=== PATIENT | female | born 1955 | race African-American/Black ===

== ENCOUNTER 2017-08-15 16:09 | Emergency (ER) | payer MEDICAID ==
[~2017-08-15] VITALS: Ht 175.3 cm; Wt 149.7 kg
[2017-08-15 18:39] LABS: INR 0.92 (0.9-1.15); Partial Thromboplastin Time 29.3 sec (22.64-33.71)
[2017-08-15 18:43] LABS: Albumin 3.6 g/dL (3.4-5.0); Alkaline Phosphatase 102 U/L (45-117); Anion Gap 8 (5-15); Aspartate Aminotransferase 25 U/L (15-37); BUN/Creatinine Ratio 16.5; Bilirubin, Total 0.5 mg/dL (0.2-1.0); Blood Urea Nitrogen 17 mg/dL (7-18); Calcium 9.4 mg/dL (8.5-10.1); Carbon Dioxide 27 mmol/L (21-32); Chloride 106 mmol/L (98-107); GFR African American 70 mL/min; GFR Non-African American 58 mL/min; Glucose 81 mg/dL (74-106); Magnesium 2.6 mg/dL (1.6-2.6); Potassium 3.8 mmol/L (3.5-5.1); Sodium 141 mmol/L (136-145); Total Protein 8.2 g/dL (6.4-8.2)
[2017-08-15 18:50] LABS: Basophils # (auto) 0.1 uL; Basophils % (auto) 1.2 % (0.0-2.0); Eosinophils # (auto) 0.2 uL; Eosinophils % (auto) 2.7 % (0.0-7.0); Hematocrit 39.1 % (36.0-46.0); Hemoglobin 12.9 g/dL (12.2-16.2); Lymphocytes # (auto) 2.2 uL; Lymphocytes % (auto) 38.3 % (10.0-50.0); Mean Corpuscular Hemoglobin 28.4 pg (28.0-32.0); Mean Corpuscular Volume 86.1 fL (80.0-100.0); Mean Platelet Volume 9.8 fL (6.9-10.8); Monocytes # (auto) 0.5 uL; Monocytes % (auto) 8.2 % (0.0-12.0); Neutrophils # (auto) 2.9 uL; Neutrophils % (auto) 49.6 % (37.0-80.0); Nucleated Red Blood Cells % 0.2 %; Platelet Count (auto) 232 10^3/uL (140-450); Red Cell Distribution Width 14.5 % (11.8-14.3); White Blood Cell 5.8 10^3/uL (4.4-10.8)
[2017-08-15 19:34] LABS: B-Type Natriuretic Peptide 177.33 pg/mL (0-100)
[2017-08-15 19:49] LABS: Temperature: 22.7 C (20.0-25.0)
[2017-08-15 20:14] VITALS: BP 190/76
[2017-08-15] MEDS ORDERED: IPRATROPIUM BROM 0.5 MG/2.5ML INH SOL HHN ONE (20:30)
[2017-08-15] MEDS ORDERED: methylPREDNISolone SOD SUCC 125 MG/2 ML VL IV ONE (20:30)
[2017-08-15] MEDS ORDERED: ALBUTEROL SULF 2.5 MG/0.5ML(0.5%) NEB SOLN HHN ONE (20:30)
[2017-08-15] MEDS ORDERED: ATEN-60 PO (20:32)
[2017-08-15] MEDS ORDERED: cloNIDine HCL 0.1 MG TAB PO ONE (20:45)
[2017-08-19] MEDS ORDERED: ALBU1AER4 (19:03)
== END 2017-08-15 22:15 | disposition home or self-care (01) ==
LOC: ER 16:14
DX: J40 Bronchitis, not specified as acute or chronic (principal); I10 Essential (primary) hypertension; J45.909 Unspecified asthma, uncomplicated
CPT/HCPCS: 36415; 71020; 80053; 83735; 83880; 84484; 85025; 85610; 85730; 93005; 94640; 94761; 96374; 99285; J2930

== ENCOUNTER 2024-01-24 14:34 | Emergency (ER) | payer MEDICAID, MEDICARE ==
[~2024-01-24] VITALS: Ht 175.3 cm; Wt 132.0 kg
[~2024-01-24 14:34] MED LIST: ALBU1AER4
[2024-01-24 15:56] VITALS: BP 134/69; PULSE 83; RESP 18; TEMP 97; O2SAT 97
[2024-01-24] MEDS ORDERED: BACDST PO (16:16)
== END 2024-01-24 16:22 | disposition home or self-care (01) ==
LOC: ER 14:34
DX: L91.8 Other hypertrophic disorders of the skin (principal); L98.9 Disorder of the skin and subcutaneous tissue, unspecified; I10 Essential (primary) hypertension; J45.909 Unspecified asthma, uncomplicated; Z88.8 Allergy status to other drugs, medicaments and biological substances; Z79.899 Other long term (current) drug therapy

== ENCOUNTER 2024-10-07 18:56 | Inpatient (IN) | payer MEDICARE ==
[~2024-10-07] VITALS: Ht 175.3 cm; Wt 130.1 kg
[~2024-10-07 18:56] MED LIST changes: +BACDST PO
[2024-10-07 19:25] LABS: Basophils # (auto) 0 10 ^3/uL (0-0.2); Basophils % (auto) 0.8 % (0.0-2.0); Eosinophils # (auto) 0.1 10 ^3/uL (0-0.8); Hemoglobin 13.3 g/dL (12.2-16.2); Monocytes # (auto) 0.5 10 ^3/uL (0-1.3); Nucleated Red Blood Cells % 0.3 %; White Blood Cell 5.6 10^3/uL (4.4-10.8)
[2024-10-07 19:26] LABS: Eosinophils % (auto) 1.7 % (0.0-7.0); Hematocrit 41.9 % (36.0-46.0); Lymphocytes # (auto) 0.9 10 ^3/uL (0.4-5.4); Lymphocytes % (auto) 16.3 % (10.0-50.0); Mean Corpuscular Hemoglobin 26.7 pg (28.0-32.0); Mean Corpuscular Hgb Conc. 31.7 g/dL (32.0-36.0); Mean Corpuscular Volume 84.2 fL (80.0-100.0); Monocytes % (auto) 9.1 % (0.0-12.0); Neutrophils % (auto) 72.1 % (37.0-80.0); Platelet Count (auto) 242 10^3/uL (140-450); Red Blood Cells 4.98 10^6/uL (4.0-5.20); Red Cell Distribution Width 16.6 % (11.8-14.3)
--- NOTE | 2024-10-07 19:45 | ED.PDOC ---
History of Present Illness HPI Comments 68 y/o F, with a Hx of asthma, bronchitis, CHF, COPD, DM, HTN, morbid obesity, PNA, and UTI's, presents with c/o shortness of breath and nonproductive cough for 2 weeks. Patient reports unprovoked onset of persisting mild difficulty breathing and cough 2 weeks ago that progressively worsened within the past few days. Patient comments on no recent stress, injuries, sick contact, travel, or substance use/exposure along with no additional relevant or pertinent Hx. Patient denies having any chest pain, dyspnea, hemoptysis, fever, chills, or other associated symptoms or modifiers at this time. Chief Complaint: Shortness of Breath Time Seen by MD: 19:30 Primary Care Provider: PREET Reviewed Notes: Nurses Notes, Medications, Allergies Allergies: Coded Allergies: Benazepril (Verified Allergy, Unknown, 08/15/17) ALL "PRILS" Lisinopril (Verified Allergy, Unknown, 08/15/17) Home Meds Active Scripts Sulfamethoxazole W/Trimethopri (Bactrim Ds Tablet) 1 Tab Tb, 1 TAB PO BID for 7 Days, #14 TAB 0 Refills Prov:YULI DASILVA FISHER GILL NET 01/24/24 Reported Medications Albuterol Sulfate (Proair Respiclick) 108 Mcg/Act Aer 08/19/17 Information Source: Patient Mode of Arrival: Ambulatory Severity: Moderate Timing: Weeks Duration: Since onset Prehospital treatment: None Past Medical History PAST MEDICAL HISTORY: Asthma, CHF, COPD (w/home O2 use), DM, HTN, UTI'S Past Medical History (Other): morbid obesity, bronchitis, PNA Surgical History: Denies all surgeries [employer]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 Family History Family History: Unknown Social History Smoker: Non-Smoker Alcohol: Denies ETOH Use Drugs: Denies Drug Use Lives In: Home Constitutional: denies: chills, diaphoresis, fatigue, fever, malaise, sweats, weakness, others EENTM: denies: blurred vision, double vision, ear bleeding, ear discharge, ear drainage, ear pain, ear ringing, eye pain, eye redness, hearing loss, mouth pain, mouth swelling, nasal discharge, nose bleeding, nose congestion, nose pain, photophobia, tearing, throat pain, throat swelling, voice changes, others Respiratory: reports: cough, shortness of breath; denies: hemoptysis, orthopnea, SOB at rest, SOB with excertion, stridor, wheezing, others Cardiovascular: denies: chest pain, dizzy spells, diaphoresis, Dyspnea on exertion, edema, irregular heart beat, left arm pain, lightheadedness, palpitations, PND, syncope, others Gastrointestinal: denies: abdomen distended, abdominal pain, blood streaked bowels, constipated, diarrhea, dysphagia, difficulty swallowing, hematemesis, melena, nausea, poor appetite, poor fluid intake, rectal bleeding, rectal pain, vomiting, others Genitourinary: denies: abnormal vagina bleeding, burning, dyspareunia, dysuria, flank pain, frequency, hematuria, incontinence, pain, , vagina discharge, urgency, others Neurological: denies: dizziness, fainting, headache, left sided numbness, left sided weakness, numbness, paresthesia, pre-existing deficit, right sided numbness, right sided weakness, seizure, speech problems, tingling, tremors, weakness, others Musculoskeletal: denies: back pain, gout, joint pain, joint swelling, muscle pain, muscle stiffness, neck pain, others Integumetry: denies: bruises, change in color, change in hair/nails, dryness, laceration, lesions, lumps, rash, wounds, others Allergic/Immunocompromised: denies: Difficulty Healing, Frequent Infections, Hives, Itching, others Hematologic/Lymphatic: denies: anemia, blood clots, easy bleeding, easy bruising, swollen glands, others Endocrine: denies: excessive hunger, excessive sweating, excessive thirst, excessive urination, flushing, intolerance to cold, intolerance to heat, unexplained weight gain, unexplained weight loss, others Psychiatric: denies: anxiety, bipolar disorder, depression, hopeless, panic disorder, schizophrenia, sleepless, suicidal, others All Other Systems: Reviewed and Negative Physical Exam General Appearance: No Apparent Distress, Obese HEENT: Normal ENT Inspection, Pharynx Normal, TMs Normal Neck: Full Range of Motion, Non-Tender, Normal, Normal Inspection Respiratory: Chest Non-Tender, No Accessory Muscle Use, Respiratory Distress (mild respiratory distress), Wheezing (scattered wheezing), Other (shallow breathe sounds, tachpneic) Cardiovascular: No Edema, No JVD, No Murmur, No Gallop, Normal Peripheral Pulses, Regular Rate/Rhythm Breast Exam: Deferred Gastrointestinal: No Organomegaly, Non Tender, No Pulsatile Mass, Normal Bowel Sounds, Soft Genitalia: Deferred Pelvic: Deferred Rectal: Deferred Extremities: No calf tenderness, Normal capillary refill, Normal inspection, Normal range of motion, Swelling (3+ pitting edema to bilateral lower extremities ) Musculoskeletal : Apperance: Normal Neurologic: Alert, clinical nurse occupational medicine II-XII nml as Tested, No Motor Deficits, Normal Affect, Normal Mood, No Sensory Deficits Cerebellar Function: Normal Reflexes: Normal Skin: Dry, Normal Color, Warm Peripheral Pulses: 2+ carotid (R), 2+ carotid (L) Lymphatic: No Adenopathy Was a procedure done? Was a procedure done?: No EKG EKG : Pulse Rate (adult): 86 [place]: RAD Cardiac Rhythm: NSR Block: None Hypertrophy: None ST: Normal Differential Dx Considerations may include: bronchitis, PNA, Covid19, URI, viral syndrome, PE CHF exacerbation, ND, ACS X-Ray, Labs, Meds, VS Vital Signs Date Time Temp Pulse Resp B/P (MAP) Pulse Ox O2 Delivery O2 Flow Rate FiO2 10/07/24 20:50 212/105 10/07/24 20:06 99.3 81 22 198/103 (134) 98 99.3 10/07/24 20:02 86 10/07/24 19:13 19 95 Nasal Cannula* 3 32 10/07/24 19:07 86 10/07/24 19:07 98.6 85 19 221/107 (145) 95 Lab Test 10/07/24 19:53 10/07/24 19:07 Range/Units Troponin I High Sensitivity 46 *H 45 *H </=34 ng/L White Blood Count 5.6 4.4-10.8 10^3/uL Red Blood Count 4.98 4.0-5.20 10^6/uL Hemoglobin 13.3 12.2-16.2 g/dL Hematocrit 41.9 36.0-46.0 % Mean Corpuscular Volume 84.2 80.0-100.0 fL Mean Corpuscular Hemoglobin 26.7 L 28.0-32.0 pg Mean Corpuscular Hemoglobin Concent 31.7 L 32.0-36.0 g/dL Red Cell Distribution Width 16.6 H 11.8-14.3 % Platelet Count 242 140-450 10^3/uL Mean Platelet Volume 10.2 6.9-10.8 fL Neutrophils (%) (Auto) 72.1 37.0-80.0 % Lymphocytes (%) (Auto) 16.3 10.0-50.0 % Monocytes (%) (Auto) 9.1 0.0-12.0 % Eosinophils (%) (Auto) 1.7 0.0-7.0 % Basophils (%) (Auto) 0.8 0.0-2.0 % Neutrophils # (Auto) 4.0 1.6-8.6 10 ^3/uL Lymphocytes # (Auto) 0.9 0.4-5.4 10 ^3/uL Monocytes # (Auto) 0.5 0-1.3 10 ^3/uL Eosinophils # (Auto) 0.1 0-0.8 10 ^3/uL Basophils # (Auto) 0 0-0.2 10 ^3/uL Nucleated Red Blood Cells 0.3 % Sodium Level 143 136-145 mmol/L Potassium Level 4.0 3.5-5.1 mmol/L Chloride Level 109 H 98-107 mmol/L Carbon Dioxide Level 23 20-31 mmol/L Anion Gap 11 5-15 Blood Urea Nitrogen 14 9-23 mg/dL Creatinine 1.31 H 0.550-1.02 mg/dL Glomerular Filtration Rate Calc 44 >90 mL/min BUN/Creatinine Ratio 10.7 10.0-20.0 Serum Glucose 104 74-106 mg/dL Calcium Level 10.8 H 8.7-10.4 mg/dL Total Bilirubin 2.4 H 0.2-1.0 mg/dL Aspartate Amino Transferase (AST) 19 13-40 U/L Alanine Aminotransferase (ALT) 18 7-40 U/L Alkaline Phosphatase 119 H 46-116 U/L B-Type Natriuretic Peptide 1095.27 0-100 pg/mL Total Protein 7.6 5.7-8.2 g/dL Albumin 4.8 3.2-4.8 g/dL Current Medications Medications (Trade) Dose Ordered Sig/Sohail Route Start Time Stop Time Status Last Admin Hydralazine HCl (Apresoline Injection) 10 mg ONCE ONCE IV 10/07/24 20:30 10/07/24 20:31 DC 10/07/24 20:50 X-Ray, Labs, Meds, VS Comment Imaging: X-rays and CT scans were reviewed and interpreted by this provider, x- ray shows mild pulmonary congestion Patient will be admitted for CHF exacerbation, hypoxia, requiring 3 L nasal cannula to maintain 94% oxygenation Patient will be started on 60 mg Lasix Patient has prior medical visits reviewed. Med reconciliation performed Vital signs reviewed Time of 1ST Reevaluation: 20:00 Reevaluation 1ST: Improved Patient Education/Counseling: Diagnosis, Treatment Family Education/Counseling: No Family Present Departure 1 Departure Time of Disposition: 20:57 Impression: Primary Impression: Obesity Qualified Codes: E66.9 - Obesity, unspecified Additional Impressions: CHF exacerbation Qualified Codes: I50.23 - Acute on chronic systolic (congestive) heart failure Pulmonary congestion Hypoxia Disposition: ADMITTED INPATIENT Condition: Fair Discharged With: Self Critical Care Note Critical Care Time?: No Stability Stability form required: No Heart Score Heart Score: Heart Score Response (Comments) Value History Moderate Suspicious 1 EKG Normal 0 Age >65 2 Risk Factors >3 or Hx ASHD 2 Troponin 1-2 x's Normal limit 1 Total 6 I personally scribed for WESLEY LEO ([email or web address]) on 10/07/24 at 19:45. Electronically submitted by Lyndon Hanna ([email or web address]). I personally scribed for WESLEY LEO ([email or web address]) on 10/07/24 at 20:02. Electronically submitted by Lyndon Hanna ([email or web address]). WESLEY LEO Oct 07, 2024 19:45
--- NOTE | 2024-10-07 19:47 | DVH ---
CHEST RADIOGRAPH Indication:sob Technique: Single frontal view of the chest was obtained Comparison: None FINDINGS: Lines and Tubes: None Lungs: No focal consolidation. Mild interstitial prominence. Elevated right hemidiaphragm. Indistinct ness of the left hemidiaphragm which may be from overlying cardiac silhouette. No pneumothorax. Cardiomediastinal contours: Moderate cardiomegaly Bones: No acute osseous abnormality. IMPRESSION: Moderate cardiomegaly with mild pulmonary vascular congestion.
[2024-10-07 19:50] LABS: Alanine Aminotransferase 18 U/L (7-40); Alkaline Phosphatase 119 U/L (46-116); Calcium 10.8 mg/dL (8.7-10.4); Chloride 109 mmol/L (98-107)
[2024-10-07 19:51] LABS: Albumin 4.8 g/dL (3.2-4.8); Anion Gap 11 (5-15); Aspartate Aminotransferase 19 U/L (13-40); BUN/Creatinine Ratio 10.7 (10.0-20.0); Bilirubin, Total 2.4 mg/dL (0.2-1.0); Blood Urea Nitrogen 14 mg/dL (9-23); Carbon Dioxide 23 mmol/L (20-31); Glucose 104 mg/dL (74-106); Sodium 143 mmol/L (136-145); Total Protein 7.6 g/dL (5.7-8.2)
[2024-10-07] MEDS: hydrALAZINE HCL 20 MG/ML VL IV ONE (20:50)
[2024-10-07] MEDS: FUROSEMIDE 100 MG/10ML VIAL IV ONE (21:11)
[2024-10-07] MEDS ORDERED: NITROGLYCERIN 0.4 MG SL TAB SL PRN (21:45)
[2024-10-07] MEDS ORDERED: ONDANSETRON HCL 4 MG/2 ML VIAL IV PRN (21:45)
[2024-10-07] MEDS ORDERED: MORPHINE SULFATE INJ 2 MG/ml SYRG IV PRN ×2 (21:45)
[2024-10-07 21:50] VITALS: O2SAT 100
[2024-10-07] MEDS: SODIUM CHLOR 0.9% PF (SALINE LOCK) 10ML VIAL/SYR IV SCH (22:10)
[2024-10-07] MEDS: ENOXAPARIN SOD 40 MG/0.4 ML SYRINGE SC SCH (22:10)
--- NOTE | 2024-10-07 22:23 | DVHHPRES ---
History of Present Illness Resident Creating Document: BART ALCALA RESIDENT History of Present Illness EVE STEWART is a 68 years old female with a PMH of asthma, bronchitis, CHF, COPD, dm, HTN, morbid obesity presented to the ED with the chief complaints of worsening of shortness of breath for past 1 and half week. Patient reported she usually have shortness of breath but for past 1 and half week it is worsening with cough. Patient also reported orthopnea and PND. On my assessment patient denies recent stressors, chest pain, palpitations, fever, chills, sick contacts, any recent injury, substance abuse and other associated symptoms. Past Medical History Asthma, CHF, COPD, DM, HTN, UTI'S, morbid obesity Past Surgical History: None Family History Reviewed, noncontributory Past Social History Lives at home. Denies smoking, alcohol and other drug abuse Review of Systems Constitutional: No: Fever, Chills, Sweats, Weakness, Malaise, Other Eyes: No: Pain, Vision change, Conjunctivae inflammation, Eyelid inflammation, Other, Redness ENT: No: Ear pain, Ear discharge, Nose pain, Nose discharge, Nose congestion, Mouth pain, Mouth swelling, Throat pain, Throat swelling, Other Respiratory: Cough, Shortness of breath, SOB with excertion, Wheezing Cardiovascular: Orthopnea, Paroxysmal Noc. Dyspnea, Edema Gastrointestinal: No: Nausea, Vomiting, Abdominal Pain, Diarrhea, Constipation, Melena, Hematochezia, Other Genitourinary: No Dysuria, No Frequency, No Incontinence, No Hematuria, No Retention, No Other Musculoskeletal: No: other, neck pain, shoulder pain, arm pain, back pain, hand pain, leg pain, foot pain Skin: No: Rash, Lesions, Jaundice, Bruising, Other Neurological: No: Weakness, Numbness, Incoordination, Change in speech, Confusion, Seizures, Other Allergies: Coded Allergies: Benazepril (Verified Allergy, Unknown, 08/15/17) ALL "PRILS" Lisinopril (Verified Allergy, Unknown, 08/15/17) Medications Current Medications Medications Dose Ordered Sig/Sohail Route Start Time Stop Time Status Last Admin Dose Admin Sodium Chloride 10 ml Q8HR IV 10/07/24 22:00 10/07/24 22:10 10 ML Ondansetron HCl 4 mg Q4HP PRN IV 10/07/24 21:45 Acetaminophen 650 mg Q6HP PRN PO 10/07/24 21:45 Morphine Sulfate 2 mg Q4HPRN PRN IV 10/07/24 21:45 Enoxaparin Sodium 40 mg DAILY SC 10/07/24 21:45 10/07/24 22:10 40 MG Nitroglycerin 0.4 mg Q5MINP PRN SL 10/07/24 21:45 Morphine Sulfate 2 mg Q30M PRN IV 10/07/24 21:45 Furosemide 40 mg BIDD IV 10/08/24 06:00 Hydralazine HCl 10 mg Q6HPRN PRN IV 10/07/24 22:00 Albuterol 2.5 mg Q4HPRN PRN NEB 10/07/24 22:15 Exam Vital Signs Vital Signs Date Time Temp Pulse Resp B/P (MAP) Pulse Ox O2 Delivery O2 Flow Rate FiO2 10/07/24 21:11 199/98 10/07/24 20:17 98.1 85 22 96 98.1 10/07/24 19:13 Nasal Cannula* 3 32 Exam Pt is lying on bed General Appearance: Alert, Oriented X3, Cooperative, Not in acute distress HEENT: Atraumatic, Mucous membranes moist/pink Respiratory: Decreased breath sounds, wheezing, use of accessory muscles Cardiovascular: Regular rate, Normal S1, Normal S2, No murmurs Abdominal: Active bowel sounds, Soft, no distention, no tenderness Extremities: 3+ BLE edema, Normal pulses, No tenderness/swelling Skin: No Significant rash, except past surgical scars Neuro: Normal speech, sensorimotor deficits none Psych/Mental Status: Mental status NL, Mood NL Nurse was there as susanne during examination Labs/Xrays Labs Test 10/07/24 19:53 10/07/24 19:07 Range/Units Troponin I High Sensitivity 46 *H </=34 ng/L White Blood Count 5.6 4.4-10.8 10^3/uL Red Blood Count 4.98 4.0-5.20 10^6/uL Hemoglobin 13.3 12.2-16.2 g/dL Hematocrit 41.9 36.0-46.0 % Mean Corpuscular Volume 84.2 80.0-100.0 fL Mean Corpuscular Hemoglobin 26.7 L 28.0-32.0 pg Mean Corpuscular Hemoglobin Concent 31.7 L 32.0-36.0 g/dL Red Cell Distribution Width 16.6 H 11.8-14.3 % Platelet Count 242 140-450 10^3/uL Mean Platelet Volume 10.2 6.9-10.8 fL Neutrophils (%) (Auto) 72.1 37.0-80.0 % Lymphocytes (%) (Auto) 16.3 10.0-50.0 % Monocytes (%) (Auto) 9.1 0.0-12.0 % Eosinophils (%) (Auto) 1.7 0.0-7.0 % Basophils (%) (Auto) 0.8 0.0-2.0 % Neutrophils # (Auto) 4.0 1.6-8.6 10 ^3/uL Lymphocytes # (Auto) 0.9 0.4-5.4 10 ^3/uL Monocytes # (Auto) 0.5 0-1.3 10 ^3/uL Eosinophils # (Auto) 0.1 0-0.8 10 ^3/uL Basophils # (Auto) 0 0-0.2 10 ^3/uL Nucleated Red Blood Cells 0.3 % Sodium Level 143 136-145 mmol/L Potassium Level 4.0 3.5-5.1 mmol/L Chloride Level 109 H 98-107 mmol/L Carbon Dioxide Level 23 20-31 mmol/L Anion Gap 11 5-15 Blood Urea Nitrogen 14 9-23 mg/dL Creatinine 1.31 H 0.550-1.02 mg/dL Glomerular Filtration Rate Calc 44 >90 mL/min BUN/Creatinine Ratio 10.7 10.0-20.0 Serum Glucose 104 74-106 mg/dL Calcium Level 10.8 H 8.7-10.4 mg/dL Total Bilirubin 2.4 H 0.2-1.0 mg/dL Aspartate Amino Transferase (AST) 19 13-40 U/L Alanine Aminotransferase (ALT) 18 7-40 U/L Alkaline Phosphatase 119 H 46-116 U/L B-Type Natriuretic Peptide 1095.27 0-100 pg/mL Total Protein 7.6 5.7-8.2 g/dL Albumin 4.8 3.2-4.8 g/dL Assessment/Plan Assessment/Plan # acute on chronic systolic vs diastolic CHF # acute on chronic hypoxic respiratory failure due to likely above # NSTEMI type 2 likely due to above # ? Asthma exacerbation -elevated BNP, troponins -ordered echocardiogram -CXR showing cardiomegaly with vascular congestion -admitted under telemetry unit, monitor continuous -given 1 dose of Lasix 60 mg, continue Lasix 40 mg from tomorrow -cardiology consultation -initially on 3 L NC O2 but ordered BiPAP for tonight -ordered albuterol med neb as required -strict I&Os and fluid restriction # hypertensive urgency vs emergency -continuously monitored -currently on hydralazine 10 mg p.r.n. # HAYDE likely VMN -monitor lab -strict I&O -fluid restriction # morbid obesity with a BMI 46.6 -counseled regarding lifestyle modifications Lovenox for now No GI be PPX Cardiac diet Goals of care discussed with the patient for more than 27 minutes: Full code status Case management discussed with Dr. Apariico, patient and nurse Plan discussed with: Patient My Orders Orders - BART ALCALA RESIDENT Procedure Category Date Status Time Admit ADMIT 10/07/24 Transmitted 21:40 Allergies ROSSY 10/07/24 In Process 21:40 Code Status CODE 10/07/24 Transmitted 21:40 Sodium Chloride Lock PHA 10/07/24 In Process (Saline Lock Ns) 22:00 Ondansetron Hcl PHA 10/07/24 In Process (Zofran) 21:45 Complete Blood Count LAB 10/08/24 Verified 04:00 Comprehensive LAB 10/08/24 Verified Metabolic Panel 04:00 Cardiac DIET 10/08/24 Transmitted Diet-2gna,Lofat,Lochol Breakfast Echo 2d Mode Cardiac US 10/07/24 Logged DOP 21:40 Acetaminophen Tablet PHA 10/07/24 In Process (Tylenol Tablet) 21:45 Morphine Sulfate PHA 10/07/24 In Process Injection 21:45 Enoxaparin Sodium PHA 10/07/24 In Process (Lovenox) 21:45 Nitroglycerin PHA 10/07/24 In Process Sublingual (Ntrostat 21:45 Morphine Sulfate PHA 10/07/24 In Process Injection 21:45 Oxygen By Nasal RT 10/07/24 Transmitted Cannula 21:40 Stat Ekg For Chest ROSSY 10/07/24 In Process Pain 21:40 Notify Of Changes ROSSY 10/07/24 In Process From Base 21:40 Office Nurse Practitioner For ROSSY 10/07/24 In Process 24 Hours 21:40 Emergency Dysrhythmia ROSSY 10/07/24 In Process Protocol 21:40 Rhythm Strips Once [facility] 10/07/24 In Process Every Shift 21:40 BIPAP RT 10/07/24 Logged 21:40 Abg W/ Co-Ox RT 10/07/24 Logged 23:00 Furosemide Injection PHA 10/08/24 In Process (Lasix Injection) 06:00 Hydralazine Injection PHA 10/07/24 In Process (Apresoline Inject 22:00 Albuterol Medneb PHA 10/07/24 In Process (Ventolin Medneb) 22:15 Strict I & O [facility] 10/07/24 Transmitted 22:09 Maintain Fluid [facility] 10/07/24 Transmitted Restrictions 22:09 Date of Service: Oct 07, 2024 Billing Provider: HARRY APARICIO MD Common Visit Codes: 04541-[id number] INP/OBS CARE (HIGH) Secondary Visit Codes: 69520-[id number] CARE PLAN 30 MINUTES BART ALCALA RESIDENT Oct 07, 2024 22:23 HARRY APARICIO MD Oct 08, 2024 18:17
[2024-10-07 22:30] VITALS: BP 193/90; PULSE 76; RESP 22; TEMP 98.1; O2SAT 95
[2024-10-07] MEDS: hydrALAZINE HCL 20 MG/ML VL IV PRN (22:33)
[2024-10-07 22:53] VITALS: O2SAT 96
[2024-10-07] MEDS: ALBUTEROL SULF 2.5 MG/0.5ML(0.5%) NEB SOLN NEB PRN (22:53)
[2024-10-07] MEDS: IPRATROPIUM BROM 0.5 MG/2.5ML INH SOL NEB ONE (22:53)
[2024-10-07 23:03] VITALS: PULSE 85; RESP 28; O2SAT 94
[2024-10-07 23:10] VITALS: O2SAT 96
[2024-10-07 23:31] LABS: Base Excess -2.8 mmol/L (-2.0-3.0)
[2024-10-08] VITALS (29 sets, daily range): BP systolic 128–202; BP diastolic 55–118; PULSE 55–127; RESP 18–40; TEMP 98.8; O2SAT 89–100
[2024-10-08] MEDS: cloNIDine 0.2 mg/24hr 7DAY PATCH TD ONE (00:04)
[2024-10-08] MEDS: cloNIDine HCL 0.1 MG TAB PO ONE (01:02)
[2024-10-08] MEDS: LORazepam 2MG/ML-1ML VIAL IV ONE (03:03)
[2024-10-08] MEDS: MAGNESIUM SULFATE 1GM/100ML 100 ML IV ONE (03:45)
[2024-10-08 04:43] LABS: Basophils # (auto) 0 10 ^3/uL (0-0.2); Basophils % (auto) 0.6 % (0.0-2.0); Eosinophils # (auto) 0 10 ^3/uL (0-0.8); Eosinophils % (auto) 0.4 % (0.0-7.0); Hematocrit 37.4 % (36.0-46.0); Hemoglobin 12.1 g/dL (12.2-16.2); Lymphocytes # (auto) 0.9 10 ^3/uL (0.4-5.4); Lymphocytes % (auto) 12.2 % (10.0-50.0); Mean Corpuscular Hemoglobin 27.3 pg (28.0-32.0); Mean Corpuscular Hgb Conc. 32.3 g/dL (32.0-36.0); Mean Corpuscular Volume 84.5 fL (80.0-100.0); Monocytes # (auto) 0.7 10 ^3/uL (0-1.3); Monocytes % (auto) 9.3 % (0.0-12.0); Neutrophils # (auto) 5.6 10 ^3/uL (1.6-8.6); Neutrophils % (auto) 77.5 % (37.0-80.0); Nucleated Red Blood Cells % 0.1 %; Platelet Count (auto) 201 10^3/uL (140-450); Red Blood Cells 4.42 10^6/uL (4.0-5.20); Red Cell Distribution Width 16.4 % (11.8-14.3); White Blood Cell 7.3 10^3/uL (4.4-10.8)
[2024-10-08 05:01] LABS: INR 1.12 (0.9-1.15); Partial Thromboplastin Time 24.8 SEC (24.5-34.5); Prothrombin Time 11.8 sec (9.3-11.8)
[2024-10-08 05:05] LABS: Alanine Aminotransferase 16 U/L (7-40); Albumin 4.2 g/dL (3.2-4.8); Alkaline Phosphatase 101 U/L (46-116); Anion Gap 7 (5-15); Aspartate Aminotransferase 20 U/L (13-40); BUN/Creatinine Ratio 11.2 (10.0-20.0); Bilirubin, Total 1.9 mg/dL (0.2-1.0); Blood Urea Nitrogen 14 mg/dL (9-23); Calcium 10.2 mg/dL (8.7-10.4); Carbon Dioxide 26 mmol/L (20-31); Chloride 110 mmol/L (98-107); Glucose 121 mg/dL (74-106); Potassium 4.2 mmol/L (3.5-5.1); Sodium 143 mmol/L (136-145); Total Protein 6.7 g/dL (5.7-8.2)
[2024-10-08] MEDS ORDERED: NITROGLYCERIN 50MG/250ML 250 ML IV SCH (05:45)
[2024-10-08] MEDS ORDERED: FUROSEMIDE 40 MG/4 ML VIAL IV SCH (06:00)
[2024-10-08 06:05] LABS: Base Excess -0.6 mmol/L (-2.0-3.0)
[2024-10-08] MEDS: ETOMIDATE (2MG/ML) 20ML VIAL IV ONE (07:47)
[2024-10-08] MEDS: ROCURONIUM 10MG/ML 10ML VIAL IV ONE (07:48)
[2024-10-08] MEDS: MIDAZOLAM DRIP 50 mg/50mL 50 ML IV SCH (07:49)
[2024-10-08] MEDS: LABETALOL HCL 20 MG/4 ML VL IV ONE ×2 (08:36→08:47)
[2024-10-08] MEDS: FUROSEMIDE INJECTION 10 ML ONE (08:36)
[2024-10-08] MEDS: FUROSEMIDE INJECTION 100 MG in SODIUM CHL 0.9% 100 ML IV SCH (08:48)
[2024-10-08] MEDS: DOPamine 1600MCG/ML D5W 250 ML IV SCH (09:10)
[2024-10-08] MEDS ORDERED: DOPamine 1600MCG/ML D5W 250 ML IV SCH (09:15)
--- NOTE | 2024-10-08 09:37 | DVH ---
CHEST RADIOGRAPH Indication:post intubation, central line Technique: Single frontal view of the chest was obtained COMPARISON: XY CHEST PORTABLE on DOS: 10/07/24 FINDINGS: Lines and Tubes: Endotracheal tube, enteric catheter and right central venous catheter in satisfactor y position. Lungs: Multifocal airspace disease. Pleura: No effusion. No pneumothorax. Cardiomediastinal contours: Unremarkable Bones: Unremarkable IMPRESSION: Lines and tubes in satisfactory position.
[2024-10-08] MEDS: DOPamine 1600MCG/ML D5W 250 ML IV ONE (09:56)
[2024-10-08] MEDS: metOLazone 5 MG TAB PO SCH (10:00)
[2024-10-08] MEDS: NITROGLYCERIN 50MG/250ML 250 ML IV SCH (10:00)
[2024-10-08] MEDS: fentaNYL Drip 2500mCg/250mlNS 250 ML IV SCH (10:14)
[2024-10-08 10:27] LABS: Base Excess -2.5 mmol/L (-2.0-3.0)
--- NOTE | 2024-10-08 11:18 | DVH ---
BILATERAL LOWER EXTREMITY VENOUS DOPPLER CLINICAL HISTORY: rule out dvt Technique: Duplex Doppler evaluation of the deep venous systems of both lower extremities from the co mmon femoral veins to the popliteal veins including color Doppler and spectral/pulsed waveform analys is was performed. COMPARISON: None FINDINGS: The right and left common femoral, superficial femoral, popliteal, posterior tibial and peroneal vein s appear patent with normal augmentation, phasicity, compressibility and color-flow. IMPRESSION: 1. There is no sonographic evidence for DVT in the lower extremities. HS:Y
[2024-10-08 11:22] LABS: Urine Bacteria None Seen /hpf (None Seen)
--- NOTE | 2024-10-08 11:40 | DVHPNRES ---
Progress Note Date Seen: Oct 08, 2024 Resident Creating Document: ANTONIETTA MORRIS RESIDENT Medical Necessity Reason Pt with a Central, PICC or Fol: Yes The following are medically ne: PICC Line, Nova Catheter Subjective Review of Systems A 68y old with PMHx asthma, CHF, DM, HTN and obesity who came to ED due to SOB at rest, orthopena and PND for 2 weeks associated with cough according to the sister. No chest pain No other symptoms. According to the sister, patient was uncompliant with medical visits At admission: elevated BP, respiratory distress At assessment 10/08/24 at 7 am: tachypneic on O2 high flow, case discussed with ED, patient was intubated and due to high blood pressure: 270/ 130: labetalol was given and furosemide drip was started Also patient presented with elevated troponins Objective vital signs Vital Sign Date Time Temp Pulse Resp B/P (MAP) Pulse Ox O2 Delivery O2 Flow Rate FiO2 10/08/24 11:00 156/72 10/08/24 10:38 75 20 97 60 10/08/24 07:20 Hi-Flow Heated NC+ 50 10/08/24 07:20 98.7 98.7 Total Intake and Output 10/07/24 10/07/24 10/08/24 14:59 22:59 06:59 Intake Total 100 ml Output Total 3000 ml Balance -2900 ml medications Current Medications Medications Dose Ordered Sig/Sohail Route Start Time Stop Time Status Last Admin Dose Admin Sodium Chloride 10 ml Q8HR IV 10/07/24 22:00 10/08/24 06:00 10 ML Ondansetron HCl 4 mg Q4HP PRN IV 10/07/24 21:45 Acetaminophen 650 mg Q6HP PRN PO 10/07/24 21:45 Morphine Sulfate 2 mg Q4HPRN PRN IV 10/07/24 21:45 Enoxaparin Sodium 40 mg DAILY SC 10/07/24 21:45 10/08/24 11:16 40 MG Nitroglycerin 0.4 mg Q5MINP PRN SL 10/07/24 21:45 Morphine Sulfate 2 mg Q30M PRN IV 10/07/24 21:45 Hydralazine HCl 10 mg Q6HPRN PRN IV 10/07/24 22:00 10/07/24 22:33 10 MG Albuterol 2.5 mg Q4HPRN PRN NEB 10/07/24 22:15 10/08/24 06:39 2.5 MG Furosemide 100 mg/ Sodium Chloride 110 ml @ 4.4 mls/hr Q24H IV 10/08/24 07:15 10/08/24 08:48 4.4 MLS/HR Metolazone 5 mg DAILY PO 10/08/24 10:00 Midazolam HCl 50 ml @ 1 mls/hr Q24H IV 10/08/24 07:30 10/08/24 07:49 1 MLS/HR Nitroglycerin 250 ml @ 1.5 mls/hr Q24H IV 10/08/24 09:00 Dopamine HCl/ Dextrose 250 ml @ 26.831 mls/ hr Q9H20M IV 10/08/24 09:15 UNV 10/08/24 09:10 26.831 MLS/HR Fentanyl Citrate 250 ml @ 2.5 mls/hr Q24H IV 10/08/24 10:00 10/08/24 10:14 2.5 MLS/HR Ceftriaxone Sodium 50 ml @ 100 mls/hr DAILY@09 IV 10/09/24 09:00 Azithromycin 250 ml @ 125 mls/hr DAILY IV 10/09/24 10:00 Future Hold Examination Pt in acute respiratory distress HEENT: Atraumatic, Mucous membranes moist/pink Respiratory: Decreased breath sounds, crackles bi basal use of accessory muscles Cardiovascular: Regular rate, Normal S1, Normal S2, No murmurs Abdominal: , Soft, no distention, no tenderness Extremities: 3+ BLE edema, Normal pulses, Skin: No Significant rash, except past surgical scars Neuro: Normal speech, sensorimotor deficits none Psych/Mental Status: Mental status NL, Mood NL laboratory and microbiology Laboratory Tests 10/08/24 04:29 Test 10/08/24 04:29 Range/Units Serum Glucose 121 H 74-106 mg/dL Problem List/Assessment/Plan Problem List/Assessment/Plan NEUROLOGY Hypertensive emergency resolved Head CT scan: 1. No acute intracranial process. 2. Bilateral orbital globe proptosis. Pt is on sedation RASS -3 CARDIOLOGY Acute respiratory failure due to acute systolic heart failure, ARDS and possible pneumonia Pt was in mayor respiratory distress: intubated New ECHO: Severely dilated left ventricle. Severely reduced left ventricular systolic function estimated ejection fraction 20%. There is global wall akinesia Mildly dilated right ventricle. Mildly reduced right ventricular systolic function. Moderately dilated right and left atria. Normal aortic valve structure and function. Normal mitral valve structure and function. The the tricuspid valve appears normal structure and function. The pulmonary valve is grossly normal. No pericardial effusion. Furosemide drip Metolazone Per cardiology: metoprolol 25 mg Hypertensive urgency resolved Hydralazine PRN NSTEMI? Elevated troponins Trending high: 45 - 46 - 49 - 125 Cardiology on board PULMONARY Acute respiratory failure due to acute systolic heart failure, ARDS and possible pneumonia sepsis due to pneumonia gram + /gram neg vent settings: Fio2 60 TV 500 PEEP 5 RR 20 pH 7.38 PO2 85.6 co2 43 PE was ruled out CT scan: 1. No pulmonary embolism. 2. Bibasilar atelectasis and consolidation. Superimposed pneumonia is not excluded. Moderate right pleural effusion. Mediastinal lymphadenopathy could be reactive. Ceftriaxone Azithromycin Hydrocortisone 100 mg q 12h GI Hold on feedings at the moment Transaminitis Billirubin are trending high, normal rest of liver panel f/u RENAL/ HAYDE hemodinamically mediated continue furosemide drip Creatinine is slighlty trending high: 1.42 hold on fluids ENDOCRINOLOGY Proptosis H/o of thyroid tumors?? In patient TSH 1.2 - 2.31 Free t4 and t3 ordered hba1c normal DVT prophylaxis: enoxaparin PUD prophylaxis: protonix Case discussed with Dr Suárez Time spent on critical care excluding procedures 82 min Plan discussed with: Patient, Other (rn) My Orders My Orders Orders - ANTONIETTA MORRIS Procedure Category Date Status Time Chest Xray 1 View XY 10/08/24 Resulted 09:[address] 10/08/24 Logged 09:[address] 10/08/24 Logged Contrast 10:26 Bilat Lower Dvt US 10/08/24 Resulted 10:26 Covid19 Antigen [facility] 10/08/24 In Process Rapid Influenza A&B LAB 10/08/24 In Process 10:27 Ceftriaxone 1gm/50ml PHA 10/09/24 In Process D5w (Rocephin) 09:00 Azithromycin 500mg/ PHA 10/09/24 In Process 250ml (Zithromax 50 10:00 * Cardiology Consult CONS 10/08/24 Transmitted 10:46 Ventilator Orders RT 10/08/24 Transmitted 11:33 Communication Order ORDERS 10/08/24 Transmitted 11:34 Abg W/ Co-Ox RT 10/08/24 Logged 13:00 Date of Service: Oct 08, 2024 Billing Provider: JOSUE SUÁREZ MD Common Visit Codes: 20088-[id number] CARE 30-74 MIN ANTONIETTA MORRIS RESIDENT Oct 08, 2024 11:40 JOSUE SUÁREZ MD Oct 09, 2024 13:22
--- NOTE | 2024-10-08 11:40 | DVHNC2 ---
Procedure - A time out was performed. My hands were washed immediately prior to the procedure. I wore a surgical cap, mask with protective eyewear, full gown and sterile gloves throughout the procedure. The patient was placed in Trendelenburg position. The Right neck was prepped using chlorhexidine scrub and draped in sterile fashion using a three quarter sheet drape and sterile towels. Skin preparation was allowed to dry prior to skin puncture. Anatomic landmarks were identified. . Using real-time ultrasound, with sterile probe cover and sterile gel, the introducer needle was inserted into the vein under direct ultrasound visualization. Venous blood was withdrawn. The syringe was removed and a guidewire was advanced into the introducer needle. The guidewire was visualized in the appropriate vein by ultrasound. A small incision was made at the skin surface with a scalpel and the introducer needle was exchanged for a dilator over the guidewire. After appropriate dilation was obtained, the dilator was exchanged over the wire for an central venous catheter. The wire was removed and the catheter was sutured in place at 17 cm. A biopatch was placed at the insertion site. A sterile op-site was placed over the catheter and biopatch. The patient tolerated the procedure without any hemodynamic compromise. At time of procedure completion, all ports aspirated and flushed properly. x ray tip on position no pneumothorax [employer] Farmer: ANTONIETTA Mcnulty RESIDENT Oct 08, 2024 11:40
--- NOTE | 2024-10-08 11:41 | DVHNC2 ---
Procedure - A time out was performed. My hands were washed immediately prior to the procedure. I. The patient was placed on a telemetry monitor including continuous pulse oximetry. Rapid Sequence Intubation was conducted. The patient received 20 mg of etomidate for induction and 100 mg of rocuronium for adequate paralysis. induction agent was given to time of cuff balloon inflation. Using a glidescope and a size 8 endotracheal tube with stylet, the patient was intubated on the 1 attempt. The stylet was removed and cuff balloon was inflated. Appropriate endotracheal tube position was confirmed by direct visualization of vocal cord passage, fogging of the tube, CO2 colormetric indicator and symmetric breath sounds. The tube was secured at the lips. Post intubation chest x-ray done with tube in adequate position Telegraph Lineman: ANTONIETTA Mcnulty RESIDENT Oct 08, 2024 11:41
[2024-10-08 11:43] LABS: Urine Blood 2+ /uL (Negative); Urine Clarity Clear (Clear); Urine Color Light-Yellow (Yellow); Urine Mucus FEW (None Seen); Urine Protein, UAD 1+ (Negative); Urine Specific Gravity 1.009 (1.001-1.035); Urine Urobilinogen Normal (Negative); Urine WBC 3 /hpf (0 - 5)
[2024-10-08 11:52] LABS: Amphetamine Screen, Urine Neg (NEGATIVE); Barbiturate Scree,Urine Neg (NEGATIVE); Benzodiazephine Screen, Urine Pos (NEGATIVE); Cannabinoid Screen, Urine Neg (NEGATIVE); Cocaine Screen, Urine Neg (NEGATIVE); Opiate Scree,Urine Neg (NEGATIVE); Phencyclidine Screen, Urine Neg (NEGATIVE)
[2024-10-08 12:21] LABS: Base Excess 0.2 mmol/L (-2.0-3.0)
[2024-10-08 12:36] LABS: Rapid Influenza A Negative (Negative); Rapid Influenza B Negative (Negative)
[2024-10-08 12:37] LABS: COVID19 ANTIGEN SOFIA FIA NEGATIVE (NEGATIVE)
[2024-10-08] MEDS: IOHEXOL 350 MG/ML 100ML IJ ONE (12:44)
--- NOTE | 2024-10-08 12:52 | ECG ---
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
--- NOTE | 2024-10-08 13:02 | DVH ---
EXAM: CT HEAD WITHOUT CONTRAST HISTORY: hypertensive emergency COMPARISON: None TECHNIQUE: [Technique] Axial images of the head were obtained and reformatted in coronal and sagittal planes. All CT scans at this medical facility are performed using dose modulation techniques as appropriate t o a performed exam including the following: Automated exposure control was utilized; adjustment of th e MA and/or KV according to patient size; and use of iterative reconstruction technique. CT Dose: CTDI volume is 27 mGy. Dose-length product is 1987 mGy*cm FINDINGS: [Findings] There is no evidence of acute intracranial hemorrhage, mass, mass effect midline shift. There is no h ydrocephalus or extra-axial fluid collection. There are chronic microvascular ischemic changes in the supratentorial white matter. Garcia-white matter differentiation appears maintained.. There is bilateral orbital globe proptosis. There is hypertrophy of the retrobulbar fat. The visualized paranasal sinuses and mastoid air cells are clear. The calvarium is intact. IMPRESSION: 1. No acute intracranial process. 2. Bilateral orbital globe proptosis. Findings May relate to thyroid orbitopathy. Clinical and labora tory correlation is recommended. HS:Y
--- NOTE | 2024-10-08 13:07 | DVH ---
CTA Chest with intravenous contrast INDICATION: rule out pe COMPARISON: None TECHNIQUE: Multidetector spiral CTA of the chest was performed of the chest with intravenous contrast . PULMONARY ANGIOGRAPHY PROTOCOL was utilized using a bolus-tracking technique centered on the main p ulmonary artery. Axial, coronal and sagittal multiplanar and MIP reformats were performed. CONTRAST: Type of contrast: Omni 350 Contrast injected: 100 ml Radiation dose : Chest: CTDI volume is 100 mGy. Dose-length product is 1987 mGy*cm The dose indicators for CT are the volume computed Tomography (CT) dose Index (CTDIvol) and the dose Length product (DLP), and are measured in units of mGy and mGy-cm, respectively. These indicators are not patient dose, but values generated from the CT scanner acquisition factors. The report includes radiation exposure data for exposures received during this examination. Findings: Pulmonary artery: No pulmonary embolism Lower neck: Endotracheal tube in place. Nasogastric tube in place. Lungs: Moderate right pleural effusion. Bibasilar atelectasis and consolidation. Heart/Vascular Structures: Normal heart size. No pericardial effusion. Lymph Nodes: Precarinal lymph node measuring up to 12 mm in short axis. Pleura: Right pleural effusion as above Musculoskeletal: No acute osseous abnormality. Soft tissues: Normal. Upper abdomen: Limited portions of the upper abdomen are unremarkable. IMPRESSION: 1. No pulmonary embolism. 2. Bibasilar atelectasis and consolidation. Superimposed pneumonia is not excluded. Moderate right pleural effusion. Mediastinal lymphadenopathy could be reactive. HS:Y
--- NOTE | 2024-10-08 13:29 | DVHSR ---
APPROVED REPORT EXAM: Two-dimensional and M-mode echocardiogram with Doppler and color Doppler. Blood Pressure: 164/76 mmHg INDICATION CHF exacerbation RISK FACTORS Height: 69, Weight: 315 DIMENSIONS LVDd5.7 (3.8-5.7cm)LA (2D)5.0 (1.9-4.0cm)Aortic Root3.2 (2.0-3.7cm) LVDs4.9 (2.5-4.0cm)LA (MM) (1.9-4.0cm)Aortic Cusp Exc1.4 (1.5-2.0cm) EF (%) 30.0 (55-70%)Rt. Atrium5.7 (1.9-4.0cm)Asc. Aorta cm IVSd1.2 (0.7-1.1cm)RV (D) (1.8-2.4cm) PWd1.3 (0.7-1.1cm) Mitral Valve MitralMitral Stenosis E wave0.87m/sMV Mean GR.mmHg A wave0.72m/sMV Peak GR.85mmHg E/A ratio1.22D MVAcm2 DECEL [id number] 1/2 [id number] IVRTmsDop MVA2.99cm2 Aortic Valve Aortic ValveAortic Stenosis V11.12m/Johnna Mean GR.6mmHg V21.67m/Johnna Peak GR.11mmHg LVOT Diameter2.1 (1.8-2.4cm)Doppler AVA2.32cm2 Pulmonic Valve V21.00m/s Tricuspid Valve TR Velocity2.87m/s [id number] Other Information Technically limited study due to body habitus, patient position and patient on a vent. Conclusion Severely dilated left ventricle. Severely reduced left ventricular systolic function estimated eject ion fraction 20%. There is global wall akinesia Mildly dilated right ventricle. Mildly reduced right ventricular systolic function. Moderately dilated right and left atria. Normal aortic valve structure and function. Normal mitral valve structure and function. The the tricuspid valve appears normal structure and function. The pulmonary valve is grossly normal. No pericardial effusion.
--- NOTE | 2024-10-08 15:09 | DVHINCON2 ---
Date Seen: Oct 08, [address] Mueller Reason for Consultation CHF exacerbation History of Present Illness 68-year-old female patient with past medical history of asthma, chronic bronchitis, congestive heart failure, chronic obstructive pulmonary disease, type 2 diabetes, hypertension, morbid obesity. She presents to the hospital with progressively worsening shortness of breath over the past 10 days accom panied by a productive cough, orthopnea and paroxysmal nocturnal dyspnea. Upon initial assessment her blood pressure was critically elevated on 257/150 mmHg and by 12:00 a.m. her blood pressure was decreased until 150/60 following medical intervention. Laboratory workup revealed elevated troponin on 46 and 49 respectively, suggestive of myocardial strain. Toxicology screening was positive for fentanyl and benzodiazepines likely administered during intubation. Due to acute hypoxemic respiratory failure the patient was intubated. Cardiology team was consulted because of the increase in the troponin levels likely due to demand ischemia due to hypertensive crisis. Recent echocardiogram showed severely dilated left ventricle. Severely reduced left ventricular systolic function estimated ejection fraction 20%. There is global wall akinesia Past Medical History asthma chronic bronchitis congestive heart failure chronic obstructive pulmonary disease type 2 diabetes hypertension morbid obesity. 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 ROD TAPE OPERATOR 01/24/24 Reported Medications Albuterol Sulfate (Proair Respiclick) 108 Mcg/Act Aer 08/19/17 Current Medications Current Medications Medications (Trade) Dose Ordered Sig/Sohail Route PRN Reason Start Time Stop Time Status Last Admin Sodium Chloride (Saline Lock Ns) 10 ml Q8HR IV 10/07/24 22:00 10/08/24 14:03 Ondansetron HCl (Zofran) 4 mg Q4HP PRN IV NAUSEA / VOMITING 10/07/24 21:45 Acetaminophen (Tylenol Tablet) 650 mg Q6HP PRN PO PAIN SCALE 1-3 OR TEMP>100.4 10/07/24 21:45 Morphine Sulfate 2 mg Q4HPRN PRN IV SEVERE PAIN (7-10 PAIN SCALE) 10/07/24 21:45 Enoxaparin Sodium (Lovenox) 40 mg DAILY SC 10/07/24 21:45 10/08/24 11:16 Nitroglycerin (Ntrostat Sublingual) 0.4 mg Q5MINP PRN SL FOR CHEST PAIN 10/07/24 21:45 Morphine Sulfate 2 mg Q30M PRN IV FOR CHEST PAIN 10/07/24 21:45 Furosemide (Lasix Injection) 40 mg BIDD IV 10/08/24 06:00 10/08/24 07:21 DC Hydralazine HCl (Apresoline Injection) 10 mg Q6HPRN PRN IV SBP>150 10/07/24 22:00 10/07/24 22:33 Albuterol (Ventolin Medneb) 2.5 mg Q4HPRN PRN NEB SHORTNESS OF BREATH 10/07/24 22:15 10/08/24 06:39 Nitroglycerin 250 ml @ 1.5 mls/hr Q24H IV 10/08/24 05:45 10/08/24 07:27 DC Furosemide 100 mg/ Sodium Chloride 110 ml @ 4.4 mls/hr Q24H IV 10/08/24 07:15 10/08/24 08:48 Metolazone (Zaroxolyn) 5 mg DAILY PO 10/08/24 10:00 Midazolam HCl 50 ml @ 1 mls/hr Q24H IV 10/08/24 07:30 10/08/24 13:38 Nitroglycerin 250 ml @ 1.5 mls/hr Q24H IV 10/08/24 09:00 Dopamine HCl/ Dextrose 250 ml @ 26.831 mls/ hr Q9H20M IV 10/08/24 09:15 10/08/24 09:38 DC Dopamine HCl/ Dextrose 250 ml @ 26.831 mls/ hr Q9H20M IV 10/08/24 09:15 UNV 10/08/24 09:10 Fentanyl Citrate 250 ml @ 2.5 mls/hr Q24H IV 10/08/24 10:00 10/08/24 10:14 Ceftriaxone Sodium 50 ml @ 100 mls/hr DAILY@09 IV 10/09/24 09:00 Azithromycin 250 ml @ 125 mls/hr DAILY IV 10/09/24 10:00 Future Hold Hydrocortisone Sodium Succinate (Solu-CORTEF INJECTION) 100 mg Q12HR IV 10/08/24 22:00 Review of Systems Patient is intubated Vital Signs Vital Signs Date Time Temp Pulse Resp B/P (MAP) Pulse Ox O2 Delivery O2 Flow Rate FiO2 10/08/24 14:18 67 20 138/56 (83) 98 55 10/08/24 07:20 Hi-Flow Heated NC+ 50 10/08/24 07:20 98.7 98.7 Physical Exam Examination General Appearance: Patient is intubated Respiratory: Decreased breath sounds, wheezing, crackles bilaterally Cardiovascular: Regular rate, Normal S1, Normal S2 Abdominal: Normal bowel sounds Extremities: No cyanosis,Normal pulses, No tenderness/swelling Skin: No rashes, No breakdown Labs/Diagnostic Data Labs Test 10/08/24 12:16 10/08/24 11:14 10/08/24 11:13 10/08/24 10:20 Range/Units Blood Gas Specimen Type Arterial Blood Gas Sample Site Right radial Blood Gas Patient Temperature 37.0 Arterial Blood Date Drawn Arterial Blood pH 7.385 7.350-7.450 Arterial Blood Partial Pressure CO2 43.4 32.0-45.0 mmHg Arterial Blood Partial Pressure O2 85.6 83.0-108.0 mmHg Arterial Blood HCO3 25.4 21.0-28.0 mmol/L Arterial Blood Oxygen Saturation 96.3 94.0-98.0 % Arterial Blood Base Excess 0.2 -2.0-3.0 mmol/L Arterial Blood Oxyhemoglobin 94.8 94.0-98.0 % Arterial Blood Carboxyhemoglobin 1.0 0.5-1.5 % Arterial Blood Methemoglobin 0.6 0.0-1.5 % Ankit Test Modified Blood Gas Total Hemoglobin 12.30 12.0-16.0 g/dL Blood Gas Set Respiration Rate 20.0 Blood Gas Modality Vent - ac FiO2 % 60.0 Blood Gas Tidal Volume 500.0 Blood Gas PEEP or CPAP 5.0 Influenza Type A Antigen Negative Negative Influenza Type B Antigen Negative Negative SARS-CoV-2 Antigen (Rapid) Negative NEGATIVE Urine Color Light-yellow Yellow Urine Clarity Clear Clear Urine pH 5.0 5.0-9.0 Urine Specific Kirby 1.009 1.001-1.035 Urine Protein 1+ H Negative Urine Ketones Negative Negative Urine Blood 2+ H Negative /uL Urine Nitrite Negative Negative Urine Bilirubin Negative Negative Urine Urobilinogen Normal Negative mg/dL Urine Leukocyte Esterase Negative Negative /uL Urine RBC 55 0 - 4 /hpf Urine WBC 3 0 - 5 /hpf Urine Squamous Epithelial Cells Few <5 /hpf Urine Bacteria None seen None Seen /hpf Urine Mucus Few None Seen Urine Glucose Normal Normal mg/dL Urine Opiates Screen Neg NEGATIVE Urine Fentanyl Screen Pos NEGATIVE Urine Barbiturates Screen Neg NEGATIVE Urine Phencyclidine Screen Neg NEGATIVE Urine Amphetamines Screen Neg NEGATIVE Urine Benzodiazepines Screen Pos NEGATIVE Urine Cocaine Screen Neg NEGATIVE Urine Cannabinoids Screen Neg NEGATIVE Blood Gas Critical Value Read Back Yes Blood Gas Notified Whom Blood Gas Notified Time [id number] Blood Gas Notified By Arcade Technician meredith Ribera 10/08/24 05:57 10/08/24 04:29 10/07/24 22:56 10/07/24 22:27 Range/Units Blood Gas Liter Flow 50.00 White Blood Count 7.3 # 4.4-10.8 10^3/uL Red Blood Count 4.42 4.0-5.20 10^6/uL Hemoglobin 12.1 L 12.2-16.2 g/dL Hematocrit 37.4 # 36.0-46.0 % Mean Corpuscular Volume 84.5 80.0-100.0 fL Mean Corpuscular Hemoglobin 27.3 L 28.0-32.0 pg Mean Corpuscular Hemoglobin Concent 32.3 32.0-36.0 g/dL Red Cell Distribution Width 16.4 H 11.8-14.3 % Platelet Count 201 140-450 10^3/uL Mean Platelet Volume 10.1 6.9-10.8 fL Neutrophils (%) (Auto) 77.5 37.0-80.0 % Lymphocytes (%) (Auto) 12.2 10.0-50.0 % Monocytes (%) (Auto) 9.3 0.0-12.0 % Eosinophils (%) (Auto) 0.4 0.0-7.0 % Basophils (%) (Auto) 0.6 0.0-2.0 % Neutrophils # (Auto) 5.6 1.6-8.6 10 ^3/uL Lymphocytes # (Auto) 0.9 0.4-5.4 10 ^3/uL Monocytes # (Auto) 0.7 0-1.3 10 ^3/uL Eosinophils # (Auto) 0 0-0.8 10 ^3/uL Basophils # (Auto) 0 0-0.2 10 ^3/uL Nucleated Red Blood Cells 0.1 % Prothrombin Time 11.8 9.3-11.8 sec Prothrombin Time INR 1.12 0.9-1.15 Activated Partial Thromboplast Time 24.8 24.5-34.5 SEC Sodium Level 143 136-145 mmol/L Potassium Level 4.2 3.5-5.1 mmol/L Chloride Level 110 H 98-107 mmol/L Carbon Dioxide Level 26 20-31 mmol/L Anion Gap 7 5-15 Blood Urea Nitrogen 14 9-23 mg/dL Creatinine 1.25 H 0.550-1.02 mg/dL Glomerular Filtration Rate Calc 47 >90 mL/min BUN/Creatinine Ratio 11.2 10.0-20.0 Serum Glucose 121 H 74-106 mg/dL Calcium Level 10.2 8.7-10.4 mg/dL Total Bilirubin 1.9 H 0.2-1.0 mg/dL Aspartate Amino Transferase (AST) 20 13-40 U/L Alanine Aminotransferase (ALT) 16 7-40 U/L Alkaline Phosphatase 101 46-116 U/L Total Protein 6.7 5.7-8.2 g/dL Albumin 4.2 3.2-4.8 g/dL Thyroid Stimulating Hormone (TSH) 1.20 0.55-4.78 uIU/mL Blood Gas EPAP 5 Blood Gas IPAP 16 Troponin I High Sensitivity 49 *H </=34 ng/L Plasma/Serum Blood Alcohol < 3.0 <10 mg/dL Test 10/07/24 19:07 Range/Units Hemoglobin A1c 6.1 H <5.7 % A1C B-Type Natriuretic Peptide 1095.27 0-100 pg/mL Vitamin B12 Level 787 211-911 pg/mL Vitamin D 25-Hydroxy 45.7 30.0-100 ng/mL Assessment Acute hypoxemic respiratory failure due to acute heart failure reduced ejection fraction 20% exacerbation status post mechanical ventilation , rule out pneumonia NYHA III NSTEMI type 2 likely due to above Acute kidney injury Hypertensive emergency Morbid obesity Plan/Recommendation Recent echocardiogram showed ejection fraction on 20% Treat underlying condition Conservative management Resume GDMT management Continue furosemide DVT prophylaxis Continue antibiotics per hospitalist Thank you for allowing us participate in this case Case discussed with Dr. Lemon Critical care, time spent: 49 minutes. Plan discussed with: Other (sister) Date of Service: Oct 08, 2024 Billing Provider: JEET LEMON MD Cardiology Common Codes: 42498-[id number] INP/OBS CARE (High) BOBY NAVARRO RESIDENT Oct 08, 2024 15:09
[2024-10-08] MEDS ORDERED: SACUBITRIL-VALSARTAN 24mg/26mg TAB PO ONE (15:15)
[2024-10-08] MEDS: SPIRONOLACTONE 25 MG TAB PO ONE (16:07)
[2024-10-08] MEDS: EMPAGLIFLOZIN 10 MG TAB PO ONE (16:24)
[2024-10-08] MEDS: METOPROLOL TARTRATE 25 MG TAB PO ONE (16:25)
[2024-10-08] MEDS: PANTOPRAZOLE 40 MG/10 ML VIAL INJ IV ONE (18:00)
[2024-10-08] MEDS ORDERED: ENOXAPARIN SOD 40 MG/0.4 ML SYRINGE SC ONE (18:00)
[2024-10-08 19:11] LABS: Chloride 110 mmol/L (98-107); Potassium 4.1 mmol/L (3.5-5.1); Sodium 145 mmol/L (136-145)
[2024-10-08 19:12] LABS: Anion Gap 11 (5-15); Carbon Dioxide 24 mmol/L (20-31)
[2024-10-08 19:13] LABS: Calcium 9.6 mg/dL (8.7-10.4)
[2024-10-08 19:17] LABS: BUN/Creatinine Ratio 12.9 (10.0-20.0); Blood Urea Nitrogen 18 mg/dL (9-23); Glucose 83 mg/dL (74-106)
[2024-10-08 21:19] LABS: Basophils # (auto) 0 10 ^3/uL (0-0.2); Basophils % (auto) 0.5 % (0.0-2.0); Eosinophils # (auto) 0 10 ^3/uL (0-0.8); Eosinophils % (auto) 0.6 % (0.0-7.0); Hematocrit 36.8 % (36.0-46.0); Hemoglobin 11.8 g/dL (12.2-16.2); Lymphocytes # (auto) 0.6 10 ^3/uL (0.4-5.4); Lymphocytes % (auto) 8.3 % (10.0-50.0); Mean Corpuscular Hemoglobin 26.6 pg (28.0-32.0); Mean Corpuscular Hgb Conc. 31.9 g/dL (32.0-36.0); Mean Corpuscular Volume 83.4 fL (80.0-100.0); Monocytes # (auto) 0.6 10 ^3/uL (0-1.3); Monocytes % (auto) 8.4 % (0.0-12.0); Neutrophils # (auto) 5.6 10 ^3/uL (1.6-8.6); Neutrophils % (auto) 82.2 % (37.0-80.0); Platelet Count (auto) 178 10^3/uL (140-450); Red Blood Cells 4.41 10^6/uL (4.0-5.20); Red Cell Distribution Width 16.2 % (11.8-14.3); White Blood Cell 6.8 10^3/uL (4.4-10.8)
[2024-10-08 21:38] LABS: Alanine Aminotransferase 13 U/L (7-40); Albumin 3.5 g/dL (3.2-4.8); Alkaline Phosphatase 88 U/L (46-116); Anion Gap 9 (5-15); Aspartate Aminotransferase 17 U/L (13-40); BUN/Creatinine Ratio 10.6 (10.0-20.0); Blood Urea Nitrogen 15 mg/dL (9-23); Calcium 9.7 mg/dL (8.7-10.4); Carbon Dioxide 27 mmol/L (20-31); Chloride 110 mmol/L (98-107); Glucose 84 mg/dL (74-106); Magnesium 2.1 mg/dL (1.6-2.6); Phosphorus 4.2 mg/dL (2.4-5.1); Potassium 3.7 mmol/L (3.5-5.1); Sodium 146 mmol/L (136-145)
[2024-10-08 21:39] LABS: Bilirubin, Total 2.4 mg/dL (0.2-1.0); Total Protein 6.1 g/dL (5.7-8.2)
[2024-10-08] MEDS: METOPROLOL TARTRATE 25 MG TAB PO SCH (22:00)
[2024-10-08] MEDS ORDERED: SACUBITRIL-VALSARTAN 24mg/26mg TAB PO SCH (22:00)
--- NOTE | 2024-10-08 22:02 | DVH ---
CHEST RADIOGRAPH Indication:intubated Technique: Single frontal view of the chest was obtained Comparison: XY CHEST XRAY 1 VIEW on DOS: 10/08/24, XY CHEST PORTABLE on DOS: 10/07/24 FINDINGS: Lines and Tubes: Endotracheal tube 3.3 cm above the ila. No focal consolidation. Catheter tract tr aversing the supraclavicular soft tissues on the right. Enteric tube in the stomach below the left di aphragm. Lungs: Bibasilar infiltrates. Left worse than right Pleura: No effusion. No pneumothorax. Cardiomediastinal contours: Unremarkable Bones: No acute osseous abnormality. IMPRESSION: 1. Endotracheal tube 3.3 cm above the ila. 2. Right central line in place 3. Enteric tube below the left diaphragm in the stomach. 4. Bibasilar infiltrates.
--- NOTE | 2024-10-08 22:08 | ECG ---
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
[2024-10-08] MEDS: HYDROCORTISONE SOD SUCC 100 MG/2ML INJ VIAL IV SCH (22:39)
[2024-10-09] VITALS (101 sets, daily range): BP systolic 92–184; BP diastolic 40–81; PULSE 34–85; RESP 15–24; TEMP 97.5–99; O2SAT 89–99
[2024-10-09 05:46] LABS: Base Excess 2.7 mmol/L (-2.0-3.0)
[2024-10-09 05:47] LABS: Basophils # (auto) 0 10 ^3/uL (0-0.2); Basophils % (auto) 0.4 % (0.0-2.0); Eosinophils # (auto) 0 10 ^3/uL (0-0.8); Eosinophils % (auto) 0.1 % (0.0-7.0); Hematocrit 40.2 % (36.0-46.0); Lymphocytes # (auto) 0.5 10 ^3/uL (0.4-5.4); Lymphocytes % (auto) 5.4 % (10.0-50.0); Mean Corpuscular Hemoglobin 27.1 pg (28.0-32.0); Mean Corpuscular Hgb Conc. 32.3 g/dL (32.0-36.0); Mean Corpuscular Volume 83.8 fL (80.0-100.0); Monocytes # (auto) 0.6 10 ^3/uL (0-1.3); Monocytes % (auto) 6.4 % (0.0-12.0); Neutrophils # (auto) 7.7 10 ^3/uL (1.6-8.6); Neutrophils % (auto) 87.7 % (37.0-80.0); Nucleated Red Blood Cells % 0.1 %; Platelet Count (auto) 208 10^3/uL (140-450); Red Blood Cells 4.79 10^6/uL (4.0-5.20); Red Cell Distribution Width 16.3 % (11.8-14.3); White Blood Cell 8.8 10^3/uL (4.4-10.8)
[2024-10-09 05:57] LABS: Alanine Aminotransferase 15 U/L (7-40); Alkaline Phosphatase 97 U/L (46-116); Anion Gap 10 (5-15); Aspartate Aminotransferase 15 U/L (13-40); BUN/Creatinine Ratio 11.9 (10.0-20.0); Blood Urea Nitrogen 17 mg/dL (9-23); Carbon Dioxide 27 mmol/L (20-31); Chloride 110 mmol/L (98-107); Glucose 91 mg/dL (74-106); Potassium 3.6 mmol/L (3.5-5.1); Sodium 147 mmol/L (136-145)
[2024-10-09 05:58] LABS: Albumin 3.9 g/dL (3.2-4.8); Bilirubin, Total 2.9 mg/dL (0.2-1.0); Total Protein 6.8 g/dL (5.7-8.2)
--- NOTE | 2024-10-09 07:02 | DVH ---
CHEST RADIOGRAPH Indication:dyspnea Technique: Single frontal view of the chest was obtained Comparison: XY CHEST PORTABLE on DOS: 10/08/24, XY CHEST XRAY 1 VIEW on DOS: 10/08/24, XY CHEST EVON BLE on DOS: 10/07/24, XY CHEST PORTABLE on DOS: 10/08/24 FINDINGS: Lines and Tubes: Endotracheal tube 3.3 cm above the ila. No focal consolidation. Catheter tract tr aversing the supraclavicular soft tissues on the right. Enteric tube in the stomach below the left di aphragm. Lungs: Bibasilar infiltrates. Left worse than right Pleura: No effusion. No pneumothorax. Cardiomediastinal contours: Unremarkable Bones: No acute osseous abnormality. IMPRESSION: 1. Endotracheal tube 3.3 cm above the ila. 2. Right central line in place 3. Enteric tube below the left diaphragm in the stomach. 4. Bibasilar infiltrates.
[2024-10-09] MEDS ORDERED: EPINEPHrine HCL 1 MG/1 ML AMP ONE (08:41)
[2024-10-09] MEDS ORDERED: LIDOCAINE 2% JELLY 11ml (GLYDO) ONE (08:41)
[2024-10-09] MEDS ORDERED: LIDOCAINE 2%HCL (LOCAL ANESTH.) INJ 20ML MDV ONE (08:41)
[2024-10-09] MEDS ORDERED: SODIUM CHLORIDE LOCK 10 ML ONE (08:42)
[2024-10-09] MEDS ORDERED: fentaNYL CITRATE 100 MCG/2 ML VL ONE (08:42)
[2024-10-09] MEDS: ENOXAPARIN SOD 40 MG/0.4 ML SYRINGE SC SCH (09:02)
[2024-10-09] MEDS: cefTRIAXone 1GM/50ML D5W 50 ML IV SCH (09:02)
[2024-10-09] MEDS: PANTOPRAZOLE 40 MG/10 ML VIAL INJ IV SCH (09:02)
[2024-10-09] MEDS ORDERED: EMPAGLIFLOZIN 10 MG TAB PO SCH (10:00)
[2024-10-09] MEDS ORDERED: AZITHROMYCIN 500MG/ 250ML 250 ML IV SCH (10:00)
[2024-10-09] MEDS: MIDAZOLAM HCL 5 MG/ML-1ML VIAL ONE (10:12)
--- NOTE | 2024-10-09 13:17 | DVHPNRES ---
Progress Note Date Seen: Oct 09, 2024 Resident Creating Document: ANTONIETTA MORRIS RESIDENT Medical Necessity Reason Pt with a Central, PICC or Fol: Yes The following are medically ne: PICC Line, Nova Catheter Subjective Review of Systems A 68y old with PMHx asthma, CHF, DM, HTN and obesity who came to ED due to SOB at rest, orthopena and PND for 2 weeks associated with cough according to the sister. No chest pain No other symptoms. According to the sister, patient was uncompliant with medical visits At admission: elevated BP, respiratory distress At assessment 10/08/24 at 7 am: tachypneic on O2 high flow, case discussed with ED, patient was intubated and due to high blood pressure: 270/ 130: labetalol was given and furosemide drip was started Also patient presented with elevated troponins Objective vital signs Vital Sign Date Time Temp Pulse Resp B/P (MAP) Pulse Ox O2 Delivery O2 Flow Rate FiO2 10/09/24 12:22 61 20 124/48 (73) 98 40 10/09/24 12:00 Mechanical Ventilator+ 10/09/24 08:00 40 10/09/24 04:00 99.0 99.0 Total Intake and Output 10/08/24 10/08/24 10/09/24 15:00 23:00 07:00 Intake Total 83.4 ml 169.2 ml 55.8 ml Output Total 1350 ml Balance 83.4 ml 169.2 ml -1294.2 ml medications Current Medications Medications Dose Ordered Sig/Sohail Route Start Time Stop Time Status Last Admin Dose Admin Sodium Chloride 10 ml Q8HR IV 10/07/24 22:00 10/09/24 06:01 10 ML Acetaminophen 650 mg Q6HP PRN PO 10/07/24 21:45 Hydralazine HCl 10 mg Q6HPRN PRN IV 10/07/24 22:00 10/09/24 02:38 10 MG Furosemide 100 mg/ Sodium Chloride 110 ml @ 4.4 mls/hr Q24H IV 10/08/24 07:15 10/09/24 04:25 4.4 MLS/HR Metolazone 5 mg DAILY PO 10/08/24 10:00 Midazolam HCl 50 ml @ 1 mls/hr Q24H IV 10/08/24 07:30 10/08/24 19:21 9 MLS/HR Dopamine HCl/ Dextrose 250 ml @ 26.831 mls/ hr Q9H20M IV 10/08/24 09:15 UNV 10/08/24 09:10 26.831 MLS/HR Fentanyl Citrate 250 ml @ 2.5 mls/hr Q24H IV 10/08/24 10:00 10/09/24 11:00 17.5 MLS/HR Ceftriaxone Sodium 50 ml @ 100 mls/hr DAILY@09 IV 10/09/24 09:00 10/09/24 09:02 100 MLS/HR Azithromycin 250 ml @ 125 mls/hr DAILY IV 10/09/24 10:00 Hold Hydrocortisone Sodium Succinate 100 mg Q12HR IV 10/08/24 22:00 10/09/24 09:22 100 MG Sacubitril/ Valsartan 1 tab BID PO 10/08/24 22:00 Hold Pantoprazole Sodium 40 mg DAILY IV 10/09/24 10:00 10/09/24 09:02 40 MG Enoxaparin Sodium 40 mg DAILY SC 10/09/24 10:00 10/09/24 09:02 40 MG Enteral Nutritional Formula 1,000 ml 40ML/HR GT 10/09/24 10:15 Empaglifozin 10 mg DAILY PO 10/10/24 10:00 Spironolactone 25 mg DAILY PO 10/10/24 10:00 Examination Pt is intubated RASS -2 HEENT: Atraumatic, Mucous membranes moist/pink ETT in adequate position Respiratory: Decreased breath sounds, mild wheezing Cardiovascular: Regular rate, Normal S1, Normal S2, No murmurs Abdominal: , Soft, no distention, no tenderness Extremities: 3+ BLE edema, Normal pulses, Skin: No Significant rash, except past surgical scars laboratory and microbiology Laboratory Tests 10/09/24 05:18 Test 10/09/24 05:18 Range/Units Serum Glucose 91 74-106 mg/dL Microbiology Date/Time Source Procedure Growth Status 10/08/24 08:03 Sputum Gram Stain Pending Resulted 10/08/24 08:03 Sputum Respiratory Culture - Preliminary Resulted Problem List/Assessment/Plan Problem List/Assessment/Plan NEUROLOGY Hypertensive emergency resolved Head CT scan: 1. No acute intracranial process. 2. Bilateral orbital globe proptosis. Pt is on sedation RASS -3 CARDIOLOGY Acute respiratory failure due to acute systolic heart failure, ARDS and pneumonia AV block 2 degree Mobitz 1 Bradycardia s/p left cath, no significant CAD Pt was in [facility] respiratory distress: intubated New ECHO: Severely dilated left ventricle. Severely reduced left ventricular systolic function estimated ejection fraction 20%. There is global wall akinesia Mildly dilated right ventricle. Mildly reduced right ventricular systolic function. Moderately dilated right and left atria. Left cath 1. No significant coronary artery disease was noted but mild to the right coronary artery as well as left circumflex system. 2. Elevated left ventricular end-diastolic pressure in addition systolic heart failure indicating underlying diastolic heart failure. 3. Patient would need to be started on goal-directed therapy in addition to follow-up on regular basis to assess the need of ICD Cardiology interventions appreciated Furosemide drip Spironolactone and jardiance Stop bblockers Hypertensive urgency resolved Hydralazine PRN NSTEMI type 2 due to acute systolic heart failure, ARDS and pneumonia Elevated troponins Trending high: 45 - 46 - 49 - 125 Cardiology on board PULMONARY Acute respiratory failure due to acute systolic heart failure, ARDS and pneumonia sepsis due to pneumonia gram + /gram neg s/p bronchoscopy 10/09/2024 vent settings were changed due to hypoxemia and bronchoscopy was done No significant endobronchial lesions or abnormalities were seen PE was ruled out CT scan: 1. No pulmonary embolism. 2. Bibasilar atelectasis and consolidation. Superimposed pneumonia is not excluded. Moderate right pleural effusion. Mediastinal lymphadenopathy could be reactive. Ceftriaxone Azithromycin hold due to QTc prolongation Hydrocortisone 100 mg q 12h GI restart feeding after cath Transaminitis Billirubin are trending high, normal rest of liver panel f/u RENAL/ HAYDE hemodinamically mediated continue furosemide drip Creatinine stable hold on fluids ENDOCRINOLOGY Proptosis H/o of thyroid tumors?? In patient TSH 1.2 - 2.31 free t3 normal Free t4 pending hba1c normal DVT prophylaxis: enoxaparin PUD prophylaxis: protonix Case discussed with Dr Suárez Time spent on critical care excluding procedures 82 min Plan discussed with: Other (rn) My Orders My Orders Orders - ANTONIETTA MORRIS RESIDENT Procedure Category Date Status Time Hydrocortisone PHA 10/08/24 In Process Succinate Inj 22:00 Chest Xray 1 View XY 10/09/24 Resulted 04:00 Abg W/ Co-Ox RT 10/09/24 Logged 04:00 Thyroxine (T4) LAB 10/09/24 In Process 04:39 Communication Order ORDERS 10/09/24 Transmitted 07:43 Ventilator Orders RT 10/09/24 Transmitted 07:43 Respiratory Culture RILEY 10/09/24 Uncollected W/ Gs 10:01 Cytology RILEY 10/09/24 Uncollected 10:01 Gram Stain RILEY 10/09/24 Uncollected 10:01 Empagliflozin PHA 10/10/24 In Process (Jardiance) 10:00 Spironolactone PHA 10/10/24 In Process (Aldactone) 10:00 Mrsa Screen RILEY 10/09/24 Uncollected 11:03 Date of Service: Oct 09, 2024 Billing Provider: JOSUE SUÁREZ MD Common Visit Codes: 84278-[id number] CARE 30-74 MIN ANTONIETTA MORRIS RESIDENT Oct 09, 2024 13:17 JOSUE SUÁREZ MD Oct 10, 2024 15:30
--- NOTE | 2024-10-09 13:43 | DVHNC2 ---
Other Procedure Procedure Bronchoscopy Operative Note Procedure Performed: 1. Flexible Bronchoscopy 2. Right lower lobe bronchial washing 3. Left lower love bronchial washings Anesthesia/Medication: Patient intubated and sedated Preoperative Diagnosis: Pneumonia Postoperative Diagnosis: Same Estimated Blood Loss: Less than 10 ml Consent: The risk, benefits, and alternatives of bronchoscopy were discussed with the patients sister who expressed understanding and agreed to proceed. Indications: Findings: No significant endobronchial lesions or abnormalities were seen. Description of the Procedure: Bronchoscope was introduced through the ET tube the bronchoscope was then inserted into the subglottic area, followed by the trachea, bilateral mainstem bronchi, and to the level of the subsegmental bronchi. There was no evidence of intrinsic or extrinsic compression. I could see a lot of mucus on the right side of the lung and especially in the right lower lobe. I suctioned out all the mucus and d right lower lobe bronchial washings. There was also mucus in the left lower lobe which I suctioned out. At this point, there was no evidence of any ongoing bleeding. The bronchoscope was then withdrawn and the patient was allowed to recover. Date of Service: Oct 09, 2024 Billing Provider: JOSUE SUÁREZ MD Common Visit Codes: PROCEDURE ONLY Procedure Codes: [id number] JOSUE SUÁREZ MD Oct 09, 2024 13:43
[2024-10-09] MEDS: IODIXANOL 320MG/ML 100ML BTL IV ONE (15:30)
[2024-10-09] MEDS: HEPARIN SODIUM (PORCINE) 5000 UNITS/ML 1ML VIAL ONE (16:18)
[2024-10-09] MEDS: SODIUM CHL 0.9% 0 ML ONE (16:18)
[2024-10-09] MEDS: VERAPAMIL 2.5MG/ML INJ 2ML VIAL IV ONE (16:18)
[2024-10-09] MEDS: LIDOCAINE 2%HCL (LOCAL ANESTH.) INJ 20ML MDV ONE (16:18)
[2024-10-09] MEDS: ANGIOMAX 250 MG VIAL IV ONE (16:18)
[2024-10-09] MEDS: ATROPINE SULF 1 MG/10ml SYR ONE (16:24)
--- NOTE | 2024-10-09 16:52 | DVHOP2 ---
Operative Report -Cardiology Report Details Date: 10/09/24 Preop Diagnosis: Severely reduced left ventricular systolic function, cardiac catheterization was ordered to rule out ischemic heart disease. Postop Diagnosis: Coronary angiography did not show significant coronary artery disease but mild coronary artery disease involving the mid left circumflex system. Patient has high left ventricular end-diastolic pressure 20 mm of mercury indicating underlying diastolic heart failure in addition to systolic heart failure Surgeon: Sarbjit Greenwood MD Anesthesiologist: Conscious sedation using25 mcg of fentanyl as well as a mg of midazolam. It was given in the direct supervision of myself in the presence of the attending nurses. Patient was monitored for total of35 minutes without obvious complication. Anesthesia: Local Consent: The patient was informed of the risks and benefits of the procedure. These include but are not limited to complications of anesthesia, postoperative infection, incomplete relief of symptoms, recurrence of symptoms, damage to blood vessels, nerves and tendons, deep venous thrombosis, pulmonary embolism and possible need for repeat surgery in the future. Indications for Surgery: 68-year-old female patient with past medical history of asthma, chronic bronchitis, congestive heart failure, chronic obstructive pulmonary disease, type 2 diabetes, hypertension, morbid obesity. She presents to the hospital with progressively worsening shortness of breath over the past 10 days accompanied by a productive cough, orthopnea and paroxysmal nocturnal dyspnea. Upon initial assessment her blood pressure was critically elevated on 257/150 mmHg and by 12:00 a.m. her blood pressure was decreased until 150/60 following medical intervention. Laboratory workup revealed elevated troponin on 46 and 49 respectively, suggestive of myocardial strain. Toxicology screening was positive for fentanyl and benzodiazepines likely administered during intubation. Due to acute hypoxemic respiratory failure the patient was intubated. Cardiology team was consulted because of the increase in the troponin levels likely due to demand ischemia due to hypertensive crisis. Recent echocardiogram showed severely dilated left ventricle. Severely reduced left ventricular systolic function estimated ejection fraction 20%. There is gl obal wall akinesia Name of Procedure Performed 1. Left heart catheterization with left ventricular end-diastolic pressure measurement. 2. Selective right and left coronary angiography utilizing right transradial approach. 3. Local anesthesia to the right wrist area using 1% xylocaine. Procedure Details Procedure Details: Procedure note and vascular access: After informed consent was obtained risks benefits complications alternatives were discussed with the patient's family who agrees to have the procedure done. At the beginning of the procedure the right wrist and right groin area were prepped and draped in the regular sterile fashion. Patient was brought into the carpenter/labor connected with the mechanical ventilator. On deep sedation. Local anesthesia was applied to the right wrist area before a six [place] sheath was placed using modified Seldinger technique without difficulty. A cocktail of 2.5 mg of verapamil as well as 100 mcg of nitroglycerin were given intra-arterial to prevent vasospasm. [place]ale five [place] catheter as well as a [employer] J-tip wire were used to engage the right and left coronary system respectively findings were as follows: 1. Left heart catheterization with left ventricular end-diastolic pressure measurement: With the help of a tiger five [place] catheter as well as a J-tip wire we were able to cross the aortic valve and measured left ventricular end-diastolic pressure which was elevated at 20 mm of mercury. There was no gradient across the aortic valve on the pullback. 2. Selective right and left coronary angiography utilizing right transradial approach: 1. The right coronary artery comes off the right coronary cusp it is a large do minant system it bifurcates distally into large posterior descending artery as well as large posterolateral branch. There is mild irregularity at 40% of the proximal RCA as well as the midportion without significant stenosis. 2. The left main has a long course it bifurcates into a large left anterior descending artery and medium to large size left circumflex system. Left main is free of any significant atherosclerotic plaquing. 3. The left anterior descending artery is large vessels with transapical course it gives rise to two large diagonal branches, it has mild irregularity with no significant discrete stenosis was noted. 4. The left circumflex vessel is medium to large caliber it bifurcates into two obtuse marginal branches before the bifurcation of the 2nd obtuse marginal. There is a tubular 40-50% stenosis. No other significant atherosclerotic plaquing or stenosis was noted. Impression and plan: 1. No significant coronary artery disease was noted but mild to the right co ronary artery as well as left circumflex system. 2. Elevated left ventricular end-diastolic pressure in addition systolic heart failure indicating underlying diastolic heart failure. 3. Patient would need to be started on goal-directed therapy in addition to follow-up on regular basis to assess the need of ICD. Condition Critical [facility] Clinical Frailty Scale [facility] Clinical Frailty Scale: Mildly Frail Stress Test Stress Test Performed: No Dominance Dominance: Right Disposition SARBJIT GREENWOOD MD Oct 09, 2024 16:51
--- NOTE | 2024-10-09 16:57 | DVHPN2 ---
Consult Progress Note Date Seen: Oct 09, 2024 Subjective Other Systems: Patient is intubated Objective vital signs Vital Sign Date Time Temp Pulse Resp B/P (MAP) Pulse Ox O2 Delivery O2 Flow Rate FiO2 10/09/24 16:24 61 20 97 40 10/09/24 14:00 Mechanical Ventilator+ 10/09/24 08:00 40 10/09/24 04:00 99.0 99.0 Total Intake and Output 10/08/24 10/08/24 10/09/24 15:00 23:00 07:00 Intake Total 83.4 ml 169.2 ml 55.8 ml Output Total 1350 ml Balance 83.4 ml 169.2 ml -1294.2 ml medications Current Medications Medications Dose Ordered Sig/Sohail Route Start Time Stop Time Status Last Admin Dose Admin Sodium Chloride 10 ml Q8HR IV 10/07/24 22:00 10/09/24 13:21 10 ML Acetaminophen 650 mg Q6HP PRN PO 10/07/24 21:45 Hydralazine HCl 10 mg Q6HPRN PRN IV 10/07/24 22:00 10/09/24 02:38 10 MG Furosemide 100 mg/ Sodium Chloride 110 ml @ 4.4 mls/hr Q24H IV 10/08/24 07:15 10/09/24 04:25 4.4 MLS/HR Metolazone 5 mg DAILY PO 10/08/24 10:00 Midazolam HCl 50 ml @ 1 mls/hr Q24H IV 10/08/24 07:30 10/08/24 19:21 9 MLS/HR Dopamine HCl/ Dextrose 250 ml @ 26.831 mls/ hr Q9H20M IV 10/08/24 09:15 UNV 10/08/24 09:10 26.831 MLS/HR Fentanyl Citrate 250 ml @ 2.5 mls/hr Q24H IV 10/08/24 10:00 10/09/24 11:00 17.5 MLS/HR Ceftriaxone Sodium 50 ml @ 100 mls/hr DAILY@09 IV 10/09/24 09:00 10/09/24 09:02 100 MLS/HR Azithromycin 250 ml @ 125 mls/hr DAILY IV 10/09/24 10:00 Hold Hydrocortisone Sodium Succinate 100 mg Q12HR IV 10/08/24 22:00 10/09/24 09:22 100 MG Sacubitril/ Valsartan 1 tab BID PO 10/08/24 22:00 Hold Pantoprazole Sodium 40 mg DAILY IV 10/09/24 10:00 10/09/24 09:02 40 MG Enoxaparin Sodium 40 mg DAILY SC 10/09/24 10:00 10/09/24 09:02 40 MG Enteral Nutritional Formula 1,000 ml 40ML/HR GT 10/09/24 10:15 Empaglifozin 10 mg DAILY PO 10/10/24 10:00 Spironolactone 25 mg DAILY PO 10/10/24 10:00 laboratory and microbiology Laboratory Tests 10/09/24 05:18 Test 10/09/24 05:18 Range/Units Serum Glucose 91 74-106 mg/dL Problem List/Assessment/Plan Problem List/Assessment/Plan Acute hypoxemic respiratory failure due to acute heart failure reduced ejection fraction 20% exacerbation NYHA III status post mechanical ventilation NSTEMI type 2 likely due to above Non ischemic cardiomyopathy based on recent [facility] Acute kidney injury Hypertensive emergency Morbid obesity Plan/Recommendation Recent echocardiogram showed ejection fraction on 20% Treat underlying condition Conservative management Resume GDMT management, avoid beta-blockers because of recent episode of second degree AV block Mobitz 1 Continue furosemide DVT prophylaxis Thank you for allowing us participate in this case, there is no further workup indicated at this time, we are signing off. Case discussed with Dr. Greenwood Critical care, time spent: 54 minutes. Plan discussed with: Patient Date of Service: Oct 09, 2024 Billing Provider: JEET GREENWOOD MD Cardiology Common Codes: [id number] HOSP CARE([facility] BOBY NAVARRO RESIDENT Oct 09, 2024 16:57
[2024-10-09 18:20] LABS: INR 1.24 (0.9-1.15); Prothrombin Time 12.9 sec (9.3-11.8)
[2024-10-10] VITALS (112 sets, daily range): BP systolic 111–246; BP diastolic 38–149; PULSE 32–118; RESP 15–99; TEMP 97.9–99.7; O2SAT 91–100
[2024-10-10] MEDS: FUROSEMIDE INJECTION 10 ML ONE (04:06)
[2024-10-10 04:59] LABS: Basophils # (auto) 0 10 ^3/uL (0-0.2); Eosinophils # (auto) 0 10 ^3/uL (0-0.8); Hemoglobin 10.8 g/dL (12.2-16.2); Lymphocytes # (auto) 0.5 10 ^3/uL (0.4-5.4); Red Blood Cells 4.01 10^6/uL (4.0-5.20)
[2024-10-10 05:01] LABS: Basophils % (auto) 0.6 % (0.0-2.0); Hematocrit 33.8 % (36.0-46.0); Lymphocytes % (auto) 7.7 % (10.0-50.0); Mean Corpuscular Hemoglobin 26.9 pg (28.0-32.0); Mean Corpuscular Volume 84.2 fL (80.0-100.0); Monocytes # (auto) 0.6 10 ^3/uL (0-1.3); Monocytes % (auto) 8.6 % (0.0-12.0); Neutrophils # (auto) 5.4 10 ^3/uL (1.6-8.6); Neutrophils % (auto) 83.1 % (37.0-80.0); Platelet Count (auto) 178 10^3/uL (140-450); Red Cell Distribution Width 16.4 % (11.8-14.3); White Blood Cell 6.5 10^3/uL (4.4-10.8)
[2024-10-10 05:14] LABS: Alanine Aminotransferase 10 U/L (7-40); Albumin 3.3 g/dL (3.2-4.8); Alkaline Phosphatase 74 U/L (46-116); Anion Gap 12 (5-15); Aspartate Aminotransferase 13 U/L (13-40); BUN/Creatinine Ratio 14.4 (10.0-20.0); Bilirubin, Total 2.2 mg/dL (0.2-1.0); Blood Urea Nitrogen 25 mg/dL (9-23); Calcium 9.4 mg/dL (8.7-10.4); Carbon Dioxide 25 mmol/L (20-31); Chloride 111 mmol/L (98-107); Glucose 90 mg/dL (74-106); Potassium 3.8 mmol/L (3.5-5.1); Sodium 148 mmol/L (136-145); Total Protein 5.7 g/dL (5.7-8.2)
--- NOTE | 2024-10-10 05:49 | DVH ---
CHEST RADIOGRAPH Indication:INTUBATED Technique: Single frontal view of the chest was obtained COMPARISON: XY CHEST XRAY 1 VIEW on DOS: 10/09/24, XY CHEST PORTABLE on DOS: 10/08/24, XY CHEST XRAY 1 VIEW on DOS: 10/08/24 FINDINGS: Lines and Tubes: Endotracheal tube, enteric catheter and right central venous catheter in satisfactor y position. Lungs: Multifocal airspace disease, [id number]. Pleura: No effusion. No pneumothorax. Cardiomediastinal contours: Cardiomegaly. Bones: Unremarkable IMPRESSION: Lines and tubes in satisfactory position. No significant interval change.
[2024-10-10] MEDS: ROCURONIUM 10MG/ML 10ML VIAL IV ONE ×2 (07:32→07:45)
[2024-10-10] MEDS: MAGNESIUM SULFATE 1GM/100ML 100 ML IV ONE (07:36)
[2024-10-10] MEDS: NALOXONE HCL 0.4 MG/ML VIAL ONE (07:37)
[2024-10-10] MEDS: ETOMIDATE (2MG/ML) 20ML VIAL IV ONE ×2 (07:47→08:30)
--- NOTE | 2024-10-10 08:19 | DVH ---
Procedure: XY CHEST PORTABLE 10/10/2024 07:56 AM Indication: s/p intubation. Comparison: XY CHEST PORTABLE on DOS: 10/10/24, XY CHEST XRAY 1 VIEW on DOS: 10/09/24, XY CHEST EVON BLE on DOS: 10/08/24 TECHNIQUE: XY CHEST PORTABLE FINDINGS: Medical devices: The ETT ends 4.5 cm above the level of ila. Right IJ line ends at the cavoatrial junction. The previously seen enteric tube is not well seen in this study. Cardiomediastinal: The heart is moderately enlarged. Pulmonary vasculature is prominent. Lungs: Hazy opacities are noted in the right lung which have significantly improved. The costophrenic angles are clear. No pneumothorax. Bones/soft tissues: No acute abnormality is noted. IMPRESSION: 1. Improving congestive pattern and right lung pulmonary opacities. 2. The ETT and right IJ line are satisfactory and stable in position. No enteric tube is identified i n the current exam.
--- NOTE | 2024-10-10 08:23 | DVHNC2 ---
Intubation Indication: Respiratory Insufficiency, Airway Protection Prep: Preoxygenation Pretreated with: Other Medicated with: Other (etomidate and rocuronium ) Intubation size: cm (8) Notes Rounding in the patient, patient got agitated and extubated herself, code assist was activated, Dr Arias ED was called Under his supervision, preoxygenation was done and with sat of 100%, glidoscope were used and inflammated airway was found, 1 attempt of intubation was done with boogie but due to edema was unsuccessful, Dr Arias did direct laryngoscopy and succesful intubated a size 8 endotracheal tube with stylet, the patient was intubated on the 2 attempt. The stylet was removed and cuff balloon was inflated. Appropriate endotracheal tube position was confirmed by direct visualization of vocal cord passage, fogging of the tube, CO2 colormetric indicator and symmetric breath sounds. The tube was secured at 17 cm at the lips. Post intubation chest x-ray showed tube in the correct position Date of Service: Oct 10, 2024 Billing Provider: DIVINE ARIAS MD Common Visit Codes: PROCEDURE ONLY Procedure Codes: [id number] ANTONIETTA MORRIS RESIDENT Oct 10, 2024 08:23
[2024-10-10] MEDS: EMPAGLIFLOZIN 10 MG TAB PO SCH (10:00)
[2024-10-10] MEDS: SPIRONOLACTONE 25 MG TAB PO SCH (10:00)
[2024-10-10 11:38] LABS: Base Excess 3.2 mmol/L (-2.0-3.0)
[2024-10-10] MEDS: HYDROCORTISONE SOD SUCC 100 MG/2ML INJ VIAL IV SCH (12:15)
--- NOTE | 2024-10-10 17:30 | DVHPNRES ---
Progress Note Date Seen: Oct 10, 2024 Resident Creating Document: ANTONIETTA MORRIS RESIDENT Medical Necessity Reason Pt with a Central, PICC or Fol: Yes The following are medically ne: PICC Line, Nova Catheter Subjective Review of Systems A 68y old with PMHx asthma, CHF, DM, HTN and obesity who came to ED due to SOB at rest, orthopena and PND for 2 weeks associated with cough according to the sister. No chest pain No other symptoms. According to the sister, patient was uncompliant with medical visits At admission: elevated BP, respiratory distress At assessment 10/08/24 at 7 am: tachypneic on O2 high flow, case discussed with ED, patient was intubated and due to high blood pressure: 270/ 130: labetalol was given and furosemide drip was started Also patient presented with elevated troponins Objective vital signs Vital Sign Date Time Temp Pulse Resp B/P (MAP) Pulse Ox O2 Delivery O2 Flow Rate FiO2 10/10/24 16:00 66 10/10/24 16:00 20 100 Mechanical Ventilator+ 60 60 10/10/24 16:00 138/52 10/10/24 15:30 99.3 210.7 10/09/24 08:00 40 Total Intake and Output 10/09/24 10/09/24 10/10/24 15:00 23:00 07:00 Intake Total 207.7 ml 203.2 ml 195.2 ml Output Total 800 ml 140 ml 250 ml Balance -592.3 ml 63.2 ml -54.8 ml medications Current Medications Medications Dose Ordered Sig/Sohail Route Start Time Stop Time Status Last Admin Dose Admin Sodium Chloride 10 ml Q8HR IV 10/07/24 22:00 10/10/24 14:00 10 ML Acetaminophen 650 mg Q6HP PRN PO 10/07/24 21:45 Hydralazine HCl 10 mg Q6HPRN PRN IV 10/07/24 22:00 10/10/24 09:07 10 MG Metolazone 5 mg DAILY PO 10/08/24 10:00 Midazolam HCl 50 ml @ 1 mls/hr Q24H IV 10/08/24 07:30 10/10/24 07:50 1 MLS/HR Dopamine HCl/ Dextrose 250 ml @ 26.831 mls/ hr Q9H20M IV 11/12/24 09:15 UNV 10/08/24 09:10 26.831 MLS/HR Fentanyl Citrate 250 ml @ 2.5 mls/hr Q24H IV 10/08/24 10:00 10/10/24 10:20 5 MLS/HR Ceftriaxone Sodium 50 ml @ 100 mls/hr DAILY@09 IV 10/09/24 09:00 10/10/24 11:39 100 MLS/HR Pantoprazole Sodium 40 mg DAILY IV 10/09/24 10:00 10/10/24 11:38 40 MG Enoxaparin Sodium 40 mg DAILY SC 10/09/24 10:00 10/10/24 11:39 40 MG Enteral Nutritional Formula 1,000 ml 40ML/HR GT 10/09/24 10:15 Empaglifozin 10 mg DAILY PO 10/10/24 10:00 Spironolactone 25 mg DAILY PO 10/10/24 10:00 Hydrocortisone Sodium Succinate 100 mg DAILY IV 10/10/24 12:15 Examination Pt is intubated RASS -2 HEENT: Atraumatic, Mucous membranes moist/pink ETT in adequate position Respiratory: Decreased breath sounds, mild wheezing Cardiovascular: Regular rate, Normal S1, Normal S2, No murmurs Abdominal: , Soft, no distention, no tenderness Extremities: 3+ BLE edema, Normal pulses, Skin: No Significant rash, except past surgical scars laboratory and microbiology Laboratory Tests 10/10/24 04:46 Test 10/10/24 04:46 Range/Units Serum Glucose 90 74-106 mg/dL Microbiology Date/Time Source Procedure Growth Status 10/09/24 10:58 Bronchial Washings Gram Stain - Final Resulted 10/09/24 10:58 Bronchial Washings Respiratory Culture - Preliminary Resulted 10/09/24 06:40 Nose MRSA Screen - Final Complete 10/09/24 03:06 Voided Urine Urine Culture - Preliminary Resulted 10/08/24 18:32 Blood Blood Culture - Preliminary NO GROWTH AFTER 24 HOURS OF INCUBATION. Resulted Problem List/Assessment/Plan Problem List/Assessment/Plan NEUROLOGY Hypertensive emergency resolved Head CT scan: 1. No acute intracranial process. 2. Bilateral orbital globe proptosis. Pt is on sedation RASS -3 CARDIOLOGY Acute respiratory failure due to acute systolic heart failure, ARDS and pneumonia AV block 2 degree Mobitz 1 Bradycardia - severe autonomic dysfunction s/p left cath, no significant CAD pulmonary hypertension RVSP 72 Pt was in [facility] respiratory distress: intubated, patent extubated herself at 7+00, need of reintubation New ECHO: Severely dilated left ventricle. Severely reduced left ventricular systolic function estimated ejection fraction 20%. There is global wall akinesia Mildly dilated right ventricle. Mildly reduced right ventricular systolic function. Moderately dilated right and left atria. Left cath 1. No significant coronary artery disease was noted but mild to the right coronary artery as well as left circumflex system. 2. Elevated left ventricular end-diastolic pressure in addition systolic heart failure indicating underlying diastolic heart failure. 3. Patient would need to be started on goal-directed therapy in addition to follow-up on regular basis to assess the need of ICD Cardiology interventions appreciated Furosemide 40 mg BID Spironolactone and jardiance Hypertensive urgency resolved Hydralazine PRN NSTEMI type 2 due to acute systolic heart failure, ARDS and pneumonia Elevated troponins Trending high: 45 - 46 - 49 - 125 Cardiology on board PULMONARY Acute respiratory failure due to acute systolic heart failure, ARDS and pneumonia sepsis due to pneumonia gram + /gram neg s/p bronchoscopy 10/09/2024 Pt was in [facility] respiratory distress: intubated, patent extubated herself at 7+00, need of reintubation No significant endobronchial lesions or abnormalities were seen PE was ruled out CT scan: 1. No pulmonary embolism. 2. Bibasilar atelectasis and consolidation. Superimposed pneumonia is not excluded. Moderate right pleural effusion. Mediastinal lymphadenopathy could be reactive. Ceftriaxone Azithromycin hold due to QTc prolongation Hydrocortisone 100 mg q 12h GI NG tube feeding Transaminitis Billirubins stable , normal rest of liver panel f/u RENAL/ HAYDE hemodinamically mediated creat 2 Creatinine stable hold on fluids ENDOCRINOLOGY Proptosis H/o of thyroid tumors?? In patient TSH 1.2 - 2.31 free t3 normal Free t4 pending hba1c normal DVT prophylaxis: enoxaparin PUD prophylaxis: protonix Case discussed with Dr Suárez Time spent on critical care excluding procedures 82 min Plan discussed with: Other (rn and sister ) My Orders My Orders Orders - ANTONIETTA MORRIS Procedure Category Date Status Time Abg W/ Co-Ox RT 10/10/24 Logged 11:00 Hydrocortisone PHA 10/10/24 In Process Succinate Inj 12:15 Communication Order ORDERS 10/10/24 Transmitted 12:08 Communication Order ORDERS 10/10/24 Transmitted 12:44 Valerie; Direct LAB 10/10/24 In Process 17:15 Date of Service: Oct 10, 2024 Billing Provider: JOSUE SUÁREZ MD Common Visit Codes: [id number] CARE 30-74 MIN ANTONIETTA MORRIS RESIDENT Oct 10, 2024 17:30 JOSUE SUÁREZ MD Oct 11, 2024 13:01
[2024-10-11] VITALS (103 sets, daily range): BP systolic 108–223; BP diastolic 40–113; PULSE 32–112; RESP 5–25; TEMP 98.1–99.3; O2SAT 82–100
[2024-10-11] MEDS: ATROPINE SULFATE 1 MG/1 ML VIAL ONE (00:07)
[2024-10-11 01:15] LABS: Basophils # (auto) 0 10 ^3/uL (0-0.2); Eosinophils # (auto) 0 10 ^3/uL (0-0.8); Mean Corpuscular Volume 83.4 fL (80.0-100.0); Monocytes # (auto) 0.9 10 ^3/uL (0-1.3)
[2024-10-11 01:18] LABS: Basophils % (auto) 0.5 % (0.0-2.0); Hematocrit 33.8 % (36.0-46.0); Lymphocytes % (auto) 11.7 % (10.0-50.0); Mean Corpuscular Hemoglobin 27.1 pg (28.0-32.0); Mean Corpuscular Hgb Conc. 32.5 g/dL (32.0-36.0); Monocytes % (auto) 10.9 % (0.0-12.0); Neutrophils # (auto) 6.6 10 ^3/uL (1.6-8.6); Neutrophils % (auto) 76.9 % (37.0-80.0); Nucleated Red Blood Cells % 0.1 %; Platelet Count (auto) 208 10^3/uL (140-450); Red Blood Cells 4.05 10^6/uL (4.0-5.20); Red Cell Distribution Width 16.6 % (11.8-14.3); White Blood Cell 8.5 10^3/uL (4.4-10.8)
[2024-10-11 01:33] LABS: Albumin 3.4 g/dL (3.2-4.8); Alkaline Phosphatase 73 U/L (46-116); Anion Gap 9 (5-15); Aspartate Aminotransferase 12 U/L (13-40); BUN/Creatinine Ratio 15.9 (10.0-20.0); Blood Urea Nitrogen 32 mg/dL (9-23); Calcium 9.5 mg/dL (8.7-10.4); Carbon Dioxide 28 mmol/L (20-31); Chloride 111 mmol/L (98-107); Glucose 90 mg/dL (74-106); Magnesium 2.5 mg/dL (1.6-2.6); Potassium 3.8 mmol/L (3.5-5.1); Sodium 148 mmol/L (136-145); Total Protein 5.9 g/dL (5.7-8.2)
[2024-10-11 01:39] LABS: Alanine Aminotransferase 9 U/L (7-40)
--- NOTE | 2024-10-11 05:46 | DVH ---
EXAM: XY CHEST PORTABLE Indication:ACUTE RESP FAILURE Technique: XY CHEST PORTABLE Comparison: XY CHEST PORTABLE on DOS: 10/10/24, XY CHEST PORTABLE on DOS: 10/10/24, XY CHEST XRAY 1 V IEW on DOS: 10/09/24, XY CHEST PORTABLE on DOS: 10/08/24, XY CHEST XRAY 1 VIEW on DOS: 10/08/24, XY C HEST PORTABLE on DOS: 10/10/24 FINDINGS: Medical devices: The ETT ends 3.5 cm above the level of ila. Right IJ line ends at the cavoatrial junction. Cardiomediastinal: The heart is moderately enlarged. Pulmonary vasculature is prominent. Lungs: Hazy opacities are noted in the right lung which have worsened compared to prior exam. Small r ight pleural effusion. No pneumothorax. Bones/soft tissues: No acute abnormality is noted. IMPRESSION: Worsening right lung opacities compared to prior exam. Small right pleural effusion.
[2024-10-11 06:06] LABS: Base Excess 2.1 mmol/L (-2.0-3.0)
--- NOTE | 2024-10-11 11:55 | MEDREC ---
[facility] ASP Intervention Section I [facility] ASP Intervention: Review courses of therapy (PATIENT HAS PNEUMONIA WITH CHEST X-RAY ON 10/11 SHOWED WORSENING RIGHT LUNG OPACITITES. WVD=853 (10/08) WHICH IS NOT PROLONGED. PLEASE CONSIDER ADDING AZITHROMYCIN IN THE COMBINATION WITH CEFTRIAXONE. OR LEVOFLOXACIN CAN BE GIVEN ALONE TO EMPIRICALLY TREAT PN EUMONIA WHILE WAITING FOR CULTURE RESULTS) SHANNAN PERALES [facility] Oct 11, 2024 11:55
--- NOTE | 2024-10-11 12:48 | DVHPNRES ---
Progress Note Date Seen: Oct 11, 2024 Resident Creating Document: ANTONIETTA MORRIS RESIDENT Medical Necessity Reason Pt with a Central, PICC or Fol: Yes The following are medically ne: PICC Line, Nova Catheter Subjective Review of Systems A 68y old with PMHx asthma, CHF, DM, HTN and obesity who came to ED due to SOB at rest, orthopena and PND for 2 weeks associated with cough according to the sister. No chest pain No other symptoms. According to the sister, patient was uncompliant with medical visits At admission: elevated BP, respiratory distress At assessment 10/08/24 at 7 am: tachypneic on O2 high flow, case discussed with ED, patient was intubated and due to high blood pressure: 270/ 130: labetalol was given and furosemide drip was started Also patient presented with elevated troponins Objective vital signs Vital Sign Date Time Temp Pulse Resp B/P (MAP) Pulse Ox O2 Delivery O2 Flow Rate FiO2 10/11/24 11:35 55 20 178/76 (110) 97 35 10/11/24 09:30 98.8 209.8 10/11/24 08:00 Mechanical Ventilator+ 10/10/24 21:16 60.0 Total Intake and Output 10/10/24 10/10/24 10/11/24 15:00 23:00 07:00 Intake Total 153.75 ml 140.0 ml 99.5 ml Output Total 225 ml 300 ml Balance 153.75 ml -85.0 ml -200.5 ml medications Current Medications Medications Dose Ordered Sig/Sohail Route Start Time Stop Time Status Last Admin Dose Admin Sodium Chloride 10 ml Q8HR IV 10/07/24 22:00 10/11/24 06:25 10 ML Acetaminophen 650 mg Q6HP PRN PO 10/07/24 21:45 Hydralazine HCl 10 mg Q6HPRN PRN IV 10/07/24 22:00 10/10/24 09:07 10 MG Metolazone 5 mg DAILY PO 10/08/24 10:00 Midazolam HCl 50 ml @ 1 mls/hr Q24H IV 10/08/24 07:30 10/10/24 07:50 1 MLS/HR Dopamine HCl/ Dextrose 250 ml @ 26.831 mls/ hr Q9H20M IV 10/08/24 09:15 UNV 10/08/24 09:10 26.831 MLS/HR Fentanyl Citrate 250 ml @ 2.5 mls/hr Q24H IV 10/08/24 10:00 10/11/24 04:51 15 MLS/HR Ceftriaxone Sodium 50 ml @ 100 mls/hr DAILY@09 IV 10/09/24 09:00 10/11/24 09:48 100 MLS/HR Pantoprazole Sodium 40 mg DAILY IV 10/09/24 10:00 10/11/24 09:48 40 MG Enoxaparin Sodium 40 mg DAILY SC 10/09/24 10:00 10/11/24 09:49 40 MG Enteral Nutritional Formula 1,000 ml 40ML/HR GT 10/09/24 10:15 Empaglifozin 10 mg DAILY PO 10/10/24 10:00 Spironolactone 25 mg DAILY PO 10/10/24 10:00 Hydrocortisone Sodium Succinate 100 mg DAILY IV 10/10/24 12:15 10/11/24 09:48 100 MG Furosemide 100 mg/ Sodium Chloride 110 ml @ 11 mls/hr Q10H IV 10/11/24 11:45 UNV Purified Water 150 ml Q4HR GT 10/11/24 14:00 UNV Examination Pt is intubated RASS -2 HEENT: Atraumatic, Mucous membranes moist/pink ETT in adequate position Respiratory: Decreased breath sounds, crackles Cardiovascular: Regular rate, Normal S1, Normal S2, No murmurs Abdominal: , Soft, no distention, no tenderness Extremities: 3+ BLE edema, Normal pulses, Skin: No Significant rash, except past surgical scars laboratory and microbiology Laboratory Tests 10/11/24 01:10 Test 10/11/24 01:10 Range/Units Serum Glucose 90 74-106 mg/dL Microbiology Date/Time Source Procedure Growth Status 10/09/24 10:58 Bronchial Washings Gram Stain - Final Resulted 10/09/24 10:58 Bronchial Washings Respiratory Culture - Preliminary Resulted 10/09/24 06:40 Nose MRSA Screen - Final Complete 10/09/24 03:06 Voided Urine Urine Culture - Final Complete 10/08/24 18:32 Blood Blood Culture - Preliminary NO GROWTH AFTER 48 HOURS OF INCUBATION. Resulted Problem List/Assessment/Plan Problem List/Assessment/Plan NEUROLOGY Hypertensive emergency resolved Head CT scan: 1. No acute intracranial process. 2. Bilateral orbital globe proptosis. Pt is on sedation RASS -3 CARDIOLOGY Acute respiratory failure due to acute systolic heart failure, ARDS and pneumonia AV block 2 degree Mobitz 1 Bradycardia - severe autonomic dysfunction s/p left cath, no significant CAD pulmonary hypertension RVSP 72 Pt was in [facility] respiratory distress: intubated, patent extubated herself yesterday at 7+00, need of reintubation Pt was seeing a secondary art teacher Dr. Florian, last visit 1 y ago: EF 45% AV block grade 2 mobitz 1, patient according to the records of Dr Florian was on losartan, furosemide and spironolactone New ECHO: Severely dilated left ventricle. Severely reduced left ventricular systolic function estimated ejection fraction 20%. There is global wall akinesia Mildly dilated right ventricle. Mildly reduced right ventricular systolic function. Moderately dilated right and left atria. Left cath 1. No significant coronary artery disease was noted but mild to the right coronary artery as well as left circumflex system. 2. Elevated left ventricular end-diastolic pressure in addition systolic heart failure indicating underlying diastolic heart failure. 3. Patient would need to be started on goal-directed therapy in addition to follow-up on regular basis to assess the need of ICD Cardiology interventions appreciated Furosemide drip Spironolactone and jardiance Hypertensive urgency resolved Hydralazine PRN NSTEMI type 2 due to acute systolic heart failure, ARDS and pneumonia Elevated troponins Trending high: 45 - 46 - 49 - 125 Cardiology on board PULMONARY Acute respiratory failure due to acute systolic heart failure, ARDS and pneumonia sepsis due to pneumonia gram + /gram neg s/p bronchoscopy 10/09/2024 Pt was in [facility] respiratory distress: intubated, patent extubated herself yesterday at 7+00, need of reintubation No significant endobronchial lesions or abnormalities were seen in bronchoscopy PE was ruled out CT scan: 1. No pulmonary embolism. 2. Bibasilar atelectasis and consolidation. Superimposed pneumonia is not excluded. Moderate right pleural effusion. Mediastinal lymphadenopathy could be reactive. Ceftriaxone Doxycycline Hydrocortisone 100 mg q 12h GI NG tube feeding Transaminitis Billirubins stable , normal rest of liver panel f/u RENAL/ HAYDE hemodinamically mediated creat 2 Creatinine trending high nephrology hold on fluids ENDOCRINOLOGY Proptosis H/o of thyroid tumors?? In patient TSH 1.2 - 2.31 free t3 normal Free t4 pending hba1c normal DVT prophylaxis: enoxaparin PUD prophylaxis: protonix Case discussed with Dr Ward Time spent on critical care excluding procedures 82 min Plan discussed with: Other (rn and sister ) My Orders My Orders Orders - ANTONIETTA MORRIS RESIDENT Procedure Category Date Status Time Chest Portable XY 10/11/24 Resulted 04:00 Abg W/ Co-Ox RT 10/11/24 Logged 04:00 Ventilator Orders RT 10/11/24 Transmitted 09:07 Sodium Chl 0.9% PHA 10/11/24 Logged (So... W/Furosemide 11:45 Free Water PHA 10/11/24 Logged 14:00 *Dr. [facility] CONS 10/11/24 Transmitted -[place] 11:38 Date of Service: Oct 11, 2024 Billing Provider: JOSUE WARD MD Common Visit Codes: [id number] CARE 30-74 MIN ANTONIETTA MORRIS RESIDENT Oct 11, 2024 12:48 JOSUE WARD MD Oct 11, 2024 13:44
[2024-10-11] MEDS: FREE WATER GT SCH (14:00)
[2024-10-11] MEDS: DOXYCYCLINE 100MG/250ML 250 ML IV SCH (14:00)
--- NOTE | 2024-10-11 14:13 | DVHTSRES ---
Transfer Summary Transfer Summary Resident Creating Document: ANTONIETTA MORRIS RESIDENT Date of Admission Oct 07, 2024 at 21:40 Date of Transfer: Oct 11, 2024 Transfer Diagnosis acute heart failure acute respiratory failure sepsis due to pneumonia severe autonomic dysfunction AV block type 2 mobitz 1 Brief Hx & Hospital Course: Pmhx HF last EF 1 y ago 45% now 20% came with acute respiratory failure and acute exacerbation of HF, now intubated, during her course it was found severe autonomic dysfunction, patient does bradycardia and hypertensive crisis, right now on furosemide drip, pneumonia posssible aspirative on ceftriaxone and doxycicline, intubated, patient extubated herself 1 day ago with the need of reintubation Transfer Status unstable ANTONIETTA MORRIS RESIDENT Oct 11, 2024 14:13
[2024-10-11] MEDS: FUROSEMIDE INJECTION 100 MG in SODIUM CHL 0.9% 100 ML IV SCH ×2 (14:35→23:01)
--- NOTE | 2024-10-11 16:06 | DVHINCON2 ---
Date of service: Oct 11, 2024 Reason for Consultation HAYDE History of Present Illness 68-year-old morbidly obese female presents to the hospital complaining of shortness of breath. Her hospital course is notable for acute diagnosis of congestive heart failure and acute respiratory failure. Patient is status post CTA to rule out PE which was negative, she received a heart catheterization to evaluate he is on slow ejection fraction which did not show any stentable lesions. Her course progressed with worsening pulmonary status developed acute ARDS. Patient initial attempt to diurese patient was unsuccessful. Nephrology consulted due to worsening renal function Past Medical History ckd 3 morbid obese Allergies: Coded Allergies: Benazepril (Verified Allergy, Unknown, 08/15/17) ALL "PRILS" Lisinopril (Verified Allergy, Unknown, 08/15/17) Home Meds Active Scripts Sulfamethoxazole W/Trimethopri (Bactrim Ds Tablet) 1 Tab Tb, 1 TAB PO BID for 7 Days, #14 TAB 0 Refills Prov:YULI DASILVA [employer] 01/24/24 Reported Medications Albuterol Sulfate (Proair Respiclick) 108 Mcg/Act Aer 08/19/17 Current Medications Current Medications Medications (Trade) Dose Ordered Sig/Sohail Route PRN Reason Start Time Stop Time Status Last Admin Furosemide (Lasix Injection) 40 mg BIDD IV 10/11/24 18:00 10/11/24 11:41 DC Furosemide 100 mg/ Sodium Chloride 110 ml @ 11 mls/hr Q10H IV 10/11/24 11:45 10/11/24 14:35 Purified Water 150 ml Q4HR GT 10/11/24 14:00 Doxycycline Hyclate 250 ml @ 125 mls/hr Q12H IV 10/11/24 13:15 10/11/24 14:00 Family History: Family history: Cardiovascular disease G8 MOTHER Family history: Hypertension G8 MOTHER Ischemic heart disease G8 FATHER Review of Systems cannot obtain due to critical illness H&P Exam Vital Signs/I&O Vital Sign Date Time Temp Pulse Resp B/P (MAP) Pulse Ox O2 Delivery O2 Flow Rate FiO2 10/11/24 16:09 45 20 170/63 (98) 98 35 10/11/24 09:30 98.8 209.8 10/11/24 08:00 Mechanical Ventilator+ 10/10/24 21:16 60.0 Intake and Output 10/10/24 10/11/24 19:00 07:00 Intake Total 231.25 ml 162.0 ml Output Total 225 ml 300 ml Balance 6.25 ml -138.0 ml Intake IV Total 231.25 ml 162.0 ml Output Urine Total 225 ml 300 ml Physical Exam Morbidly obese female Intubated Moving spontaneously but not alert and oriented Stable blood pressure No pitting edema Crackles Large abdomen nondistended nontender Nova catheter has dark colored urine Labs/Diagnostic Data Labs/Diagnostic Data Laboratory Tests Test 10/11/24 06:00 10/11/24 01:10 10/10/24 11:28 10/10/24 04:46 Range/Units Blood Gas Specimen Type Arterial Arterial Blood Gas Sample Site Left radial Left radial Blood Gas Patient Temperature 37.0 37.0 Arterial Blood Date Drawn [id number] Arterial Blood pH 7.454 H 7.438 7.350-7.450 Arterial Blood Partial Pressure CO2 37.9 41.9 32.0-45.0 mmHg Arterial Blood Partial Pressure O2 128.1 H 302.5 *H 83.0-108.0 mmHg Arterial Blood HCO3 26.0 27.7 21.0-28.0 mmol/L Arterial Blood Oxygen Saturation 98.3 H 99.6 H 94.0-98.0 % Arterial Blood Base Excess 2.1 3.2 H -2.0-3.0 mmol/L Arterial Blood Oxyhemoglobin 96.8 98.3 H 94.0-98.0 % Arterial Blood Carboxyhemoglobin 1.0 0.7 0.5-1.5 % Arterial Blood Methemoglobin 0.5 0.6 0.0-1.5 % Ankit Test Modified Modified Blood Gas Total Hemoglobin 12.40 12.10 12.0-16.0 g/dL Blood Gas Set Respiration Rate 20.0 20.0 Blood Gas Modality Vent - ac Vent - ac FiO2 % 50.0 100.0 Blood Gas Tidal Volume 500.0 500.0 Blood Gas PEEP or CPAP 5.0 5.0 White Blood Count 8.5 # 6.5 # 4.4-10.8 10^3/uL Red Blood Count 4.05 4.01 4.0-5.20 10^6/uL Hemoglobin 11.0 L 10.8 #L 12.2-16.2 g/dL Hematocrit 33.8 L 33.8 #L 36.0-46.0 % Mean Corpuscular Volume 83.4 84.2 80.0-100.0 fL Mean Corpuscular Hemoglobin 27.1 L 26.9 L 28.0-32.0 pg Mean Corpuscular Hemoglobin Concent 32.5 32.0 32.0-36.0 g/dL Red Cell Distribution Width 16.6 H 16.4 H 11.8-14.3 % Platelet Count 208 178 140-450 10^3/uL Mean Platelet Volume 10.0 10.0 6.9-10.8 fL Neutrophils (%) (Auto) 76.9 83.1 H 37.0-80.0 % Lymphocytes (%) (Auto) 11.7 7.7 L 10.0-50.0 % Monocytes (%) (Auto) 10.9 8.6 0.0-12.0 % Eosinophils (%) (Auto) 0.0 0.0 0.0-7.0 % Basophils (%) (Auto) 0.5 0.6 0.0-2.0 % Neutrophils # (Auto) 6.6 5.4 1.6-8.6 10 ^3/uL Lymphocytes # (Auto) 1.0 0.5 0.4-5.4 10 ^3/uL Monocytes # (Auto) 0.9 0.6 0-1.3 10 ^3/uL Eosinophils # (Auto) 0 0 0-0.8 10 ^3/uL Basophils # (Auto) 0 0 0-0.2 10 ^3/uL Nucleated Red Blood Cells 0.1 0.0 % Sodium Level 148 H 148 H 136-145 mmol/L Potassium Level 3.8 3.8 3.5-5.1 mmol/L Chloride Level 111 H 111 H 98-107 mmol/L Carbon Dioxide Level 28 25 20-31 mmol/L Anion Gap 9 12 5-15 Blood Urea Nitrogen 32 H 25 H 9-23 mg/dL Creatinine 2.01 H 1.74 H 0.550-1.02 mg/dL Glomerular Filtration Rate Calc 26 31 >90 mL/min BUN/Creatinine Ratio 15.9 14.4 10.0-20.0 Serum Glucose 90 90 74-106 mg/dL Calcium Level 9.5 9.4 8.7-10.4 mg/dL Magnesium Level 2.5 1.6-2.6 mg/dL Total Bilirubin 2.0 H 2.2 H 0.2-1.0 mg/dL Aspartate Amino Transferase (AST) 12 L 13 13-40 U/L Alanine Aminotransferase (ALT) 9 10 7-40 U/L Alkaline Phosphatase 73 74 46-116 U/L Total Protein 5.9 5.7 5.7-8.2 g/dL Albumin 3.4 3.3 3.2-4.8 g/dL Blood Gas Critical Value Read Back Yes Blood Gas Notified Whom Dr. brenda parada Blood Gas Notified Time [id number] Blood Gas Notified By [employer] Field Service Technician yaz millan Anti-Nuclear Antibody Screen Negative Negative Test 10/09/24 23:34 10/09/24 17:40 10/09/24 17:21 10/09/24 15:54 Range/Units POC Glucose 74 86 88 70-106 mg/dl Prothrombin Time 12.9 H 9.3-11.8 sec Prothrombin Time INR 1.24 H 0.9-1.15 Test 10/09/24 13:56 10/09/24 08:54 10/09/24 06:06 10/09/24 05:41 Range/Units Blood Gas Specimen Type Venous Arterial Blood Gas Sample Site Other Right radial Blood Gas Patient Temperature 37.0 37.0 Arterial Blood Date Drawn [id number] Ankit Test N/a Modified Venous Blood pH 7.437 H 7.320-7.430 Venous Blood pCO2 at Patient Temp 43.1 38.0-54.0 mmHg Venous Blood pO2 at Patient Temp 44.8 23.0-48.0 mmHg Venous Blood HCO3 28.4 22.0-29.0 mmol/L Venous Blood Base Excess 3.7 H -2.0-3.0 mmol/L Blood Gas Set Respiration Rate 20.0 20.0 Blood Gas Modality Vent - ac Vent - ac FiO2 % 40.0 30.0 Blood Gas Tidal Volume 500.0 500.0 Blood Gas PEEP or CPAP 5.0 5.0 Specimen Drawn By Raffy del cid rn POC Glucose 75 70-106 mg/dl Lactic Acid Level 1.1 0.4-2.0 mmol/L Arterial Blood pH 7.437 7.350-7.450 Arterial Blood Partial Pressure CO2 41.2 32.0-45.0 mmHg Arterial Blood Partial Pressure O2 54.9 *L 83.0-108.0 mmHg Arterial Blood HCO3 27.2 21.0-28.0 mmol/L Arterial Blood Oxygen Saturation 87.8 L 94.0-98.0 % Arterial Blood Base Excess 2.7 -2.0-3.0 mmol/L Arterial Blood Oxyhemoglobin 86.0 L 94.0-98.0 % Arterial Blood Carboxyhemoglobin 1.4 0.5-1.5 % Arterial Blood Methemoglobin 0.6 0.0-1.5 % Blood Gas Total Hemoglobin 13.40 12.0-16.0 g/dL Blood Gas Critical Value Read Back Yes Blood Gas Notified Whom Raffy parada md Blood Gas Notified Time [id number] Blood Gas Notified By [employer] Field Service Technician t alan Test 10/09/24 05:18 10/08/24 20:57 10/08/24 18:32 10/08/24 12:16 Range/Units White Blood Count 8.8 # 6.8 4.4-10.8 10^3/uL Red Blood Count 4.79 4.41 4.0-5.20 10^6/uL Hemoglobin 13.0 11.8 L 12.2-16.2 g/dL Hematocrit 40.2 36.8 36.0-46.0 % Mean Corpuscular Volume 83.8 83.4 80.0-100.0 fL Mean Corpuscular Hemoglobin 27.1 L 26.6 L 28.0-32.0 pg Mean Corpuscular Hemoglobin Concent 32.3 31.9 L 32.0-36.0 g/dL Red Cell Distribution Width 16.3 H 16.2 H 11.8-14.3 % Platelet Count 208 178 140-450 10^3/uL Mean Platelet Volume 10.2 9.9 6.9-10.8 fL Neutrophils (%) (Auto) 87.7 H 82.2 H 37.0-80.0 % Lymphocytes (%) (Auto) 5.4 L 8.3 L 10.0-50.0 % Monocytes (%) (Auto) 6.4 8.4 0.0-12.0 % Eosinophils (%) (Auto) 0.1 0.6 0.0-7.0 % Basophils (%) (Auto) 0.4 0.5 0.0-2.0 % Neutrophils # (Auto) 7.7 5.6 1.6-8.6 10 ^3/uL Lymphocytes # (Auto) 0.5 0.6 0.4-5.4 10 ^3/uL Monocytes # (Auto) 0.6 0.6 0-1.3 10 ^3/uL Eosinophils # (Auto) 0 0 0-0.8 10 ^3/uL Basophils # (Auto) 0 0 0-0.2 10 ^3/uL Nucleated Red Blood Cells 0.1 0.0 % Sodium Level 147 H 146 H 145 136-145 mmol/L Potassium Level 3.6 3.7 4.1 3.5-5.1 mmol/L Chloride Level 110 H 110 H 110 H 98-107 mmol/L Carbon Dioxide Level 27 27 24 20-31 mmol/L Anion Gap 10 9 11 5-15 Blood Urea Nitrogen 17 15 18 9-23 mg/dL Creatinine 1.43 H 1.42 H 1.40 H 0.550-1.02 mg/dL Glomerular Filtration Rate Calc 40 40 41 >90 mL/min BUN/Creatinine Ratio 11.9 10.6 12.9 10.0-20.0 Serum Glucose 91 84 83 74-106 mg/dL Calcium Level 10.0 9.7 9.6 8.7-10.4 mg/dL Total Bilirubin 2.9 H 2.4 H 0.2-1.0 mg/dL Aspartate Amino Transferase (AST) 15 17 13-40 U/L Alanine Aminotransferase (ALT) 15 13 7-40 U/L Alkaline Phosphatase 97 88 46-116 U/L Total Protein 6.8 6.1 5.7-8.2 g/dL Albumin 3.9 3.5 3.2-4.8 g/dL Thyroxine (T4) 6.3 4.5-12.0 ug/dL Free Triiodothyronine (T3) pg/mL 1.76 L 2.3-4.2 pg/mL Phosphorus Level 4.2 2.4-5.1 mg/dL Magnesium Level 2.1 1.6-2.6 mg/dL Troponin I High Sensitivity 125 *H </=34 ng/L Blood Gas Specimen Type Arterial Blood Gas Sample Site Right radial Blood Gas Patient Temperature 37.0 Arterial Blood Date Drawn Arterial Blood pH 7.385 7.350-7.450 Arterial Blood Partial Pressure CO2 43.4 32.0-45.0 mmHg Arterial Blood Partial Pressure O2 85.6 83.0-108.0 mmHg Arterial Blood HCO3 25.4 21.0-28.0 mmol/L Arterial Blood Oxygen Saturation 96.3 94.0-98.0 % Arterial Blood Base Excess 0.2 -2.0-3.0 mmol/L Arterial Blood Oxyhemoglobin 94.8 94.0-98.0 % Arterial Blood Carboxyhemoglobin 1.0 0.5-1.5 % Arterial Blood Methemoglobin 0.6 0.0-1.5 % Ankit Test Modified Blood Gas Total Hemoglobin 12.30 12.0-16.0 g/dL Blood Gas Set Respiration Rate 20.0 Blood Gas Modality Vent - ac FiO2 % 60.0 Blood Gas Tidal Volume 500.0 Blood Gas PEEP or CPAP 5.0 Test 10/08/24 11:14 10/08/24 11:13 10/08/24 10:20 10/08/24 05:57 Range/Units Influenza Type A Antigen Negative Negative Influenza Type B Antigen Negative Negative SARS-CoV-2 Antigen (Rapid) Negative NEGATIVE Urine Color Light-yellow Yellow Urine Clarity Clear Clear Urine pH 5.0 5.0-9.0 Urine Specific [place] 1.009 1.001-1.035 Urine Protein 1+ H Negative Urine Ketones Negative Negative Urine Blood 2+ H Negative /uL Urine Nitrite Negative Negative Urine Bilirubin Negative Negative Urine Urobilinogen Normal Negative mg/dL Urine Leukocyte Esterase Negative Negative /uL Urine RBC 55 0 - 4 /hpf Urine WBC 3 0 - 5 /hpf Urine Squamous Epithelial Cells Few <5 /hpf Urine Bacteria None seen None Seen /hpf Urine Mucus Few None Seen Urine Glucose Normal Normal mg/dL Urine Opiates Screen Neg NEGATIVE Urine Fentanyl Screen Pos NEGATIVE Urine Barbiturates Screen Neg NEGATIVE Urine Phencyclidine Screen Neg NEGATIVE Urine Amphetamines Screen Neg NEGATIVE Urine Benzodiazepines Screen Pos NEGATIVE Urine Cocaine Screen Neg NEGATIVE Urine Cannabinoids Screen Neg NEGATIVE Blood Gas Specimen Type Arterial Arterial Blood Gas Sample Site Right radial Right radial Blood Gas Patient Temperature 37.0 37.0 Arterial Blood Date Drawn [id number] Arterial Blood pH 7.235 *L 7.367 7.350-7.450 Arterial Blood Partial Pressure CO2 63.3 *H 44.4 32.0-45.0 mmHg Arterial Blood Partial Pressure O2 114.2 H 67.9 L 83.0-108.0 mmHg Arterial Blood HCO3 26.2 24.9 21.0-28.0 mmol/L Arterial Blood Oxygen Saturation 97.7 91.6 L 94.0-98.0 % Arterial Blood Base Excess -2.5 L -0.6 -2.0-3.0 mmol/L Arterial Blood Oxyhemoglobin 96.0 90.1 L 94.0-98.0 % Arterial Blood Carboxyhemoglobin 1.0 0.9 0.5-1.5 % Arterial Blood Methemoglobin 0.7 0.7 0.0-1.5 % Ankit Test Modified Yes Blood Gas Total Hemoglobin 13.60 12.90 12.0-16.0 g/dL Blood Gas Set Respiration Rate 16.0 Blood Gas Modality Vent - ac High flow FiO2 % 100.0 35.0 Blood Gas Tidal Volume 420.0 Blood Gas PEEP or CPAP 5.0 Blood Gas Critical Value Read Back Yes Blood Gas Notified Whom Blood Gas Notified Time [id number] Blood Gas Notified By Cj harper Blood Gas Liter Flow 50.00 Test 10/08/24 04:29 10/07/24 22:56 10/07/24 22:27 10/07/24 19:53 Range/Units White Blood Count 7.3 # 4.4-10.8 10^3/uL Red Blood Count 4.42 4.0-5.20 10^6/uL Hemoglobin 12.1 L 12.2-16.2 g/dL Hematocrit 37.4 # 36.0-46.0 % Mean Corpuscular Volume 84.5 80.0-100.0 fL Mean Corpuscular Hemoglobin 27.3 L 28.0-32.0 pg Mean Corpuscular Hemoglobin Concent 32.3 32.0-36.0 g/dL Red Cell Distribution Width 16.4 H 11.8-14.3 % Platelet Count 201 140-450 10^3/uL Mean Platelet Volume 10.1 6.9-10.8 fL Neutrophils (%) (Auto) 77.5 37.0-80.0 % Lymphocytes (%) (Auto) 12.2 10.0-50.0 % Monocytes (%) (Auto) 9.3 0.0-12.0 % Eosinophils (%) (Auto) 0.4 0.0-7.0 % Basophils (%) (Auto) 0.6 0.0-2.0 % Neutrophils # (Auto) 5.6 1.6-8.6 10 ^3/uL Lymphocytes # (Auto) 0.9 0.4-5.4 10 ^3/uL Monocytes # (Auto) 0.7 0-1.3 10 ^3/uL Eosinophils # (Auto) 0 0-0.8 10 ^3/uL Basophils # (Auto) 0 0-0.2 10 ^3/uL Nucleated Red Blood Cells 0.1 % Prothrombin Time 11.8 9.3-11.8 sec Prothrombin Time INR 1.12 0.9-1.15 Activated Partial Thromboplast Time 24.8 24.5-34.5 SEC Sodium Level 143 136-145 mmol/L Potassium Level 4.2 3.5-5.1 mmol/L Chloride Level 110 H 98-107 mmol/L Carbon Dioxide Level 26 20-31 mmol/L Anion Gap 7 5-15 Blood Urea Nitrogen 14 9-23 mg/dL Creatinine 1.25 H 0.550-1.02 mg/dL Glomerular Filtration Rate Calc 47 >90 mL/min BUN/Creatinine Ratio 11.2 10.0-20.0 Serum Glucose 121 H 74-106 mg/dL Calcium Level 10.2 8.7-10.4 mg/dL Total Bilirubin 1.9 H 0.2-1.0 mg/dL Aspartate Amino Transferase (AST) 20 13-40 U/L Alanine Aminotransferase (ALT) 16 7-40 U/L Alkaline Phosphatase 101 46-116 U/L Total Protein 6.7 5.7-8.2 g/dL Albumin 4.2 3.2-4.8 g/dL Thyroid Stimulating Hormone (TSH) 1.20 2.31 0.55-4.78 uIU/mL Blood Gas Specimen Type Arterial Blood Gas Sample Site Left radial Blood Gas Patient Temperature 37.0 Arterial Blood Date Drawn Arterial Blood pH 7.396 7.350-7.450 Arterial Blood Partial Pressure CO2 35.6 32.0-45.0 mmHg Arterial Blood Partial Pressure O2 122.5 H 83.0-108.0 mmHg Arterial Blood HCO3 21.4 21.0-28.0 mmol/L Arterial Blood Oxygen Saturation 98.5 H 94.0-98.0 % Arterial Blood Base Excess -2.8 L -2.0-3.0 mmol/L Arterial Blood Oxyhemoglobin 96.5 94.0-98.0 % Arterial Blood Carboxyhemoglobin 1.3 0.5-1.5 % Arterial Blood Methemoglobin 0.7 0.0-1.5 % Ankit Test N/a Blood Gas Total Hemoglobin 14.40 12.0-16.0 g/dL Blood Gas Set Respiration Rate 16.0 Blood Gas Modality Mask - bipap FiO2 % 35.0 Blood Gas EPAP 5 Blood Gas IPAP 16 Troponin I High Sensitivity 49 *H 46 *H </=34 ng/L Plasma/Serum Blood Alcohol < 3.0 <10 mg/dL Test 10/07/24 19:07 Range/Units White Blood Count 5.6 4.4-10.8 10^3/uL Red Blood Count 4.98 4.0-5.20 10^6/uL Hemoglobin 13.3 12.2-16.2 g/dL Hematocrit 41.9 36.0-46.0 % Mean Corpuscular Volume 84.2 80.0-100.0 fL Mean Corpuscular Hemoglobin 26.7 L 28.0-32.0 pg Mean Corpuscular Hemoglobin Concent 31.7 L 32.0-36.0 g/dL Red Cell Distribution Width 16.6 H 11.8-14.3 % Platelet Count 242 140-450 10^3/uL Mean Platelet Volume 10.2 6.9-10.8 fL Neutrophils (%) (Auto) 72.1 37.0-80.0 % Lymphocytes (%) (Auto) 16.3 10.0-50.0 % Monocytes (%) (Auto) 9.1 0.0-12.0 % Eosinophils (%) (Auto) 1.7 0.0-7.0 % Basophils (%) (Auto) 0.8 0.0-2.0 % Neutrophils # (Auto) 4.0 1.6-8.6 10 ^3/uL Lymphocytes # (Auto) 0.9 0.4-5.4 10 ^3/uL Monocytes # (Auto) 0.5 0-1.3 10 ^3/uL Eosinophils # (Auto) 0.1 0-0.8 10 ^3/uL Basophils # (Auto) 0 0-0.2 10 ^3/uL Nucleated Red Blood Cells 0.3 % Sodium Level 143 136-145 mmol/L Potassium Level 4.0 3.5-5.1 mmol/L Chloride Level 109 H 98-107 mmol/L Carbon Dioxide Level 23 20-31 mmol/L Anion Gap 11 5-15 Blood Urea Nitrogen 14 9-23 mg/dL Creatinine 1.31 H 0.550-1.02 mg/dL Glomerular Filtration Rate Calc 44 >90 mL/min BUN/Creatinine Ratio 10.7 10.0-20.0 Serum Glucose 104 74-106 mg/dL Hemoglobin A1c 6.1 H <5.7 % A1C Calcium Level 10.8 H 8.7-10.4 mg/dL Total Bilirubin 2.4 H 0.2-1.0 mg/dL Aspartate Amino Transferase (AST) 19 13-40 U/L Alanine Aminotransferase (ALT) 18 7-40 U/L Alkaline Phosphatase 119 H 46-116 U/L Troponin I High Sensitivity 45 *H </=34 ng/L B-Type Natriuretic Peptide 1095.27 0-100 pg/mL Total Protein 7.6 5.7-8.2 g/dL Albumin 4.8 3.2-4.8 g/dL Vitamin B12 Level 787 211-911 pg/mL Vitamin D 25-Hydroxy 45.7 30.0-100 ng/mL Microbiology Date/Time Source Procedure Growth Status 10/10/24 13:50 Nose MRSA Screen - Final Complete 10/09/24 03:06 Voided Urine Urine Culture - Final Complete Assessment Acute kidney injury hemodynamic + consecutive contrast exposures +/- cardiorenal syndrome ckd 3a ( in 2017 acute respiratory failure; ARDS decompensated HF EF 20% s/p Cath Morbid obesity Diuretic IV drip resumed today to increase ultrafiltration Strict Is&Os Avoid hypotension Guarded prognosis vent management as per critical care team Explained to patient's sister at bedside the possibility of needing renal replacement therapy this admission. We discussed risks and benefits. At this time we will continue with medical management. Critical care time spent 35 minutes Plan discussed with: Other (Sister) RITCHIE POLANCO MD Oct 11, 2024 16:06
[2024-10-11] MEDS ORDERED: FUROSEMIDE 40 MG/4 ML VIAL IV SCH (18:00)
[2024-10-12] VITALS (111 sets, daily range): BP systolic 107–227; BP diastolic 6–101; PULSE 26–116; RESP 9–23; TEMP 98.1–99.7; O2SAT 86–100
[2024-10-12 01:44] LABS: Basophils # (auto) 0 10 ^3/uL (0-0.2); Basophils % (auto) 0.3 % (0.0-2.0); Eosinophils # (auto) 0 10 ^3/uL (0-0.8); Eosinophils % (auto) 0.1 % (0.0-7.0); Hematocrit 33.6 % (36.0-46.0); Hemoglobin 10.9 g/dL (12.2-16.2); Lymphocytes # (auto) 0.9 10 ^3/uL (0.4-5.4); Lymphocytes % (auto) 12.2 % (10.0-50.0); Mean Corpuscular Hemoglobin 27.4 pg (28.0-32.0); Mean Corpuscular Hgb Conc. 32.6 g/dL (32.0-36.0); Monocytes # (auto) 0.7 10 ^3/uL (0-1.3); Monocytes % (auto) 10.3 % (0.0-12.0); Neutrophils # (auto) 5.5 10 ^3/uL (1.6-8.6); Neutrophils % (auto) 77.1 % (37.0-80.0); Platelet Count (auto) 201 10^3/uL (140-450); Red Cell Distribution Width 16.7 % (11.8-14.3); White Blood Cell 7.1 10^3/uL (4.4-10.8)
[2024-10-12 02:00] LABS: Alanine Aminotransferase 11 U/L (7-40); Albumin 3.6 g/dL (3.2-4.8); Alkaline Phosphatase 73 U/L (46-116); Anion Gap 8 (5-15); Aspartate Aminotransferase 14 U/L (13-40); Bilirubin, Total 1.6 mg/dL (0.2-1.0); Blood Urea Nitrogen 35 mg/dL (9-23); Calcium 9.3 mg/dL (8.7-10.4); Carbon Dioxide 30 mmol/L (20-31); Chloride 111 mmol/L (98-107); Glucose 93 mg/dL (74-106); Potassium 3.6 mmol/L (3.5-5.1); Sodium 149 mmol/L (136-145); Total Protein 6.1 g/dL (5.7-8.2)
[2024-10-12 06:17] LABS: Base Excess -2.1 mmol/L (-2.0-3.0)
--- NOTE | 2024-10-12 06:31 | DVH ---
CHEST RADIOGRAPH Indication:dyspnea Technique: Single frontal view of the chest was obtained COMPARISON: XY CHEST PORTABLE on DOS: 10/11/24, XY CHEST PORTABLE on DOS: 10/10/24, XY CHEST PORTABLE on DOS: 10/10/24 FINDINGS: Lines and Tubes: Endotracheal tube and right central venous catheter in satisfactory position. Lungs: Patchy bilateral airspace disease. Pleura: No effusion. No pneumothorax. Cardiomediastinal contours: Cardiomegaly. Bones: Unremarkable IMPRESSION: Lines and tubes in satisfactory position. No significant interval change.
[2024-10-12] MEDS: DOPamine 1600MCG/ML D5W 250 ML IV SCH ×2 (10:00→15:25)
--- NOTE | 2024-10-12 10:48 | DVHPN2 ---
Progress Note - Dictate Date Seen: Oct 12, 2024 Medical Necessity Reason Pt with a Central, PICC or Fol: Yes The following are medically ne: PICC Line, Nova Catheter Subjective UOP improved with lasix drip BP very high today vital signs Vital Sign Date Time Temp Pulse Resp B/P (MAP) Pulse Ox O2 Delivery O2 Flow Rate FiO2 10/12/24 10:19 206/99 10/12/24 09:24 68 21 100 35 10/12/24 08:00 Mechanical Ventilator+ 10/12/24 07:30 98.6 209.5 10/10/24 21:16 60.0 Total Intake and Output 10/11/24 10/11/24 10/12/24 15:00 23:00 07:00 Intake Total 248.0 ml 259.0 ml 450.5 ml Output Total 400 ml 1400 ml Balance 248.0 ml -141.0 ml -949.5 ml medications Current Medications Medications Dose Ordered Sig/Sohail Route Start Time Stop Time Status Last Admin Dose Admin Sodium Chloride 10 ml Q8HR IV 10/07/24 22:00 10/12/24 04:57 10 ML Acetaminophen 650 mg Q6HP PRN PO 10/07/24 21:45 Hydralazine HCl 10 mg Q6HPRN PRN IV 10/07/24 22:00 10/12/24 10:19 10 MG Metolazone 5 mg DAILY PO 10/08/24 10:00 Midazolam HCl 50 ml @ 1 mls/hr Q24H IV 10/08/24 07:30 10/10/24 07:50 1 MLS/HR Dopamine HCl/ Dextrose 250 ml @ 26.831 mls/ hr Q9H20M IV 10/08/24 09:15 UNV 10/08/24 09:10 26.831 MLS/HR Fentanyl Citrate 250 ml @ 2.5 mls/hr Q24H IV 10/08/24 10:00 10/11/24 04:51 15 MLS/HR Ceftriaxone Sodium 50 ml @ 100 mls/hr DAILY@09 IV 10/09/24 09:00 10/12/24 08:45 100 MLS/HR Pantoprazole Sodium 40 mg DAILY IV 10/09/24 10:00 10/11/24 09:48 40 MG Enoxaparin Sodium 40 mg DAILY SC 10/09/24 10:00 10/11/24 09:49 40 MG Enteral Nutritional Formula 1,000 ml 40ML/HR GT 10/09/24 10:15 Empaglifozin 10 mg DAILY PO 10/10/24 10:00 Spironolactone 25 mg DAILY PO 10/10/24 10:00 Hydrocortisone Sodium Succinate 100 mg DAILY IV 10/10/24 12:15 10/11/24 09:48 100 MG Purified Water 150 ml Q4HR GT 10/11/24 14:00 Doxycycline Hyclate 250 ml @ 125 mls/hr Q12H IV 10/11/24 13:15 10/12/24 01:14 125 MLS/HR Furosemide 100 mg/ Sodium Chloride 110 ml @ 16.5 mls/hr Q6H40M IV 10/11/24 21:45 10/12/24 08:38 16.5 MLS/HR Dopamine HCl/ Dextrose 250 ml @ 26.438 mls/ hr Q9H28M IV 10/12/24 09:00 10/12/24 10:00 26.438 MLS/HR objective Morbidly obese female Intubated Moving spontaneously but not alert and oriented Stable blood pressure No pitting edema Crackles Large abdomen nondistended nontender Nova catheter has dark colored urine laboratory and microbiology Laboratory Tests 10/12/24 01:32 Test 10/12/24 01:32 Range/Units Serum Glucose 93 74-106 mg/dL Assessment/Plan Acute kidney injury hemodynamic + consecutive contrast exposures +/- cardiorenal syndrome ckd 3a ( in 2017 acute respiratory failure; ARDS decompensated HF EF 20% s/p Cath Morbid obesity continue lasix drip may use dual or triple diuretic regimes to achieve negative balance BP control Strict Is&Os sedation Guarded prognosis vent management as per critical care team Explained to patient's sister at bedside the possibility of needing renal replacement therapy this admission. We discussed risks and benefits. At this time we will continue with medical management. Critical care time spent 35 minutes Plan discussed with: Other RITCHIE POLANCO MD Oct 12, 2024 10:48
--- NOTE | 2024-10-12 12:16 | DVHPN2 ---
Consult Progress Note Subjective Patient reports: Other (Patient intubated) Other Systems: Elevated BP, Diuresing well on lasix drip. Objective vital signs Vital Sign Date Time Temp Pulse Resp B/P (MAP) Pulse Ox O2 Delivery O2 Flow Rate FiO2 10/12/24 11:15 96 20 203/76 (118) 100 40 10/12/24 10:00 Mechanical Ventilator+ 10/12/24 07:30 98.6 209.5 10/10/24 21:16 60.0 Total Intake and Output 10/11/24 10/11/24 10/12/24 15:00 23:00 07:00 Intake Total 248.0 ml 259.0 ml 450.5 ml Output Total 400 ml 1400 ml Balance 248.0 ml -141.0 ml -949.5 ml medications Current Medications Medications Dose Ordered Sig/Sohail Route Start Time Stop Time Status Last Admin Dose Admin Sodium Chloride 10 ml Q8HR IV 10/07/24 22:00 10/12/24 04:57 10 ML Acetaminophen 650 mg Q6HP PRN PO 10/07/24 21:45 Hydralazine HCl 10 mg Q6HPRN PRN IV 10/07/24 22:00 10/12/24 10:19 10 MG Metolazone 5 mg DAILY PO 10/08/24 10:00 Midazolam HCl 50 ml @ 1 mls/hr Q24H IV 10/08/24 07:30 10/10/24 07:50 1 MLS/HR Dopamine HCl/ Dextrose 250 ml @ 26.831 mls/ hr Q9H20M IV 10/08/24 09:15 UNV 10/08/24 09:10 26.831 MLS/HR Fentanyl Citrate 250 ml @ 2.5 mls/hr Q24H IV 10/08/24 10:00 10/11/24 04:51 15 MLS/HR Ceftriaxone Sodium 50 ml @ 100 mls/hr DAILY@09 IV 10/09/24 09:00 10/12/24 08:45 100 MLS/HR Pantoprazole Sodium 40 mg DAILY IV 10/09/24 10:00 10/11/24 09:48 40 MG Enoxaparin Sodium 40 mg DAILY SC 10/09/24 10:00 10/11/24 09:49 40 MG Enteral Nutritional Formula 1,000 ml 40ML/HR GT 10/09/24 10:15 Empaglifozin 10 mg DAILY PO 10/10/24 10:00 Spironolactone 25 mg DAILY PO 10/10/24 10:00 Hydrocortisone Sodium Succinate 100 mg DAILY IV 10/10/24 12:15 10/11/24 09:48 100 MG Purified Water 150 ml Q4HR GT 10/11/24 14:00 Doxycycline Hyclate 250 ml @ 125 mls/hr Q12H IV 10/11/24 13:15 10/12/24 01:14 125 MLS/HR Furosemide 100 mg/ Sodium Chloride 110 ml @ 16.5 mls/hr Q6H40M IV 10/11/24 21:45 10/12/24 08:38 16.5 MLS/HR Dopamine HCl/ Dextrose 250 ml @ 26.438 mls/ hr Q9H28M IV 10/12/24 09:00 10/12/24 10:00 26.438 MLS/HR Examination: LUNGS:Abnormal (rhonchi, crackels. BLE edema resolved.), CVS:Abnormal laboratory and microbiology Laboratory Tests 10/12/24 01:32 Test 10/12/24 01:32 Range/Units Serum Glucose 93 74-106 mg/dL Problem List/Assessment/Plan Problem List/Assessment/Plan Problem List/Assessment/Plan Acute hypoxemic respiratory failure due to acute heart failure reduced ejection fraction 20% exacerbation NYHA III status post mechanical ventilation NSTEMI type 2 likely due to above Non ischemic cardiomyopathy based on recent [facility] Acute kidney injury Hypertensive emergency Morbid obesity Plan/Recommendation Recent echocardiogram showed ejection fraction on 20% Treat underlying condition Conservative management Resume GDMT management, avoid beta-blockers because of recent episode of second degree AV block Mobitz 1 Continue furosemide DVT prophylaxis Thank you for allowing us participate in this case, continue diuresing per Nephrology. Vent management per primary team. Dopamine for heart rate, decreased to 3 micrograms/kilos per minute to significantly elevated BP. Clonidine patch and p.r.n. as needed. Unable to start on p.o. meds at this time due to pull the OG tube. Allergies to , calcium channel blockers. Beta- blockers held due to AV block. Case discussed with Dr. Greenwood Critical care, time spent: 35 minutes. Plan discussed with: Patient, Other (Sister) Date of Service: Oct 12, 2024 Billing Provider: JEET GREENWOOD MD Common Visit Codes: [id number] INP/OBS CARE(HIGH), [id number] CARE 30-74 MIN TASHA VENCES [facility] Oct 12, 2024 12:15
--- NOTE | 2024-10-12 15:32 | DVH ---
CHEST RADIOGRAPH Indication:VERIFY OG PLACEMENT Technique: Single frontal view of the chest was obtained COMPARISON: XY CHEST XRAY 1 VIEW on DOS: 10/12/24, XY CHEST PORTABLE on DOS: 10/11/24, XY CHEST EVON BLE on DOS: 10/10/24 FINDINGS: Lines and Tubes: Right central venous catheter in satisfactory position. Endotracheal tube and enter ic catheter in satisfactory position. Lungs: Multifocal airspace disease. Pleura: No effusion. No pneumothorax. Cardiomediastinal contours: Cardiomegaly. Bones: Unremarkable IMPRESSION: Lines and tubes in satisfactory position. No significant interval change.
--- NOTE | 2024-10-12 16:17 | DVHPN2 ---
Progress Note Date Seen: Oct 12, 2024 Medical Necessity Reason Pt with a Central, PICC or Fol: Yes The following are medically ne: PICC Line, Nova Catheter Subjective Other Systems: HR low Objective vital signs Vital Sign Date Time Temp Pulse Resp B/P (MAP) Pulse Ox O2 Delivery O2 Flow Rate FiO2 10/12/24 15:36 123/56 10/12/24 15:12 42 20 96 35 10/12/24 12:00 Mechanical Ventilator+ 10/12/24 07:30 98.6 209.5 10/10/24 21:16 60.0 Total Intake and Output 10/11/24 10/11/24 10/12/24 15:00 23:00 07:00 Intake Total 248.0 ml 259.0 ml 450.5 ml Output Total 400 ml 1400 ml Balance 248.0 ml -141.0 ml -949.5 ml medications Current Medications Medications Dose Ordered Sig/Sohail Route Start Time Stop Time Status Last Admin Dose Admin Sodium Chloride 10 ml Q8HR IV 10/07/24 22:00 10/12/24 15:23 10 ML Acetaminophen 650 mg Q6HP PRN PO 10/07/24 21:45 Hydralazine HCl 10 mg Q6HPRN PRN IV 10/07/24 22:00 10/12/24 10:19 10 MG Metolazone 5 mg DAILY PO 10/08/24 10:00 10/12/24 15:36 5 MG Midazolam HCl 50 ml @ 1 mls/hr Q24H IV 10/08/24 07:30 10/10/24 07:50 1 MLS/HR Dopamine HCl/ Dextrose 250 ml @ 26.831 mls/ hr Q9H20M IV 10/08/24 09:15 UNV 10/08/24 09:10 26.831 MLS/HR Fentanyl Citrate 250 ml @ 2.5 mls/hr Q24H IV 10/08/24 10:00 10/12/24 11:54 15 MLS/HR Ceftriaxone Sodium 50 ml @ 100 mls/hr DAILY@09 IV 10/09/24 09:00 10/12/24 08:45 100 MLS/HR Pantoprazole Sodium 40 mg DAILY IV 10/09/24 10:00 10/12/24 15:36 40 MG Enoxaparin Sodium 40 mg DAILY SC 10/09/24 10:00 10/12/24 15:23 40 MG Enteral Nutritional Formula 1,000 ml 40ML/HR GT 10/09/24 10:15 Empaglifozin 10 mg DAILY PO 10/10/24 10:00 10/12/24 15:24 10 MG Spironolactone 25 mg DAILY PO 10/10/24 10:00 Hydrocortisone Sodium Succinate 100 mg DAILY IV 10/10/24 12:15 10/12/24 15:23 100 MG Purified Water 150 ml Q4HR GT 10/11/24 14:00 10/12/24 15:00 150 ML Doxycycline Hyclate 250 ml @ 125 mls/hr Q12H IV 10/11/24 13:15 10/12/24 15:24 125 MLS/HR Furosemide 100 mg/ Sodium Chloride 110 ml @ 16.5 mls/hr Q6H40M IV 10/11/24 21:45 10/12/24 08:38 16.5 MLS/HR Dopamine HCl/ Dextrose 250 ml @ 15.863 mls/ hr [id number] IV 10/12/24 12:15 10/12/24 15:25 15.863 MLS/HR Clonidine HCl 0.1 mg Q7D TD 10/12/24 12:15 Examination: GENERAL:Abnormal, LUNGS:Abnormal, CVS:Abnormal, ABDOMEN:Abnormal laboratory and microbiology Laboratory Tests 10/12/24 01:32 Test 10/12/24 01:32 Range/Units Serum Glucose 93 74-106 mg/dL Microbiology Date/Time Source Procedure Growth Status 10/10/24 13:50 Nose MRSA Screen - Final Complete 10/09/24 10:58 Bronchial Washings Gram Stain - Final Complete 10/09/24 10:58 Bronchial Washings Respiratory Culture - Final Complete 10/09/24 03:06 Voided Urine Urine Culture - Final Complete 10/08/24 18:32 Blood Blood Culture - Preliminary NO GROWTH AFTER 72 HOURS OF INCUBATION. Resulted Problem List/Assessment/Plan Problem List/Assessment/Plan severe CHF, NICM severe 2nd degree type 1 wenchback obesity resp failure hypotension tried dopamine 5, tele reviewed BP elevated will try dopamine 2.5 now pt has had low HR for 2-3 days defer to primary team on sunday 10/14, if pt is candidate for ICD in future given NICM Plan discussed with: Patient Date of Service: Oct 12, 2024 Billing Provider: GISELLA HINDS MD Common Visit Codes: NOT BILLABLE GISELLA HINDS MD Oct 12, 2024 16:17
[2024-10-12] MEDS ORDERED: DOBUTamine 1000MCG/ML 250 ML IV SCH (17:00)
[2024-10-12] MEDS ORDERED: DOPamine 1600MCG/ML D5W 250 ML IV SCH (20:00)
--- NOTE | 2024-10-12 20:34 | DVHPN2 ---
Subjective chart reviwed family at bedside hr 30-60/mt Changes from previous H/P or p: No Changes Eyes: No Pain, No Vision change, No Conjunctivae inflammation, No Eyelid inflammation, No Other, No Redness ENT: No Ear pain, No Ear discharge, No Nose pain, No Nose discharge, No Nose congestion, No Mouth pain, No Mouth swelling, No Throat pain, No Throat swelling, No Other Cardiovascular: Orthopnea, Paroxysmal Noc. Dyspnea, Edema Respiratory: Cough, Shortness of breath, SOB with excertion, Wheezing Gastrointestinal: No Nausea, No Vomiting, No Abdominal Pain, No Diarrhea, No Constipation, No Melena, No Hematochezia, No Other Genitourinary: No Dysuria, No Frequency, No Incontinence, No Hematuria, No Retention, No Other Musculoskeletal: No other, No neck pain, No shoulder pain, No arm pain, No back pain, No hand pain, No leg pain, No foot pain Skin: No Rash, No Lesions, No Jaundice, No Bruising, No Other Objective Vitals Vital Signs Date Time Temp Pulse Resp B/P (MAP) Pulse Ox O2 Delivery O2 Flow Rate FiO2 10/12/24 20:04 54 20 197/62 (107) 96 45 10/12/24 19:45 99.5 211.1 10/12/24 18:00 Mechanical Ventilator+ 10/10/24 21:16 60.0 Intake/Output Intake and Output 10/12/24 07:00 Intake Total 984.0 ml Output Total 1800 ml Balance -816.0 ml IV Total 984.0 ml Output Urine Total 1800 ml General Appearance: Other (sedated and intubated) Lungs: Clear to auscultation Cardiovascular: Regular rate, Normal S1, Normal S2 Abdomen: Normal bowel sounds, Soft, No tenderness Extremities: No edema Neuro: Other (intubated and sedated) Medications Current Medications Medications Dose Ordered Sig/Sohail Route Start Time Stop Time Status Last Admin Dose Admin Sodium Chloride 10 ml Q8HR IV 10/07/24 22:00 10/12/24 15:23 10 ML Acetaminophen 650 mg Q6HP PRN PO 10/07/24 21:45 Hydralazine HCl 10 mg Q6HPRN PRN IV 10/07/24 22:00 10/12/24 10:19 10 MG Metolazone 5 mg DAILY PO 10/08/24 10:00 10/12/24 15:36 5 MG Midazolam HCl 50 ml @ 1 mls/hr Q24H IV 10/08/24 07:30 10/10/24 07:50 1 MLS/HR Dopamine HCl/ Dextrose 250 ml @ 26.831 mls/ hr Q9H20M IV 10/08/24 09:15 UNV 10/08/24 09:10 26.831 MLS/HR Fentanyl Citrate 250 ml @ 2.5 mls/hr Q24H IV 10/08/24 10:00 10/12/24 11:54 15 MLS/HR Ceftriaxone Sodium 50 ml @ 100 mls/hr DAILY@09 IV 10/09/24 09:00 10/12/24 08:45 100 MLS/HR Pantoprazole Sodium 40 mg DAILY IV 10/09/24 10:00 10/12/24 15:36 40 MG Enoxaparin Sodium 40 mg DAILY SC 10/09/24 10:00 10/12/24 15:23 40 MG Enteral Nutritional Formula 1,000 ml 40ML/HR GT 10/09/24 10:15 Empaglifozin 10 mg DAILY PO 10/10/24 10:00 10/12/24 15:24 10 MG Spironolactone 25 mg DAILY PO 10/10/24 10:00 Hydrocortisone Sodium Succinate 100 mg DAILY IV 10/10/24 12:15 10/12/24 15:23 100 MG Purified Water 150 ml Q4HR GT 10/11/24 14:00 10/12/24 18:00 150 ML Doxycycline Hyclate 250 ml @ 125 mls/hr Q12H IV 10/11/24 13:15 10/12/24 15:24 125 MLS/HR Furosemide 100 mg/ Sodium Chloride 110 ml @ 16.5 mls/hr Q6H40M IV 10/11/24 21:45 10/12/24 08:38 16.5 MLS/HR Clonidine HCl 0.1 mg Q7D TD 10/12/24 12:15 Dopamine HCl/ Dextrose 250 ml @ 13.219 mls/ hr [id number] IV 10/12/24 20:00 Laboratory Results Laboratory Tests 10/12/24 01:32 Chemistry Test 10/12/24 01:32 Albumin 3.6 g/dL (3.2-4.8) Calcium Level 9.3 mg/dL (8.7-10.4) Magnesium Level 2.5 mg/dL (1.6-2.6) Total Protein 6.1 g/dL (5.7-8.2) LFT Test 10/12/24 01:32 Alanine Aminotransferase (ALT) 11 U/L (7-40) Alkaline Phosphatase 73 U/L (46-116) Aspartate Amino Transferase (AST) 14 U/L (13-40) Total Bilirubin 1.6 mg/dL (0.2-1.0) H Urinalysis Test 10/08/24 11:13 Urine Color Light-yellow (Yellow) Urine Clarity Clear (Clear) Urine pH 5.0 (5.0-9.0) Urine Specific [place] 1.009 (1.001-1.035) Urine Protein 1+ (Negative) H Urine Ketones Negative (Negative) Urine Blood 2+ /uL (Negative) H Urine Nitrite Negative (Negative) Urine Bilirubin Negative (Negative) Urine Urobilinogen Normal mg/dL (Negative) Urine Leukocyte Esterase Negative /uL (Negative) Urine RBC 55 /hpf (0 - 4) Urine WBC 3 /hpf (0 - 5) Urine Squamous Epithelial Cells Few /hpf (<5) Urine Bacteria None seen /hpf (None Seen) Urine Mucus Few (None Seen) Urine Glucose Normal mg/dL (Normal) Blood Gas Results Test 10/12/24 06:12 Arterial Blood pH 7.344 (7.350-7.450) FiO2 % 35.0 Microbiology Microbiology Date/Time Source Procedure Growth Status 10/10/24 13:50 Nose MRSA Screen - Final Complete 10/09/24 10:58 Bronchial Washings Gram Stain - Final Complete 10/09/24 10:58 Bronchial Washings Respiratory Culture - Final Complete 10/09/24 03:06 Voided Urine Urine Culture - Final Complete 10/08/24 18:32 Blood Blood Culture - Preliminary NO GROWTH AFTER 72 HOURS OF INCUBATION. Resulted Labs and/or images reviewed: Labs reviewed by me, Image(s) reviewed by me Assessment/Plan Assessment/Plan chf- normal coronaries acute respiratory failure due to above intermittent heart block- d/w cardiology- switch to dobutamine/if not better arrange for transvenous pacer-untill cardiology decideson defibrillator/pacer cardiomyopathy- non ischemic Plan discussed with: Other Date of Service: Oct 12, 2024 Billing Provider: SHERIF LUNA MD Common Visit Codes: [id number] INP/OBS CARE(HIGH) SHERIF LUNA MD Oct 12, 2024 20:34
[2024-10-12] MEDS: DOBUTamine 1000MCG/ML 250 ML IV SCH (21:23)
--- NOTE | 2024-10-12 22:02 | DVHINCON2 ---
Date of service: Oct 12, 2024 Referring Physician Marquise Conley MD Reason for Consultation Acute hypoxic respiratory failure requiring mechanical ventilator History of Present Illness A 68-year-old woman with PMHx of asthma, bronchitis, CHF, COPD, diabetes mellitus, hypertension and morbid obesity who presented to the ED on 10/07/24 with c/o worsening shortness of breath for 1.5 weeks. Patient reported she usually has shortness of breath but for the past 1.5 weeks, it is worsening with associated cough. She also reported orthopnea and PND. Denied chest pain or other associated symptoms. Patient was admitted for further care and pulmonary consultation is requested for evaluation and management due to the above findings Review of Systems: 14-point review of systems negative unless otherwise noted above. Past Medical History: Asthma, CHF, COPD, diabetes mellitus, hypertension, UTIs, morbid obesity. Past Surgical History: None Medications: Reviewed. Allergies: Benazepril Lisinopril. Family History: Mother with heart disease and hypertension Father with ischemic heart disease Social History: Nonsmoker. No alcohol or illicit drug use. 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 [employer]STRUCTION TE[employer]Y [employer]STRU[employer] 01/24/24 Reported Medications Albuterol Sulfate (Proair Respiclick) 108 Mcg/Act Aer 08/19/17 Current Medications Current Medications Medications (Trade) Dose Ordered Sig/Sohail Route PRN Reason Start Time Stop Time Status Last Admin Dopamine HCl/ Dextrose 250 ml @ 26.438 mls/ hr Q9H28M IV 10/12/24 09:00 10/12/24 12:12 DC 10/12/24 10:00 Dopamine HCl/ Dextrose 250 ml @ 15.863 mls/ hr [id number] IV 10/12/24 12:15 10/12/24 16:50 DC 10/12/24 15:25 Clonidine HCl ([id number] 7DAY Patch) 0.1 mg Q7D TD 10/12/24 12:15 Dobutamine HCl/ Dextrose 250 ml @ 21.15 mls/ hr [id number] IV 10/12/24 17:00 10/12/24 19:56 DC Dopamine HCl/ Dextrose 250 ml @ 13.219 mls/ hr [id number] IV 10/12/24 20:00 10/12/24 20:36 DC Dobutamine HCl/ Dextrose 250 ml @ 42.3 mls/hr Q5H55M IV 10/12/24 21:00 10/12/24 21:23 Vital Signs Vital Signs Date Time Temp Pulse Resp B/P (MAP) Pulse Ox O2 Delivery O2 Flow Rate FiO2 10/12/24 21:23 183/62 10/12/24 20:04 54 20 96 45 10/12/24 19:45 99.5 211.1 10/12/24 18:00 Mechanical Ventilator+ 10/10/24 21:16 60.0 Physical Exam Gen.: Patient lying in bed in medical ICU. Sedated, intubated on mechanical ventilator. Head: Normocephalic, atraumatic. Eyes: PERRLA. Ears: Normal external anatomy. Throat: Endotracheal tube and orogastric tube in place. Neck: Supple, trachea midline. Chest: Transmitted breath sounds bilaterally. Decreased air entry bilaterally. No wheezing. Bibasilar crackles. Cardiovascular: Positive S1, positive S2. Regular rate and rhythm. Abdomen: Positive bowel sounds in all 4 quadrants. Soft, nontender, nondistended. : Nova in place. Normal external genitalia. Rectal: Deferred. Skin: Warm, dry. Intact. Extremities: 2+ radial pulses bilaterally. No lower extremity edema. Neuro: Sedated. Labs/Diagnostic Data Labs Test 10/12/24 06:12 10/12/24 01:32 10/10/24 11:28 10/10/24 04:46 Range/Units Blood Gas Specimen Type Arterial Blood Gas Sample Site Left radial Blood Gas Patient Temperature 37.0 Arterial Blood Date Drawn [id number] Arterial Blood pH 7.344 L 7.350-7.450 Arterial Blood Partial Pressure CO2 44.5 32.0-45.0 mmHg Arterial Blood Partial Pressure O2 76.1 L 83.0-108.0 mmHg Arterial Blood HCO3 23.7 21.0-28.0 mmol/L Arterial Blood Oxygen Saturation 92.8 L 94.0-98.0 % Arterial Blood Base Excess -2.1 L -2.0-3.0 mmol/L Arterial Blood Oxyhemoglobin 91.6 L 94.0-98.0 % Arterial Blood Carboxyhemoglobin 0.7 0.5-1.5 % Arterial Blood Methemoglobin 0.6 0.0-1.5 % Ankit Test Modified Blood Gas Total Hemoglobin 12.50 12.0-16.0 g/dL Blood Gas Set Respiration Rate 20.0 Blood Gas Modality Vent - ac FiO2 % 35.0 Blood Gas Tidal Volume 450.0 Blood Gas PEEP or CPAP 5.0 White Blood Count 7.1 4.4-10.8 10^3/uL Red Blood Count 4.00 4.0-5.20 10^6/uL Hemoglobin 10.9 L 12.2-16.2 g/dL Hematocrit 33.6 L 36.0-46.0 % Mean Corpuscular Volume 84.0 80.0-100.0 fL Mean Corpuscular Hemoglobin 27.4 L 28.0-32.0 pg Mean Corpuscular Hemoglobin Concent 32.6 32.0-36.0 g/dL Red Cell Distribution Width 16.7 H 11.8-14.3 % Platelet Count 201 140-450 10^3/uL Mean Platelet Volume 10.2 6.9-10.8 fL Neutrophils (%) (Auto) 77.1 37.0-80.0 % Lymphocytes (%) (Auto) 12.2 10.0-50.0 % Monocytes (%) (Auto) 10.3 0.0-12.0 % Eosinophils (%) (Auto) 0.1 0.0-7.0 % Basophils (%) (Auto) 0.3 0.0-2.0 % Neutrophils # (Auto) 5.5 1.6-8.6 10 ^3/uL Lymphocytes # (Auto) 0.9 0.4-5.4 10 ^3/uL Monocytes # (Auto) 0.7 0-1.3 10 ^3/uL Eosinophils # (Auto) 0 0-0.8 10 ^3/uL Basophils # (Auto) 0 0-0.2 10 ^3/uL Nucleated Red Blood Cells 0.0 % Sodium Level 149 H 136-145 mmol/L Potassium Level 3.6 3.5-5.1 mmol/L Chloride Level 111 H 98-107 mmol/L Carbon Dioxide Level 30 20-31 mmol/L Anion Gap 8 5-15 Blood Urea Nitrogen 35 H 9-23 mg/dL Creatinine 1.84 H 0.550-1.02 mg/dL Glomerular Filtration Rate Calc 29 >90 mL/min BUN/Creatinine Ratio 19.0 10.0-20.0 Serum Glucose 93 74-106 mg/dL Calcium Level 9.3 8.7-10.4 mg/dL Magnesium Level 2.5 1.6-2.6 mg/dL Total Bilirubin 1.6 H 0.2-1.0 mg/dL Aspartate Amino Transferase (AST) 14 13-40 U/L Alanine Aminotransferase (ALT) 11 7-40 U/L Alkaline Phosphatase 73 46-116 U/L Total Protein 6.1 5.7-8.2 g/dL Albumin 3.6 3.2-4.8 g/dL Blood Gas Critical Value Read Back Yes Blood Gas Notified Whom Dr. brenda parada Blood Gas Notified Time [id number] Blood Gas Notified By Wedding Coordinator yaz millan Anti-Nuclear Antibody Screen Negative Negative Test 10/09/24 23:34 10/09/24 17:40 10/09/24 13:56 10/09/24 06:06 Range/Units POC Glucose 74 70-106 mg/dl Prothrombin Time 12.9 H 9.3-11.8 sec Prothrombin Time INR 1.24 H 0.9-1.15 Venous Blood pH 7.437 H 7.320-7.430 Venous Blood pCO2 at Patient Temp 43.1 38.0-54.0 mmHg Venous Blood pO2 at Patient Temp 44.8 23.0-48.0 mmHg Venous Blood HCO3 28.4 22.0-29.0 mmol/L Venous Blood Base Excess 3.7 H -2.0-3.0 mmol/L Specimen Drawn By Raffy del cid rn Lactic Acid Level 1.1 0.4-2.0 mmol/L Test 10/09/24 05:18 10/08/24 20:57 10/08/24 11:14 10/08/24 11:13 Range/Units Thyroxine (T4) 6.3 4.5-12.0 ug/dL Free Triiodothyronine (T3) pg/mL 1.76 L 2.3-4.2 pg/mL Phosphorus Level 4.2 2.4-5.1 mg/dL Troponin I High Sensitivity 125 *H </=34 ng/L Influenza Type A Antigen Negative Negative Influenza Type B Antigen Negative Negative SARS-CoV-2 Antigen (Rapid) Negative NEGATIVE Urine Color Light-yellow Yellow Urine Clarity Clear Clear Urine pH 5.0 5.0-9.0 Urine Specific [place] 1.009 1.001-1.035 Urine Protein 1+ H Negative Urine Ketones Negative Negative Urine Blood 2+ H Negative /uL Urine Nitrite Negative Negative Urine Bilirubin Negative Negative Urine Urobilinogen Normal Negative mg/dL Urine Leukocyte Esterase Negative Negative /uL Urine RBC 55 0 - 4 /hpf Urine WBC 3 0 - 5 /hpf Urine Squamous Epithelial Cells Few <5 /hpf Urine Bacteria None seen None Seen /hpf Urine Mucus Few None Seen Urine Glucose Normal Normal mg/dL Urine Opiates Screen Neg NEGATIVE Urine Fentanyl Screen Pos NEGATIVE Urine Barbiturates Screen Neg NEGATIVE Urine Phencyclidine Screen Neg NEGATIVE Urine Amphetamines Screen Neg NEGATIVE Urine Benzodiazepines Screen Pos NEGATIVE Urine Cocaine Screen Neg NEGATIVE Urine Cannabinoids Screen Neg NEGATIVE Test 10/08/24 05:57 10/08/24 04:29 10/07/24 22:56 10/07/24 22:27 Range/Units Blood Gas Liter Flow 50.00 Activated Partial Thromboplast Time 24.8 24.5-34.5 SEC Thyroid Stimulating Hormone (TSH) 1.20 0.55-4.78 uIU/mL Blood Gas EPAP 5 Blood Gas IPAP 16 Plasma/Serum Blood Alcohol < 3.0 <10 mg/dL Test 10/07/24 19:07 Range/Units Hemoglobin A1c 6.1 H <5.7 % A1C B-Type Natriuretic Peptide 1095.27 0-100 pg/mL Vitamin B12 Level 787 211-911 pg/mL Vitamin D 25-Hydroxy 45.7 30.0-100 ng/mL Microbiology Date/Time Source Procedure Growth Status 10/10/24 13:50 Nose MRSA Screen - Final Complete 10/09/24 10:58 Bronchial Washings Gram Stain - Final Complete 10/09/24 10:58 Bronchial Washings Respiratory Culture - Final Complete 10/09/24 03:06 Voided Urine Urine Culture - Final Complete 10/08/24 18:32 Blood Blood Culture - Preliminary NO GROWTH AFTER 72 HOURS OF INCUBATION. Resulted Assessment Impression: Acute hypoxic respiratory failure On mechanical ventilator Congestive heart failure, reduced ejection fraction 20% Nonischemic cardiomyopathy based on recent [facility] NSTEMI type 2 Acute kidney injury Hypertensive emergency Morbid obesity Plan: s/p intubation on mechanical ventilator. On AC mode; RR 20, VT 450, PEEP 5, FiO2 45% ABG reviewed, compensated CXR demonstrates multifocal opacities, no pneumothorax; devices in place. Titrate FIO2 to keep O2 saturation above 90%. VAP bundle. Daily ABG and CXR while intubated Sedated for ventilator synchrony - Fentanyl drip Continue antibiotics. F/u cultures. Stop dobutamine drip. F/u cardiology recommendations Plan for transcutaneous pacemaker. Pressors as necessary for hemodynamic support Titrate to keep mean arterial pressure greater than 65 mmHg. Monitor renal function Monitor electrolytes. Supplement as necessary. Monitor ins and outs. Maintain euvolemia. GI prophylaxis. DVT prophylaxis. Prognosis: Poor given patient's multiple co-morbidities. Condition: Critical Rest of plan per hospitalist and other consultants. A total of 35 minutes of critical care time was spent reviewing the patient record, examining the patient, making a diagnostic and therapeutic plan, discussing this plan with the medical personnel, following up on diagnostic studies and following the patient for clinical stability excluding any and all procedures. At least 50% of this time was spent in direct, [id number] contact. Thank you Dr. Marquise Conley MD, for allowing me to participate in this patient's care. Further recommendations will depend on the patient's clinical course. Please do not hesitate to contact me if you have any questions or concerns. This medical document was created using an electronic medical record system with [employer] dictation system. Although these documentations are being carefully reviewed, there may still be some phonetic and typographical changes. The errors are purely typographical, due to imperfection on the software program, and do not reflect any compromise in the patient's medical care. Plan discussed with: Other (MD Jarvis Carrasco) HO MELENDEZ MD Oct 12, 2024 22:02
[2024-10-13] VITALS (130 sets, daily range): BP systolic 130–178; BP diastolic 33–97; PULSE 30–103; RESP 10–21; TEMP 97.9–99.1; O2SAT 93–100
[2024-10-13 05:13] LABS: Basophils # (auto) 0.1 10 ^3/uL (0-0.2); Basophils % (auto) 0.7 % (0.0-2.0); Eosinophils # (auto) 0 10 ^3/uL (0-0.8); Hematocrit 35.7 % (36.0-46.0); Hemoglobin 11.7 g/dL (12.2-16.2); Lymphocytes # (auto) 0.9 10 ^3/uL (0.4-5.4); Lymphocytes % (auto) 11.8 % (10.0-50.0); Mean Corpuscular Hemoglobin 27.2 pg (28.0-32.0); Mean Corpuscular Hgb Conc. 32.8 g/dL (32.0-36.0); Monocytes # (auto) 0.6 10 ^3/uL (0-1.3); Neutrophils # (auto) 6.2 10 ^3/uL (1.6-8.6); Neutrophils % (auto) 79.5 % (37.0-80.0); Platelet Count (auto) 217 10^3/uL (140-450); Red Cell Distribution Width 16.3 % (11.8-14.3); White Blood Cell 7.7 10^3/uL (4.4-10.8)
--- NOTE | 2024-10-13 05:22 | DVH ---
CHEST RADIOGRAPH Indication:INTUBATED Technique: Single frontal view of the chest was obtained Comparison: XY CHEST XRAY 1 VIEW on DOS: 10/12/24, XY CHEST XRAY 1 VIEW on DOS: 10/12/24, XY CHEST PO RTABLE on DOS: 10/11/24, XY CHEST PORTABLE on DOS: 10/10/24, XY CHEST PORTABLE on DOS: 10/10/24, XY C HEST XRAY 1 VIEW on DOS: 10/12/24 FINDINGS: Lines and Tubes: Right central venous catheter in satisfactory position. Endotracheal tube and enter ic catheter in satisfactory position. Lungs: Multifocal airspace disease. Pleura: No effusion. No pneumothorax. Cardiomediastinal contours: Cardiomegaly. Bones: Unremarkable IMPRESSION: 1. Lines and tubes in satisfactory position. No significant interval change.
[2024-10-13 05:31] LABS: Chloride 107 mmol/L (98-107); Potassium 2.8 mmol/L (3.5-5.1); Sodium 150 mmol/L (136-145)
[2024-10-13 05:32] LABS: Anion Gap 10 (5-15); Carbon Dioxide 33 mmol/L (20-31)
[2024-10-13 05:33] LABS: Calcium 9.6 mg/dL (8.7-10.4)
[2024-10-13 05:37] LABS: Glucose 91 mg/dL (74-106)
[2024-10-13 05:38] LABS: BUN/Creatinine Ratio 18.7 (10.0-20.0); Blood Urea Nitrogen 32 mg/dL (9-23); Magnesium 2.3 mg/dL (1.6-2.6)
[2024-10-13] MEDS: POTASSIUM CHL 20MEQ/100ML 100 ML IV SCH ×2 (07:52→15:26)
[2024-10-13 08:22] LABS: Base Excess 9.5 mmol/L (-2.0-3.0)
--- NOTE | 2024-10-13 11:48 | DVHPN2 ---
Subjective chart reviwed TEMPORARY PACER PAD ON/on dobutamine drip hr 30-60/mt Changes from previous H/P or p: No Changes Eyes: No Pain, No Vision change, No Conjunctivae inflammation, No Eyelid inflammation, No Other, No Redness ENT: No Ear pain, No Ear discharge, No Nose pain, No Nose discharge, No Nose congestion, No Mouth pain, No Mouth swelling, No Throat pain, No Throat swelling, No Other Cardiovascular: Orthopnea, Paroxysmal Noc. Dyspnea, Edema Respiratory: Cough, Shortness of breath, SOB with excertion, Wheezing Gastrointestinal: No Nausea, No Vomiting, No Abdominal Pain, No Diarrhea, No Constipation, No Melena, No Hematochezia, No Other Genitourinary: No Dysuria, No Frequency, No Incontinence, No Hematuria, No Retention, No Other Musculoskeletal: No other, No neck pain, No shoulder pain, No arm pain, No back pain, No hand pain, No leg pain, No foot pain Skin: No Rash, No Lesions, No Jaundice, No Bruising, No Other Objective Vitals Vital Signs Date Time Temp Pulse Resp B/P (MAP) Pulse Ox O2 Delivery O2 Flow Rate FiO2 10/13/24 11:30 42 20 142/58 (86) 100 50 10/13/24 08:00 Mechanical Ventilator+ 10/13/24 08:00 97.9 208.2 Intake/Output Intake and Output 10/13/24 07:00 Intake Total 2265.138 ml Output Total 6850 ml Balance -4584.862 ml Intake Oral 750 ml IV Total 1515.138 ml Output Urine Total 6850 ml General Appearance: Other (sedated and intubated) Lungs: Clear to auscultation Cardiovascular: Regular rate, Normal S1, Normal S2 Abdomen: Normal bowel sounds, Soft, No tenderness Extremities: No edema Neuro: Other (intubated and sedated) Medications Current Medications Medications Dose Ordered Sig/Sohail Route Start Time Stop Time Status Last Admin Dose Admin Sodium Chloride 10 ml Q8HR IV 10/07/24 22:00 10/13/24 06:00 10 ML Acetaminophen 650 mg Q6HP PRN PO 10/07/24 21:45 Hydralazine HCl 10 mg Q6HPRN PRN IV 10/07/24 22:00 10/12/24 10:19 10 MG Midazolam HCl 50 ml @ 1 mls/hr Q24H IV 10/08/24 07:30 10/13/24 06:56 2 MLS/HR Dopamine HCl/ Dextrose 250 ml @ 26.831 mls/ hr Q9H20M IV 10/08/24 09:15 UNV 10/08/24 09:10 26.831 MLS/HR Fentanyl Citrate 250 ml @ 2.5 mls/hr Q24H IV 10/08/24 10:00 10/13/24 05:40 12.5 MLS/HR Ceftriaxone Sodium 50 ml @ 100 mls/hr DAILY@09 IV 10/09/24 09:00 10/13/24 09:10 100 MLS/HR Pantoprazole Sodium 40 mg DAILY IV 10/09/24 10:00 10/13/24 11:16 40 MG Enoxaparin Sodium 40 mg DAILY SC 10/09/24 10:00 10/13/24 11:16 40 MG Enteral Nutritional Formula 1,000 ml 40ML/HR GT 10/09/24 10:15 Empaglifozin 10 mg DAILY PO 10/10/24 10:00 10/13/24 11:15 10 MG Spironolactone 25 mg DAILY PO 10/10/24 10:00 Hydrocortisone Sodium Succinate 100 mg DAILY IV 10/10/24 12:15 10/13/24 11:16 100 MG Purified Water 150 ml Q4HR GT 10/11/24 14:00 10/13/24 11:21 150 ML Doxycycline Hyclate 250 ml @ 125 mls/hr Q12H IV 10/11/24 13:15 10/13/24 01:30 125 MLS/HR Furosemide 100 mg/ Sodium Chloride 110 ml @ 16.5 mls/hr Q6H40M IV 10/11/24 21:45 10/13/24 04:30 16.5 MLS/HR Clonidine HCl 0.1 mg Q7D TD 10/12/24 12:15 Dobutamine HCl/ Dextrose 250 ml @ 42.3 mls/hr Q5H55M IV 10/12/24 21:00 10/13/24 09:07 42.3 MLS/HR Laboratory Results Laboratory Tests 10/13/24 04:46 Chemistry Test 10/13/24 04:46 Calcium Level 9.6 mg/dL (8.7-10.4) Magnesium Level 2.3 mg/dL (1.6-2.6) Cardiac Markers Test 10/13/24 04:46 B-Type Natriuretic Peptide 1147.19 pg/mL (0-100) Urinalysis Test 10/08/24 11:13 Urine Color Light-yellow (Yellow) Urine Clarity Clear (Clear) Urine pH 5.0 (5.0-9.0) Urine Specific [place] 1.009 (1.001-1.035) Urine Protein 1+ (Negative) H Urine Ketones Negative (Negative) Urine Blood 2+ /uL (Negative) H Urine Nitrite Negative (Negative) Urine Bilirubin Negative (Negative) Urine Urobilinogen Normal mg/dL (Negative) Urine Leukocyte Esterase Negative /uL (Negative) Urine RBC 55 /hpf (0 - 4) Urine WBC 3 /hpf (0 - 5) Urine Squamous Epithelial Cells Few /hpf (<5) Urine Bacteria None seen /hpf (None Seen) Urine Mucus Few (None Seen) Urine Glucose Normal mg/dL (Normal) Blood Gas Results Test 10/13/24 08:15 Arterial Blood pH 7.444 (7.350-7.450) FiO2 % 35.0 Microbiology Microbiology Date/Time Source Procedure Growth Status 10/10/24 13:50 Nose MRSA Screen - Final Complete 10/09/24 10:58 Bronchial Washings Gram Stain - Final Complete 10/09/24 10:58 Bronchial Washings Respiratory Culture - Final Complete 10/09/24 03:06 Voided Urine Urine Culture - Final Complete 10/08/24 18:32 Blood Blood Culture - Preliminary NO GROWTH AFTER 72 HOURS OF INCUBATION. Resulted Labs and/or images reviewed: Labs reviewed by me, Image(s) reviewed by me Assessment/Plan Assessment/Plan acute on chronic systolic chf-improved pneumonia with acute respiratory failure- stable- still vent dependent/ normal coronaries non ischemic cardiomyopathy intermittent heart block- d/w cardiology- and switched to dobutamine//cutanouus pacer pads on and cardiology here today-await opinion cardiomyopathy- non ischemic ckd3- due to hypoperfusion from above- Plan discussed with: Other (sister yesterday) My Orders Orders - SHERIF LUNA MD Procedure Category Date Status Time Dobutamine 1000mcg/Ml PHA 10/12/24 In Process (Dobutrex) 21:00 Date of Service: Oct 13, 2024 Billing Provider: SHERIF LUNA MD Common Visit Codes: [id number] CARE 30-74 MIN SHERIF LUNA MD Oct 13, 2024 11:48
--- NOTE | 2024-10-13 15:54 | DVHPN2 ---
Progress Note - Dictate Date Seen: Oct 13, 2024 Medical Necessity Reason Pt with a Central, PICC or Fol: Yes The following are medically ne: PICC Line, Nova Catheter Subjective UOP improved with lasix drip BP very high today HR intermittently 30s-50s potassium low vital signs Vital Sign Date Time Temp Pulse Resp B/P (MAP) Pulse Ox O2 Delivery O2 Flow Rate FiO2 10/13/24 14:04 175/64 10/13/24 14:00 50 10/13/24 14:00 35 10/13/24 14:00 20 94 Mechanical Ventilator+ 10/13/24 12:00 98.1 208.6 Total Intake and Output 10/12/24 10/12/24 10/13/24 15:00 23:00 07:00 Intake Total 353.5 ml 875.238 ml 1036.4 ml Output Total 3850 ml 3000 ml Balance 353.5 ml -2974.762 ml -1963.6 ml medications Current Medications Medications Dose Ordered Sig/Sohail Route Start Time Stop Time Status Last Admin Dose Admin Sodium Chloride 10 ml Q8HR IV 10/07/24 22:00 10/13/24 14:02 10 ML Acetaminophen 650 mg Q6HP PRN PO 10/07/24 21:45 Hydralazine HCl 10 mg Q6HPRN PRN IV 10/07/24 22:00 10/13/24 14:02 10 MG Midazolam HCl 50 ml @ 1 mls/hr Q24H IV 10/08/24 07:30 10/13/24 07:30 2 MLS/HR Dopamine HCl/ Dextrose 250 ml @ 26.831 mls/ hr Q9H20M IV 10/08/24 09:15 UNV 10/08/24 09:10 26.831 MLS/HR Fentanyl Citrate 250 ml @ 2.5 mls/hr Q24H IV 10/08/24 10:00 10/13/24 05:40 12.5 MLS/HR Ceftriaxone Sodium 50 ml @ 100 mls/hr DAILY@09 IV 10/09/24 09:00 10/13/24 09:10 100 MLS/HR Pantoprazole Sodium 40 mg DAILY IV 10/09/24 10:00 10/13/24 11:16 40 MG Enoxaparin Sodium 40 mg DAILY SC 10/09/24 10:00 10/13/24 11:16 40 MG Enteral Nutritional Formula 1,000 ml 40ML/HR GT 10/09/24 10:15 Empaglifozin 10 mg DAILY PO 10/10/24 10:00 10/13/24 11:15 10 MG Hydrocortisone Sodium Succinate 100 mg DAILY IV 10/10/24 12:15 10/13/24 11:16 100 MG Purified Water 150 ml Q4HR GT 10/11/24 14:00 10/13/24 14:00 150 ML Doxycycline Hyclate 250 ml @ 125 mls/hr Q12H IV 10/11/24 13:15 10/13/24 13:57 125 MLS/HR Clonidine HCl 0.1 mg Q7D TD 10/12/24 12:15 Dobutamine HCl/ Dextrose 250 ml @ 42.3 mls/hr Q5H55M IV 10/12/24 21:00 10/13/24 14:04 42.3 MLS/HR Potassium Chloride 100 ml @ 50 mls/hr Q2H IV 10/13/24 14:45 10/13/24 20:44 10/13/24 15:26 50 MLS/HR objective Morbidly obese female Intubated Moving spontaneously but not alert and oriented Stable blood pressure No pitting edema Crackles Large abdomen nondistended nontender Nova catheter has dark colored urine laboratory and microbiology Laboratory Tests 10/13/24 13:17 10/13/24 04:46 Test 10/13/24 04:46 Range/Units Serum Glucose 91 74-106 mg/dL Assessment/Plan Acute kidney injury hemodynamic + consecutive contrast exposures +/- cardiorenal syndrome ckd 3a ( in 2017 acute respiratory failure; ARDS decompensated HF EF 20% s/p Cath Morbid obesity bradycardia tolerated aggressive fluid removal , rec taper to to IVP cant use aldactone in OGT at this time. replace potassium defer to cardiology for management of bradycardia BP control Strict Is&Os sedation Guarded prognosis vent management as per critical care team Explained to patient's sister at bedside the possibility of needing renal replacement therapy this admission. We discussed risks and benefits. At this time we will continue with medical management. no indication as renal function and HAYDE are improving Critical care time spent 35 minutes Plan discussed with: Other RITCHIE POLANCO MD Oct 13, 2024 15:54
[2024-10-13] MEDS: FUROSEMIDE 100 MG/10ML VIAL IV SCH (17:42)
--- NOTE | 2024-10-13 21:36 | DVHPN2 ---
Progress Note - Dictate Date Seen: Oct 13, 2024 Medical Necessity Reason Pt with a Central, PICC or Fol: Yes The following are medically ne: PICC Line, Nova Catheter Subjective Patient seen and examined at bedside. Sedated, intubated on mechanical ventilator. Overnight events reviewed. vital signs Vital Sign Date Time Temp Pulse Resp B/P (MAP) Pulse Ox O2 Delivery O2 Flow Rate FiO2 10/13/24 21:16 98.8 67 10 166/61 (96) 99 209.8 10/13/24 20:12 50 10/13/24 20:00 Mechanical Ventilator+ Total Intake and Output 10/12/24 10/12/24 10/13/24 15:00 23:00 07:00 Intake Total 353.5 ml 875.238 ml 1036.4 ml Output Total 3850 ml 3000 ml Balance 353.5 ml -2974.762 ml -1963.6 ml medications Current Medications Medications Dose Ordered Sig/Sohail Route Start Time Stop Time Status Last Admin Dose Admin Sodium Chloride 10 ml Q8HR IV 10/07/24 22:00 10/13/24 21:08 10 ML Acetaminophen 650 mg Q6HP PRN PO 10/07/24 21:45 Hydralazine HCl 10 mg Q6HPRN PRN IV 10/07/24 22:00 10/13/24 14:02 10 MG Midazolam HCl 50 ml @ 1 mls/hr Q24H IV 10/08/24 07:30 10/13/24 07:30 2 MLS/HR Dopamine HCl/ Dextrose 250 ml @ 26.831 mls/ hr Q9H20M IV 10/08/24 09:15 UNV 10/08/24 09:10 26.831 MLS/HR Fentanyl Citrate 250 ml @ 2.5 mls/hr Q24H IV 10/08/24 10:00 10/13/24 05:40 12.5 MLS/HR Ceftriaxone Sodium 50 ml @ 100 mls/hr DAILY@09 IV 10/09/24 09:00 10/13/24 09:10 100 MLS/HR Pantoprazole Sodium 40 mg DAILY IV 10/09/24 10:00 10/13/24 11:16 40 MG Enoxaparin Sodium 40 mg DAILY SC 10/09/24 10:00 10/13/24 11:16 40 MG Enteral Nutritional Formula 1,000 ml 40ML/HR GT 10/09/24 10:15 Empaglifozin 10 mg DAILY PO 10/10/24 10:00 10/13/24 11:15 10 MG Hydrocortisone Sodium Succinate 100 mg DAILY IV 10/10/24 12:15 10/13/24 11:16 100 MG Purified Water 150 ml Q4HR GT 10/11/24 14:00 10/13/24 21:08 150 ML Doxycycline Hyclate 250 ml @ 125 mls/hr Q12H IV 10/11/24 13:15 10/13/24 13:57 125 MLS/HR Clonidine HCl 0.1 mg Q7D TD 10/12/24 12:15 Dobutamine HCl/ Dextrose 250 ml @ 42.3 mls/hr Q5H55M IV 10/12/24 21:00 10/13/24 21:08 42.3 MLS/HR Furosemide 60 mg BIDD IV 10/13/24 18:00 10/13/24 17:42 60 MG objective Gen.: Patient lying in bed in medical ICU. Sedated, intubated on mechanical ventilator. Head: Normocephalic, atraumatic. Eyes: PERRLA. Ears: Normal external anatomy. Throat: Endotracheal tube and orogastric tube in place. Neck: Supple, trachea midline. Chest: Transmitted breath sounds bilaterally. Decreased air entry bilaterally. No wheezing. Bibasilar crackles. Cardiovascular: Positive S1, positive S2. Regular rate and rhythm. Abdomen: Positive bowel sounds in all 4 quadrants. Soft, nontender, nondistended. : Nova in place. Normal external genitalia. Rectal: Deferred. Skin: Warm, dry. Intact. Extremities: 2+ radial pulses bilaterally. No lower extremity edema. Neuro: Sedated. laboratory and microbiology Laboratory Tests 10/13/24 13:17 10/13/24 04:46 Test 10/13/24 04:46 Range/Units Serum Glucose 91 74-106 mg/dL Assessment/Plan Impression: Acute hypoxic respiratory failure On mechanical ventilator Congestive heart failure, reduced ejection fraction 20% Nonischemic cardiomyopathy based on recent [facility] NSTEMI type 2 Acute kidney injury Hypertensive emergency Morbid obesity Events: Remains on vent support On AC mode; RR 20, VT 450, PEEP 5, FiO2 30% S/p transcutaneous pacemaker S/p left heart cath. Dobutamine drip for inotropic support Cardiology recs appreciated Sedated on Versed, Fentanyl Continue antibiotics. Potassium supplementation Monitor renal function Off Lasix drip d/t hypokalemia. Rest of plan as noted below Plan: s/p intubation on mechanical ventilator. On AC mode; RR 20, VT 450, PEEP 5, FiO2 30% ABG reviewed, compensated CXR demonstrates multifocal opacities, no pneumothorax; devices in place. Titrate FIO2 to keep O2 saturation above 90%. VAP bundle. Daily ABG and CXR while intubated Sedated for ventilator synchrony Continue antibiotics. F/u cultures. Dobutamine drip. F/u cardiology recommendations S/p transcutaneous pacemaker. Pressors as necessary for hemodynamic support Titrate to keep mean arterial pressure greater than 65 mmHg. Monitor renal function Monitor electrolytes. Supplement as necessary. Monitor ins and outs. Maintain euvolemia. GI prophylaxis. DVT prophylaxis. Prognosis: Poor given patient's multiple co-morbidities. Condition: Critical Rest of plan per hospitalist and other consultants. A total of 35 minutes of critical care time was spent reviewing the patient record, examining the patient, making a diagnostic and therapeutic plan, discussing this plan with the medical personnel, following up on diagnostic studies and following the patient for clinical stability excluding any and all procedures. At least 50% of this time was spent in direct, [id number] contact. Thank you Dr. Marquise Conley MD, for allowing me to participate in this patient's care. Further recommendations will depend on the patient's clinical course. Please do not hesitate to contact me if you have any questions or concerns. This medical document was created using an electronic medical record system with [employer] dictation system. Although these documentations are being carefully reviewed, there may still be some phonetic and typographical changes. The errors are purely typographical, due to imperfection on the software program, and do not reflect any compromise in the patient's medical care. Plan discussed with: Other (RN) Critical Care Time(min): 35 HO MELENDEZ MD Oct 13, 2024 21:36
[2024-10-14] VITALS (110 sets, daily range): BP systolic 134–173; BP diastolic 38–61; PULSE 31–87; RESP 10–22; TEMP 98–99; O2SAT 94–99
--- NOTE | 2024-10-14 04:00 | DVH ---
CHEST RADIOGRAPH Indication:INTUBATED PATIENT Technique: Single frontal view of the chest was obtained Comparison: XY CHEST PORTABLE on DOS: 10/13/24, XY CHEST XRAY 1 VIEW on DOS: 10/12/24, XY CHEST XRAY 1 VIEW on DOS: 10/12/24, XY CHEST PORTABLE on DOS: 10/11/24, XY CHEST PORTABLE on DOS: 10/10/24, XY C HEST PORTABLE on DOS: 10/13/24 FINDINGS: Lines and Tubes: Right central venous catheter in satisfactory position. Endotracheal tube and enter ic catheter in satisfactory position. Lungs: Multifocal airspace disease. Pleura: No effusion. No pneumothorax. Cardiomediastinal contours: Cardiomegaly. Bones: Unremarkable IMPRESSION: 1. Lines and tubes in satisfactory position. No significant interval change.
[2024-10-14 05:13] LABS: Basophils # (auto) 0 10 ^3/uL (0-0.2); Eosinophils # (auto) 0 10 ^3/uL (0-0.8); Hemoglobin 11.6 g/dL (12.2-16.2)
[2024-10-14 05:15] LABS: Basophils % (auto) 0.4 % (0.0-2.0); Eosinophils % (auto) 0.4 % (0.0-7.0); Hematocrit 35.4 % (36.0-46.0); Lymphocytes # (auto) 1.2 10 ^3/uL (0.4-5.4); Lymphocytes % (auto) 14.9 % (10.0-50.0); Mean Corpuscular Hemoglobin 27.2 pg (28.0-32.0); Mean Corpuscular Hgb Conc. 32.9 g/dL (32.0-36.0); Mean Corpuscular Volume 82.8 fL (80.0-100.0); Monocytes % (auto) 12.2 % (0.0-12.0); Neutrophils % (auto) 72.1 % (37.0-80.0); Nucleated Red Blood Cells % 0.1 %; Platelet Count (auto) 201 10^3/uL (140-450); Red Blood Cells 4.27 10^6/uL (4.0-5.20); Red Cell Distribution Width 16.3 % (11.8-14.3); White Blood Cell 8.3 10^3/uL (4.4-10.8)
[2024-10-14 05:39] LABS: Anion Gap 7 (5-15); Carbon Dioxide 37 mmol/L (20-31); Chloride 100 mmol/L (98-107); Potassium 2.8 mmol/L (3.5-5.1); Sodium 144 mmol/L (136-145)
[2024-10-14 05:40] LABS: Calcium 9.8 mg/dL (8.7-10.4)
[2024-10-14 05:45] LABS: BUN/Creatinine Ratio 17.2 (10.0-20.0); Blood Urea Nitrogen 28 mg/dL (9-23); Glucose 97 mg/dL (74-106)
[2024-10-14] MEDS: POTASSIUM CHL 20MEQ/100ML 100 ML IV SCH ×2 (06:36→15:56)
--- NOTE | 2024-10-14 10:16 | DVHPN2 ---
Subjective Still bradycardic on Dobutamin drip Appropriately sedated, not over sedated Responds to painful stimuli by opening eyes Changes from previous H/P or p: Changes Objective Vitals Vital Signs Date Time Temp Pulse Resp B/P (MAP) Pulse Ox O2 Delivery O2 Flow Rate FiO2 10/14/24 09:54 31 20 149/49 (82) 97 40 10/14/24 08:00 98.0 98.0 10/14/24 06:00 Mechanical Ventilator+ Intake/Output Intake and Output 10/14/24 06:59 Intake Total 3133.7 ml Output Total 5900 ml Balance -2766.3 ml Intake Oral 750 ml IV Total 2383.7 ml Output Urine Total 5900 ml General Appearance: Other (Intubated and sedated) Lungs: Other (B rhonchi) Cardiovascular: Other (bradycardic HR 30s) Extremities: No edema Neuro: Other (intubated and sedated) Medications Current Medications Medications Dose Ordered Sig/Sohail Route Start Time Stop Time Status Last Admin Dose Admin Sodium Chloride 10 ml Q8HR IV 10/07/24 22:00 10/14/24 05:19 10 ML Acetaminophen 650 mg Q6HP PRN PO 10/07/24 21:45 Hydralazine HCl 10 mg Q6HPRN PRN IV 10/07/24 22:00 10/13/24 14:02 10 MG Midazolam HCl 50 ml @ 1 mls/hr Q24H IV 10/08/24 07:30 10/14/24 00:29 2 MLS/HR Dopamine HCl/ Dextrose 250 ml @ 26.831 mls/ hr Q9H20M IV 10/08/24 09:15 UNV 10/08/24 09:10 26.831 MLS/HR Fentanyl Citrate 250 ml @ 2.5 mls/hr Q24H IV 10/08/24 10:00 10/14/24 00:29 12.5 MLS/HR Ceftriaxone Sodium 50 ml @ 100 mls/hr DAILY@09 IV 10/09/24 09:00 10/14/24 08:54 100 MLS/HR Pantoprazole Sodium 40 mg DAILY IV 10/09/24 10:00 10/14/24 08:53 40 MG Enoxaparin Sodium 40 mg DAILY SC 10/09/24 10:00 10/14/24 08:55 40 MG Enteral Nutritional Formula 1,000 ml 40ML/HR GT 10/09/24 10:15 Empaglifozin 10 mg DAILY PO 10/10/24 10:00 10/14/24 08:55 10 MG Hydrocortisone Sodium Succinate 100 mg DAILY IV 10/10/24 12:15 10/14/24 08:54 100 MG Purified Water 150 ml Q4HR GT 10/11/24 14:00 10/14/24 08:55 150 ML Doxycycline Hyclate 250 ml @ 125 mls/hr Q12H IV 10/11/24 13:15 10/14/24 01:25 125 MLS/HR Clonidine HCl 0.1 mg Q7D TD 10/12/24 12:15 Dobutamine HCl/ Dextrose 250 ml @ 42.3 mls/hr Q5H55M IV 10/12/24 21:00 10/14/24 08:54 42.3 MLS/HR Furosemide 60 mg BIDD IV 10/13/24 18:00 10/14/24 05:19 60 MG Potassium Chloride 100 ml @ 50 mls/hr Q2H IV 10/14/24 06:30 10/14/24 10:29 10/14/24 09:36 50 MLS/HR Laboratory Results Laboratory Tests 10/14/24 04:49 Chemistry Test 10/14/24 04:49 Calcium Level 9.8 mg/dL (8.7-10.4) Urinalysis Test 10/08/24 11:13 Urine Color Light-yellow (Yellow) Urine Clarity Clear (Clear) Urine pH 5.0 (5.0-9.0) Urine Specific [place] 1.009 (1.001-1.035) Urine Protein 1+ (Negative) H Urine Ketones Negative (Negative) Urine Blood 2+ /uL (Negative) H Urine Nitrite Negative (Negative) Urine Bilirubin Negative (Negative) Urine Urobilinogen Normal mg/dL (Negative) Urine Leukocyte Esterase Negative /uL (Negative) Urine RBC 55 /hpf (0 - 4) Urine WBC 3 /hpf (0 - 5) Urine Squamous Epithelial Cells Few /hpf (<5) Urine Bacteria None seen /hpf (None Seen) Urine Mucus Few (None Seen) Urine Glucose Normal mg/dL (Normal) Microbiology Microbiology Date/Time Source Procedure Growth Status 10/10/24 13:50 Nose MRSA Screen - Final Complete 10/09/24 10:58 Bronchial Washings Gram Stain - Final Complete 10/09/24 10:58 Bronchial Washings Respiratory Culture - Final Complete 10/09/24 03:06 Voided Urine Urine Culture - Final Complete 10/08/24 18:32 Blood Blood Culture - Final NO GROWTH AFTER 5 DAYS OF INCUBATION. Complete Assessment/Plan Assessment/Plan Acute on chronic systolic CHF Acute hypoxic respiratory failure s/p self-extubation and re-intubation Multi-Focal pneumonia Non-Ischemic CMP 2nd degree heart block / Bradycardia, on Dobutamine CKDIIIa Morbid obesity Hypokalemia HTN Pulmonary HTN Hypernatremia PLAN: Discussed with Dr. Greenwood, patient needs ICD Consult Dr. Swanson for ICD Dobutamine drip IV antibiotics: Rocephin + Doxy Sedation: Versed and Fent Jardiance CHF: Lasix 60 mg IV q 12 hours CKD Hydrocortisone 100 mg IV daily GI Prophylaxis: Protonix DVT prophylaxis: Lovenox Hypernatremia: Free water, lower the rate to 150 ml q 6 hours Hypokalemia: Replace and re-check Plan discussed with: Other My Orders Orders - LOUIE RAI MD Procedure Category Date Status Time * Cardiology Consult CONS 10/14/24 Transmitted 10:00 Date of Service: Oct 14, 2024 Billing Provider: LOUIE RAI MD Common Visit Codes: [id number] CARE 30-74 MIN LOUIE RAI MD Oct 14, 2024 10:16
[2024-10-14] MEDS: FREE WATER GT SCH (12:17)
[2024-10-14 14:48] LABS: Chloride 99 mmol/L (98-107); Potassium 3.1 mmol/L (3.5-5.1); Sodium 144 mmol/L (136-145)
[2024-10-14 14:49] LABS: Anion Gap 5 (5-15); Carbon Dioxide 40 mmol/L (20-31)
[2024-10-14 14:50] LABS: Calcium 10.1 mg/dL (8.7-10.4)
[2024-10-14 14:54] LABS: Glucose 132 mg/dL (74-106)
[2024-10-14 14:55] LABS: BUN/Creatinine Ratio 18.9 (10.0-20.0); Blood Urea Nitrogen 31 mg/dL (9-23); Magnesium 2.1 mg/dL (1.6-2.6)
--- NOTE | 2024-10-14 16:45 | DVHPN2 ---
Progress Note Date Seen: Oct 14, 2024 Medical Necessity Reason Pt with a Central, PICC or Fol: Yes The following are medically ne: PICC Line, Nova Catheter Subjective Patient reports: Other (Patient remains intubated sister is at bedside) Review of Systems: Deferred Objective vital signs Vital Sign Date Time Temp Pulse Resp B/P (MAP) Pulse Ox O2 Delivery O2 Flow Rate FiO2 10/14/24 16:00 58 20 157/54 (88) 97 10/14/24 16:00 Mechanical Ventilator+ 40 40 10/14/24 12:00 98.4 98.4 Total Intake and Output 10/13/24 10/13/24 10/14/24 15:00 23:00 07:00 Intake Total 954.4 ml 1004.4 ml 1159.4 ml Output Total 3500 ml 2400 ml Balance 954.4 ml -2495.6 ml -1240.6 ml medications Current Medications Medications Dose Ordered Sig/Sohail Route Start Time Stop Time Status Last Admin Dose Admin Sodium Chloride 10 ml Q8HR IV 10/07/24 22:00 10/14/24 13:31 10 ML Acetaminophen 650 mg Q6HP PRN PO 10/07/24 21:45 Hydralazine HCl 10 mg Q6HPRN PRN IV 10/07/24 22:00 10/13/24 14:02 10 MG Midazolam HCl 50 ml @ 1 mls/hr Q24H IV 10/08/24 07:30 10/14/24 00:29 2 MLS/HR Dopamine HCl/ Dextrose 250 ml @ 26.831 mls/ hr Q9H20M IV 10/08/24 09:15 UNV 10/08/24 09:10 26.831 MLS/HR Fentanyl Citrate 250 ml @ 2.5 mls/hr Q24H IV 10/08/24 10:00 10/14/24 00:29 12.5 MLS/HR Ceftriaxone Sodium 50 ml @ 100 mls/hr DAILY@09 IV 10/09/24 09:00 10/14/24 08:54 100 MLS/HR Pantoprazole Sodium 40 mg DAILY IV 10/09/24 10:00 10/14/24 08:53 40 MG Enoxaparin Sodium 40 mg DAILY SC 10/09/24 10:00 10/14/24 08:55 40 MG Enteral Nutritional Formula 1,000 ml 40ML/HR GT 10/09/24 10:15 Empaglifozin 10 mg DAILY PO 10/10/24 10:00 10/14/24 08:55 10 MG Hydrocortisone Sodium Succinate 100 mg DAILY IV 10/10/24 12:15 10/14/24 08:54 100 MG Doxycycline Hyclate 250 ml @ 125 mls/hr Q12H IV 10/11/24 13:15 10/14/24 13:23 125 MLS/HR Clonidine HCl 0.1 mg Q7D TD 10/12/24 12:15 Dobutamine HCl/ Dextrose 250 ml @ 42.3 mls/hr Q5H55M IV 10/12/24 21:00 10/14/24 14:44 42.3 MLS/HR Furosemide 60 mg BIDD IV 10/13/24 18:00 10/14/24 05:19 60 MG Purified Water 150 ml Q6HR GT 10/14/24 12:00 10/14/24 12:17 150 ML Potassium Chloride 100 ml @ 50 mls/hr Q2H IV 10/14/24 15:15 10/14/24 19:14 10/14/24 15:56 50 MLS/HR Examination: GENERAL:Abnormal, LUNGS:Abnormal, MSK:Abnormal, SKIN:Abnormal, NEURO:Abnormal laboratory and microbiology Laboratory Tests 10/14/24 14:20 10/14/24 04:49 Test 10/14/24 14:20 Range/Units Serum Glucose 132 H 74-106 mg/dL Microbiology Date/Time Source Procedure Growth Status 10/10/24 13:50 Nose MRSA Screen - Final Complete 10/09/24 10:58 Bronchial Washings Gram Stain - Final Complete 10/09/24 10:58 Bronchial Washings Respiratory Culture - Final Complete 10/09/24 03:06 Voided Urine Urine Culture - Final Complete 10/08/24 18:32 Blood Blood Culture - Final NO GROWTH AFTER 5 DAYS OF INCUBATION. Complete Problem List/Assessment/Plan Problem List/Assessment/Plan Acute kidney injury hemodynamic + consecutive contrast exposures +/- cardiorenal syndrome ckd 3a ( in 2017 acute respiratory failure; ARDS decompensated HF EF 20% s/p Cath Morbid obesity bradycardia Hypokalemia Recommendations Continue on Lasix IV--bid Remains intubated K replace p.r.n. Plan discussed with: Other Dietary Evaluation Review Comments: 1) If GI is accessible consider Glucerna 1.2 @ 55 ml/hr goal rate as tolerated 2) If pt remains NPO >7 days consider TPN to meet a least 75% of estimated needs 3) Advance pt diet when medically feasible to a CCHO 60g/Cardiac diet 4) Continue current plan of care Expected Outcomes/Goals: 1) Pt to receive nutrition support within 7 days of NPO status 2) Pt diet to advance 3) Continue current plan of care ANN SMYTH MD Oct 14, 2024 16:45
--- NOTE | 2024-10-14 22:12 | DVHINCON2 ---
Date of service: Oct 14, [address] Greenwood Reason for Consultation ICD consideration due to bradycardia/heart block and NICM with EF of 20% History of Present Illness Sugey Bentley is a 68-year-old female with history of asthma, bronchitis, CHF, COPD, diabetes, hypertension, morbid obesity, pneumonia and UTI who presented to the ED on 10/07/24 originally with the complaint of shortness of breath and non-productive cough times two weeks. Symptoms are reported to progressively gotten worse over the couple weeks. She denied any chest pain, fever or chills at the time however did endorse orthopnea and paroxysmal nocturnal dyspnea. On admission, the high sensitivity troponin levels were 45 and 46, BNP of 1095.27. Blood pressure was markedly elevated at 221/107 mmHg then 198/[address] Greenwood Was originally consulted in cardiology on 10/08/24. At that time patient was already intubated. Troponins elevation was initially considered demands ischemia, however, patient's echocardiogram showed severely dilated LV with LVEF of 20% and global wall akinesia. Patient then underwent left heart catheterization on 10/09/24, which showed no Significant CAD, but mild CAD involving the mid left circumflex system. Diastolic CHF was also noted. It is unclear at what point during the admission, but the patient developed a second-degree AV Mobitz one type heart block. On 10/13/24, patient was on dopamine but was transitioned from dopamine to dobutamine for heart rate support secondary to elevated blood pressure. Despite dobutamine, the patient's heart rate has been fluctuating between 30 and 60 bpm. Pacer pads are placed externally and set a rate of 30 bpm. The patient has not been externally paste as of yet. Electrophysiology is now consulted for consideration for implantation of ICD. 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 Vital Signs Vital Signs Date Time Temp Pulse Resp B/P (MAP) Pulse Ox O2 Delivery O2 Flow Rate FiO2 10/14/24 21:42 141/47 10/14/24 21:30 54 20 97 10/14/24 20:50 35 10/14/24 20:00 Mechanical Ventilator+ 10/14/24 19:54 98.7 98.7 Physical Exam General: No acute distress. Managed in the ICU Neck: Neck is supple. No masses or thyromegaly, no JVD, No carotid bruit. Respiratory: Respirations are non-labored. Intubated Skin: Warm. CV: Flutuating HR, Normal heart sounds, no murmurs. No lower extremity edema. External pacer pads in place Neuro: Sedated Labs/Diagnostic Data Labs Test 10/14/24 14:20 10/14/24 04:49 10/13/24 08:15 10/13/24 04:46 Range/Units Sodium Level 144 136-145 mmol/L Potassium Level 3.1 L 3.5-5.1 mmol/L Chloride Level 99 98-107 mmol/L Carbon Dioxide Level 40 H 20-31 mmol/L Anion Gap 5 5-15 Blood Urea Nitrogen 31 H 9-23 mg/dL Creatinine 1.64 H 0.550-1.02 mg/dL Glomerular Filtration Rate Calc 34 >90 mL/min BUN/Creatinine Ratio 18.9 10.0-20.0 Serum Glucose 132 H 74-106 mg/dL Calcium Level 10.1 8.7-10.4 mg/dL Magnesium Level 2.1 1.6-2.6 mg/dL White Blood Count 8.3 4.4-10.8 10^3/uL Red Blood Count 4.27 4.0-5.20 10^6/uL Hemoglobin 11.6 L 12.2-16.2 g/dL Hematocrit 35.4 L 36.0-46.0 % Mean Corpuscular Volume 82.8 80.0-100.0 fL Mean Corpuscular Hemoglobin 27.2 L 28.0-32.0 pg Mean Corpuscular Hemoglobin Concent 32.9 32.0-36.0 g/dL Red Cell Distribution Width 16.3 H 11.8-14.3 % Platelet Count 201 140-450 10^3/uL Mean Platelet Volume 10.4 6.9-10.8 fL Neutrophils (%) (Auto) 72.1 37.0-80.0 % Lymphocytes (%) (Auto) 14.9 10.0-50.0 % Monocytes (%) (Auto) 12.2 H 0.0-12.0 % Eosinophils (%) (Auto) 0.4 0.0-7.0 % Basophils (%) (Auto) 0.4 0.0-2.0 % Neutrophils # (Auto) 6.0 1.6-8.6 10 ^3/uL Lymphocytes # (Auto) 1.2 0.4-5.4 10 ^3/uL Monocytes # (Auto) 1.0 0-1.3 10 ^3/uL Eosinophils # (Auto) 0 0-0.8 10 ^3/uL Basophils # (Auto) 0 0-0.2 10 ^3/uL Nucleated Red Blood Cells 0.1 % Blood Gas Specimen Type Arterial Blood Gas Sample Site Left radial Blood Gas Patient Temperature 37.0 Arterial Blood Date Drawn [id number] Arterial Blood pH 7.444 7.350-7.450 Arterial Blood Partial Pressure CO2 52.5 H 32.0-45.0 mmHg Arterial Blood Partial Pressure O2 67.7 L 83.0-108.0 mmHg Arterial Blood HCO3 35.2 H 21.0-28.0 mmol/L Arterial Blood Oxygen Saturation 92.7 L 94.0-98.0 % Arterial Blood Base Excess 9.5 H -2.0-3.0 mmol/L Arterial Blood Oxyhemoglobin 91.0 L 94.0-98.0 % Arterial Blood Carboxyhemoglobin 1.5 0.5-1.5 % Arterial Blood Methemoglobin 0.3 0.0-1.5 % Ankit Test Modified Blood Gas Total Hemoglobin 12.80 12.0-16.0 g/dL Blood Gas Set Respiration Rate 20.0 Blood Gas Modality Vent - ac Blood Gas Spontaneous Rate 20 FiO2 % 35.0 Blood Gas Tidal Volume 450.0 Blood Gas PEEP or CPAP 5.0 B-Type Natriuretic Peptide 1147.19 0-100 pg/mL Test 10/12/24 01:32 10/10/24 11:28 10/10/24 04:46 10/09/24 23:34 Range/Units Total Bilirubin 1.6 H 0.2-1.0 mg/dL Aspartate Amino Transferase (AST) 14 13-40 U/L Alanine Aminotransferase (ALT) 11 7-40 U/L Alkaline Phosphatase 73 46-116 U/L Total Protein 6.1 5.7-8.2 g/dL Albumin 3.6 3.2-4.8 g/dL Blood Gas Critical Value Read Back Yes Blood Gas Notified Whom Dr. brenda parada Blood Gas Notified Time [id number] Blood Gas Notified By Trust Administrative Assistant yaz millan Anti-Nuclear Antibody Screen Negative Negative POC Glucose 74 70-106 mg/dl Test 10/09/24 17:40 10/09/24 13:56 10/09/24 06:06 10/09/24 05:18 Range/Units Prothrombin Time 12.9 H 9.3-11.8 sec Prothrombin Time INR 1.24 H 0.9-1.15 Venous Blood pH 7.437 H 7.320-7.430 Venous Blood pCO2 at Patient Temp 43.1 38.0-54.0 mmHg Venous Blood pO2 at Patient Temp 44.8 23.0-48.0 mmHg Venous Blood HCO3 28.4 22.0-29.0 mmol/L Venous Blood Base Excess 3.7 H -2.0-3.0 mmol/L Specimen Drawn By Raffy del cid rn Lactic Acid Level 1.1 0.4-2.0 mmol/L Thyroxine (T4) 6.3 4.5-12.0 ug/dL Free Triiodothyronine (T3) pg/mL 1.76 L 2.3-4.2 pg/mL Test 10/08/24 20:57 10/08/24 11:14 10/08/24 11:13 10/08/24 05:57 Range/Units Phosphorus Level 4.2 2.4-5.1 mg/dL Troponin I High Sensitivity 125 *H </=34 ng/L Influenza Type A Antigen Negative Negative Influenza Type B Antigen Negative Negative SARS-CoV-2 Antigen (Rapid) Negative NEGATIVE Urine Color Light-yellow Yellow Urine Clarity Clear Clear Urine pH 5.0 5.0-9.0 Urine Specific [place] 1.009 1.001-1.035 Urine Protein 1+ H Negative Urine Ketones Negative Negative Urine Blood 2+ H Negative /uL Urine Nitrite Negative Negative Urine Bilirubin Negative Negative Urine Urobilinogen Normal Negative mg/dL Urine Leukocyte Esterase Negative Negative /uL Urine RBC 55 0 - 4 /hpf Urine WBC 3 0 - 5 /hpf Urine Squamous Epithelial Cells Few <5 /hpf Urine Bacteria None seen None Seen /hpf Urine Mucus Few None Seen Urine Glucose Normal Normal mg/dL Urine Opiates Screen Neg NEGATIVE Urine Fentanyl Screen Pos NEGATIVE Urine Barbiturates Screen Neg NEGATIVE Urine Phencyclidine Screen Neg NEGATIVE Urine Amphetamines Screen Neg NEGATIVE Urine Benzodiazepines Screen Pos NEGATIVE Urine Cocaine Screen Neg NEGATIVE Urine Cannabinoids Screen Neg NEGATIVE Blood Gas Liter Flow 50.00 Test 10/08/24 04:29 10/07/24 22:56 10/07/24 22:27 10/07/24 19:07 Range/Units Activated Partial Thromboplast Time 24.8 24.5-34.5 SEC Thyroid Stimulating Hormone (TSH) 1.20 0.55-4.78 uIU/mL Blood Gas EPAP 5 Blood Gas IPAP 16 Plasma/Serum Blood Alcohol < 3.0 <10 mg/dL Hemoglobin A1c 6.1 H <5.7 % A1C Vitamin B12 Level 787 211-911 pg/mL Vitamin D 25-Hydroxy 45.7 30.0-100 ng/mL Microbiology Date/Time Source Procedure Growth Status 10/10/24 13:50 Nose MRSA Screen - Final Complete 10/09/24 10:58 Bronchial Washings Gram Stain - Final Complete 10/09/24 10:58 Bronchial Washings Respiratory Culture - Final Complete 10/09/24 03:06 Voided Urine Urine Culture - Final Complete 10/08/24 18:32 Blood Blood Culture - Final NO GROWTH AFTER 5 DAYS OF INCUBATION. Complete Plan/Recommendation Sugey Bentley is a 68-year-old female with history of asthma, bronchitis, CHF, COPD, diabetes, hypertension, morbid obesity, pneumonia and UTI who presented to the ED on 10/07/24 originally with the complaint of shortness of breath and non-productive cough times two weeks. Symptoms are reported to progressively gotten worse over the couple weeks. She denied any chest pain, fever or chills at the time however did endorse orthopnea and paroxysmal nocturnal dyspnea. On admission, the high sensitivity troponin levels were 45 and 46, BNP of 1095.27. Blood pressure was markedly elevated at 221/107 mmHg then 198/[address] Greenwood Was originally consulted in cardiology on 10/08/24. At that time patient was already intubated. Troponins elevation was initially considered demands ischemia, however, patient's echocardiogram showed severely dilated LV with LVEF of 20% and global wall akinesia. Patient then underwent left heart catheterization on 10/09/24, which showed no Significant CAD, but mild CAD involving the mid left circumflex system. Diastolic CHF was also noted. It is unclear at what point during the admission, but the patient developed a second-degree AV Mobitz one type heart block. On 10/13/24, patient was on dopamine but was transitioned from dopamine to dobutamine for heart rate support secondary to elevated blood pressure. Despite dobutamine, the patient's heart rate has been fluctuating between 30 and 60 bpm. Pacer pads are placed externally and set a rate of 30 bpm. The patient has not been externally paste as of yet. Electrophysiology is now consulted for consideration for implantation of ICD. Assessments: Mobitz type I heart block Bradycardia Hypertension EP recommendations: Patient is found to be bradycardic dobutamine drip Patient has NICM with LVEF of 20% Given then above, patient qualifies for ICD implantation, which will take place on 10/15/[address] Swanson. Hold all blood thinners. NPO after MN Risks, benefits and alternatives discussed with patient's sister ([email or web address]) and POA at the bedside at length. All questions answered. She is agreeable to proceed with the placement of ICD. Continue with dobutamine in the interim. Transcutaneous PM in place PRN. Cardiac monitoring Hemodynamic monitoring. Avoid hypertension and hypotension. Monitor and maintain electrolytes and renal function. Supplement as needed to maintain K > 4.0 and Mg > 2.0. Monitor Hgb and transfuse if Hgb < 7.0. Lifestyle and risk modification counseling All available labs, EKGs, and images were personally reviewed Patient's status, findings, and plan of care was discussed and reviewed with supervising physician Dr. Swanson, who is in agreement with current plan of care. Plan of care discussed with and agreed upon by the patient/family/Primary RN. Prognosis: Guarded Thank you for allowing me to participate in the care of this patient. Further recommendations will depend on clinical progression, hospitalist, and other consultants. Will continue to follow with Primary. If you have any questions, please do not hesitate to contact me. A total of 75 minutes was spent reviewing the patient record, examining the patient, making a diagnostic and therapeutic plan, discussing this plan with medical personnel, following up on diagnostic studies and following the patient for clinical stability including any and all procedures. At least 50% of this time was spent in direct, [id number] contact. Plan discussed with: Other (Sister and RN) Provider Statement: I have reviewed the case with my supervising physician. We have agreed with the plan of care. [facility] Oct 14, 2024 22:12
--- NOTE | 2024-10-14 22:24 | DVHPN2 ---
Progress Note - Dictate Date Seen: Oct 14, 2024 Medical Necessity Reason Pt with a Central, PICC or Fol: Yes The following are medically ne: PICC Line, Garcia Catheter Reason for garcia catheter: Strict I&O Subjective Patient seen and examined at bedside. Sedated, intubated on mechanical ventilator. Overnight events reviewed. vital signs Vital Sign Date Time Temp Pulse Resp B/P (MAP) Pulse Ox O2 Delivery O2 Flow Rate FiO2 10/14/24 21:50 63 20 146/50 (82) 97 35 10/14/24 20:00 Mechanical Ventilator+ 10/14/24 19:54 98.7 98.7 Total Intake and Output 10/13/24 10/13/24 10/14/24 15:00 23:00 07:00 Intake Total 954.4 ml 1004.4 ml 1159.4 ml Output Total 3500 ml 2400 ml Balance 954.4 ml -2495.6 ml -1240.6 ml medications Current Medications Medications Dose Ordered Sig/Sohail Route Start Time Stop Time Status Last Admin Dose Admin Sodium Chloride 10 ml Q8HR IV 10/07/24 22:00 10/14/24 21:42 10 ML Acetaminophen 650 mg Q6HP PRN PO 10/07/24 21:45 Hydralazine HCl 10 mg Q6HPRN PRN IV 10/07/24 22:00 10/13/24 14:02 10 MG Midazolam HCl 50 ml @ 1 mls/hr Q24H IV 10/08/24 07:30 10/14/24 21:42 3 MLS/HR Dopamine HCl/ Dextrose 250 ml @ 26.831 mls/ hr Q9H20M IV 10/08/24 09:15 UNV 10/08/24 09:10 26.831 MLS/HR Fentanyl Citrate 250 ml @ 2.5 mls/hr Q24H IV 10/08/24 10:00 10/14/24 18:42 12.5 MLS/HR Ceftriaxone Sodium 50 ml @ 100 mls/hr DAILY@09 IV 10/09/24 09:00 10/14/24 08:54 100 MLS/HR Pantoprazole Sodium 40 mg DAILY IV 10/09/24 10:00 10/14/24 08:53 40 MG Enteral Nutritional Formula 1,000 ml 40ML/HR GT 10/09/24 10:15 Empaglifozin 10 mg DAILY PO 10/10/24 10:00 10/14/24 08:55 10 MG Hydrocortisone Sodium Succinate 100 mg DAILY IV 10/10/24 12:15 10/14/24 08:54 100 MG Doxycycline Hyclate 250 ml @ 125 mls/hr Q12H IV 10/11/24 13:15 10/14/24 13:23 125 MLS/HR Clonidine HCl 0.1 mg Q7D TD 10/12/24 12:15 Dobutamine HCl/ Dextrose 250 ml @ 42.3 mls/hr Q5H55M IV 10/12/24 21:00 10/14/24 21:42 42.3 MLS/HR Furosemide 60 mg BIDD IV 10/13/24 18:00 10/14/24 17:42 60 MG Purified Water 150 ml Q6HR GT 10/14/24 12:00 10/14/24 17:42 150 ML Sodium Chloride 1,000 ml @ 50 mls/hr Q20H IV 10/15/24 00:01 objective Gen.: Patient lying in bed in medical ICU. Sedated, intubated on mechanical ventilator. Head: Normocephalic, atraumatic. Eyes: PERRLA. Ears: Normal external anatomy. Throat: Endotracheal tube and orogastric tube in place. Neck: Supple, trachea midline. Chest: Transmitted breath sounds bilaterally. Decreased air entry bilaterally. No wheezing. Bibasilar crackles. Cardiovascular: Positive S1, positive S2. Regular rate and rhythm. Abdomen: Positive bowel sounds in all 4 quadrants. Soft, nontender, nondistended. : Garcia in place. Normal external genitalia. Rectal: Deferred. Skin: Warm, dry. Intact. Extremities: 2+ radial pulses bilaterally. No lower extremity edema. Neuro: Sedated. laboratory and microbiology Laboratory Tests 10/14/24 14:20 10/14/24 04:49 Test 10/14/24 14:20 Range/Units Serum Glucose 132 H 74-106 mg/dL Assessment/Plan Impression: Acute hypoxic respiratory failure On mechanical ventilator Congestive heart failure, reduced ejection fraction 20% Nonischemic cardiomyopathy based on recent [facility] NSTEMI type 2 Acute kidney injury Hypertensive emergency Morbid obesity Events: Remains on vent support On AC mode; RR 20, VT 450, PEEP 5, FiO2 35% Dobutamine drip 5 mcg/min for inotropic support S/p transcutaneous pacemaker S/p left heart cath. Electrophysiology for AICD placement. Sedated on Versed, Fentanyl Continue antibiotics. Potassium supplementation Monitor renal function Off Lasix drip d/t hypokalemia. Rest of plan as noted below Plan: s/p intubation on mechanical ventilator. On AC mode; RR 20, VT 450, PEEP 5, FiO2 35% ABG reviewed, compensated CXR demonstrates multifocal opacities, no pneumothorax; devices in place. Titrate FIO2 to keep O2 saturation above 90%. VAP bundle. Daily ABG and CXR while intubated Sedated for ventilator synchrony Continue antibiotics. F/u cultures. Dobutamine drip. F/u cardiology recommendations S/p transcutaneous pacemaker. Pressors as necessary for hemodynamic support Titrate to keep mean arterial pressure greater than 65 mmHg. Monitor renal function Monitor electrolytes. Supplement as necessary. Monitor ins and outs. Maintain euvolemia. GI prophylaxis. DVT prophylaxis. Prognosis: Poor given patient's multiple co-morbidities. Condition: Critical Rest of plan per hospitalist and other consultants. A total of 35 minutes of critical care time was spent reviewing the patient record, examining the patient, making a diagnostic and therapeutic plan, discussing this plan with the medical personnel, following up on diagnostic studies and following the patient for clinical stability excluding any and all procedures. At least 50% of this time was spent in direct, [id number] contact. Thank you Dr. Marquise Conley MD, for allowing me to participate in this patient's care. Further recommendations will depend on the patient's clinical course. Please do not hesitate to contact me if you have any questions or concerns. This medical document was created using an electronic medical record system with [employer] dictation system. Although these documentations are being carefully reviewed, there may still be some phonetic and typographical changes. The errors are purely typographical, due to imperfection on the software program, and do not reflect any compromise in the patient's medical care. Dietary Evaluation Review Comments: 1) If GI is accessible consider Glucerna 1.2 @ 55 ml/hr goal rate as tolerated 2) If pt remains NPO >7 days consider TPN to meet a least 75% of estimated needs 3) Advance pt diet when medically feasible to a CCHO 60g/Cardiac diet 4) Continue current plan of care Expected Outcomes/Goals: 1) Pt to receive nutrition support within 7 days of NPO status 2) Pt diet to advance 3) Continue current plan of care Plan discussed with: Other (KAMRYN Olivier) Critical Care Time(min): 35 HO MELENDEZ MD Oct 14, 2024 22:24
[2024-10-14] MEDS: SODIUM CHLORIDE 0.9% 1,000 ML IV SCH (23:20)
[2024-10-15] VITALS (101 sets, daily range): BP systolic 88–183; BP diastolic 33–76; PULSE 31–84; RESP 12–22; TEMP 96.4–99.9; O2SAT 94–100
[2024-10-15 02:35] LABS: Chloride 98 mmol/L (98-107); Potassium 2.8 mmol/L (3.5-5.1); Sodium 143 mmol/L (136-145)
[2024-10-15 02:36] LABS: Anion Gap 6 (5-15); Carbon Dioxide 39 mmol/L (20-31)
[2024-10-15 02:37] LABS: Calcium 9.9 mg/dL (8.7-10.4)
[2024-10-15 02:41] LABS: BUN/Creatinine Ratio 17.9 (10.0-20.0); Blood Urea Nitrogen 27 mg/dL (9-23); Glucose 87 mg/dL (74-106)
[2024-10-15 02:42] LABS: Magnesium 2.2 mg/dL (1.6-2.6)
[2024-10-15] MEDS: POTASSIUM CHL 20MEQ/100ML 100 ML IV SCH (04:16)
--- NOTE | 2024-10-15 05:05 | DVH ---
CHEST RADIOGRAPH Indication: vent Technique: Single frontal view of the chest was obtained COMPARISON: None FINDINGS: Lines and Tubes: Endotracheal tube and enteric catheter and right central venous catheter in satisfac tory position. Lungs: Multifocal airspace disease. Pleura: No effusion. No pneumothorax. Cardiomediastinal contours: Cardiomegaly Bones: Unremarkable IMPRESSION: Lines and tubes in satisfactory position. No significant interval change.
[2024-10-15 05:50] LABS: Basophils # (auto) 0 10 ^3/uL (0-0.2); Basophils % (auto) 0.5 % (0.0-2.0); Eosinophils # (auto) 0.1 10 ^3/uL (0-0.8); Hematocrit 34.8 % (36.0-46.0); Hemoglobin 11.5 g/dL (12.2-16.2); Lymphocytes # (auto) 1.5 10 ^3/uL (0.4-5.4); Lymphocytes % (auto) 17.8 % (10.0-50.0); Mean Corpuscular Hemoglobin 27.4 pg (28.0-32.0); Mean Corpuscular Volume 82.8 fL (80.0-100.0); Monocytes % (auto) 11.9 % (0.0-12.0); Neutrophils # (auto) 5.7 10 ^3/uL (1.6-8.6); Neutrophils % (auto) 68.8 % (37.0-80.0); Nucleated Red Blood Cells % 0.1 %; Platelet Count (auto) 222 10^3/uL (140-450); Red Cell Distribution Width 16.1 % (11.8-14.3); White Blood Cell 8.3 10^3/uL (4.4-10.8)
[2024-10-15 06:03] LABS: Albumin 3.3 g/dL (3.2-4.8); Alkaline Phosphatase 68 U/L (46-116); Anion Gap 6 (5-15); Aspartate Aminotransferase 16 U/L (13-40); BUN/Creatinine Ratio 18.4 (10.0-20.0); Blood Urea Nitrogen 28 mg/dL (9-23); Calcium 9.6 mg/dL (8.7-10.4); Carbon Dioxide 40 mmol/L (20-31); Chloride 97 mmol/L (98-107); Glucose 94 mg/dL (74-106); Magnesium 2.1 mg/dL (1.6-2.6); Potassium 2.7 mmol/L (3.5-5.1); Sodium 143 mmol/L (136-145)
[2024-10-15 06:04] LABS: Bilirubin, Total 1.8 mg/dL (0.2-1.0); Total Protein 5.7 g/dL (5.7-8.2)
[2024-10-15 06:05] LABS: INR 1.12 (0.9-1.15); Partial Thromboplastin Time 27.1 SEC (24.5-34.5); Prothrombin Time 11.8 sec (9.3-11.8)
[2024-10-15 06:21] LABS: Alanine Aminotransferase 11 U/L (7-40)
[2024-10-15 07:51] LABS: Base Excess 12.7 mmol/L (-2.0-3.0)
--- NOTE | 2024-10-15 10:01 | DVHPN2 ---
Subjective Intubated and sedated with Versed and fentanyl FiO2 at 35% and PEEP at 5 Still bradycardic on Dobutamin drip Appropriately sedated, not over sedated Changes from previous H/P or p: Changes Objective Vitals Vital Signs Date Time Temp Pulse Resp B/P (MAP) Pulse Ox O2 Delivery O2 Flow Rate FiO2 10/15/24 09:42 55 20 141/44 (76) 96 35 10/15/24 08:00 Mechanical Ventilator+ 10/15/24 08:00 97.7 97.7 Intake/Output Intake and Output 10/15/24 07:00 Intake Total 3437.2 ml Output Total 3640 ml Balance -202.8 ml Intake Oral 530 ml IV Total 2907.2 ml Output Urine Total 3640 ml General Appearance: Other (Intubated and sedated) Lungs: Other (B rhonchi) Cardiovascular: Other (bradycardic HR 30s) Extremities: No edema Neuro: Other (intubated and sedated) Medications Current Medications Medications Dose Ordered Sig/Sohail Route Start Time Stop Time Status Last Admin Dose Admin Sodium Chloride 10 ml Q8HR IV 10/07/24 22:00 10/15/24 06:12 10 ML Acetaminophen 650 mg Q6HP PRN PO 10/07/24 21:45 Hydralazine HCl 10 mg Q6HPRN PRN IV 10/07/24 22:00 10/15/24 01:08 10 MG Midazolam HCl 50 ml @ 1 mls/hr Q24H IV 10/08/24 07:30 10/14/24 21:42 3 MLS/HR Dopamine HCl/ Dextrose 250 ml @ 26.831 mls/ hr Q9H20M IV 10/08/24 09:15 UNV 10/08/24 09:10 26.831 MLS/HR Fentanyl Citrate 250 ml @ 2.5 mls/hr Q24H IV 10/08/24 10:00 10/14/24 18:42 12.5 MLS/HR Ceftriaxone Sodium 50 ml @ 100 mls/hr DAILY@09 IV 10/09/24 09:00 10/15/24 09:10 100 MLS/HR Pantoprazole Sodium 40 mg DAILY IV 10/09/24 10:00 10/15/24 09:08 40 MG Enteral Nutritional Formula 1,000 ml 40ML/HR GT 10/09/24 10:15 Empaglifozin 10 mg DAILY PO 10/10/24 10:00 10/15/24 09:10 10 MG Hydrocortisone Sodium Succinate 100 mg DAILY IV 10/10/24 12:15 10/15/24 09:08 100 MG Doxycycline Hyclate 250 ml @ 125 mls/hr Q12H IV 10/11/24 13:15 10/15/24 01:15 125 MLS/HR Clonidine HCl 0.1 mg Q7D TD 10/12/24 12:15 Dobutamine HCl/ Dextrose 250 ml @ 42.3 mls/hr Q5H55M IV 10/12/24 21:00 10/15/24 08:35 42.3 MLS/HR Purified Water 150 ml Q6HR GT 10/14/24 12:00 10/15/24 05:36 150 ML Sodium Chloride 1,000 ml @ 50 mls/hr Q20H IV 10/15/24 00:01 10/14/24 23:20 50 MLS/HR Potassium Chloride 100 ml @ 50 mls/hr Q2H IV 10/15/24 04:00 10/15/24 11:59 10/15/24 08:16 50 MLS/HR Furosemide 40 mg DAILY IV 10/16/24 10:00 Laboratory Results Laboratory Tests 10/15/24 04:52 Chemistry Test 10/14/24 14:20 10/15/24 02:11 10/15/24 04:52 Calcium Level 10.1 mg/dL (8.7-10.4) 9.9 mg/dL (8.7-10.4) 9.6 mg/dL (8.7-10.4) Magnesium Level 2.1 mg/dL (1.6-2.6) 2.2 mg/dL (1.6-2.6) 2.1 mg/dL (1.6-2.6) Albumin 3.3 g/dL (3.2-4.8) Total Protein 5.7 g/dL (5.7-8.2) Coagulation Test 10/15/24 04:52 Prothrombin Time 11.8 sec (9.3-11.8) Prothrombin Time INR 1.12 (0.9-1.15) Activated Partial Thromboplast Time 27.1 SEC (24.5-34.5) LFT Test 10/15/24 04:52 Alanine Aminotransferase (ALT) 11 U/L (7-40) Alkaline Phosphatase 68 U/L (46-116) Aspartate Amino Transferase (AST) 16 U/L (13-40) Total Bilirubin 1.8 mg/dL (0.2-1.0) H Urinalysis Test 10/08/24 11:13 Urine Color Light-yellow (Yellow) Urine Clarity Clear (Clear) Urine pH 5.0 (5.0-9.0) Urine Specific [place] 1.009 (1.001-1.035) Urine Protein 1+ (Negative) H Urine Ketones Negative (Negative) Urine Blood 2+ /uL (Negative) H Urine Nitrite Negative (Negative) Urine Bilirubin Negative (Negative) Urine Urobilinogen Normal mg/dL (Negative) Urine Leukocyte Esterase Negative /uL (Negative) Urine RBC 55 /hpf (0 - 4) Urine WBC 3 /hpf (0 - 5) Urine Squamous Epithelial Cells Few /hpf (<5) Urine Bacteria None seen /hpf (None Seen) Urine Mucus Few (None Seen) Urine Glucose Normal mg/dL (Normal) Blood Gas Results Test 10/15/24 07:41 Arterial Blood pH 7.508 (7.350-7.450) FiO2 % 35.0 Microbiology Microbiology Date/Time Source Procedure Growth Status 10/10/24 13:50 Nose MRSA Screen - Final Complete 10/09/24 10:58 Bronchial Washings Gram Stain - Final Complete 10/09/24 10:58 Bronchial Washings Respiratory Culture - Final Complete 10/09/24 03:06 Voided Urine Urine Culture - Final Complete 10/08/24 18:32 Blood Blood Culture - Final NO GROWTH AFTER 5 DAYS OF INCUBATION. Complete Assessment/Plan Assessment/Plan Acute on chronic systolic CHF Acute hypoxic respiratory failure s/p self-extubation and re-intubation Multi-Focal pneumonia Non-Ischemic CMP 2nd degree heart block / Bradycardia, on Dobutamine CKDIIIa Morbid obesity Hypokalemia HTN Pulmonary HTN Hypernatremia PLAN: 10/14/2024: Discussed with Dr. Greenwood, patient needs ICD Consult Dr. Swanson for ICD Dobutamine drip IV antibiotics: Rocephin + Doxy Sedation: Versed and Fent Jardiance CHF: Lasix 60 mg IV q 12 hours CKD Hydrocortisone 100 mg IV daily GI Prophylaxis: Protonix DVT prophylaxis: Lovenox Hypernatremia: Free water, lower the rate to 150 ml q 6 hours Hypokalemia: Replace and re-check Discussed with her sister at the bedside 10/15/2024: Continue the current management Dobutamine drip ICD plan for today Replace potassium Check potassium again in the afternoon and replace as needed Plan discussed with: Patient, Daughter, Other My Orders Orders - LOUIE RAI MD Procedure Category Date Status Time * Cardiology Consult CONS 10/14/24 Transmitted 10:00 Free Water PHA 10/14/24 In Process 12:00 Chest Portable XY 10/15/24 Resulted 06:00 Abg W/ Co-Ox RT 10/15/24 Logged 06:00 Date of Service: Oct 15, 2024 Billing Provider: LOUIE RAI MD Common Visit Codes: [id number] INP/OBS CARE(HIGH) LOUIE RAI MD Oct 15, 2024 10:01
[2024-10-15] MEDS: LIDOCAINE 2%HCL (LOCAL ANESTH.) INJ 20ML MDV ONE ×2 (15:09→15:11)
[2024-10-15] MEDS: VANCOMYCIN 1GM/250ML KIT 200 ML IV ONE (15:40)
[2024-10-15] MEDS: VANCOMYCIN HCL 1000 MG VL ONE ×2 (15:40→15:46)
[2024-10-15] MEDS: IODIXANOL 320MG/ML 100ML BTL IV ONE (15:55)
[2024-10-15] MEDS: hydrALAZINE HCL 20 MG/ML VL ONE (16:09)
[2024-10-15] MEDS: GELATIN 1 SPONGE SIZE 50 TOP ONE (16:23)
--- NOTE | 2024-10-15 16:40 | DVHPN2 ---
Progress Note Date Seen: Oct 15, 2024 Medical Necessity Reason Pt with a Central, PICC or Fol: Yes The following are medically ne: PICC Line, Garcia Catheter Reason for garcia catheter: Strict I&O Subjective Patient reports: Other (intubated) Review of Systems: Deferred Objective vital signs Vital Sign Date Time Temp Pulse Resp B/P (MAP) Pulse Ox O2 Delivery O2 Flow Rate FiO2 10/15/24 15:15 56 20 129/45 (73) 95 10/15/24 15:12 35 10/15/24 14:00 Mechanical Ventilator+ 10/15/24 12:01 98.0 98.0 Total Intake and Output 10/14/24 10/14/24 10/15/24 15:00 23:00 07:00 Intake Total 1012.4 ml 1017.4 ml 1407.4 ml Output Total 1790 ml 1850 ml Balance 1012.4 ml -772.6 ml -442.6 ml medications Current Medications Medications Dose Ordered Sig/Sohail Route Start Time Stop Time Status Last Admin Dose Admin Sodium Chloride 10 ml Q8HR IV 10/07/24 22:00 10/15/24 13:22 10 ML Acetaminophen 650 mg Q6HP PRN PO 10/07/24 21:45 Hydralazine HCl 10 mg Q6HPRN PRN IV 10/07/24 22:00 10/15/24 11:37 10 MG Midazolam HCl 50 ml @ 1 mls/hr Q24H IV 10/08/24 07:30 10/15/24 13:18 3 MLS/HR Dopamine HCl/ Dextrose 250 ml @ 26.831 mls/ hr Q9H20M IV 10/08/24 09:15 UNV 10/08/24 09:10 26.831 MLS/HR Fentanyl Citrate 250 ml @ 2.5 mls/hr Q24H IV 10/08/24 10:00 10/15/24 13:20 12.5 MLS/HR Ceftriaxone Sodium 50 ml @ 100 mls/hr DAILY@09 IV 10/09/24 09:00 10/15/24 09:10 100 MLS/HR Pantoprazole Sodium 40 mg DAILY IV 10/09/24 10:00 10/15/24 09:08 40 MG Enteral Nutritional Formula 1,000 ml 40ML/HR GT 10/09/24 10:15 Empaglifozin 10 mg DAILY PO 10/10/24 10:00 10/15/24 09:10 10 MG Hydrocortisone Sodium Succinate 100 mg DAILY IV 10/10/24 12:15 10/15/24 09:08 100 MG Doxycycline Hyclate 250 ml @ 125 mls/hr Q12H IV 10/11/24 13:15 10/15/24 13:20 125 MLS/HR Clonidine HCl 0.1 mg Q7D TD 10/12/24 12:15 Dobutamine HCl/ Dextrose 250 ml @ 42.3 mls/hr Q5H55M IV 10/12/24 21:00 10/15/24 13:35 42.3 MLS/HR Purified Water 150 ml Q6HR GT 10/14/24 12:00 10/15/24 11:31 150 ML Sodium Chloride 1,000 ml @ 50 mls/hr Q20H IV 10/15/24 00:01 10/14/24 23:20 50 MLS/HR Furosemide 40 mg DAILY IV 10/16/24 10:00 Examination: LUNGS:Abnormal, CVS:Abnormal (bradycardic), SKIN:Abnormal laboratory and microbiology Laboratory Tests 10/15/24 04:52 Test 10/15/24 04:52 Range/Units Serum Glucose 94 74-106 mg/dL Microbiology Date/Time Source Procedure Growth Status 10/10/24 13:50 Nose MRSA Screen - Final Complete 10/09/24 10:58 Bronchial Washings Gram Stain - Final Complete 10/09/24 10:58 Bronchial Washings Respiratory Culture - Final Complete 10/09/24 03:06 Voided Urine Urine Culture - Final Complete 10/08/24 18:32 Blood Blood Culture - Final NO GROWTH AFTER 5 DAYS OF INCUBATION. Complete Problem List/Assessment/Plan Problem List/Assessment/Plan Acute kidney injury hemodynamic + consecutive contrast exposures +/- cardiorenal syndrome ckd 3a ( in 2017 acute respiratory failure; ARDS decompensated HF EF 20% s/p Cath Morbid obesity bradycardia Hypokalemia Recommendations Continue on Lasix IV--reduce dose Remains intubated K replace p.r.n.and k recheck as ordered pacemaker today Plan discussed with: Other My Orders My Orders Orders - ANN SMYTH MD Procedure Category Date Status Time Furosemide Injection PHA 10/16/24 In Process (Lasix Injection) 10:00 Potassium LAB 10/15/24 Logged 16:00 Dietary Evaluation Review Comments: 1) If GI is accessible consider Glucerna 1.2 @ 55 ml/hr goal rate as tolerated 2) If pt remains NPO >7 days consider TPN to meet a least 75% of estimated needs 3) Advance pt diet when medically feasible to a CCHO 60g/Cardiac diet 4) Continue current plan of care Expected Outcomes/Goals: 1) Pt to receive nutrition support within 7 days of NPO status 2) Pt diet to advance 3) Continue current plan of care ANN SMYTH MD Oct 15, 2024 16:40
[2024-10-15] MEDS: FUROSEMIDE 20 MG/2 ML VIAL ONE (17:04)
--- NOTE | 2024-10-15 18:07 | DVH ---
CHEST RADIOGRAPH Indication: S/P PACEMAKER Technique: Single frontal view of the chest was obtained Comparison: XY CHEST PORTABLE on DOS: 10/15/24, XY CHEST PORTABLE on DOS: 10/14/24, XY CHEST PORTABLE on DOS: 10/13/24 FINDINGS: Lines and Tubes: Endotracheal tube, enteric tube and right IJ approach central venous catheter are in satisfactory position. Left-sided approach dual lead AICD terminating within right atrium and right ventricle. Lungs: Diffuse interstitial prominence with gradient opacification of bilateral mid and lower lung zo marianne with obscuration of bilateral hemidiaphragm. Pleura: No effusion. No pneumothorax. Cardiomediastinal contours: Mild cardiomegaly Bones: No acute osseous abnormality. IMPRESSION: Pulmonary vascular congestion and bilateral pleural effusions with associated atelectasis /pneumonia; relatively unchanged from prior imaging. Lines and tubes are in satisfactory position.
--- NOTE | 2024-10-15 20:52 | DVHOP2 ---
Operative Report INDICATIONS: 10/15/24 Symptomatic bradycardia, requiring vasopressor to maintain HR,sinus pauses, high degree AV block, QRS less than 120 ms Non Ischemic cardiomyopathy, CAD Preserved EF Proceed with implantation of AICD for primary prevention of sudden cardiac as well as symptomatic bradycardia PROCEDURES: 1. Implantation of AICD lead in right ventricle, active fixation, T, MRI 2. Implantation of right atrial pacing lead 3. Implantation of the dual chamber AICD generator, T, MRI. 4. Fluoroscopy images and interpretation. 5. Interrogation and programming of the device. 6. Conscious sedation with fentanyl and Versed for one hour 7. Left subclavian venogram, two axillary accesses obtained PROCEDURE IN DETAILS: 1. After obtaining informed consent with explanation of risks, benefits and alternatives, the patient agreed upon the planned procedure, implantation of dual chamber AICDDEBORAH, due to non ischemic cardiomyopathy. Under a standard fashion, local and systemic anesthetic, conscious sedation with fentanyl and Versed, supervised by myself, left deltopectoral area was prepped and draped. Left deltopectoral pocket was made, two axillary accesses were obtained 1. Through the first access, AICD lead was advanced into the right interventricular septum. Sensing was 10 mv with pacing threshold 0.5 v at 0.5 ms. Impedance of 571 ohms. 2. Through the second access the sheet and then RA lead was advanced into RA. Active fixation. Sensing A 3 MV, pacing threshold 0.5 v at 0.4 ms, impedance 457 ohms. 3. New dual-chamber AICD generator, T was connected to the leads. . The pocket was irrigated with antibiotic solution. Antibiotic powder, plus pouch was poured into the pocket. The skin was closed in 2 layers and at the end was stapled. CONCLUSION: 1. Status post successful implantation of dual chamber AICDDEBORAH, Device was programmed into DDD lower rate of 60 bpm 2. There was no immediate complication. GENI THOMAS MD Oct 15, 2024 20:52
--- NOTE | 2024-10-15 21:14 | DVHPN2 ---
Progress Note - Dictate Date Seen: Oct 15, 2024 Medical Necessity Reason Pt with a Central, PICC or Fol: Yes The following are medically ne: PICC Line, Garcia Catheter Reason for garcia catheter: Strict I&O Subjective Patient seen and examined at bedside. Sedated, intubated on mechanical ventilator. Overnight events reviewed. vital signs Vital Sign Date Time Temp Pulse Resp B/P (MAP) Pulse Ox O2 Delivery O2 Flow Rate FiO2 10/15/24 20:13 60 20 127/62 (83) 96 35 10/15/24 20:00 96.4 205.5 10/15/24 20:00 Mechanical Ventilator+ Total Intake and Output 10/14/24 10/14/24 10/15/24 15:00 23:00 07:00 Intake Total 1012.4 ml 1017.4 ml 1407.4 ml Output Total 1790 ml 1850 ml Balance 1012.4 ml -772.6 ml -442.6 ml medications Current Medications Medications Dose Ordered Sig/Sohail Route Start Time Stop Time Status Last Admin Dose Admin Sodium Chloride 10 ml Q8HR IV 10/07/24 22:00 10/15/24 13:22 10 ML Acetaminophen 650 mg Q6HP PRN PO 10/07/24 21:45 Hydralazine HCl 10 mg Q6HPRN PRN IV 10/07/24 22:00 10/15/24 11:37 10 MG Midazolam HCl 50 ml @ 1 mls/hr Q24H IV 10/08/24 07:30 10/15/24 13:18 3 MLS/HR Dopamine HCl/ Dextrose 250 ml @ 26.831 mls/ hr Q9H20M IV 10/08/24 09:15 UNV 10/08/24 09:10 26.831 MLS/HR Fentanyl Citrate 250 ml @ 2.5 mls/hr Q24H IV 10/08/24 10:00 10/15/24 13:20 12.5 MLS/HR Ceftriaxone Sodium 50 ml @ 100 mls/hr DAILY@09 IV 10/09/24 09:00 10/15/24 09:10 100 MLS/HR Pantoprazole Sodium 40 mg DAILY IV 10/09/24 10:00 10/15/24 09:08 40 MG Enteral Nutritional Formula 1,000 ml 40ML/HR GT 10/09/24 10:15 Empaglifozin 10 mg DAILY PO 10/10/24 10:00 10/15/24 09:10 10 MG Hydrocortisone Sodium Succinate 100 mg DAILY IV 10/10/24 12:15 10/15/24 09:08 100 MG Doxycycline Hyclate 250 ml @ 125 mls/hr Q12H IV 10/11/24 13:15 10/15/24 13:20 125 MLS/HR Clonidine HCl 0.1 mg Q7D TD 10/12/24 12:15 Dobutamine HCl/ Dextrose 250 ml @ 42.3 mls/hr Q5H55M IV 10/12/24 21:00 10/15/24 13:35 42.3 MLS/HR Purified Water 150 ml Q6HR GT 10/14/24 12:00 10/15/24 18:44 150 ML Sodium Chloride 1,000 ml @ 50 mls/hr Q20H IV 10/15/24 00:01 10/14/24 23:20 50 MLS/HR Furosemide 40 mg DAILY IV 10/16/24 10:00 objective Gen.: Patient lying in bed in medical ICU. Sedated, intubated on mechanical ventilator. Head: Normocephalic, atraumatic. Eyes: PERRLA. Ears: Normal external anatomy. Throat: Endotracheal tube and orogastric tube in place. Neck: Supple, trachea midline. Chest: Transmitted breath sounds bilaterally. Decreased air entry bilaterally. No wheezing. Bibasilar crackles. Cardiovascular: Positive S1, positive S2. Regular rate and rhythm. Abdomen: Positive bowel sounds in all 4 quadrants. Soft, nontender, nondistended. : Garcia in place. Normal external genitalia. Rectal: Deferred. Skin: Warm, dry. Intact. Extremities: 2+ radial pulses bilaterally. No lower extremity edema. Neuro: Sedated. laboratory and microbiology Laboratory Tests 10/15/24 18:27 10/15/24 04:52 Test 10/15/24 04:52 Range/Units Serum Glucose 94 74-106 mg/dL Assessment/Plan Impression: Acute hypoxic respiratory failure On mechanical ventilator Congestive heart failure, reduced ejection fraction 20% Nonischemic cardiomyopathy based on recent [facility] NSTEMI type 2 Acute kidney injury Hypertensive emergency Morbid obesity Events: Remains on vent support On AC mode; RR 20, VT 450, PEEP 5, FiO2 35% Dobutamine drip 5 mcg/min for inotropic support S/p transcutaneous pacemaker S/p left heart cath. Electrophysiology for AICD placement - planned for today Cardiology and Electrophysiology recommendations appreciated. Sedated on Versed, Fentanyl Continue antibiotics. Potassium supplementation Monitor renal function Off Lasix drip d/t hypokalemia. IV fluids at 50 ml/hr. Rest of plan as noted below Plan: s/p intubation on mechanical ventilator. On AC mode; RR 20, VT 450, PEEP 5, FiO2 35% ABG reviewed, compensated CXR demonstrates multifocal opacities, no pneumothorax; devices in place. Titrate FIO2 to keep O2 saturation above 90%. VAP bundle. Daily ABG and CXR while intubated Sedated for ventilator synchrony Continue antibiotics. F/u cultures. Dobutamine drip. F/u cardiology recommendations S/p transcutaneous pacemaker. Pressors as necessary for hemodynamic support Titrate to keep mean arterial pressure greater than 65 mmHg. Monitor renal function Monitor electrolytes. Supplement as necessary. Monitor ins and outs. Maintain euvolemia. GI prophylaxis. DVT prophylaxis. Prognosis: Poor given patient's multiple co-morbidities. Condition: Critical Rest of plan per hospitalist and other consultants. A total of 35 minutes of critical care time was spent reviewing the patient record, examining the patient, making a diagnostic and therapeutic plan, discussing this plan with the medical personnel, following up on diagnostic studies and following the patient for clinical stability excluding any and all procedures. At least 50% of this time was spent in direct, [id number] contact. Thank you Dr. Marquise Conley MD, for allowing me to participate in this patient's care. Further recommendations will depend on the patient's clinical course. Please do not hesitate to contact me if you have any questions or concerns. This medical document was created using an electronic medical record system with [employer] dictation system. Although these documentations are being carefully reviewed, there may still be some phonetic and typographical changes. The errors are purely typographical, due to imperfection on the software program, and do not reflect any compromise in the patient's medical care. Dietary Evaluation Review Comments: 1) If GI is accessible consider Glucerna 1.2 @ 55 ml/hr goal rate as tolerated 2) If pt remains NPO >7 days consider TPN to meet a least 75% of estimated needs 3) Advance pt diet when medically feasible [facility]Card[facility] 4) Continue current plan of care Expected Outcomes/Goals: 1) Pt to receive nutrition support within 7 days of NPO status 2) Pt diet to advance 3) Continue current plan of care Plan discussed with: Other (KAMRYN Reddy) Critical Care Time(min): 35 HO MELENDEZ MD Oct 15, 2024 21:14
[2024-10-15] MEDS: DOXYCYCLINE 100MG/250ML 250 ML IV SCH (22:50)
[2024-10-15] MEDS: ATROPINE SULF 1 MG/10ml SYR IV ONE (23:04)
[2024-10-16] VITALS (108 sets, daily range): BP systolic 100–143; BP diastolic 45–69; PULSE 60–67; RESP 16–20; TEMP 94.1–99; O2SAT 93–98
--- NOTE | 2024-10-16 04:45 | DVH ---
CHEST RADIOGRAPH Indication: vent Technique: Single frontal view of the chest was obtained Comparison: XY CHEST PORTABLE on DOS: 10/15/24 FINDINGS: Lines and Tubes: The endotracheal tube terminates 4.1 cm above there is a right central venous cathet er with the terminating in the superior vena cava. ICD noted. Lungs: Patchy bilateral opacities. Pleura: No effusion. No pneumothorax. Cardiomediastinal contours: Unremarkable Bones: No acute osseous abnormality. IMPRESSION: 1. Support lines and tubes are unchanged. 2. No significant change in patchy bilateral opacities.
[2024-10-16 05:06] LABS: Basophils # (auto) 0 10 ^3/uL (0-0.2); Basophils % (auto) 0.7 % (0.0-2.0); Eosinophils # (auto) 0.1 10 ^3/uL (0-0.8); Hematocrit 36.6 % (36.0-46.0); Lymphocytes # (auto) 1.2 10 ^3/uL (0.4-5.4); Lymphocytes % (auto) 17.8 % (10.0-50.0); Mean Corpuscular Hemoglobin 27.3 pg (28.0-32.0); Mean Corpuscular Volume 82.8 fL (80.0-100.0); Monocytes # (auto) 0.6 10 ^3/uL (0-1.3); Monocytes % (auto) 9.5 % (0.0-12.0); Neutrophils # (auto) 4.7 10 ^3/uL (1.6-8.6); Nucleated Red Blood Cells % 0.1 %; Platelet Count (auto) 195 10^3/uL (140-450); Red Blood Cells 4.42 10^6/uL (4.0-5.20); Red Cell Distribution Width 16.1 % (11.8-14.3); White Blood Cell 6.6 10^3/uL (4.4-10.8)
[2024-10-16 05:30] LABS: Alanine Aminotransferase 11 U/L (7-40); Albumin 3.1 g/dL (3.2-4.8); Alkaline Phosphatase 68 U/L (46-116); Anion Gap 7 (5-15); Aspartate Aminotransferase 16 U/L (13-40); BUN/Creatinine Ratio 20.9 (10.0-20.0); Blood Urea Nitrogen 27 mg/dL (9-23); Calcium 9.6 mg/dL (8.7-10.4); Carbon Dioxide 36 mmol/L (20-31); Chloride 99 mmol/L (98-107); Glucose 85 mg/dL (74-106); Potassium 2.8 mmol/L (3.5-5.1); Sodium 142 mmol/L (136-145)
[2024-10-16 05:31] LABS: Bilirubin, Total 1.8 mg/dL (0.2-1.0); Total Protein 5.5 g/dL (5.7-8.2)
[2024-10-16 06:57] LABS: Base Excess 7.6 mmol/L (-2.0-3.0)
[2024-10-16] MEDS: FUROSEMIDE 40 MG/4 ML VIAL IV SCH (09:19)
[2024-10-16] MEDS: POTASSIUM CHL 20MEQ/100ML 100 ML IV SCH ×2 (09:20→12:55)
--- NOTE | 2024-10-16 11:30 | MEDREC ---
[facility] Intervention Section I [facility] Intervention: Review courses of therapy (8 DAYS ON CEFTRIAXONE 6 DAYS ON DOXYCYCLINE NO LEUKOCYTOSIS PATIENT AFEBRILE ONLY NORMAL TONYA IN THE BRONCHIAL WASHING CULTURE PLEASE CONSIDER TO D/C ANTIBIOTIC IF INFECTION IS NOT A CONCERN ) ION PEREZ PHARMACIST Oct 16, 2024 11:30
[2024-10-16] MEDS ORDERED: DEXTROSE (50%) 50ML SYRG IV PRN (16:15)
--- NOTE | 2024-10-16 16:15 | DVHPN2 ---
Subjective Patient is intubated and sedated FiO2 35% and PEEP of 5 She is status post ICD placement yesterday Changes from previous H/P or p: Changes Objective Vitals Vital Signs Date Time Temp Pulse Resp B/P (MAP) Pulse Ox O2 Delivery O2 Flow Rate FiO2 10/16/24 16:00 98.2 60 20 121/55 (77) 97 208.8 10/16/24 14:00 35 10/16/24 14:00 Mechanical Ventilator+ Intake/Output Intake and Output 10/16/24 07:00 Intake Total 2765.9 ml Output Total 2000 ml Balance 765.9 ml Intake Oral 300 ml IV Total 2065.9 ml Tube Feeding 400 ml Output Urine Total 2000 ml General Appearance: Other (Intubated and sedated) Lungs: Other (B rhonchi) Cardiovascular: Other (bradycardic HR 30s) Extremities: No edema Neuro: Other (intubated and sedated) Medications Current Medications Medications Dose Ordered Sig/Sohail Route Start Time Stop Time Status Last Admin Dose Admin Sodium Chloride 10 ml Q8HR IV 10/07/24 22:00 10/16/24 13:29 10 ML Acetaminophen 650 mg Q6HP PRN PO 10/07/24 21:45 Hydralazine HCl 10 mg Q6HPRN PRN IV 10/07/24 22:00 10/15/24 11:37 10 MG Midazolam HCl 50 ml @ 1 mls/hr Q24H IV 10/08/24 07:30 10/16/24 08:12 3 MLS/HR Dopamine HCl/ Dextrose 250 ml @ 26.831 mls/ hr Q9H20M IV 10/08/24 09:15 UNV 10/08/24 09:10 26.831 MLS/HR Fentanyl Citrate 250 ml @ 2.5 mls/hr Q24H IV 10/08/24 10:00 10/16/24 05:47 15 MLS/HR Ceftriaxone Sodium 50 ml @ 100 mls/hr DAILY@09 IV 10/09/24 09:00 10/16/24 09:19 100 MLS/HR Pantoprazole Sodium 40 mg DAILY IV 10/09/24 10:00 10/16/24 09:19 40 MG Enteral Nutritional Formula 1,000 ml 40ML/HR GT 10/09/24 10:15 Empaglifozin 10 mg DAILY PO 10/10/24 10:00 10/16/24 09:19 10 MG Hydrocortisone Sodium Succinate 100 mg DAILY IV 10/10/24 12:15 10/16/24 09:19 100 MG Clonidine HCl 0.1 mg Q7D TD 10/12/24 12:15 Dobutamine HCl/ Dextrose 250 ml @ 42.3 mls/hr Q5H55M IV 10/12/24 21:00 10/15/24 13:35 42.3 MLS/HR Purified Water 150 ml Q6HR GT 10/14/24 12:00 10/16/24 12:00 150 ML Sodium Chloride 1,000 ml @ 50 mls/hr Q20H IV 10/15/24 00:01 10/14/24 23:20 50 MLS/HR Furosemide 40 mg DAILY IV 10/16/24 10:00 10/16/24 09:19 40 MG Doxycycline Hyclate 250 ml @ 125 mls/hr Q12H IV 10/15/24 21:45 10/16/24 10:04 125 MLS/HR Laboratory Results Laboratory Tests 10/16/24 04:54 Chemistry Test 10/16/24 04:54 Albumin 3.1 g/dL (3.2-4.8) L Calcium Level 9.6 mg/dL (8.7-10.4) Magnesium Level 2.0 mg/dL (1.6-2.6) Total Protein 5.5 g/dL (5.7-8.2) L LFT Test 10/16/24 04:54 Alanine Aminotransferase (ALT) 11 U/L (7-40) Alkaline Phosphatase 68 U/L (46-116) Aspartate Amino Transferase (AST) 16 U/L (13-40) Total Bilirubin 1.8 mg/dL (0.2-1.0) H Urinalysis Test 10/08/24 11:13 10/16/24 09:30 Urine Color Light-yellow (Yellow) Urine Clarity Clear (Clear) Urine pH 5.0 (5.0-9.0) Urine Specific [place] 1.009 (1.001-1.035) Urine Protein 1+ (Negative) H Urine Ketones Negative (Negative) Urine Blood 2+ /uL (Negative) H Urine Nitrite Negative (Negative) Urine Bilirubin Negative (Negative) Urine Urobilinogen Normal mg/dL (Negative) Urine Leukocyte Esterase Negative /uL (Negative) Urine RBC 55 /hpf (0 - 4) Urine WBC 3 /hpf (0 - 5) Urine Squamous Epithelial Cells Few /hpf (<5) Urine Bacteria None seen /hpf (None Seen) Urine Mucus Few (None Seen) Urine Glucose Normal mg/dL (Normal) Urine Potassium 30 mmol/L (12-62) Blood Gas Results Test 10/16/24 06:52 Arterial Blood pH 7.528 (7.350-7.450) FiO2 % 35.0 Microbiology Microbiology Date/Time Source Procedure Growth Status 10/10/24 13:50 Nose MRSA Screen - Final Complete 10/09/24 10:58 Bronchial Washings Gram Stain - Final Complete 10/09/24 10:58 Bronchial Washings Respiratory Culture - Final Complete 10/09/24 03:06 Voided Urine Urine Culture - Final Complete 10/08/24 18:32 Blood Blood Culture - Final NO GROWTH AFTER 5 DAYS OF INCUBATION. Complete Assessment/Plan Assessment/Plan Acute on chronic systolic CHF Acute hypoxic respiratory failure s/p self-extubation and re-intubation Multi-Focal pneumonia Non-Ischemic CMP 2nd degree heart block / Bradycardia, on Dobutamine CKDIIIa Morbid obesity Hypokalemia HTN Pulmonary HTN Hypernatremia PLAN: 10/14/2024: Discussed with Dr. Greenwood, patient needs ICD Consult Dr. Swanson for ICD Dobutamine drip IV antibiotics: Rocephin + Doxy Sedation: Versed and Fent Jardiance CHF: Lasix 60 mg IV q 12 hours CKD Hydrocortisone 100 mg IV daily GI Prophylaxis: Protonix DVT prophylaxis: Lovenox Hypernatremia: Free water, lower the rate to 150 ml q 6 hours Hypokalemia: Replace and re-check Discussed with her sister at the bedside 10/15/2024: Continue the current management Dobutamine drip ICD plan for today Replace potassium Check potassium again in the afternoon and replace as needed 10/16/2024: Replace potassium Discontinue IV antibiotics Rocephin and doxycycline Start tube feeding Lower the free water to 50 ml q6h CPAP per Dr. Schreiber Plan discussed with: Other Date of Service: Oct 16, 2024 Billing Provider: LOUIE RAI MD Common Visit Codes: [id number] INP/OBS CARE(HIGH) LOUIE RAI MD Oct 16, 2024 16:15
[2024-10-16] MEDS: FREE WATER GT SCH (17:00)
[2024-10-16 17:58] LABS: Chloride 100 mmol/L (98-107); Potassium 3.8 mmol/L (3.5-5.1); Sodium 140 mmol/L (136-145)
[2024-10-16 17:59] LABS: Anion Gap 5 (5-15); Carbon Dioxide 35 mmol/L (20-31)
[2024-10-16 18:00] LABS: Calcium 9.3 mg/dL (8.7-10.4)
[2024-10-16] MEDS: InsuLIN REG 1unit/0.01ml Soln (100units/ml) SC SCH (18:00)
[2024-10-16 18:04] LABS: Blood Urea Nitrogen 33 mg/dL (9-23); Glucose 113 mg/dL (74-106)
[2024-10-16] MEDS: ACCU-CHEK COMFORT CURVE STRIP VI SCH (18:17)
--- NOTE | 2024-10-16 18:42 | DVHPN2 ---
Progress Note Date Seen: Oct 16, 2024 Medical Necessity Reason Pt with a Central, PICC or Fol: Yes The following are medically ne: PICC Line, Garcia Catheter Reason for garcia catheter: Strict I&O Subjective Patient reports: Other (Patient remains intubated) Review of Systems: Deferred Objective vital signs Vital Sign Date Time Temp Pulse Resp B/P (MAP) Pulse Ox O2 Delivery O2 Flow Rate FiO2 10/16/24 17:52 60 20 119/53 (75) 97 35 10/16/24 17:15 98.6 209.5 10/16/24 16:00 Mechanical Ventilator+ Total Intake and Output 10/15/24 10/15/24 10/16/24 15:00 23:00 07:00 Intake Total 1512.4 ml 716.5 ml 537.0 ml Output Total 900 ml 1100 ml Balance 1512.4 ml -183.5 ml -563.0 ml medications Current Medications Medications Dose Ordered Sig/Sohail Route Start Time Stop Time Status Last Admin Dose Admin Sodium Chloride 10 ml Q8HR IV 10/07/24 22:00 10/16/24 13:29 10 ML Acetaminophen 650 mg Q6HP PRN PO 10/07/24 21:45 Hydralazine HCl 10 mg Q6HPRN PRN IV 10/07/24 22:00 10/15/24 11:37 10 MG Midazolam HCl 50 ml @ 1 mls/hr Q24H IV 10/08/24 07:30 10/16/24 08:12 3 MLS/HR Dopamine HCl/ Dextrose 250 ml @ 26.831 mls/ hr Q9H20M IV 10/08/24 09:15 UNV 10/08/24 09:10 26.831 MLS/HR Fentanyl Citrate 250 ml @ 2.5 mls/hr Q24H IV 10/08/24 10:00 10/16/24 05:47 15 MLS/HR Pantoprazole Sodium 40 mg DAILY IV 10/09/24 10:00 10/16/24 09:19 40 MG Enteral Nutritional Formula 1,000 ml 40ML/HR GT 10/09/24 10:15 Empaglifozin 10 mg DAILY PO 10/10/24 10:00 10/16/24 09:19 10 MG Hydrocortisone Sodium Succinate 100 mg DAILY IV 10/10/24 12:15 10/16/24 09:19 100 MG Clonidine HCl 0.1 mg Q7D TD 10/12/24 12:15 Dobutamine HCl/ Dextrose 250 ml @ 42.3 mls/hr Q5H55M IV 10/12/24 21:00 10/15/24 13:35 42.3 MLS/HR Furosemide 40 mg DAILY IV 10/16/24 10:00 10/16/24 09:19 40 MG Purified Water 50 ml Q6HR GT 10/16/24 16:15 10/16/24 18:17 50 ML Diagnostic Test (Pha) 1 strip Q6HR 10/16/24 18:00 10/16/24 18:17 1 STRIP Insulin Human Regular Q6HR SC 10/16/24 18:00 Dextrose 50 ml UD PRN IV 10/16/24 16:15 Examination: GENERAL:Abnormal, CVS:Abnormal, MSK:Abnormal, SKIN:Normal, NEURO:Abnormal laboratory and microbiology Laboratory Tests 10/16/24 17:28 10/16/24 04:54 Test 10/16/24 17:28 Range/Units Serum Glucose 113 H 74-106 mg/dL Microbiology Date/Time Source Procedure Growth Status 10/10/24 13:50 Nose MRSA Screen - Final Complete 10/09/24 10:58 Bronchial Washings Gram Stain - Final Complete 10/09/24 10:58 Bronchial Washings Respiratory Culture - Final Complete 10/09/24 03:06 Voided Urine Urine Culture - Final Complete 10/08/24 18:32 Blood Blood Culture - Final NO GROWTH AFTER 5 DAYS OF INCUBATION. Complete Problem List/Assessment/Plan Problem List/Assessment/Plan Acute kidney injury hemodynamic + consecutive contrast exposures +/- cardiorenal syndrome ckd 3a ( in 2017 acute respiratory failure; ARDS decompensated HF EF 20% s/p Cath Morbid obesity bradycardia status post pacemaker Hypokalemia Recommendations Continue on Lasix IV--reduce dose Remains intubated K replace p.r.n.and k recheck Status post pacemaker Plan discussed with: Other Dietary Evaluation Review Comments: 1) If GI is accessible consider Glucerna 1.2 @ 55 ml/hr goal rate as tolerated 2) If pt remains NPO >7 days consider TPN to meet a least 75% of estimated needs 3) Advance pt diet when medically feasible to a CCHO 60g/Cardiac diet 4) Continue current plan of care Expected Outcomes/Goals: 1) Pt to receive nutrition support within 7 days of NPO status 2) Pt diet to advance 3) Continue current plan of care ANN SMYTH MD Oct 16, 2024 18:42
--- NOTE | 2024-10-16 21:19 | DVHPN2 ---
Progress Note - Dictate Date Seen: Oct 16, 2024 Medical Necessity Reason Pt with a Central, PICC or Fol: Yes The following are medically ne: PICC Line, Garcia Catheter Reason for garcia catheter: Strict I&O Subjective Patient seen and examined at bedside. Sedated, intubated on mechanical ventilator. Overnight events reviewed. vital signs Vital Sign Date Time Temp Pulse Resp B/P (MAP) Pulse Ox O2 Delivery O2 Flow Rate FiO2 10/16/24 20:05 61 20 132/58 (82) 97 35 10/16/24 20:00 Mechanical Ventilator+ 10/16/24 18:45 99.0 210.2 Total Intake and Output 10/15/24 10/15/24 10/16/24 15:00 23:00 07:00 Intake Total 1512.4 ml 716.5 ml 537.0 ml Output Total 900 ml 1100 ml Balance 1512.4 ml -183.5 ml -563.0 ml medications Current Medications Medications Dose Ordered Sig/Sohail Route Start Time Stop Time Status Last Admin Dose Admin Sodium Chloride 10 ml Q8HR IV 10/07/24 22:00 10/16/24 13:29 10 ML Acetaminophen 650 mg Q6HP PRN PO 10/07/24 21:45 Hydralazine HCl 10 mg Q6HPRN PRN IV 10/07/24 22:00 10/15/24 11:37 10 MG Midazolam HCl 50 ml @ 1 mls/hr Q24H IV 10/08/24 07:30 10/16/24 08:12 3 MLS/HR Dopamine HCl/ Dextrose 250 ml @ 26.831 mls/ hr Q9H20M IV 10/08/24 09:15 UNV 10/08/24 09:10 26.831 MLS/HR Fentanyl Citrate 250 ml @ 2.5 mls/hr Q24H IV 10/08/24 10:00 10/16/24 19:09 15 MLS/HR Pantoprazole Sodium 40 mg DAILY IV 10/09/24 10:00 10/16/24 09:19 40 MG Enteral Nutritional Formula 1,000 ml 40ML/HR GT 10/09/24 10:15 Empaglifozin 10 mg DAILY PO 10/10/24 10:00 10/16/24 09:19 10 MG Hydrocortisone Sodium Succinate 100 mg DAILY IV 10/10/24 12:15 10/16/24 09:19 100 MG Clonidine HCl 0.1 mg Q7D TD 10/12/24 12:15 Dobutamine HCl/ Dextrose 250 ml @ 42.3 mls/hr Q5H55M IV 10/12/24 21:00 10/15/24 13:35 42.3 MLS/HR Furosemide 40 mg DAILY IV 10/16/24 10:00 10/16/24 09:19 40 MG Purified Water 50 ml Q6HR GT 10/16/24 16:15 10/16/24 18:17 50 ML Diagnostic Test (Pha) 1 strip Q6HR 10/16/24 18:00 10/16/24 18:17 1 STRIP Insulin Human Regular Q6HR SC 10/16/24 18:00 Dextrose 50 ml UD PRN IV 10/16/24 16:15 objective Gen.: Patient lying in bed in medical ICU. Sedated, intubated on mechanical ventilator. Head: Normocephalic, atraumatic. Eyes: PERRLA. Ears: Normal external anatomy. Throat: Endotracheal tube and orogastric tube in place. Neck: Supple, trachea midline. Chest: Transmitted breath sounds bilaterally. Decreased air entry bilaterally. No wheezing. Bibasilar crackles. Cardiovascular: Positive S1, positive S2. Regular rate and rhythm. Abdomen: Positive bowel sounds in all 4 quadrants. Soft, nontender, nondistended. : Garcia in place. Normal external genitalia. Rectal: Deferred. Skin: Warm, dry. Intact. Extremities: 2+ radial pulses bilaterally. No lower extremity edema. Neuro: Sedated. laboratory and microbiology Laboratory Tests 10/16/24 17:28 10/16/24 04:54 Test 10/16/24 17:28 Range/Units Serum Glucose 113 H 74-106 mg/dL Assessment/Plan Impression: Acute hypoxic respiratory failure On mechanical ventilator Congestive heart failure, reduced ejection fraction 20% Nonischemic cardiomyopathy based on recent [facility] NSTEMI type 2 Acute kidney injury Hypertensive emergency Morbid obesity Events: Remains on vent support On AC mode; RR 20, VT 450, PEEP 5, FiO2 35% Off Dobutamine drip. S/p transcutaneous pacemaker S/p left heart cath. S/p Electrophysiology AICD placement Cardiology and Electrophysiology recommendations appreciated. Sedated on Versed, Fentanyl Continue antibiotics. Potassium supplementation Monitor K, mag, phos. Monitor renal function Off Lasix drip d/t hypokalemia. IV fluids at 50 ml/hr. Rest of plan as noted below Plan: s/p intubation on mechanical ventilator. On AC mode; RR 20, VT 450, PEEP 5, FiO2 35% ABG reviewed, compensated CXR demonstrates multifocal opacities, no pneumothorax; devices in place. Titrate FIO2 to keep O2 saturation above 90%. VAP bundle. Daily ABG and CXR while intubated Sedated for ventilator synchrony Continue antibiotics. F/u cultures. Dobutamine drip - on hold. F/u cardiology recommendations S/p transcutaneous pacemaker. Pressors as necessary for hemodynamic support Titrate to keep mean arterial pressure greater than 65 mmHg. Monitor renal function Monitor electrolytes. Supplement as necessary. Monitor ins and outs. Maintain euvolemia. GI prophylaxis. DVT prophylaxis. Prognosis: Poor given patient's multiple co-morbidities. Condition: Critical Rest of plan per hospitalist and other consultants. A total of 35 minutes of critical care time was spent reviewing the patient record, examining the patient, making a diagnostic and therapeutic plan, discussing this plan with the medical personnel, following up on diagnostic studies and following the patient for clinical stability excluding any and all procedures. At least 50% of this time was spent in direct, [id number] contact. Thank you Dr. Marquise Conley MD, for allowing me to participate in this patient's care. Further recommendations will depend on the patient's clinical course. Please do not hesitate to contact me if you have any questions or concerns. This medical document was created using an electronic medical record system with [employer] dictation system. Although these documentations are being carefully reviewed, there may still be some phonetic and typographical changes. The errors are purely typographical, due to imperfection on the software program, and do not reflect any compromise in the patient's medical care. Dietary Evaluation Review Comments: 1) If GI is accessible consider Glucerna 1.2 @ 55 ml/hr goal rate as tolerated 2) If pt remains NPO >7 days consider TPN to meet a least 75% of estimated needs 3) Advance pt diet when medically feasible to a CCHO 60g/Cardiac diet 4) Continue current plan of care Expected Outcomes/Goals: 1) Pt to receive nutrition support within 7 days of NPO status 2) Pt diet to advance 3) Continue current plan of care Plan discussed with: Other (KAMRYN Reddy) Critical Care Time(min): 35 HO MELENDEZ MD Oct 16, 2024 21:19
[2024-10-17] VITALS (105 sets, daily range): BP systolic 107–211; BP diastolic 30–120; PULSE 60–113; RESP 12–35; TEMP 66.9–99.9; O2SAT 92–100
[2024-10-17 04:52] LABS: Basophils # (auto) 0.1 10 ^3/uL (0-0.2); Eosinophils # (auto) 0.2 10 ^3/uL (0-0.8); Eosinophils % (auto) 3.2 % (0.0-7.0); Hematocrit 36.1 % (36.0-46.0); Hemoglobin 11.8 g/dL (12.2-16.2); Lymphocytes # (auto) 1.5 10 ^3/uL (0.4-5.4); Lymphocytes % (auto) 23.9 % (10.0-50.0); Mean Corpuscular Hemoglobin 26.9 pg (28.0-32.0); Mean Corpuscular Hgb Conc. 32.6 g/dL (32.0-36.0); Mean Corpuscular Volume 82.6 fL (80.0-100.0); Monocytes # (auto) 0.5 10 ^3/uL (0-1.3); Monocytes % (auto) 8.2 % (0.0-12.0); Neutrophils # (auto) 3.9 10 ^3/uL (1.6-8.6); Neutrophils % (auto) 63.7 % (37.0-80.0); Nucleated Red Blood Cells % 0.1 %; Platelet Count (auto) 188 10^3/uL (140-450); Red Blood Cells 4.37 10^6/uL (4.0-5.20); Red Cell Distribution Width 16.2 % (11.8-14.3); White Blood Cell 6.1 10^3/uL (4.4-10.8)
[2024-10-17 05:10] LABS: Alanine Aminotransferase 12 U/L (7-40); Alkaline Phosphatase 72 U/L (46-116); Anion Gap 7 (5-15); Aspartate Aminotransferase 17 U/L (13-40); BUN/Creatinine Ratio 23.8 (10.0-20.0); Bilirubin, Total 1.7 mg/dL (0.2-1.0); Blood Urea Nitrogen 29 mg/dL (9-23); Calcium 9.5 mg/dL (8.7-10.4); Carbon Dioxide 35 mmol/L (20-31); Chloride 100 mmol/L (98-107); Glucose 75 mg/dL (74-106); Phosphorus 2.3 mg/dL (2.4-5.1); Sodium 142 mmol/L (136-145); Total Protein 5.3 g/dL (5.7-8.2)
[2024-10-17] MEDS: POTASSIUM CHL 20MEQ/100ML 100 ML IV ONE (07:29)
[2024-10-17] MEDS: POTASSIUM CHL 20MEQ/100ML 100 ML IV SCH (11:01)
--- NOTE | 2024-10-17 11:18 | DVHPN2 ---
Progress Note Date Seen: Oct 17, 2024 Medical Necessity Reason Pt with a Central, PICC or Fol: Yes The following are medically ne: PICC Line, Garcia Catheter Reason for garcia catheter: Strict I&O Subjective Patient reports: Other Review of Systems: Deferred Objective vital signs Vital Sign Date Time Temp Pulse Resp B/P (MAP) Pulse Ox O2 Delivery O2 Flow Rate FiO2 10/17/24 10:37 179/88 10/17/24 09:45 74 14 96 35 10/17/24 08:15 98.8 209.8 10/17/24 08:00 Mechanical Ventilator+ Total Intake and Output 10/16/24 10/16/24 10/17/24 15:00 23:00 07:00 Intake Total 919 ml 344 ml 226 ml Output Total 1500 ml 400 ml Balance 919 ml -1156 ml -174 ml medications Current Medications Medications Dose Ordered Sig/Sohail Route Start Time Stop Time Status Last Admin Dose Admin Sodium Chloride 10 ml Q8HR IV 10/07/24 22:00 10/17/24 06:10 10 ML Acetaminophen 650 mg Q6HP PRN PO 10/07/24 21:45 Hydralazine HCl 10 mg Q6HPRN PRN IV 10/07/24 22:00 10/17/24 10:37 10 MG Midazolam HCl 50 ml @ 1 mls/hr Q24H IV 10/08/24 07:30 10/17/24 00:32 3 MLS/HR Dopamine HCl/ Dextrose 250 ml @ 26.831 mls/ hr Q9H20M IV 10/08/24 09:15 UNV 10/08/24 09:10 26.831 MLS/HR Fentanyl Citrate 250 ml @ 2.5 mls/hr Q24H IV 10/08/24 10:00 10/17/24 09:20 7.5 MLS/HR Pantoprazole Sodium 40 mg DAILY IV 10/09/24 10:00 10/17/24 09:25 40 MG Enteral Nutritional Formula 1,000 ml 40ML/HR GT 10/09/24 10:15 Empaglifozin 10 mg DAILY PO 10/10/24 10:00 10/17/24 09:30 10 MG Hydrocortisone Sodium Succinate 100 mg DAILY IV 10/10/24 12:15 10/17/24 09:24 100 MG Clonidine HCl 0.1 mg Q7D TD 10/12/24 12:15 Dobutamine HCl/ Dextrose 250 ml @ 42.3 mls/hr Q5H55M IV 10/12/24 21:00 10/15/24 13:35 42.3 MLS/HR Furosemide 40 mg DAILY IV 10/16/24 10:00 10/17/24 09:25 40 MG Purified Water 50 ml Q6HR GT 10/16/24 16:15 10/17/24 06:10 50 ML Diagnostic Test (Pha) 1 strip Q6HR 10/16/24 18:00 10/17/24 06:10 1 STRIP Insulin Human Regular Q6HR SC 10/16/24 18:00 Dextrose 50 ml UD PRN IV 10/16/24 16:15 Potassium Chloride 100 ml @ 50 mls/hr Q2H IV 10/17/24 10:15 10/17/24 14:14 10/17/24 11:01 50 MLS/HR Dexmedetomidine HCl 400 mcg/ Dextrose 100 ml @ 6.35 mls/hr [id number] IV 10/17/24 11:15 Examination: GENERAL:Abnormal, LUNGS:Abnormal, SKIN:Normal, :Abnormal laboratory and microbiology Laboratory Tests 10/17/24 04:35 Test 10/17/24 04:35 Range/Units Serum Glucose 75 74-106 mg/dL Microbiology Date/Time Source Procedure Growth Status 10/10/24 13:50 Nose MRSA Screen - Final Complete 10/09/24 10:58 Bronchial Washings Gram Stain - Final Complete 10/09/24 10:58 Bronchial Washings Respiratory Culture - Final Complete 10/09/24 03:06 Voided Urine Urine Culture - Final Complete 10/08/24 18:32 Blood Blood Culture - Final NO GROWTH AFTER 5 DAYS OF INCUBATION. Complete Problem List/Assessment/Plan Problem List/Assessment/Plan Acute kidney injury hemodynamic + consecutive contrast exposures +/- cardiorenal syndrome ckd 3a ( in 2017 acute respiratory failure; ARDS decompensated HF EF 20% s/p Cath Morbid obesity bradycardia status post pacemaker Hypokalemia Recommendations Continue on Lasix IV-- Remains intubated K replace p.r.n.and k recheck Status post pacemaker Plan discussed with: Other My Orders My Orders Orders - ANN SMYTH MD Procedure Category Date Status Time Potassium Chl PHA 10/17/24 In Process 20meq/100ml 10:15 Communication Order ORDERS 10/17/24 Transmitted 10:09 Dietary Evaluation Review Comments: 1) If GI is accessible consider Glucerna 1.2 @ 55 ml/hr goal rate as tolerated 2) If pt remains NPO >7 days consider TPN to meet a least 75% of estimated needs 3) Advance pt diet when medically feasible to a CCHO 60g/Cardiac diet 4) Continue current plan of care Expected Outcomes/Goals: 1) Pt to receive nutrition support within 7 days of NPO status 2) Pt diet to advance 3) Continue current plan of care ANN SMYTH MD Oct 17, 2024 11:18
--- NOTE | 2024-10-17 11:56 | DVHPN2 ---
Subjective Patient is still intubated, off sedation, following commands She is not moving her right hand as well as the left She is able to move her toes however CPAP trial in progress Changes from previous H/P or p: Changes Objective Vitals Vital Signs Date Time Temp Pulse Resp B/P (MAP) Pulse Ox O2 Delivery O2 Flow Rate FiO2 10/17/24 11:44 200/115 10/17/24 09:45 74 14 96 35 10/17/24 08:15 98.8 209.8 10/17/24 08:00 Mechanical Ventilator+ Intake/Output Intake and Output 10/17/24 06:59 Intake Total 1507 ml Output Total 1900 ml Balance -393 ml Intake Oral 300 ml IV Total 1207 ml Output Urine Total 1900 ml General Appearance: Other Lungs: Other Cardiovascular: Other Extremities: No edema Neuro: Other Medications Current Medications Medications Dose Ordered Sig/Sohail Route Start Time Stop Time Status Last Admin Dose Admin Sodium Chloride 10 ml Q8HR IV 10/07/24 22:00 10/17/24 06:10 10 ML Acetaminophen 650 mg Q6HP PRN PO 10/07/24 21:45 Hydralazine HCl 10 mg Q6HPRN PRN IV 10/07/24 22:00 10/17/24 10:37 10 MG Midazolam HCl 50 ml @ 1 mls/hr Q24H IV 10/08/24 07:30 10/17/24 00:32 3 MLS/HR Dopamine HCl/ Dextrose 250 ml @ 26.831 mls/ hr Q9H20M IV 10/08/24 09:15 UNV 10/08/24 09:10 26.831 MLS/HR Fentanyl Citrate 250 ml @ 2.5 mls/hr Q24H IV 10/08/24 10:00 10/17/24 09:20 7.5 MLS/HR Pantoprazole Sodium 40 mg DAILY IV 10/09/24 10:00 10/17/24 09:25 40 MG Enteral Nutritional Formula 1,000 ml 40ML/HR GT 10/09/24 10:15 Empaglifozin 10 mg DAILY PO 10/10/24 10:00 10/17/24 09:30 10 MG Hydrocortisone Sodium Succinate 100 mg DAILY IV 10/10/24 12:15 10/17/24 09:24 100 MG Clonidine HCl 0.1 mg Q7D TD 10/12/24 12:15 Dobutamine HCl/ Dextrose 250 ml @ 42.3 mls/hr Q5H55M IV 10/12/24 21:00 10/15/24 13:35 42.3 MLS/HR Furosemide 40 mg DAILY IV 10/16/24 10:00 10/17/24 09:25 40 MG Purified Water 50 ml Q6HR GT 10/16/24 16:15 10/17/24 06:10 50 ML Diagnostic Test (Pha) 1 strip Q6HR 10/16/24 18:00 10/17/24 06:10 1 STRIP Insulin Human Regular Q6HR SC 10/16/24 18:00 Dextrose 50 ml UD PRN IV 10/16/24 16:15 Potassium Chloride 100 ml @ 50 mls/hr Q2H IV 10/17/24 10:15 10/17/24 14:14 10/17/24 11:01 50 MLS/HR Dexmedetomidine HCl 400 mcg/ Dextrose 100 ml @ 6.35 mls/hr [id number] IV 10/17/24 11:15 10/17/24 11:44 6.35 MLS/HR Laboratory Results Laboratory Tests 10/17/24 04:35 Chemistry Test 10/16/24 17:28 10/17/24 04:35 Calcium Level 9.3 mg/dL (8.7-10.4) 9.5 mg/dL (8.7-10.4) Albumin 3.0 g/dL (3.2-4.8) L Phosphorus Level 2.3 mg/dL (2.4-5.1) L Total Protein 5.3 g/dL (5.7-8.2) L LFT Test 10/17/24 04:35 Alanine Aminotransferase (ALT) 12 U/L (7-40) Alkaline Phosphatase 72 U/L (46-116) Aspartate Amino Transferase (AST) 17 U/L (13-40) Total Bilirubin 1.7 mg/dL (0.2-1.0) H Urinalysis Test 10/08/24 11:13 10/16/24 09:30 Urine Color Light-yellow (Yellow) Urine Clarity Clear (Clear) Urine pH 5.0 (5.0-9.0) Urine Specific [place] 1.009 (1.001-1.035) Urine Protein 1+ (Negative) H Urine Ketones Negative (Negative) Urine Blood 2+ /uL (Negative) H Urine Nitrite Negative (Negative) Urine Bilirubin Negative (Negative) Urine Urobilinogen Normal mg/dL (Negative) Urine Leukocyte Esterase Negative /uL (Negative) Urine RBC 55 /hpf (0 - 4) Urine WBC 3 /hpf (0 - 5) Urine Squamous Epithelial Cells Few /hpf (<5) Urine Bacteria None seen /hpf (None Seen) Urine Mucus Few (None Seen) Urine Glucose Normal mg/dL (Normal) Urine Potassium 30 mmol/L (12-62) Microbiology Microbiology Date/Time Source Procedure Growth Status 10/10/24 13:50 Nose MRSA Screen - Final Complete 10/09/24 10:58 Bronchial Washings Gram Stain - Final Complete 10/09/24 10:58 Bronchial Washings Respiratory Culture - Final Complete 10/09/24 03:06 Voided Urine Urine Culture - Final Complete 10/08/24 18:32 Blood Blood Culture - Final NO GROWTH AFTER 5 DAYS OF INCUBATION. Complete Assessment/Plan Assessment/Plan Acute on chronic systolic CHF Acute hypoxic respiratory failure s/p self-extubation and re-intubation Multi-Focal pneumonia Non-Ischemic CMP 2nd degree heart block / Bradycardia, on Dobutamine CKDIIIa Morbid obesity Hypokalemia HTN Pulmonary HTN Hypernatremia PLAN: 10/14/2024: Discussed with Dr. Greenwood, patient needs ICD Consult Dr. Swanson for ICD Dobutamine drip IV antibiotics: Rocephin + Doxy Sedation: Versed and Fent Jardiance CHF: Lasix 60 mg IV q 12 hours CKD Hydrocortisone 100 mg IV daily GI Prophylaxis: Protonix DVT prophylaxis: Lovenox Hypernatremia: Free water, lower the rate to 150 ml q 6 hours Hypokalemia: Replace and re-check Discussed with her sister at the bedside 10/15/2024: Continue the current management Dobutamine drip ICD plan for today Replace potassium Check potassium again in the afternoon and replace as needed 10/16/2024: Replace potassium Discontinue IV antibiotics Rocephin and doxycycline Start tube feeding Lower the free water to 50 ml q6h CPAP per Dr. Schreiber 10/17/2024: Replace potassium again Off sedation As Precedex because the patient is really agitated now and blood pressure is high CPAP in progress Extubate if approved by Dr. Schreiber Continue feeding and free water Get CT scan of the head to rule out CVA due to the right hand weakness Monitor closely Start Lovenox Plan discussed with: Patient My Orders Orders - LOUIE RAI MD Procedure Category Date Status Time Free Water PHA 10/16/24 In Process 16:15 Glucose Blood PHA 10/16/24 In Process (Accu-Chek Comfort 18:00 Insulin R (Human) PHA 10/16/24 In Process (Insulin R) 18:00 Dextrose 50% Syringe PHA 10/16/24 In Process 16:15 Abg W/ Co-Ox RT 10/17/24 Logged 10:53 D5w 5% (Dextrose 5%) PHA 10/17/24 In Process W/Dexmedetomidine 11:[address] 10/17/24 Logged 11:11 Date of Service: Oct 17, 2024 Billing Provider: LOUIE RAI MD Common Visit Codes: [id number] CARE 30-74 MIN LOUIE RAI MD Oct 17, 2024 11:56
[2024-10-17] MEDS: ENOXAPARIN SOD 40 MG/0.4 ML SYRINGE SC ONE (12:00)
[2024-10-17] MEDS: Jevity 1.2 Cal/Fiber 1 Liter GT SCH (20:16)
--- NOTE | 2024-10-17 21:31 | DVHPN2 ---
Progress Note - Dictate Date Seen: Oct 17, 2024 Medical Necessity Reason Pt with a Central, PICC or Fol: Yes The following are medically ne: PICC Line, Garcia Catheter Reason for garcia catheter: Strict I&O Subjective Patient seen and examined at bedside. Sedated, intubated on mechanical ventilator. Overnight events reviewed. vital signs Vital Sign Date Time Temp Pulse Resp B/P (MAP) Pulse Ox O2 Delivery O2 Flow Rate FiO2 10/17/24 20:45 98.8 63 22 163/80 (107) 97 209.8 10/17/24 20:07 35 10/17/24 20:00 Mechanical Ventilator+ Total Intake and Output 10/16/24 10/16/24 10/17/24 15:00 23:00 07:00 Intake Total 919 ml 344 ml 244 ml Output Total 1500 ml 400 ml Balance 919 ml -1156 ml -156 ml medications Current Medications Medications Dose Ordered Sig/Sohail Route Start Time Stop Time Status Last Admin Dose Admin Sodium Chloride 10 ml Q8HR IV 10/07/24 22:00 10/17/24 14:29 10 ML Acetaminophen 650 mg Q6HP PRN PO 10/07/24 21:45 Hydralazine HCl 10 mg Q6HPRN PRN IV 10/07/24 22:00 10/17/24 20:16 10 MG Midazolam HCl 50 ml @ 1 mls/hr Q24H IV 10/08/24 07:30 10/17/24 00:32 3 MLS/HR Dopamine HCl/ Dextrose 250 ml @ 26.831 mls/ hr Q9H20M IV 10/08/24 09:15 UNV 10/08/24 09:10 26.831 MLS/HR Fentanyl Citrate 250 ml @ 2.5 mls/hr Q24H IV 10/08/24 10:00 10/17/24 09:20 7.5 MLS/HR Pantoprazole Sodium 40 mg DAILY IV 10/09/24 10:00 10/17/24 09:25 40 MG Enteral Nutritional Formula 1,000 ml 40ML/HR GT 10/09/24 10:15 10/17/24 20:16 1,000 ML Empaglifozin 10 mg DAILY PO 10/10/24 10:00 10/17/24 09:30 10 MG Hydrocortisone Sodium Succinate 100 mg DAILY IV 10/10/24 12:15 10/17/24 09:24 100 MG Clonidine HCl 0.1 mg Q7D TD 10/12/24 12:15 Dobutamine HCl/ Dextrose 250 ml @ 42.3 mls/hr Q5H55M IV 10/12/24 21:00 10/15/24 13:35 42.3 MLS/HR Furosemide 40 mg DAILY IV 10/16/24 10:00 10/17/24 09:25 40 MG Purified Water 50 ml Q6HR GT 10/16/24 16:15 10/17/24 17:43 50 ML Diagnostic Test (Pha) 1 strip Q6HR 10/16/24 18:00 10/17/24 17:43 1 STRIP Insulin Human Regular Q6HR SC 10/16/24 18:00 10/17/24 12:28 2 UNITS Dextrose 50 ml UD PRN IV 10/16/24 16:15 Dexmedetomidine HCl 400 mcg/ Dextrose 100 ml @ 6.35 mls/hr [id number] IV 10/17/24 11:15 10/17/24 18:32 9.525 MLS/HR Enoxaparin Sodium 40 mg DAILY SC 10/18/24 10:00 objective Gen.: Patient lying in bed in medical ICU. Sedated, intubated on mechanical ventilator. Head: Normocephalic, atraumatic. Eyes: PERRLA. Ears: Normal external anatomy. Throat: Endotracheal tube and orogastric tube in place. Neck: Supple, trachea midline. Chest: Transmitted breath sounds bilaterally. Decreased air entry bilaterally. No wheezing. Bibasilar crackles. Cardiovascular: Positive S1, positive S2. Regular rate and rhythm. Abdomen: Positive bowel sounds in all 4 quadrants. Soft, nontender, nondistended. : Garcia in place. Normal external genitalia. Rectal: Deferred. Skin: Warm, dry. Intact. Extremities: 2+ radial pulses bilaterally. No lower extremity edema. Neuro: Sedated. laboratory and microbiology Laboratory Tests 10/17/24 04:35 Test 10/17/24 04:35 Range/Units Serum Glucose 75 74-106 mg/dL Assessment/Plan Impression: Acute hypoxic respiratory failure On mechanical ventilator Congestive heart failure, reduced ejection fraction 20% Nonischemic cardiomyopathy based on recent [facility] NSTEMI type 2 Acute kidney injury Hypertensive emergency Morbid obesity Events: Remains on vent support On AC mode; RR 20, VT 450, PEEP 5, FiO2 35% Patient failed CPAP trial. S/p transcutaneous pacemaker S/p left heart cath. S/p Electrophysiology AICD placement Cardiology and Electrophysiology recommendations appreciated. Sedated on Versed, Fentanyl Precedex drip Diurese w/ Lasix Monitor renal function Monitor electrolytes. Supplement as necessary. Potassium supplementation IV fluids at 50 ml/hr. Will reattempt CPAP this PM. Rest of plan as noted below Plan: s/p intubation on mechanical ventilator. On AC mode; RR 20, VT 450, PEEP 5, FiO2 35% ABG reviewed, compensated CXR demonstrates multifocal opacities, no pneumothorax; devices in place. Titrate FIO2 to keep O2 saturation above 90%. VAP bundle. Daily ABG and CXR while intubated Sedated for ventilator synchrony Antibiotics. F/u cultures. Dobutamine drip - on hold. F/u cardiology recommendations S/p transcutaneous pacemaker. Pressors as necessary for hemodynamic support Titrate to keep mean arterial pressure greater than 65 mmHg. Monitor renal function Monitor electrolytes. Supplement as necessary. Monitor ins and outs. Maintain euvolemia. GI prophylaxis. DVT prophylaxis. Prognosis: Poor given patient's multiple co-morbidities. Condition: Critical Rest of plan per hospitalist and other consultants. A total of 35 minutes of critical care time was spent reviewing the patient record, examining the patient, making a diagnostic and therapeutic plan, discussing this plan with the medical personnel, following up on diagnostic studies and following the patient for clinical stability excluding any and all procedures. At least 50% of this time was spent in direct, [id number] contact. Thank you Dr. Marquise Conley MD, for allowing me to participate in this patient's care. Further recommendations will depend on the patient's clinical course. Please do not hesitate to contact me if you have any questions or concerns. This medical document was created using an electronic medical record system with [employer] system. Although these documentations are being carefully reviewed, there may still be some phonetic and typographical changes. The errors are purely typographical, due to imperfection on the software program, and do not reflect any compromise in the patient's medical care. Dietary Evaluation Review Comments: 1) If GI is accessible consider Glucerna 1.2 @ 55 ml/hr goal rate as tolerated 2) If pt remains NPO >7 days consider TPN to meet a least 75% of estimated needs 3) Advance pt diet when medically feasible to a CCHO 60g/Cardiac diet 4) Continue current plan of care Expected Outcomes/Goals: 1) Pt to receive nutrition support within 7 days of NPO status 2) Pt diet to advance 3) Continue current plan of care Plan discussed with: Other (RN February) Critical Care Time(min): 35 HO MELENDEZ MD Oct 17, 2024 21:31
[2024-10-18] VITALS (96 sets, daily range): BP systolic 119–190; BP diastolic 46–96; PULSE 59–79; RESP 12–29; TEMP 96.6–98.9; O2SAT 90–100
[2024-10-18 05:20] LABS: Basophils # (auto) 0 10 ^3/uL (0-0.2); Basophils % (auto) 0.4 % (0.0-2.0); Eosinophils # (auto) 0 10 ^3/uL (0-0.8); Eosinophils % (auto) 0.7 % (0.0-7.0); Hematocrit 38.4 % (36.0-46.0); Hemoglobin 12.7 g/dL (12.2-16.2); Lymphocytes % (auto) 15.5 % (10.0-50.0); Mean Corpuscular Hgb Conc. 33.2 g/dL (32.0-36.0); Mean Corpuscular Volume 81.5 fL (80.0-100.0); Monocytes # (auto) 0.6 10 ^3/uL (0-1.3); Monocytes % (auto) 9.5 % (0.0-12.0); Neutrophils # (auto) 4.7 10 ^3/uL (1.6-8.6); Neutrophils % (auto) 73.9 % (37.0-80.0); Nucleated Red Blood Cells % 0.1 %; Platelet Count (auto) 168 10^3/uL (140-450); Red Blood Cells 4.71 10^6/uL (4.0-5.20); Red Cell Distribution Width 16.4 % (11.8-14.3); White Blood Cell 6.4 10^3/uL (4.4-10.8)
[2024-10-18 05:31] LABS: Alanine Aminotransferase 12 U/L (7-40); Albumin 3.5 g/dL (3.2-4.8); Alkaline Phosphatase 91 U/L (46-116); Anion Gap 9 (5-15); Aspartate Aminotransferase 20 U/L (13-40); Bilirubin, Total 1.9 mg/dL (0.2-1.0); Blood Urea Nitrogen 31 mg/dL (9-23); Calcium 9.9 mg/dL (8.7-10.4); Carbon Dioxide 32 mmol/L (20-31); Chloride 102 mmol/L (98-107); Glucose 110 mg/dL (74-106); Magnesium 2.2 mg/dL (1.6-2.6); Sodium 143 mmol/L (136-145)
--- NOTE | 2024-10-18 05:35 | DVH ---
CHEST RADIOGRAPH Indication: intubated,mecanically ventialted,routine xray viewing, Technique: Single frontal view of the chest was obtained COMPARISON: XY CHEST PORTABLE on DOS: 10/16/24, XY CHEST PORTABLE on DOS: 10/15/24, XY CHEST PORTABLE on DOS: 10/15/24 FINDINGS: Lines and Tubes: Endotracheal tube, enteric catheter, right central venous catheter in satisfactory p osition. Left chest wall AICD. Lungs: Congestion Pleura: Small bilateral pleural effusions. No pneumothorax. Cardiomediastinal contours: Cardiomegaly Bones: Unremarkable IMPRESSION: Lines and tubes in satisfactory position. No significant interval change.
[2024-10-18] MEDS: POTASSIUM CHL 20MEQ/100ML 100 ML IV SCH (06:24)
[2024-10-18] MEDS: POTASSIUM EFFERVESENT TAB 25 MEQ GT ONE (07:30)
--- NOTE | 2024-10-18 08:22 | DVHPN2 ---
Subjective Intubated and sedated CPAP we will be done today again CT scan of the head was not done yet regarding weakness of the right arm Changes from previous H/P or p: Changes Objective Vitals Vital Signs Date Time Temp Pulse Resp B/P (MAP) Pulse Ox O2 Delivery O2 Flow Rate FiO2 10/18/24 08:05 141/53 10/18/24 07:15 60 20 97 10/18/24 06:00 35 10/18/24 06:00 Mechanical Ventilator+ 10/18/24 04:06 96.6 96.6 Intake/Output Intake and Output 10/18/24 07:00 Intake Total 584.525 ml Output Total 1050 ml Balance -465.475 ml Intake Oral 100 ml IV Total 337.525 ml Tube Feeding 147 ml Output Urine Total 1050 ml General Appearance: Other Lungs: Other Cardiovascular: Other Extremities: No edema Neuro: Other Medications Current Medications Medications Dose Ordered Sig/Sohail Route Start Time Stop Time Status Last Admin Dose Admin Sodium Chloride 10 ml Q8HR IV 10/07/24 22:00 10/18/24 05:42 10 ML Acetaminophen 650 mg Q6HP PRN PO 10/07/24 21:45 Hydralazine HCl 10 mg Q6HPRN PRN IV 10/07/24 22:00 10/18/24 02:13 10 MG Midazolam HCl 50 ml @ 1 mls/hr Q24H IV 10/08/24 07:30 10/17/24 00:32 3 MLS/HR Dopamine HCl/ Dextrose 250 ml @ 26.831 mls/ hr Q9H20M IV 10/08/24 09:15 UNV 10/08/24 09:10 26.831 MLS/HR Fentanyl Citrate 250 ml @ 2.5 mls/hr Q24H IV 10/08/24 10:00 10/17/24 09:20 7.5 MLS/HR Pantoprazole Sodium 40 mg DAILY IV 10/09/24 10:00 10/17/24 09:25 40 MG Enteral Nutritional Formula 1,000 ml 40ML/HR GT 10/09/24 10:15 10/17/24 20:16 1,000 ML Empaglifozin 10 mg DAILY PO 10/10/24 10:00 10/17/24 09:30 10 MG Hydrocortisone Sodium Succinate 100 mg DAILY IV 10/10/24 12:15 10/17/24 09:24 100 MG Clonidine HCl 0.1 mg Q7D TD 10/12/24 12:15 Dobutamine HCl/ Dextrose 250 ml @ 42.3 mls/hr Q5H55M IV 10/12/24 21:00 10/15/24 13:35 42.3 MLS/HR Furosemide 40 mg DAILY IV 10/16/24 10:00 10/17/24 09:25 40 MG Purified Water 50 ml Q6HR GT 10/16/24 16:15 10/18/24 05:43 50 ML Diagnostic Test (Pha) 1 strip Q6HR 10/16/24 18:00 10/18/24 05:43 1 STRIP Insulin Human Regular Q6HR SC 10/16/24 18:00 10/17/24 12:28 2 UNITS Dextrose 50 ml UD PRN IV 10/16/24 16:15 Dexmedetomidine HCl 400 mcg/ Dextrose 100 ml @ 6.35 mls/hr [id number] IV 10/17/24 11:15 10/18/24 08:05 19.05 MLS/HR Enoxaparin Sodium 40 mg DAILY SC 10/18/24 10:00 Potassium Chloride 100 ml @ 50 mls/hr Q2H IV 10/18/24 06:00 10/18/24 09:59 10/18/24 08:05 50 MLS/HR Laboratory Results Laboratory Tests 10/18/24 04:50 Chemistry Test 10/18/24 04:50 Albumin 3.5 g/dL (3.2-4.8) Calcium Level 9.9 mg/dL (8.7-10.4) Magnesium Level 2.2 mg/dL (1.6-2.6) Total Protein 6.0 g/dL (5.7-8.2) LFT Test 10/18/24 04:50 Alanine Aminotransferase (ALT) 12 U/L (7-40) Alkaline Phosphatase 91 U/L (46-116) Aspartate Amino Transferase (AST) 20 U/L (13-40) Total Bilirubin 1.9 mg/dL (0.2-1.0) H Urinalysis Test 10/08/24 11:13 10/16/24 09:30 Urine Color Light-yellow (Yellow) Urine Clarity Clear (Clear) Urine pH 5.0 (5.0-9.0) Urine Specific [place] 1.009 (1.001-1.035) Urine Protein 1+ (Negative) H Urine Ketones Negative (Negative) Urine Blood 2+ /uL (Negative) H Urine Nitrite Negative (Negative) Urine Bilirubin Negative (Negative) Urine Urobilinogen Normal mg/dL (Negative) Urine Leukocyte Esterase Negative /uL (Negative) Urine RBC 55 /hpf (0 - 4) Urine WBC 3 /hpf (0 - 5) Urine Squamous Epithelial Cells Few /hpf (<5) Urine Bacteria None seen /hpf (None Seen) Urine Mucus Few (None Seen) Urine Glucose Normal mg/dL (Normal) Urine Potassium 30 mmol/L (12-62) Microbiology Microbiology Date/Time Source Procedure Growth Status 10/10/24 13:50 Nose MRSA Screen - Final Complete 10/09/24 10:58 Bronchial Washings Gram Stain - Final Complete 10/09/24 10:58 Bronchial Washings Respiratory Culture - Final Complete 10/09/24 03:06 Voided Urine Urine Culture - Final Complete 10/08/24 18:32 Blood Blood Culture - Final NO GROWTH AFTER 5 DAYS OF INCUBATION. Complete Assessment/Plan Assessment/Plan Acute on chronic systolic CHF Acute hypoxic respiratory failure s/p self-extubation and re-intubation Multi-Focal pneumonia Non-Ischemic CMP 2nd degree heart block / Bradycardia, on Dobutamine CKDIIIa Morbid obesity Hypokalemia HTN Pulmonary HTN Hypernatremia PLAN: 10/14/2024: Discussed with Dr. Greenwood, patient needs ICD Consult Dr. Swanson for ICD Dobutamine drip IV antibiotics: Rocephin + Doxy Sedation: Versed and Fent Jardiance CHF: Lasix 60 mg IV q 12 hours CKD Hydrocortisone 100 mg IV daily GI Prophylaxis: Protonix DVT prophylaxis: Lovenox Hypernatremia: Free water, lower the rate to 150 ml q 6 hours Hypokalemia: Replace and re-check Discussed with her sister at the bedside 10/15/2024: Continue the current management Dobutamine drip ICD plan for today Replace potassium Check potassium again in the afternoon and replace as needed 10/16/2024: Replace potassium Discontinue IV antibiotics Rocephin and doxycycline Start tube feeding Lower the free water to 50 ml q6h CPAP per Dr. Schreiber 10/17/2024: Replace potassium again Off sedation As Precedex because the patient is really agitated now and blood pressure is high CPAP in progress Extubate if approved by Dr. Schreiber Continue feeding and free water Get CT scan of the head to rule out CVA due to the right hand weakness Monitor closely Start Lovenox 10/18/2024: Replace potassium CT scan of the head is pending CPAP trial per Dr. Schreiber Monitor closely Plan discussed with: Other My Orders Orders - LOUIE RAI MD Procedure Category Date Status Time Abg W/ Co-Ox RT 10/17/24 Logged 10:53 D5w 5% (Dextrose 5%) PHA 10/17/24 In Process W/Dexmedetomidine 11:[address] 10/17/24 Logged 11:11 Enoxaparin Sodium PHA 10/18/24 In Process (Lovenox) 10:00 Chest Xray 1 View XY 10/18/24 Resulted 04:26 Potassium Chl PHA 10/18/24 In Process 20meq/100ml 07:30 Date of Service: Oct 18, 2024 Billing Provider: LOUIE RAI MD Common Visit Codes: [id number] INP/OBS CARE(HIGH) LOUIE RAI MD Oct 18, 2024 08:22
[2024-10-18] MEDS: ENOXAPARIN SOD 40 MG/0.4 ML SYRINGE SC SCH (09:29)
[2024-10-18] MEDS: POTASSIUM CHL 20MEQ/100ML 100 ML IV ONE (10:00)
[2024-10-18 11:57] LABS: Base Excess 7.6 mmol/L (-2.0-3.0)
[2024-10-18 14:29] LABS: Base Excess 4.1 mmol/L (-2.0-3.0)
--- NOTE | 2024-10-18 15:54 | DVHNC2 ---
Procedure - Bronchoscopy procedure note: Indications: Increased ET tube secretions, Possible mucous plugging. Medicines: See INSTRUCTIONAL DESIGN CONSULTANT notes. Complications: None Procedure: Patient medications and allergies reviewed. The risks and benefits of the procedure and the sedation options and risk were discussed with the patient's healthcare proxy. All questions were answered and informed consent was obtained. Patient identification and proposed procedure were verified prior to the procedure by the physician, and a nurse, and the respiratory therapist in ICU room. The heart rate, respiratory rate, oxygen saturations, blood pressure, adequacy of pulmonary ventilation, and response to care were monitored throughout the procedure. The physical status of the patient was reassessed after the procedure. After obtaining informed consent, the bronchoscope was introduced through the endotracheal tube and advanced into the trachea bronchial tree of both lungs. The procedure was accomplished without difficulty. The patient tolerated the procedure well. Findings: The trachea is in normal caliber. The ila is sharp. The tracheobronchial tree of the right lung was examined to at least the first subsegmental level. The bronchial mucosa and anatomy in the right lung are normal. There are no endobronchial lesions. There was thick whitish secretions from right main stem bronchus onward throughout R4-R10. The left upper lobe, lingula, and left lower lobe were examined to at least the first subsegmental level. Bronchial mucosa and anatomy in the left upper lobe and lingula are normal. There were no endobronchial lesions. There was copious whitish secretions from left main stem bronchus onward throughout L6-L10. Mucous plugging removed from L6-L10. There was no active bleeding at the completion of the procedure. Estimated blood loss: Less than 5 mL. Impression: Right and Left lower lobe atelectasis due to mucous plugging Mucous plugging from L6-L10 and R4-R10 Recommendation: Pulmonary toileting Procedure codes: 01923, bronchoscopy, rigid and flexible, including fluoroscopic guidance, one performed; with bronchial endobronchial removal of mucous plugging, single or multiple sites HO MELENDEZ MD Oct 18, 2024 15:54
[2024-10-18] MEDS: IPRATROPIUM BROM 0.5 MG/2.5ML INH SOL NEB PRN (18:29)
[2024-10-18] MEDS: ALBUTEROL SULF 2.5 MG/0.5ML(0.5%) NEB SOLN NEB PRN (18:30)
--- NOTE | 2024-10-18 20:30 | DVHPN2 ---
Progress Note - Dictate Date Seen: Oct 18, 2024 Medical Necessity Reason Pt with a Central, PICC or Fol: Yes The following are medically ne: PICC Line, Garcia Catheter Reason for garcia catheter: Strict I&O Subjective Patient seen and examined at bedside. S/p extubation, on supplemental oxygen. Overnight events reviewed. vital signs Vital Sign Date Time Temp Pulse Resp B/P (MAP) Pulse Ox O2 Delivery O2 Flow Rate FiO2 10/18/24 19:31 71 20 143/60 (87) 91 10/18/24 18:30 Cool Aerosol 8 30 30 10/18/24 16:00 98.3 98.3 Total Intake and Output 10/17/24 10/17/24 10/18/24 15:00 23:00 07:00 Intake Total 58.250 ml 198.225 ml 402.100 ml Output Total 600 ml 450 ml Balance 58.250 ml -401.775 ml -47.900 ml medications Current Medications Medications Dose Ordered Sig/Sohail Route Start Time Stop Time Status Last Admin Dose Admin Sodium Chloride 10 ml Q8HR IV 10/07/24 22:00 10/18/24 14:00 10 ML Acetaminophen 650 mg Q6HP PRN PO 10/07/24 21:45 Hydralazine HCl 10 mg Q6HPRN PRN IV 10/07/24 22:00 10/18/24 02:13 10 MG Midazolam HCl 50 ml @ 1 mls/hr Q24H IV 10/08/24 07:30 10/17/24 00:32 3 MLS/HR Dopamine HCl/ Dextrose 250 ml @ 26.831 mls/ hr Q9H20M IV 10/08/24 09:15 UNV 10/08/24 09:10 26.831 MLS/HR Fentanyl Citrate 250 ml @ 2.5 mls/hr Q24H IV 10/08/24 10:00 10/17/24 09:20 7.5 MLS/HR Pantoprazole Sodium 40 mg DAILY IV 10/09/24 10:00 10/18/24 09:29 40 MG Enteral Nutritional Formula 1,000 ml 40ML/HR GT 10/09/24 10:15 10/17/24 20:16 1,000 ML Empaglifozin 10 mg DAILY PO 10/10/24 10:00 10/18/24 09:29 10 MG Hydrocortisone Sodium Succinate 100 mg DAILY IV 10/10/24 12:15 10/18/24 09:30 100 MG Clonidine HCl 0.1 mg Q7D TD 10/12/24 12:15 Dobutamine HCl/ Dextrose 250 ml @ 42.3 mls/hr Q5H55M IV 10/12/24 21:00 10/15/24 13:35 42.3 MLS/HR Furosemide 40 mg DAILY IV 10/16/24 10:00 10/18/24 09:30 40 MG Purified Water 50 ml Q6HR GT 10/16/24 16:15 10/18/24 10:56 50 ML Diagnostic Test (Pha) 1 strip Q6HR 10/16/24 18:00 10/18/24 17:54 1 STRIP Insulin Human Regular Q6HR SC 10/16/24 18:00 10/18/24 17:56 2 UNITS Dextrose 50 ml UD PRN IV 10/16/24 16:15 Dexmedetomidine HCl 400 mcg/ Dextrose 100 ml @ 6.35 mls/hr [id number] IV 10/17/24 11:15 10/18/24 12:38 19.05 MLS/HR Enoxaparin Sodium 40 mg DAILY SC 10/18/24 10:00 10/18/24 09:29 40 MG Albuterol 2.5 mg Q6HPRN PRN NEB 10/18/24 17:35 10/18/24 18:30 2.5 MG Ipratropium [place] 0.5 mg Q6HPRN PRN NEB 10/18/24 17:35 10/18/24 18:29 0.5 MG objective Gen.: Patient lying in bed in no apparent distress. On supplemental oxygen. Head: Normocephalic, atraumatic. Eyes: EOMI/PERRLA. Ears: Normal hearing. Normal anatomy. Neck/trachea: Trachea midline, supple. Nose: Normal external anatomy. Mouth: Moist mucous membranes. Chest: Decreased air entry bilaterally. No wheezing or rhonchi. Cardiovascular: Positive S1, positive S2. Regular rate and rhythm. Abdomen: Positive bowel sounds in all 4 quadrants. Soft, non-tender, non- distended. : Deferred. Rectal: Deferred. Skin: Warm, dry. Intact. Extremities: 2+ radial pulses bilaterally. No lower extremity edema. Neuro: Awake, alert, oriented x3. No gross motor or sensory deficits. Cranial nerves II through XII intact. Gait not assessed. laboratory and microbiology Laboratory Tests 10/18/24 04:50 Test 10/18/24 04:50 Range/Units Serum Glucose 110 H 74-106 mg/dL Assessment/Plan Impression: Acute hypoxic respiratory failure On mechanical ventilator Congestive heart failure, reduced ejection fraction 20% Nonischemic cardiomyopathy based on recent [facility] NSTEMI type 2 Acute kidney injury Hypertensive emergency Morbid obesity Events: Patient tolerated CPAP. Increased ET tube secretions were noted. Therapeutic bronchoscopy performed to remove mucous plugs. Removed thick secretions from RLL and LLL. Patient was extubated uneventfully following bronchoscopy. Cardiology recommendations appreciated. Precedex drip Diurese w/ Lasix Monitor renal function Monitor electrolytes. Supplement as necessary. Potassium supplementation Rest of plan as noted below Plan: s/p extubation, on supplemental oxygen On Precedex drip Antibiotics. F/u cultures. Dobutamine drip - on hold. Cardiology recommendations appreciated S/p transcutaneous pacemaker S/p left heart cath. S/p Electrophysiology AICD placement Pressors as necessary for hemodynamic support Titrate to keep mean arterial pressure greater than 65 mmHg. Monitor renal function Monitor electrolytes. Supplement as necessary. Monitor ins and outs. Maintain euvolemia. GI prophylaxis. DVT prophylaxis. Prognosis: Poor given patient's multiple co-morbidities. Condition: Critical Rest of plan per hospitalist and other consultants. A total of 35 minutes of critical care time was spent reviewing the patient record, examining the patient, making a diagnostic and therapeutic plan, discussing this plan with the medical personnel, following up on diagnostic studies and following the patient for clinical stability excluding any and all procedures. At least 50% of this time was spent in direct, fude-hy-mgps contact. Thank you Dr. Marquise Conley MD, for allowing me to participate in this patient's care. Further recommendations will depend on the patient's clinical course. Please do not hesitate to contact me if you have any questions or concerns. This medical document was created using an electronic medical record system with [employer] system. Although these documentations are being carefully reviewed, there may still be some phonetic and typographical changes. The errors are purely typographical, due to imperfection on the software program, and do not reflect any compromise in the patient's medical care. Dietary Evaluation Review Comments: 1) If GI is accessible consider Glucerna 1.2 @ 55 ml/hr goal rate as tolerated 2) If pt remains NPO >7 days consider TPN to meet a least 75% of estimated needs 3) Advance pt diet when medically feasible to a CCHO 60g/Cardiac diet 4) Continue current plan of care Expected Outcomes/Goals: 1) Pt to receive nutrition support within 7 days of NPO status 2) Pt diet to advance 3) Continue current plan of care Plan discussed with: Other (RN Valerie/RT Tricia) Critical Care Time(min): 35 HO MELENDEZ MD Oct 18, 2024 20:30
--- NOTE | 2024-10-18 21:33 | DVH ---
EXAM: CT HEAD WITHOUT CONTRAST INDICATION: R HAND WEAKNESS TECHNIQUE: CT of the head without intravenous contrast. Radiation Dose Information: CT Dose: CTDI volume is 59.35 mGy. Dose-length product is 1169.46 mGy*cm The dose indicators for CT are the volume Computed Tomography (CT) Dose Index (CTDIvol) and the Dose Length Product (DLP), and are measured in units of mGy and mGy-cm, respectively. These indicators are not patient dose, but values generated from the CT scanner acquisition factors. The report includes radiation exposure data for exposures received during this examination. COMPARISON: CT HEAD WITHOUT CONTRAST on DOS: 10/08/24 FINDINGS: There is no evidence of acute intracranial hemorrhage, extra-axial collection, mass effect, midline s hift, herniation or hydrocephalus. The ventricles, sulci and cisterns are age appropriate. The rodriguez-white differentiation is intact. Patchy periventricular and subcortical white matter hypoattenuation is nonspecific but may be related to small vessel ischemic disease. Inclusion cyst floor of the left maxillary sinus. and mastoid air cells are clear. The surrounding soft tissues and osseous structures are unremarkable. IMPRESSION: 1. No acute intracranial hemorrhage. 2. No CT findings of territorial ischemia. HS:Y
[2024-10-19] VITALS (34 sets, daily range): BP systolic 141–185; BP diastolic 54–86; PULSE 60–81; RESP 11–25; TEMP 98.1–98.7; O2SAT 93–100
[2024-10-19] MEDS: ONDANSETRON HCL 4 MG/2 ML VIAL IV PRN (00:14)
[2024-10-19] MEDS: MORPHINE SULFATE INJ 2 MG/ml SYRG IV ONE (00:15)
[2024-10-19 05:50] LABS: Basophils # (auto) 0 10 ^3/uL (0-0.2); Basophils % (auto) 0.5 % (0.0-2.0); Eosinophils # (auto) 0 10 ^3/uL (0-0.8); Eosinophils % (auto) 0.5 % (0.0-7.0); Hematocrit 35.6 % (36.0-46.0); Hemoglobin 11.7 g/dL (12.2-16.2); Lymphocytes # (auto) 1.1 10 ^3/uL (0.4-5.4); Lymphocytes % (auto) 12.1 % (10.0-50.0); Mean Corpuscular Hemoglobin 27.3 pg (28.0-32.0); Mean Corpuscular Hgb Conc. 32.9 g/dL (32.0-36.0); Mean Corpuscular Volume 82.8 fL (80.0-100.0); Monocytes # (auto) 0.9 10 ^3/uL (0-1.3); Monocytes % (auto) 9.3 % (0.0-12.0); Neutrophils # (auto) 7.2 10 ^3/uL (1.6-8.6); Neutrophils % (auto) 77.6 % (37.0-80.0); Platelet Count (auto) 200 10^3/uL (140-450); White Blood Cell 9.3 10^3/uL (4.4-10.8)
[2024-10-19 06:05] LABS: Alanine Aminotransferase 14 U/L (7-40); Albumin 3.4 g/dL (3.2-4.8); Alkaline Phosphatase 97 U/L (46-116); Anion Gap 9 (5-15); Aspartate Aminotransferase 21 U/L (13-40); BUN/Creatinine Ratio 24.4 (10.0-20.0); Blood Urea Nitrogen 33 mg/dL (9-23); Calcium 10.4 mg/dL (8.7-10.4); Carbon Dioxide 33 mmol/L (20-31); Chloride 103 mmol/L (98-107); Glucose 94 mg/dL (74-106); Magnesium 2.4 mg/dL (1.6-2.6); Potassium 3.3 mmol/L (3.5-5.1); Sodium 145 mmol/L (136-145)
[2024-10-19 06:06] LABS: Bilirubin, Total 1.7 mg/dL (0.2-1.0); Total Protein 6.1 g/dL (5.7-8.2)
[2024-10-19] MEDS ORDERED: POTASSIUM CHL 20MEQ/100ML 100 ML IV ONE (10:45)
[2024-10-19] MEDS: POTASSIUM CHL 20MEQ/100ML 100 ML IV SCH (11:29)
[2024-10-19] MEDS: LACTULOSE 20Gm/30ML SOLN PO ONE (12:50)
[2024-10-19] MEDS: DOCUSATE SOD 100 MG CAP PO ONE (12:50)
[2024-10-19] MEDS: cloNIDine 0.1 mg/24hr 7 DAY PATCH TD SCH (13:50)
--- NOTE | 2024-10-19 15:20 | DVHPN2 ---
Subjective Alert and oriented follows command 2 L nasal cannula Vital signs are stable Changes from previous H/P or p: Changes Objective Vitals Vital Signs Date Time Temp Pulse Resp B/P (MAP) Pulse Ox O2 Delivery O2 Flow Rate FiO2 10/19/24 13:50 164/72 10/19/24 10:00 20 96 Nasal Cannula* 2 28 10/19/24 10:00 75 10/19/24 04:00 98.2 98.2 Intake/Output Intake and Output 10/19/24 06:59 Intake Total 539.425 ml Output Total 2000 ml Balance -1460.575 ml IV Total 489.425 ml Other 50 ml Output Urine Total 2000 ml General Appearance: Alert, Oriented X3, Cooperative, No acute distress Lungs: Other Cardiovascular: Other Extremities: No edema Neuro: Other Medications Current Medications Medications Dose Ordered Sig/Sohail Route Start Time Stop Time Status Last Admin Dose Admin Sodium Chloride 10 ml Q8HR IV 10/07/24 22:00 10/19/24 05:37 10 ML Acetaminophen 650 mg Q6HP PRN PO 10/07/24 21:45 Hydralazine HCl 10 mg Q6HPRN PRN IV 10/07/24 22:00 10/19/24 09:27 10 MG Midazolam HCl 50 ml @ 1 mls/hr Q24H IV 10/08/24 07:30 10/17/24 00:32 3 MLS/HR Dopamine HCl/ Dextrose 250 ml @ 26.831 mls/ hr Q9H20M IV 10/08/24 09:15 UNV 10/08/24 09:10 26.831 MLS/HR Fentanyl Citrate 250 ml @ 2.5 mls/hr Q24H IV 10/08/24 10:00 10/17/24 09:20 7.5 MLS/HR Pantoprazole Sodium 40 mg DAILY IV 10/09/24 10:00 10/19/24 09:24 40 MG Enteral Nutritional Formula 1,000 ml 40ML/HR GT 10/09/24 10:15 10/17/24 20:16 1,000 ML Empaglifozin 10 mg DAILY PO 10/10/24 10:00 10/18/24 09:29 10 MG Hydrocortisone Sodium Succinate 100 mg DAILY IV 10/10/24 12:15 10/19/24 09:24 100 MG Clonidine HCl 0.1 mg Q7D TD 10/12/24 12:15 10/19/24 13:50 0.1 MG Dobutamine HCl/ Dextrose 250 ml @ 42.3 mls/hr Q5H55M IV 10/12/24 21:00 10/15/24 13:35 42.3 MLS/HR Purified Water 50 ml Q6HR GT 10/16/24 16:15 10/18/24 10:56 50 ML Diagnostic Test (Pha) 1 strip Q6HR 10/16/24 18:00 10/19/24 11:47 1 STRIP Insulin Human Regular Q6HR SC 10/16/24 18:00 10/18/24 17:56 2 UNITS Dextrose 50 ml UD PRN IV 10/16/24 16:15 Dexmedetomidine HCl 400 mcg/ Dextrose 100 ml @ 6.35 mls/hr [id number] IV 10/17/24 11:15 10/18/24 12:38 19.05 MLS/HR Enoxaparin Sodium 40 mg DAILY SC 10/18/24 10:00 10/19/24 09:24 40 MG Albuterol 2.5 mg Q6HPRN PRN NEB 10/18/24 17:35 10/19/24 04:26 2.5 MG Ipratropium [place] 0.5 mg Q6HPRN PRN NEB 10/18/24 17:35 10/19/24 04:26 0.5 MG Ondansetron HCl 4 mg Q4HPRN PRN IV 10/19/24 00:00 10/19/24 00:14 4 MG Docusate Sodium 100 mg BID PO 10/19/24 22:00 Furosemide 40 mg DAILY PO 10/20/24 10:00 Laboratory Results Laboratory Tests 10/19/24 04:50 Chemistry Test 10/19/24 00:05 10/19/24 04:50 Magnesium Level 2.3 mg/dL (1.6-2.6) 2.4 mg/dL (1.6-2.6) Albumin 3.4 g/dL (3.2-4.8) Calcium Level 10.4 mg/dL (8.7-10.4) Total Protein 6.1 g/dL (5.7-8.2) LFT Test 10/19/24 04:50 Alanine Aminotransferase (ALT) 14 U/L (7-40) Alkaline Phosphatase 97 U/L (46-116) Aspartate Amino Transferase (AST) 21 U/L (13-40) Total Bilirubin 1.7 mg/dL (0.2-1.0) H Urinalysis Test 10/08/24 11:13 10/16/24 09:30 Urine Color Light-yellow (Yellow) Urine Clarity Clear (Clear) Urine pH 5.0 (5.0-9.0) Urine Specific [place] 1.009 (1.001-1.035) Urine Protein 1+ (Negative) H Urine Ketones Negative (Negative) Urine Blood 2+ /uL (Negative) H Urine Nitrite Negative (Negative) Urine Bilirubin Negative (Negative) Urine Urobilinogen Normal mg/dL (Negative) Urine Leukocyte Esterase Negative /uL (Negative) Urine RBC 55 /hpf (0 - 4) Urine WBC 3 /hpf (0 - 5) Urine Squamous Epithelial Cells Few /hpf (<5) Urine Bacteria None seen /hpf (None Seen) Urine Mucus Few (None Seen) Urine Glucose Normal mg/dL (Normal) Urine Potassium 30 mmol/L (12-62) Microbiology Microbiology Date/Time Source Procedure Growth Status 10/10/24 13:50 Nose MRSA Screen - Final Complete 10/09/24 10:58 Bronchial Washings Gram Stain - Final Complete 10/09/24 10:58 Bronchial Washings Respiratory Culture - Final Complete 10/09/24 03:06 Voided Urine Urine Culture - Final Complete 10/08/24 18:32 Blood Blood Culture - Final NO GROWTH AFTER 5 DAYS OF INCUBATION. Complete Assessment/Plan Assessment/Plan Acute on chronic systolic CHF Acute hypoxic respiratory failure s/p self-extubation and re-intubation Multi-Focal pneumonia Non-Ischemic CMP 2nd degree heart block / Bradycardia, on Dobutamine CKDIIIa Morbid obesity Hypokalemia HTN Pulmonary HTN Hypernatremia PLAN: 10/14/2024: Discussed with Dr. Greenwood, patient needs ICD Consult Dr. Swanson for ICD Dobutamine drip IV antibiotics: Rocephin + Doxy Sedation: Versed and Fent Jardiance CHF: Lasix 60 mg IV q 12 hours CKD Hydrocortisone 100 mg IV daily GI Prophylaxis: Protonix DVT prophylaxis: Lovenox Hypernatremia: Free water, lower the rate to 150 ml q 6 hours Hypokalemia: Replace and re-check Discussed with her sister at the bedside 10/15/2024: Continue the current management Dobutamine drip ICD plan for today Replace potassium Check potassium again in the afternoon and replace as needed 10/16/2024: Replace potassium Discontinue IV antibiotics Rocephin and doxycycline Start tube feeding Lower the free water to 50 ml q6h CPAP per Dr. Schreiber 10/17/2024: Replace potassium again Off sedation As Precedex because the patient is really agitated now and blood pressure is high CPAP in progress Extubate if approved by Dr. Schreiber Continue feeding and free water Get CT scan of the head to rule out CVA due to the right hand weakness Monitor closely Start Lovenox 10/18/2024: Replace potassium CT scan of the head is pending CPAP trial per Dr. Schreiber Monitor closely 10/19/2024: Downgrade to telemetry CT scan of the head was negative Start physical therapy Swallow eval Colace and lactulose Change Lasix to p.o. Plan discussed with: Patient, Other My Orders Orders - LOUIE RAI MD Procedure Category Date Status Time Docusate Sodium PHA 10/19/24 In Process Capsule (Colace 22:00 Pt Request For Service PT 10/19/24 Logged 10:46 * Swallow Request ST 10/19/24 Transmitted 10:46 Furosemide Tablet PHA 10/20/24 In Process (Lasix Tablet) 10:00 * Swallow Request ST 10/19/24 Transmitted 10:45 Pt Request For Service PT 10/19/24 Logged 10:45 Transfer Orders XFER 10/19/24 Transmitted 10:45 Mechanical Soft Diet DIET 10/19/24 Transmitted Lunch Date of Service: Oct 19, 2024 Billing Provider: LOUIE RAI MD Common Visit Codes: [id number] INP/OBS CARE(HIGH) LOUIE RAI MD Oct 19, 2024 15:20
[2024-10-19] MEDS: DOCUSATE SOD 100 MG CAP PO SCH (21:21)
--- NOTE | 2024-10-19 21:42 | DVHPN2 ---
Progress Note - Dictate Date Seen: Oct 19, 2024 Medical Necessity Reason Pt with a Central, PICC or Fol: Yes The following are medically ne: PICC Line, Garcia Catheter Reason for garcia catheter: Strict I&O Subjective Patient seen and examined at bedside. S/p extubation, on supplemental oxygen. Overnight events reviewed. vital signs Vital Sign Date Time Temp Pulse Resp B/P (MAP) Pulse Ox O2 Delivery O2 Flow Rate FiO2 10/19/24 21:21 185/79 10/19/24 20:25 79 12 97 2.0 28 10/19/24 19:35 Nasal Cannula 10/19/24 17:04 98.5 98.5 Total Intake and Output 10/19/24 10/19/24 10/19/24 01:30 09:30 17:30 Intake Total 50 ml 440 ml Output Total 1600 ml 400 ml 400 ml Balance -1550 ml -400 ml 40 ml medications Current Medications Medications Dose Ordered Sig/Sohail Route Start Time Stop Time Status Last Admin Dose Admin Sodium Chloride 10 ml Q8HR IV 10/07/24 22:00 10/19/24 21:20 10 ML Acetaminophen 650 mg Q6HP PRN PO 10/07/24 21:45 Hydralazine HCl 10 mg Q6HPRN PRN IV 10/07/24 22:00 10/19/24 21:21 10 MG Midazolam HCl 50 ml @ 1 mls/hr Q24H IV 10/08/24 07:30 10/17/24 00:32 3 MLS/HR Dopamine HCl/ Dextrose 250 ml @ 26.831 mls/ hr Q9H20M IV 10/08/24 09:15 UNV 10/08/24 09:10 26.831 MLS/HR Fentanyl Citrate 250 ml @ 2.5 mls/hr Q24H IV 10/08/24 10:00 10/17/24 09:20 7.5 MLS/HR Pantoprazole Sodium 40 mg DAILY IV 10/09/24 10:00 10/19/24 09:24 40 MG Enteral Nutritional Formula 1,000 ml 40ML/HR GT 10/09/24 10:15 10/17/24 20:16 1,000 ML Empaglifozin 10 mg DAILY PO 10/10/24 10:00 10/18/24 09:29 10 MG Hydrocortisone Sodium Succinate 100 mg DAILY IV 10/10/24 12:15 10/19/24 09:24 100 MG Clonidine HCl 0.1 mg Q7D TD 10/12/24 12:15 10/19/24 13:50 0.1 MG Purified Water 50 ml Q6HR GT 10/16/24 16:15 10/18/24 10:56 50 ML Diagnostic Test (Pha) 1 strip Q6HR 10/16/24 18:00 10/19/24 17:53 1 STRIP Insulin Human Regular Q6HR SC 10/16/24 18:00 10/18/24 17:56 2 UNITS Dextrose 50 ml UD PRN IV 10/16/24 16:15 Dexmedetomidine HCl 400 mcg/ Dextrose 100 ml @ 6.35 mls/hr [id number] IV 10/17/24 11:15 10/18/24 12:38 19.05 MLS/HR Enoxaparin Sodium 40 mg DAILY SC 10/18/24 10:00 10/19/24 09:24 40 MG Albuterol 2.5 mg Q6HPRN PRN NEB 10/18/24 17:35 10/19/24 04:26 2.5 MG Ipratropium [place] 0.5 mg Q6HPRN PRN NEB 10/18/24 17:35 10/19/24 04:26 0.5 MG Ondansetron HCl 4 mg Q4HPRN PRN IV 10/19/24 00:00 10/19/24 00:14 4 MG Docusate Sodium 100 mg BID PO 10/19/24 22:00 Furosemide 40 mg DAILY PO 10/20/24 10:00 objective Gen.: Patient lying in bed in no apparent distress. On supplemental oxygen. Head: Normocephalic, atraumatic. Eyes: EOMI/PERRLA. Ears: Normal hearing. Normal anatomy. Neck/trachea: Trachea midline, supple. Nose: Normal external anatomy. Mouth: Moist mucous membranes. Chest: Decreased air entry bilaterally. No wheezing or rhonchi. Cardiovascular: Positive S1, positive S2. Regular rate and rhythm. Abdomen: Positive bowel sounds in all 4 quadrants. Soft, non-tender, non- distended. : Deferred. Rectal: Deferred. Skin: Warm, dry. Intact. Extremities: 2+ radial pulses bilaterally. No lower extremity edema. Neuro: Awake, alert, oriented x3. No gross motor or sensory deficits. Cranial nerves II through XII intact. Gait not assessed. laboratory and microbiology Laboratory Tests 10/19/24 04:50 Test 10/19/24 04:50 Range/Units Serum Glucose 94 74-106 mg/dL Assessment/Plan Impression: Acute hypoxic respiratory failure Congestive heart failure, reduced ejection fraction 20% Nonischemic cardiomyopathy based on recent [facility] NSTEMI type 2 Acute kidney injury Hypertensive emergency Morbid obesity Events: s/p extubation on 10/18. Remains on supplemental oxygen 2 LPM NC. Taper O2 as tolerated Off Precedex. Continue antibiotics Diurese w/ Lasix Monitor renal function Monitor electrolytes. Supplement as necessary. Potassium supplementation Cardiology recs appreciated. Patient is stable from the pulmonary standpoint for downgrade to telemetry. S/p Therapeutic bronchoscopy on 10/18 - removed thick secretions from RLL and LLL. Labs and imaging reviewed. Rest of plan as noted below Plan: s/p extubation on 10/18. On supplemental oxygen Titrate to keep O2 sats above 92%. Off Precedex. Antibiotics. F/u cultures. Dobutamine drip - on hold. Cardiology recommendations appreciated S/p transcutaneous pacemaker S/p left heart cath. S/p Electrophysiology AICD placement Pressors as necessary for hemodynamic support Titrate to keep mean arterial pressure greater than 65 mmHg. Monitor renal function Monitor electrolytes. Supplement as necessary. Monitor ins and outs. Maintain euvolemia. GI prophylaxis. DVT prophylaxis. Prognosis: Poor given patient's multiple co-morbidities. Rest of plan per hospitalist and other consultants. Thank you Dr. Marquise Conley MD, for allowing me to participate in this patient's care. Further recommendations will depend on the patient's clinical course. Please do not hesitate to contact me if you have any questions or concerns. This medical document was created using an electronic medical record system with [employer] dictation system. Although these documentations are being carefully reviewed, there may still be some phonetic and typographical changes. The errors are purely typographical, due to imperfection on the software program, and do not reflect any compromise in the patient's medical care. Dietary Evaluation Review Comments: 1) If GI is accessible consider Glucerna 1.2 @ 55 ml/hr goal rate as tolerated 2) If pt remains NPO >7 days consider TPN to meet a least 75% of estimated needs 3) Advance pt diet when medically feasible to a CCHO 60g/Cardiac diet 4) Continue current plan of care Expected Outcomes/Goals: 1) Pt to receive nutrition support within 7 days of NPO status 2) Pt diet to advance 3) Continue current plan of care Plan discussed with: Patient, Other (RN Valerie) HO MELENDEZ MD Oct 19, 2024 21:42
[2024-10-20] VITALS (10 sets, daily range): BP systolic 157–180; BP diastolic 64–86; PULSE 60–79; RESP 14–20; TEMP 97.3–98.7; O2SAT 93–100
[2024-10-20] MEDS: ACETAMINOPHEN 325 MG TAB PO PRN (00:34)
[2024-10-20 07:06] LABS: Alanine Aminotransferase 23 U/L (7-40); Albumin 3.6 g/dL (3.2-4.8); Alkaline Phosphatase 128 U/L (46-116); Anion Gap 8 (5-15); Aspartate Aminotransferase 34 U/L (13-40); BUN/Creatinine Ratio 21.2 (10.0-20.0); Blood Urea Nitrogen 28 mg/dL (9-23); Calcium 10.6 mg/dL (8.7-10.4); Carbon Dioxide 31 mmol/L (20-31); Chloride 102 mmol/L (98-107); Glucose 96 mg/dL (74-106); Magnesium 2.4 mg/dL (1.6-2.6); Potassium 3.4 mmol/L (3.5-5.1); Sodium 141 mmol/L (136-145); Total Protein 6.4 g/dL (5.7-8.2)
[2024-10-20] MEDS ORDERED: EMPAGLIFLOZIN 10 MG TAB PO ONE (10:45)
[2024-10-20] MEDS: POTASSIUM EFFERVESENT TAB 25 MEQ PO ONE (10:45)
--- NOTE | 2024-10-20 10:51 | DVHPN2 ---
Subjective Sitting up in chair She is more alert and oriented Blood pressure is high Potassium is low Changes from previous H/P or p: Changes Objective Vitals Vital Signs Date Time Temp Pulse Resp B/P (MAP) Pulse Ox O2 Delivery O2 Flow Rate FiO2 10/20/24 06:11 160/71 10/20/24 05:00 97.6 67 18 97 97.6 10/19/24 20:25 2.0 28 10/19/24 20:00 Nasal Cannula* Intake/Output Intake and Output 10/20/24 07:00 Intake Total 2040 ml Output Total 2025 ml Balance 15 ml Intake Oral 1840 ml IV Total 200 ml Output Urine Total 2025 ml General Appearance: Alert, Oriented X3, Cooperative, No acute distress Lungs: Other Cardiovascular: Other Extremities: No edema Neuro: Other Medications Current Medications Medications Dose Ordered Sig/Sohail Route Start Time Stop Time Status Last Admin Dose Admin Sodium Chloride 10 ml Q8HR IV 10/07/24 22:00 10/20/24 06:05 10 ML Acetaminophen 650 mg Q6HP PRN PO 10/07/24 21:45 10/20/24 00:34 650 MG Hydralazine HCl 10 mg Q6HPRN PRN IV 10/07/24 22:00 10/20/24 06:11 10 MG Midazolam HCl 50 ml @ 1 mls/hr Q24H IV 10/08/24 07:30 10/17/24 00:32 3 MLS/HR Dopamine HCl/ Dextrose 250 ml @ 26.831 mls/ hr Q9H20M IV 10/08/24 09:15 UNV 10/08/24 09:10 26.831 MLS/HR Fentanyl Citrate 250 ml @ 2.5 mls/hr Q24H IV 10/08/24 10:00 10/17/24 09:20 7.5 MLS/HR Pantoprazole Sodium 40 mg DAILY IV 10/09/24 10:00 10/19/24 09:24 40 MG Enteral Nutritional Formula 1,000 ml 40ML/HR GT 10/09/24 10:15 10/17/24 20:16 1,000 ML Empaglifozin 10 mg DAILY PO 10/10/24 10:00 10/18/24 09:29 10 MG Hydrocortisone Sodium Succinate 100 mg DAILY IV 10/10/24 12:15 10/19/24 09:24 100 MG Clonidine HCl 0.1 mg Q7D TD 10/12/24 12:15 10/19/24 13:50 0.1 MG Purified Water 50 ml Q6HR GT 10/16/24 16:15 10/18/24 10:56 50 ML Diagnostic Test (Pha) 1 strip Q6HR 10/16/24 18:00 10/20/24 06:05 1 STRIP Insulin Human Regular Q6HR SC 10/16/24 18:00 10/18/24 17:56 2 UNITS Dextrose 50 ml UD PRN IV 10/16/24 16:15 Dexmedetomidine HCl 400 mcg/ Dextrose 100 ml @ 6.35 mls/hr [id number] IV 10/17/24 11:15 10/18/24 12:38 19.05 MLS/HR Enoxaparin Sodium 40 mg DAILY SC 10/18/24 10:00 10/19/24 09:24 40 MG Albuterol 2.5 mg Q6HPRN PRN NEB 10/18/24 17:35 10/19/24 21:55 2.5 MG Ipratropium [place] 0.5 mg Q6HPRN PRN NEB 10/18/24 17:35 10/19/24 21:55 0.5 MG Ondansetron HCl 4 mg Q4HPRN PRN IV 10/19/24 00:00 10/19/24 00:14 4 MG Docusate Sodium 100 mg BID PO 10/19/24 22:00 Furosemide 40 mg DAILY PO 10/20/24 10:00 Laboratory Results Laboratory Tests 10/19/24 04:50 10/20/24 06:27 Chemistry Test 10/20/24 06:27 Albumin 3.6 g/dL (3.2-4.8) Calcium Level 10.6 mg/dL (8.7-10.4) H Magnesium Level 2.4 mg/dL (1.6-2.6) Total Protein 6.4 g/dL (5.7-8.2) LFT Test 10/20/24 06:27 Alanine Aminotransferase (ALT) 23 U/L (7-40) Alkaline Phosphatase 128 U/L (46-116) H Aspartate Amino Transferase (AST) 34 U/L (13-40) Total Bilirubin 2.0 mg/dL (0.2-1.0) H Urinalysis Test 10/08/24 11:13 10/16/24 09:30 Urine Color Light-yellow (Yellow) Urine Clarity Clear (Clear) Urine pH 5.0 (5.0-9.0) Urine Specific [place] 1.009 (1.001-1.035) Urine Protein 1+ (Negative) H Urine Ketones Negative (Negative) Urine Blood 2+ /uL (Negative) H Urine Nitrite Negative (Negative) Urine Bilirubin Negative (Negative) Urine Urobilinogen Normal mg/dL (Negative) Urine Leukocyte Esterase Negative /uL (Negative) Urine RBC 55 /hpf (0 - 4) Urine WBC 3 /hpf (0 - 5) Urine Squamous Epithelial Cells Few /hpf (<5) Urine Bacteria None seen /hpf (None Seen) Urine Mucus Few (None Seen) Urine Glucose Normal mg/dL (Normal) Urine Potassium 30 mmol/L (12-62) Microbiology Microbiology Date/Time Source Procedure Growth Status 10/10/24 13:50 Nose MRSA Screen - Final Complete 10/09/24 10:58 Bronchial Washings Gram Stain - Final Complete 10/09/24 10:58 Bronchial Washings Respiratory Culture - Final Complete 10/09/24 03:06 Voided Urine Urine Culture - Final Complete 10/08/24 18:32 Blood Blood Culture - Final NO GROWTH AFTER 5 DAYS OF INCUBATION. Complete Assessment/Plan Assessment/Plan Acute on chronic systolic CHF Acute hypoxic respiratory failure s/p self-extubation and re-intubation Multi-Focal pneumonia Non-Ischemic CMP 2nd degree heart block / Bradycardia, on Dobutamine CKDIIIa Morbid obesity Hypokalemia HTN Pulmonary HTN Hypernatremia PLAN: 10/14/2024: Discussed with Dr. Greenwood, patient needs ICD Consult Dr. Swanson for ICD Dobutamine drip IV antibiotics: Rocephin + Doxy Sedation: Versed and Fent Jardiance CHF: Lasix 60 mg IV q 12 hours CKD Hydrocortisone 100 mg IV daily GI Prophylaxis: Protonix DVT prophylaxis: Lovenox Hypernatremia: Free water, lower the rate to 150 ml q 6 hours Hypokalemia: Replace and re-check Discussed with her sister at the bedside 10/15/2024: Continue the current management Dobutamine drip ICD plan for today Replace potassium Check potassium again in the afternoon and replace as needed 10/16/2024: Replace potassium Discontinue IV antibiotics Rocephin and doxycycline Start tube feeding Lower the free water to 50 ml q6h CPAP per Dr. Schreiber 10/17/2024: Replace potassium again Off sedation As Precedex because the patient is really agitated now and blood pressure is high CPAP in progress Extubate if approved by Dr. Schreiber Continue feeding and free water Get CT scan of the head to rule out CVA due to the right hand weakness Monitor closely Start Lovenox 10/18/2024: Replace potassium CT scan of the head is pending CPAP trial per Dr. Schreiber Monitor closely 10/19/2024: Downgrade to telemetry CT scan of the head was negative Start physical therapy Swallow eval Colace and lactulose Change Lasix to p.o. 10/20/2024: Add Coreg and continue Jardiance for better blood pressure control, Discontinue clonidine Physical therapy Discontinue free water Hypokalemia: Replace p.o. Discontinue hydrocortisone Plan discussed with: Patient My Orders Orders - LOUIE RAI MD Procedure Category Date Status Time Docusate Sodium PHA 10/19/24 In Process Capsule (Colace 22:00 Pt Request For Service PT 10/19/24 Logged 10:46 * Swallow Request ST 10/19/24 Transmitted 10:46 Furosemide Tablet PHA 10/20/24 In Process (Lasix Tablet) 10:00 * Swallow Request ST 10/19/24 Transmitted 10:45 Pt Request For Service PT 10/19/24 Logged 10:45 Transfer Orders XFER 10/19/24 Transmitted 10:45 Mechanical Soft Diet DIET 10/19/24 Transmitted Lunch Potassium Effervesent PHA 10/20/24 Verified Tab (Klor-Con/Ef) 10:45 Basic Metabolic Panel LAB 10/21/24 Verified 04:00 Date of Service: Oct 20, 2024 Billing Provider: LOUIE RAI MD Common Visit Codes: [id number] INP/OBS CARE(HIGH) LOUIE RAI MD Oct 20, 2024 10:51
[2024-10-20] MEDS: hydrALAZINE HCL 20 MG/ML VL IV PRN (12:06)
[2024-10-20] MEDS: FUROSEMIDE 20 MG TAB PO SCH (12:07)
[2024-10-20] MEDS: CARVEDILOL 3.125 MG TAB PO ONE (12:08)
--- NOTE | 2024-10-20 16:06 | DVHPN2 ---
Progress Note Date Seen: Oct 20, 2024 Medical Necessity Reason Pt with a Central, PICC or Fol: Yes The following are medically ne: PICC Line, Garcia Catheter Reason for garcia catheter: Strict I&O Subjective Review of Systems Appears stated age, in no acute distress. Patient reports: No new complaints Objective vital signs Vital Sign Date Time Temp Pulse Resp B/P (MAP) Pulse Ox O2 Delivery O2 Flow Rate FiO2 10/20/24 13:00 97.3 70 16 167/64 (98) 100 97.3 10/19/24 20:25 2.0 28 10/19/24 20:00 Nasal Cannula* Total Intake and Output 10/19/24 10/19/24 10/20/24 15:00 23:00 07:00 Intake Total 440 ml 400 ml 1200 ml Output Total 400 ml 150 ml 1475 ml Balance 40 ml 250 ml -275 ml medications Current Medications Medications Dose Ordered Sig/Sohail Route Start Time Stop Time Status Last Admin Dose Admin Sodium Chloride 10 ml Q8HR IV 10/07/24 22:00 10/20/24 06:05 10 ML Acetaminophen 650 mg Q6HP PRN PO 10/07/24 21:45 10/20/24 00:34 650 MG Dopamine HCl/ Dextrose 250 ml @ 26.831 mls/ hr Q9H20M IV 10/08/24 09:15 UNV 10/08/24 09:10 26.831 MLS/HR Enteral Nutritional Formula 1,000 ml 40ML/HR GT 10/09/24 10:15 10/17/24 20:16 1,000 ML Empaglifozin 10 mg DAILY PO 10/10/24 10:00 10/20/24 10:00 10 MG Diagnostic Test (Pha) 1 strip Q6HR 10/16/24 18:00 10/20/24 12:09 1 STRIP Insulin Human Regular Q6HR SC 10/16/24 18:00 10/18/24 17:56 2 UNITS Dextrose 50 ml UD PRN IV 10/16/24 16:15 Enoxaparin Sodium 40 mg DAILY SC 10/18/24 10:00 10/20/24 10:00 40 MG Albuterol 2.5 mg Q6HPRN PRN NEB 10/18/24 17:35 10/19/24 21:55 2.5 MG Ipratropium [place] 0.5 mg Q6HPRN PRN NEB 10/18/24 17:35 10/19/24 21:55 0.5 MG Ondansetron HCl 4 mg Q4HPRN PRN IV 10/19/24 00:00 10/19/24 00:14 4 MG Docusate Sodium 100 mg BID PO 10/19/24 22:00 10/20/24 12:07 100 MG Furosemide 40 mg DAILY PO 10/20/24 10:00 10/20/24 12:07 40 MG Carvedilol 6.25 mg Q12HR PO 10/20/24 22:00 Pantoprazole Sodium 40 mg DAILY@0600 PO 10/21/24 06:00 Hydralazine HCl 10 mg Q4HPRN PRN IV 10/20/24 12:00 10/20/24 12:06 10 MG Examination Gen: Appears stated age. In no acute distress. Pulm: Diminished bilaterally CV: RRR Ext:+ edema Neuro: Alert and oriented x 4 laboratory and microbiology Laboratory Tests 10/20/24 06:27 10/19/24 04:50 Test 10/20/24 06:27 Range/Units Serum Glucose 96 74-106 mg/dL Microbiology Date/Time Source Procedure Growth Status 10/10/24 13:50 Nose MRSA Screen - Final Complete 10/09/24 10:58 Bronchial Washings Gram Stain - Final Complete 10/09/24 10:58 Bronchial Washings Respiratory Culture - Final Complete 10/09/24 03:06 Voided Urine Urine Culture - Final Complete 10/08/24 18:32 Blood Blood Culture - Final NO GROWTH AFTER 5 DAYS OF INCUBATION. Complete Labs and/or images reviewed: Labs reviewed by me Problem List/Assessment/Plan Problem List/Assessment/Plan Acute kidney injury hemodynamic + consecutive contrast exposures +/- cardiorenal syndrome- ongoing continued downtrend in creat 1.32, stable GFR 44. ckd 3a ( in 2017 acute respiratory failure; ARDS decompensated HF EF 20% s/p Cath Morbid obesity bradycardia status post pacemaker Hypokalemia-ongoing REC Serial chemistry panels Agree with continuing diuresis Potassium replacement prn Avoid nephrotoxins Will continue to follow Plan discussed with: Patient Dietary Evaluation Review Comments: 1) If GI is accessible consider Glucerna 1.2 @ 55 ml/hr goal rate as tolerated 2) If pt remains NPO >7 days consider TPN to meet a least 75% of estimated needs 3) Advance pt diet when medically feasible to a CCHO 60g/Cardiac diet 4) Continue current plan of care Expected Outcomes/Goals: 1) Pt to receive nutrition support within 7 days of NPO status 2) Pt diet to advance 3) Continue current plan of care ANTONINO KOTHARI Oct 20, 2024 16:06
[2024-10-20] MEDS: InsuLIN REG 1unit/0.01ml Soln (100units/ml) SC SCH (17:00)
[2024-10-20] MEDS: ACCU-CHEK COMFORT CURVE STRIP VI SCH (17:00)
[2024-10-20] MEDS: CARVEDILOL 3.125 MG TAB PO SCH (21:42)
--- NOTE | 2024-10-20 23:22 | DVHPN2 ---
Progress Note - Dictate Date Seen: Oct 20, 2024 Medical Necessity Reason Pt with a Central, PICC or Fol: Yes The following are medically ne: PICC Line, Garcia Catheter Reason for garcia catheter: Strict I&O Subjective Patient seen and examined at bedside. S/p extubation, on supplemental oxygen. Overnight events reviewed. vital signs Vital Sign Date Time Temp Pulse Resp B/P (MAP) Pulse Ox O2 Delivery O2 Flow Rate FiO2 10/20/24 21:42 70 157/70 10/20/24 21:00 98.7 19 99 98.7 10/20/24 18:29 Nasal Cannula* 2 28 Total Intake and Output 10/19/24 10/19/24 10/20/24 15:00 23:00 07:00 Intake Total 440 ml 400 ml 1200 ml Output Total 400 ml 150 ml 1475 ml Balance 40 ml 250 ml -275 ml medications Current Medications Medications Dose Ordered Sig/Sohail Route Start Time Stop Time Status Last Admin Dose Admin Sodium Chloride 10 ml Q8HR IV 10/07/24 22:00 10/20/24 21:43 10 ML Acetaminophen 650 mg Q6HP PRN PO 10/07/24 21:45 10/20/24 00:34 650 MG Dopamine HCl/ Dextrose 250 ml @ 26.831 mls/ hr Q9H20M IV 10/08/24 09:15 UNV 10/08/24 09:10 26.831 MLS/HR Enteral Nutritional Formula 1,000 ml 40ML/HR GT 10/09/24 10:15 10/17/24 20:16 1,000 ML Empaglifozin 10 mg DAILY PO 10/10/24 10:00 10/20/24 10:00 10 MG Dextrose 50 ml UD PRN IV 10/16/24 16:15 Enoxaparin Sodium 40 mg DAILY SC 10/18/24 10:00 10/20/24 10:00 40 MG Albuterol 2.5 mg Q6HPRN PRN NEB 10/18/24 17:35 10/19/24 21:55 2.5 MG Ipratropium [place] 0.5 mg Q6HPRN PRN NEB 10/18/24 17:35 10/19/24 21:55 0.5 MG Ondansetron HCl 4 mg Q4HPRN PRN IV 10/19/24 00:00 10/19/24 00:14 4 MG Docusate Sodium 100 mg BID PO 10/19/24 22:00 10/20/24 21:40 100 MG Furosemide 40 mg DAILY PO 10/20/24 10:00 10/20/24 12:07 40 MG Carvedilol 6.25 mg Q12HR PO 10/20/24 22:00 10/20/24 21:42 6.25 MG Pantoprazole Sodium 40 mg DAILY@0600 PO 10/21/24 06:00 Hydralazine HCl 10 mg Q4HPRN PRN IV 10/20/24 12:00 10/20/24 17:55 10 MG Diagnostic Test (Pha) 1 strip ACHS 10/20/24 17:00 10/20/24 21:44 1 STRIP Insulin Human Regular ACHS SC 10/20/24 17:00 objective Gen.: Patient lying in bed in no apparent distress. On supplemental oxygen. Head: Normocephalic, atraumatic. Eyes: EOMI/PERRLA. Ears: Normal hearing. Normal anatomy. Neck/trachea: Trachea midline, supple. Nose: Normal external anatomy. Mouth: Moist mucous membranes. Chest: Decreased air entry bilaterally. No wheezing or rhonchi. Cardiovascular: Positive S1, positive S2. Regular rate and rhythm. Abdomen: Positive bowel sounds in all 4 quadrants. Soft, non-tender, non- distended. : Deferred. Rectal: Deferred. Skin: Warm, dry. Intact. Extremities: 2+ radial pulses bilaterally. No lower extremity edema. Neuro: Awake, alert, oriented x3. No gross motor or sensory deficits. Cranial nerves II through XII intact. Gait not assessed. laboratory and microbiology Laboratory Tests 10/20/24 06:27 10/19/24 04:50 Test 10/20/24 06:27 Range/Units Serum Glucose 96 74-106 mg/dL Assessment/Plan Impression: Acute hypoxic respiratory failure Congestive heart failure, reduced ejection fraction 20% Nonischemic cardiomyopathy based on recent [facility] NSTEMI type 2 Acute kidney injury Hypertensive emergency Morbid obesity Events: Remains on supplemental oxygen 2 LPM NC. Taper O2 as tolerated Changed hydralazine to q.4 hours for BP control. On Coreg. Continue bronchodilators Diurese as tolerated w/ Lasix QD Monitor renal function Monitor electrolytes. Supplement as necessary. Potassium supplementation Head of bed elevation Aspiration precautions Pain control Avoid oversedation S/p Therapeutic bronchoscopy on 10/18 - removed thick secretions from RLL and LLL. Labs and imaging reviewed. Rest of plan as noted below Plan: s/p extubation on 10/18. On supplemental oxygen Titrate to keep O2 sats above 92%. Off Precedex. Antibiotics. F/u cultures. Dobutamine drip - on hold. Cardiology recommendations appreciated S/p transcutaneous pacemaker S/p left heart cath. S/p Electrophysiology AICD placement Pressors as necessary for hemodynamic support Titrate to keep mean arterial pressure greater than 65 mmHg. Monitor renal function Monitor electrolytes. Supplement as necessary. Monitor ins and outs. Maintain euvolemia. GI prophylaxis. DVT prophylaxis. Prognosis: Poor given patient's multiple co-morbidities. Rest of plan per hospitalist and other consultants. Thank you Dr. Marquise Conley MD, for allowing me to participate in this patient's care. Further recommendations will depend on the patient's clinical course. Please do not hesitate to contact me if you have any questions or concerns. This medical document was created using an electronic medical record system with [employer] dictation system. Although these documentations are being carefully reviewed, there may still be some phonetic and typographical changes. The errors are purely typographical, due to imperfection on the software program, and do not reflect any compromise in the patient's medical care. Dietary Evaluation Review Comments: 1) If GI is accessible consider Glucerna 1.2 @ 55 ml/hr goal rate as tolerated 2) If pt remains NPO >7 days consider TPN to meet a least 75% of estimated needs 3) Advance pt diet when medically feasible to a CCHO 60g/Cardiac diet 4) Continue current plan of care Expected Outcomes/Goals: 1) Pt to receive nutrition support within 7 days of NPO status 2) Pt diet to advance 3) Continue current plan of care Plan discussed with: Patient, Other (KAMRYN Inman) HO MELENDEZ MD Oct 20, 2024 23:22
[2024-10-21] VITALS (13 sets, daily range): BP systolic 132–187; BP diastolic 50–87; PULSE 68–74; RESP 17–20; TEMP 97.8–99.1; O2SAT 91–100
[2024-10-21] MEDS: PANTOPRAZOLE 40 MG TAB PO SCH (05:52)
[2024-10-21 07:34] LABS: Anion Gap 9 (5-15); Calcium 10.5 mg/dL (8.7-10.4); Carbon Dioxide 28 mmol/L (20-31); Chloride 101 mmol/L (98-107); Potassium 3.8 mmol/L (3.5-5.1); Sodium 138 mmol/L (136-145)
[2024-10-21 07:40] LABS: BUN/Creatinine Ratio 18.5 (10.0-20.0); Blood Urea Nitrogen 22 mg/dL (9-23); Glucose 102 mg/dL (74-106); Magnesium 2.5 mg/dL (1.6-2.6)
[2024-10-21] MEDS ORDERED: EMPAGLIFLOZIN 10 MG TAB PO SCH (10:00)
--- NOTE | 2024-10-21 11:44 | DVHPN2 ---
Subjective Doing better She is on 2 L nasal cannula She is very weak Changes from previous H/P or p: Changes Objective Vitals Vital Signs Date Time Temp Pulse Resp B/P (MAP) Pulse Ox O2 Delivery O2 Flow Rate FiO2 10/21/24 10:31 157/67 10/21/24 10:30 69 10/21/24 09:00 98.3 20 96 98.3 10/21/24 02:16 Nasal Cannula 2.0 10/21/24 02:16 28 Intake/Output Intake and Output 10/21/24 07:00 Intake Total 2330 ml Output Total 1950 ml Balance 380 ml Intake Oral 2330 ml Output Urine Total 1950 ml General Appearance: Alert, Oriented X3, Cooperative, No acute distress Lungs: Other Cardiovascular: Other Extremities: No edema Neuro: Other Medications Current Medications Medications Dose Ordered Sig/Sohail Route Start Time Stop Time Status Last Admin Dose Admin Sodium Chloride 10 ml Q8HR IV 10/07/24 22:00 10/21/24 05:53 10 ML Acetaminophen 650 mg Q6HP PRN PO 10/07/24 21:45 10/20/24 00:34 650 MG Dopamine HCl/ Dextrose 250 ml @ 26.831 mls/ hr Q9H20M IV 10/08/24 09:15 UNV 10/08/24 09:10 26.831 MLS/HR Enteral Nutritional Formula 1,000 ml 40ML/HR GT 10/09/24 10:15 10/17/24 20:16 1,000 ML Empaglifozin 10 mg DAILY PO 10/10/24 10:00 10/21/24 10:34 10 MG Dextrose 50 ml UD PRN IV 10/16/24 16:15 Enoxaparin Sodium 40 mg DAILY SC 10/18/24 10:00 10/21/24 10:33 40 MG Albuterol 2.5 mg Q6HPRN PRN NEB 10/18/24 17:35 10/21/24 02:16 2.5 MG Ipratropium [place] 0.5 mg Q6HPRN PRN NEB 10/18/24 17:35 10/21/24 02:16 0.5 MG Ondansetron HCl 4 mg Q4HPRN PRN IV 10/19/24 00:00 10/19/24 00:14 4 MG Docusate Sodium 100 mg BID PO 10/19/24 22:00 10/21/24 10:29 100 MG Furosemide 40 mg DAILY PO 10/20/24 10:00 10/21/24 10:31 40 MG Carvedilol 6.25 mg Q12HR PO 10/20/24 22:00 10/21/24 10:30 6.25 MG Pantoprazole Sodium 40 mg DAILY@0600 PO 10/21/24 06:00 10/21/24 05:52 40 MG Hydralazine HCl 10 mg Q4HPRN PRN IV 10/20/24 12:00 10/21/24 05:58 10 MG Diagnostic Test (Pha) 1 strip ACHS 10/20/24 17:00 10/21/24 10:35 1 STRIP Insulin Human Regular ACHS SC 10/20/24 17:00 Laboratory Results Laboratory Tests 10/19/24 04:50 10/21/24 06:33 Chemistry Test 10/21/24 06:33 Calcium Level 10.5 mg/dL (8.7-10.4) H Magnesium Level 2.5 mg/dL (1.6-2.6) Urinalysis Test 10/08/24 11:13 10/16/24 09:30 Urine Color Light-yellow (Yellow) Urine Clarity Clear (Clear) Urine pH 5.0 (5.0-9.0) Urine Specific [place] 1.009 (1.001-1.035) Urine Protein 1+ (Negative) H Urine Ketones Negative (Negative) Urine Blood 2+ /uL (Negative) H Urine Nitrite Negative (Negative) Urine Bilirubin Negative (Negative) Urine Urobilinogen Normal mg/dL (Negative) Urine Leukocyte Esterase Negative /uL (Negative) Urine RBC 55 /hpf (0 - 4) Urine WBC 3 /hpf (0 - 5) Urine Squamous Epithelial Cells Few /hpf (<5) Urine Bacteria None seen /hpf (None Seen) Urine Mucus Few (None Seen) Urine Glucose Normal mg/dL (Normal) Urine Potassium 30 mmol/L (12-62) Microbiology Microbiology Date/Time Source Procedure Growth Status 10/10/24 13:50 Nose MRSA Screen - Final Complete 10/09/24 10:58 Bronchial Washings Gram Stain - Final Complete 10/09/24 10:58 Bronchial Washings Respiratory Culture - Final Complete 10/09/24 03:06 Voided Urine Urine Culture - Final Complete 10/08/24 18:32 Blood Blood Culture - Final NO GROWTH AFTER 5 DAYS OF INCUBATION. Complete Assessment/Plan Assessment/Plan Acute on chronic systolic CHF Acute hypoxic respiratory failure s/p self-extubation and re-intubation Multi-Focal pneumonia Non-Ischemic CMP 2nd degree heart block / Bradycardia, on Dobutamine CKDIIIa Morbid obesity Hypokalemia HTN Pulmonary HTN Hypernatremia PLAN: 10/14/2024: Discussed with Dr. Greenwood, patient needs ICD Consult Dr. Swanson for ICD Dobutamine drip IV antibiotics: Rocephin + Doxy Sedation: Versed and Fent Jardiance CHF: Lasix 60 mg IV q 12 hours CKD Hydrocortisone 100 mg IV daily GI Prophylaxis: Protonix DVT prophylaxis: Lovenox Hypernatremia: Free water, lower the rate to 150 ml q 6 hours Hypokalemia: Replace and re-check Discussed with her sister at the bedside 10/15/2024: Continue the current management Dobutamine drip ICD plan for today Replace potassium Check potassium again in the afternoon and replace as needed 10/16/2024: Replace potassium Discontinue IV antibiotics Rocephin and doxycycline Start tube feeding Lower the free water to 50 ml q6h CPAP per Dr. Schreiber 10/17/2024: Replace potassium again Off sedation As Precedex because the patient is really agitated now and blood pressure is high CPAP in progress Extubate if approved by Dr. Schreiber Continue feeding and free water Get CT scan of the head to rule out CVA due to the right hand weakness Monitor closely Start Lovenox 10/18/2024: Replace potassium CT scan of the head is pending CPAP trial per Dr. Schreiber Monitor closely 10/19/2024: Downgrade to telemetry CT scan of the head was negative Start physical therapy Swallow eval Colace and lactulose Change Lasix to p.o. 10/20/2024: Add Coreg and continue Jardiance for better blood pressure control, Discontinue clonidine Physical therapy Discontinue free water Hypokalemia: Replace p.o. Discontinue hydrocortisone 10/20/2024: Continue physical therapy Consult social worker psychiatric to arrange SNF Increase Coreg to 12.5 mg twice a day Jardiance 10 mg daily Lasix 40 mg p.o. daily Add Entresto Plan discussed with: Patient My Orders Orders - LOUIE RAI MD Procedure Category Date Status Time Glucose Blood PHA 10/20/24 In Process (Accu-Chek Comfort 17:00 Insulin R (Human) PHA 10/20/24 In Process (Insulin R) 17:00 Date of Service: Oct 21, 2024 Billing Provider: LOUIE RAI MD Common Visit Codes: [id number] INP/OBS CARE(HIGH) LOUIE RAI MD Oct 21, 2024 11:44
--- NOTE | 2024-10-21 12:47 | DVHPN2 ---
Progress Note Date Seen: Oct 21, 2024 Medical Necessity Reason Pt with a Central, PICC or Fol: Yes The following are medically ne: PICC Line, Garcia Catheter Reason for garcia catheter: Strict I&O Subjective Patient reports: No new complaints Other Systems: Patient seen and examined by myself today in follow-up Objective vital signs Vital Sign Date Time Temp Pulse Resp B/P (MAP) Pulse Ox O2 Delivery O2 Flow Rate FiO2 10/21/24 11:59 71 159/82 10/21/24 09:00 98.3 20 96 98.3 10/21/24 08:15 Nasal Cannula* 2 28 Total Intake and Output 10/20/24 10/20/24 10/21/24 15:00 23:00 07:00 Intake Total 2080 ml 250 ml Output Total 1500 ml 450 ml Balance 580 ml -200 ml medications Current Medications Medications Dose Ordered Sig/Sohail Route Start Time Stop Time Status Last Admin Dose Admin Sodium Chloride 10 ml Q8HR IV 10/07/24 22:00 10/21/24 05:53 10 ML Acetaminophen 650 mg Q6HP PRN PO 10/07/24 21:45 10/20/24 00:34 650 MG Dopamine HCl/ Dextrose 250 ml @ 26.831 mls/ hr Q9H20M IV 10/08/24 09:15 UNV 10/08/24 09:10 26.831 MLS/HR Enteral Nutritional Formula 1,000 ml 40ML/HR GT 10/09/24 10:15 10/17/24 20:16 1,000 ML Empaglifozin 10 mg DAILY PO 10/10/24 10:00 10/21/24 10:34 10 MG Dextrose 50 ml UD PRN IV 10/16/24 16:15 Enoxaparin Sodium 40 mg DAILY SC 10/18/24 10:00 10/21/24 10:33 40 MG Albuterol 2.5 mg Q6HPRN PRN NEB 10/18/24 17:35 10/21/24 02:16 2.5 MG Ipratropium [place] 0.5 mg Q6HPRN PRN NEB 10/18/24 17:35 10/21/24 02:16 0.5 MG Ondansetron HCl 4 mg Q4HPRN PRN IV 10/19/24 00:00 10/19/24 00:14 4 MG Docusate Sodium 100 mg BID PO 10/19/24 22:00 10/21/24 10:29 100 MG Furosemide 40 mg DAILY PO 10/20/24 10:00 10/21/24 10:31 40 MG Pantoprazole Sodium 40 mg DAILY@0600 PO 10/21/24 06:00 10/21/24 05:52 40 MG Hydralazine HCl 10 mg Q4HPRN PRN IV 10/20/24 12:00 10/21/24 05:58 10 MG Diagnostic Test (Pha) 1 strip ACHS 10/20/24 17:00 10/21/24 10:35 1 STRIP Insulin Human Regular ACHS SC 10/20/24 17:00 Carvedilol 12.5 mg Q12HR PO 10/21/24 22:00 Sacubitril/ Valsartan 1 tab BID PO 10/21/24 22:00 UNV Examination: LUNGS:Normal, CVS:Normal, MSK:Normal laboratory and microbiology Laboratory Tests 10/21/24 06:33 10/19/24 04:50 Test 10/21/24 06:33 Range/Units Serum Glucose 102 74-106 mg/dL Microbiology Date/Time Source Procedure Growth Status 10/10/24 13:50 Nose MRSA Screen - Final Complete 10/09/24 10:58 Bronchial Washings Gram Stain - Final Complete 10/09/24 10:58 Bronchial Washings Respiratory Culture - Final Complete 10/09/24 03:06 Voided Urine Urine Culture - Final Complete 10/08/24 18:32 Blood Blood Culture - Final NO GROWTH AFTER 5 DAYS OF INCUBATION. Complete Problem List/Assessment/Plan Problem List/Assessment/Plan Acute kidney injury superimposed Chronic Kidney Disease stage 3 a secondary hemodynamic mediated Acute hypoxic respiratory failure, O2 nasal cannula decompensated HF EF 20% Morbid obesity bradycardia status post pacemaker Hypokalemia, replace Prediabetes Recommendations Kidney function is improving Increased urine output Strict I&Os I agree with diuresis KCL replacement We will continue to follow Plan discussed with: Patient Dietary Evaluation Review Comments: 1) If GI is accessible consider Glucerna 1.2 @ 55 ml/hr goal rate as tolerated 2) If pt remains NPO >7 days consider TPN to meet a least 75% of estimated needs 3) Advance pt diet when medically feasible to a CCHO 60g/Cardiac diet 4) Continue current plan of care Expected Outcomes/Goals: 1) Pt to receive nutrition support within 7 days of NPO status 2) Pt diet to advance 3) Continue current plan of care CLAIRE RICCI MD Oct 21, 2024 12:47
[2024-10-21] MEDS: SACUBITRIL-VALSARTAN 24mg/26mg TAB PO ONE (17:37)
[2024-10-21] MEDS: CARVEDILOL 3.125 MG TAB PO ONE (17:38)
[2024-10-21] MEDS ORDERED: SACUBITRIL-VALSARTAN 24mg/26mg TAB PO SCH (22:00)
[2024-10-21] MEDS: CARVEDILOL 3.125 MG TAB PO SCH (22:07)
--- NOTE | 2024-10-21 22:55 | DVHPN2 ---
Progress Note - Dictate Date Seen: Oct 21, 2024 Medical Necessity Reason Pt with a Central, PICC or Fol: Yes The following are medically ne: PICC Line, Garcia Catheter Reason for garcia catheter: Strict I&O Subjective Patient seen and examined at bedside. Remains on supplemental oxygen. Overnight events reviewed. vital signs Vital Sign Date Time Temp Pulse Resp B/P (MAP) Pulse Ox O2 Delivery O2 Flow Rate FiO2 10/21/24 22:07 71 133/66 10/21/24 17:00 97.8 20 92 97.8 10/21/24 10:00 Nasal Cannula* 2 28 Total Intake and Output 10/20/24 10/20/24 10/21/24 15:00 23:00 07:00 Intake Total 2080 ml 250 ml Output Total 1500 ml 450 ml Balance 580 ml -200 ml medications Current Medications Medications Dose Ordered Sig/Sohail Route Start Time Stop Time Status Last Admin Dose Admin Sodium Chloride 10 ml Q8HR IV 10/07/24 22:00 10/21/24 22:04 10 ML Acetaminophen 650 mg Q6HP PRN PO 10/07/24 21:45 10/20/24 00:34 650 MG Dopamine HCl/ Dextrose 250 ml @ 26.831 mls/ hr Q9H20M IV 10/08/24 09:15 UNV 10/08/24 09:10 26.831 MLS/HR Enteral Nutritional Formula 1,000 ml 40ML/HR GT 10/09/24 10:15 10/17/24 20:16 1,000 ML Empaglifozin 10 mg DAILY PO 10/10/24 10:00 10/21/24 10:34 10 MG Dextrose 50 ml UD PRN IV 10/16/24 16:15 Enoxaparin Sodium 40 mg DAILY SC 10/18/24 10:00 10/21/24 10:33 40 MG Albuterol 2.5 mg Q6HPRN PRN NEB 10/18/24 17:35 10/21/24 02:16 2.5 MG Ipratropium [place] 0.5 mg Q6HPRN PRN NEB 10/18/24 17:35 10/21/24 02:16 0.5 MG Ondansetron HCl 4 mg Q4HPRN PRN IV 10/19/24 00:00 10/19/24 00:14 4 MG Docusate Sodium 100 mg BID PO 10/19/24 22:00 10/21/24 22:05 100 MG Furosemide 40 mg DAILY PO 10/20/24 10:00 10/21/24 10:31 40 MG Pantoprazole Sodium 40 mg DAILY@0600 PO 10/21/24 06:00 10/21/24 05:52 40 MG Hydralazine HCl 10 mg Q4HPRN PRN IV 10/20/24 12:00 10/21/24 05:58 10 MG Diagnostic Test (Pha) 1 strip ACHS 10/20/24 17:00 10/21/24 22:05 1 STRIP Insulin Human Regular ACHS SC 10/20/24 17:00 10/21/24 22:14 3 UNITS Carvedilol 12.5 mg Q12HR PO 10/21/24 22:00 10/21/24 22:07 12.5 MG Sacubitril/ Valsartan 1 tab BID PO 10/21/24 22:00 Hold objective Gen.: Patient lying in bed in no apparent distress. On supplemental oxygen. Head: Normocephalic, atraumatic. Eyes: EOMI/PERRLA. Ears: Normal hearing. Normal anatomy. Neck/trachea: Trachea midline, supple. Nose: Normal external anatomy. Mouth: Moist mucous membranes. Chest: Decreased air entry bilaterally. No wheezing or rhonchi. Cardiovascular: Positive S1, positive S2. Regular rate and rhythm. Abdomen: Positive bowel sounds in all 4 quadrants. Soft, non-tender, non- distended. : Deferred. Rectal: Deferred. Skin: Warm, dry. Intact. Extremities: 2+ radial pulses bilaterally. No lower extremity edema. Neuro: Awake, alert, oriented x3. No gross motor or sensory deficits. Cranial nerves II through XII intact. Gait not assessed. laboratory and microbiology Laboratory Tests 10/21/24 06:33 10/19/24 04:50 Test 10/21/24 06:33 Range/Units Serum Glucose 102 74-106 mg/dL Assessment/Plan Impression: Acute hypoxic respiratory failure Congestive heart failure, reduced ejection fraction 20% Nonischemic cardiomyopathy based on recent [facility] NSTEMI type 2 Acute kidney injury Hypertensive emergency Morbid obesity Events: Remains on supplemental oxygen 2 LPM NC. Taper O2 as tolerated Cardiology recs appreciated. Hydralazine q.4 hours for BP control. On Coreg. Continue bronchodilators Diurese as tolerated w/ Lasix QD Monitor renal function Monitor electrolytes. Supplement as necessary. Maintain euvolemia Head of bed elevation Aspiration precautions Protonix for GI prophylaxis. S/p Therapeutic bronchoscopy on 10/18 - removed thick secretions from RLL and LLL. Labs and imaging reviewed. Rest of plan as noted below Plan: s/p extubation on 10/18. On supplemental oxygen Titrate to keep O2 sats above 92%. Off Precedex. Antibiotics. F/u cultures. Dobutamine drip - on hold. Cardiology recommendations appreciated S/p transcutaneous pacemaker S/p left heart cath. S/p Electrophysiology AICD placement Pressors as necessary for hemodynamic support Titrate to keep mean arterial pressure greater than 65 mmHg. Monitor renal function Monitor electrolytes. Supplement as necessary. Monitor ins and outs. Maintain euvolemia. GI prophylaxis. DVT prophylaxis. Prognosis: Poor given patient's multiple co-morbidities. Rest of plan per hospitalist and other consultants. Thank you Dr. Marquise Conley MD, for allowing me to participate in this patient's care. Further recommendations will depend on the patient's clinical course. Please do not hesitate to contact me if you have any questions or concerns. This medical document was created using an electronic medical record system with RawFlow dictation system. Although these documentations are being carefully reviewed, there may still be some phonetic and typographical changes. The errors are purely typographical, due to imperfection on the software program, and do not reflect any compromise in the patient's medical care. Dietary Evaluation Review Comments: 1) If GI is accessible consider Glucerna 1.2 @ 55 ml/hr goal rate as tolerated 2) If pt remains NPO >7 days consider TPN to meet a least 75% of estimated needs 3) Advance pt diet when medically feasible to a CCHO 60g/Cardiac diet 4) Continue current plan of care Expected Outcomes/Goals: 1) Pt to receive nutrition support within 7 days of NPO status 2) Pt diet to advance 3) Continue current plan of care Plan discussed with: Patient, Other (KAMRYN Bajwa) HO MELENDEZ MD Oct 21, 2024 22:54
[2024-10-22] VITALS (9 sets, daily range): BP systolic 130–163; BP diastolic 61–82; PULSE 54–75; RESP 16–20; TEMP 97.3–98.8; O2SAT 90–97
[2024-10-22 06:46] LABS: Chloride 102 mmol/L (98-107); Sodium 142 mmol/L (136-145)
[2024-10-22 06:48] LABS: Calcium 9.9 mg/dL (8.7-10.4)
[2024-10-22 06:52] LABS: Glucose 91 mg/dL (74-106)
[2024-10-22 06:53] LABS: BUN/Creatinine Ratio 19.5 (10.0-20.0); Blood Urea Nitrogen 22 mg/dL (9-23)
[2024-10-22 07:03] LABS: Anion Gap 8 (5-15); Basophils # (auto) 0 10 ^3/uL (0-0.2); Basophils % (auto) 0.3 % (0.0-2.0); Carbon Dioxide 32 mmol/L (20-31); Eosinophils # (auto) 0.2 10 ^3/uL (0-0.8); Eosinophils % (auto) 2.3 % (0.0-7.0); Hematocrit 34.5 % (36.0-46.0); Hemoglobin 11.4 g/dL (12.2-16.2); Lymphocytes # (auto) 1.4 10 ^3/uL (0.4-5.4); Lymphocytes % (auto) 16.8 % (10.0-50.0); Mean Corpuscular Hemoglobin 27.2 pg (28.0-32.0); Mean Corpuscular Hgb Conc. 32.9 g/dL (32.0-36.0); Mean Corpuscular Volume 82.7 fL (80.0-100.0); Monocytes # (auto) 0.8 10 ^3/uL (0-1.3); Neutrophils # (auto) 5.9 10 ^3/uL (1.6-8.6); Neutrophils % (auto) 70.6 % (37.0-80.0); Nucleated Red Blood Cells % 0.1 %; Platelet Count (auto) 192 10^3/uL (140-450); Red Blood Cells 4.17 10^6/uL (4.0-5.20); Red Cell Distribution Width 16.3 % (11.8-14.3); White Blood Cell 8.4 10^3/uL (4.4-10.8)
--- NOTE | 2024-10-22 11:04 | DVHDS2 ---
Discharge Summary Date of Admission Oct 07, 2024 at 21:40 Date of Discharge: Oct 22, 2024 Labs/Diagnostic Data: Laboratory Results Test 10/22/24 05:56 10/22/24 05:39 10/21/24 06:33 10/20/24 06:27 POC Glucose 108 mg/dl (70-106) White Blood Count 8.4 10^3/uL (4.4-10.8) Red Blood Count 4.17 10^6/uL (4.0-5.20) Hemoglobin 11.4 g/dL (12.2-16.2) Hematocrit 34.5 % (36.0-46.0) Mean Corpuscular Volume 82.7 fL (80.0-100.0) Mean Corpuscular Hemoglobin 27.2 pg (28.0-32.0) Mean Corpuscular Hemoglobin Concent 32.9 g/dL (32.0-36.0) Red Cell Distribution Width 16.3 % (11.8-14.3) Platelet Count 192 10^3/uL (140-450) Mean Platelet Volume 10.7 fL (6.9-10.8) Neutrophils (%) (Auto) 70.6 % (37.0-80.0) Lymphocytes (%) (Auto) 16.8 % (10.0-50.0) Monocytes (%) (Auto) 10.0 % (0.0-12.0) Eosinophils (%) (Auto) 2.3 % (0.0-7.0) Basophils (%) (Auto) 0.3 % (0.0-2.0) Neutrophils # (Auto) 5.9 10 ^3/uL (1.6-8.6) Lymphocytes # (Auto) 1.4 10 ^3/uL (0.4-5.4) Monocytes # (Auto) 0.8 10 ^3/uL (0-1.3) Eosinophils # (Auto) 0.2 10 ^3/uL (0-0.8) Basophils # (Auto) 0 10 ^3/uL (0-0.2) Nucleated Red Blood Cells 0.1 % Sodium Level 142 mmol/L (136-145) Potassium Level 3.0 mmol/L (3.5-5.1) Chloride Level 102 mmol/L (98-107) Carbon Dioxide Level 32 mmol/L (20-31) Anion Gap 8 (5-15) Blood Urea Nitrogen 22 mg/dL (9-23) Creatinine 1.13 mg/dL (0.550-1.02) Glomerular Filtration Rate Calc 53 mL/min (>90) BUN/Creatinine Ratio 19.5 (10.0-20.0) Serum Glucose 91 mg/dL (74-106) Calcium Level 9.9 mg/dL (8.7-10.4) Magnesium Level 2.5 mg/dL (1.6-2.6) Total Bilirubin 2.0 mg/dL (0.2-1.0) Aspartate Amino Transferase (AST) 34 U/L (13-40) Alanine Aminotransferase (ALT) 23 U/L (7-40) Alkaline Phosphatase 128 U/L (46-116) Total Protein 6.4 g/dL (5.7-8.2) Albumin 3.6 g/dL (3.2-4.8) Test 10/19/24 04:50 10/18/24 14:16 10/18/24 11:50 10/17/24 04:35 Troponin I High Sensitivity 58 ng/L (</=34) Blood Gas Specimen Type Arterial Blood Gas Sample Site Right radial Blood Gas Patient Temperature 37.0 Arterial Blood Date Drawn [id number] Arterial Blood pH 7.518 (7.350-7.450) Arterial Blood Partial Pressure CO2 33.5 mmHg (32.0-45.0) Arterial Blood Partial Pressure O2 82.1 mmHg (83.0-108.0) Arterial Blood HCO3 26.6 mmol/L (21.0-28.0) Arterial Blood Oxygen Saturation 96.2 % (94.0-98.0) Arterial Blood Base Excess 4.1 mmol/L (-2.0-3.0) Arterial Blood Oxyhemoglobin 94.6 % (94.0-98.0) Arterial Blood Carboxyhemoglobin 1.2 % (0.5-1.5) Arterial Blood Methemoglobin 0.5 % (0.0-1.5) Ankit Test Modified Blood Gas Total Hemoglobin 14.00 g/dL (12.0-16.0) Blood Gas Modality Vent - cpap FiO2 % 35.0 Blood Gas Pressure Support 8 Blood Gas PEEP or CPAP 5.0 Blood Gas Set Respiration Rate 20.0 Blood Gas Tidal Volume 450.0 Phosphorus Level 2.3 mg/dL (2.4-5.1) Test 10/16/24 09:30 10/15/24 04:52 10/13/24 08:15 10/13/24 04:46 Urine Potassium 30 mmol/L (12-62) Prothrombin Time 11.8 sec (9.3-11.8) Prothrombin Time INR 1.12 (0.9-1.15) Activated Partial Thromboplast Time 27.1 SEC (24.5-34.5) Blood Gas Spontaneous Rate 20 B-Type Natriuretic Peptide 1147.19 pg/mL (0-100) Test 10/10/24 11:28 10/10/24 04:46 10/09/24 13:56 10/09/24 06:06 Blood Gas Critical Value Read Back Yes Blood Gas Notified Whom Dr. brenda parada Blood Gas Notified Time [id number] Blood Gas Notified By Heating Element Builder yaz millan Anti-Nuclear Antibody Screen Negative (Negative) Venous Blood pH 7.437 (7.320-7.430) Venous Blood pCO2 at Patient Temp 43.1 mmHg (38.0-54.0) Venous Blood pO2 at Patient Temp 44.8 mmHg (23.0-48.0) Venous Blood HCO3 28.4 mmol/L (22.0-29.0) Venous Blood Base Excess 3.7 mmol/L (-2.0-3.0) Specimen Drawn By Raffy del cid rn Lactic Acid Level 1.1 mmol/L (0.4-2.0) Test 10/09/24 05:18 10/08/24 11:14 10/08/24 11:13 10/08/24 05:57 Thyroxine (T4) 6.3 ug/dL (4.5-12.0) Free Triiodothyronine (T3) pg/mL 1.76 pg/mL (2.3-4.2) Influenza Type A Antigen Negative (Negative) Influenza Type B Antigen Negative (Negative) SARS-CoV-2 Antigen (Rapid) Negative (NEGATIVE) Urine Color Light-yellow (Yellow) Urine Clarity Clear (Clear) Urine pH 5.0 (5.0-9.0) Urine Specific [place] 1.009 (1.001-1.035) Urine Protein 1+ (Negative) Urine Ketones Negative (Negative) Urine Blood 2+ /uL (Negative) Urine Nitrite Negative (Negative) Urine Bilirubin Negative (Negative) Urine Urobilinogen Normal mg/dL (Negative) Urine Leukocyte Esterase Negative /uL (Negative) Urine RBC 55 /hpf (0 - 4) Urine WBC 3 /hpf (0 - 5) Urine Squamous Epithelial Cells Few /hpf (<5) Urine Bacteria None seen /hpf (None Seen) Urine Mucus Few (None Seen) Urine Glucose Normal mg/dL (Normal) Urine Opiates Screen Neg (NEGATIVE) Urine Fentanyl Screen Pos (NEGATIVE) Urine Barbiturates Screen Neg (NEGATIVE) Urine Phencyclidine Screen Neg (NEGATIVE) Urine Amphetamines Screen Neg (NEGATIVE) Urine Benzodiazepines Screen Pos (NEGATIVE) Urine Cocaine Screen Neg (NEGATIVE) Urine Cannabinoids Screen Neg (NEGATIVE) Blood Gas Liter Flow 50.00 Test 10/08/24 04:29 10/07/24 22:56 10/07/24 22:27 10/07/24 19:07 Thyroid Stimulating Hormone (TSH) 1.20 uIU/mL (0.55-4.78) Blood Gas EPAP 5 Blood Gas IPAP 16 Plasma/Serum Blood Alcohol < 3.0 mg/dL (<10) Hemoglobin A1c 6.1 % A1C (<5.7) Vitamin B12 Level 787 pg/mL (211-911) Vitamin D 25-Hydroxy 45.7 ng/mL (30.0-100) Other Laboratory Tests 10/22/24 05:39 Brief Hx & Hospital Course: Final diagnoses: Acute on chronic systolic CHF Acute hypoxic respiratory failure s/p self-extubation and re-intubation Multi-Focal pneumonia Non-Ischemic CMP 2nd degree heart block / Bradycardia, on Dobutamine CKDIIIa Morbid obesity Hypokalemia HTN Pulmonary HTN Hypernatremia Bradycardia status post pacemaker placement She was intubated and treated in the ICU for acute respiratory failure due to heart failure and pneumonia Bradycardia was treated with dobutamine drip and needed a pacemaker eventually Because of her low ejection fraction she underwent ICD placement She subsequently was extubated successfully She has started physical therapy She started diet She is doing much better now but she is very weak and needs rehab at SNF She will be discharged to SNF once a bed is available with the Nova catheter Removed the central line Condition at Discharge: Critical Final Diagnosis/Problems List Coronary angiography did not show significant coronary artery disease butmild coronary artery disease involving the mid left circumflex system.Patient has high left ventricular end-diastolic pressure 20 mm of mercuryindicating underlying diastolic heart failure in addition to systolicheart failure Discharge Disposition: Long-Term Facility SNF Discharge Will this Physician continue t: No Discharge Instruct/Medications Diet: Cardiac 2g Na,low cholest Activity: No Restrictions, As Tolerated Follow Up/Referral: SNF Medications: See the med rec Discharge Statement: "Patient was advised to return to the ER or call 911 if any headaches, dizziness, shortness of breath, chest pain, abdominal pain, bleeding, fevers, or worsening of medical condition. Patient was counseled about treatment plan, medications, possible side effects, patientverbalized understanding. All questions were answered to the best of my ability. This discharge took greater then 30 minutes in planning, reviewing documentation, counseling the patient, and discussing with other team members." ASSESSMENT ASSESSMENT Assessment Coronary angiography did not show significant coronary artery disease butmild coronary artery disease involving the mid left circumflex system.Patient has high left ventricular end-diastolic pressure 20 mm of mercuryindicating underlying diastolic heart failure in addition to systolicheart failure Date of Service: Oct 22, 2024 Billing Provider: LOUIE RAI MD Common Visit Codes: 66521-WTF/OBS DISCH DAY >30min LOUIE RAI MD Oct 22, 2024 11:04
[2024-10-22] MEDS: SACUBITRIL-VALSARTAN 24mg/26mg TAB PO ONE (12:23)
[2024-10-22] MEDS: POTASSIUM EFFERVESENT TAB 25 MEQ PO ONE (12:23)
[2024-10-22] MEDS: POTASSIUM CHL 20MEQ/100ML 100 ML IV SCH (12:24)
--- NOTE | 2024-10-22 13:03 | DVHPN2 ---
Progress Note Date Seen: Oct 22, 2024 Medical Necessity Reason Pt with a Central, PICC or Fol: Yes The following are medically ne: PICC Line, Garcia Catheter Reason for garcia catheter: Strict I&O Subjective Patient reports: No new complaints Other Systems: Patient seen and examined by myself today in follow-up Objective vital signs Vital Sign Date Time Temp Pulse Resp B/P (MAP) Pulse Ox O2 Delivery O2 Flow Rate FiO2 10/22/24 10:01 140/61 10/22/24 10:00 59 10/22/24 09:00 97.8 20 95 97.8 10/22/24 08:25 Nasal Cannula* 2 28 Total Intake and Output 10/21/24 10/21/24 10/22/24 15:00 23:00 07:00 Intake Total 120 ml 240 ml 400 ml Output Total 500 ml Balance 120 ml 240 ml -100 ml medications Current Medications Medications Dose Ordered Sig/Sohail Route Start Time Stop Time Status Last Admin Dose Admin Sodium Chloride 10 ml Q8HR IV 10/07/24 22:00 10/22/24 12:25 10 ML Acetaminophen 650 mg Q6HP PRN PO 10/07/24 21:45 10/20/24 00:34 650 MG Dopamine HCl/ Dextrose 250 ml @ 26.831 mls/ hr Q9H20M IV 10/08/24 09:15 UNV 10/08/24 09:10 26.831 MLS/HR Enteral Nutritional Formula 1,000 ml 40ML/HR GT 10/09/24 10:15 10/17/24 20:16 1,000 ML Empaglifozin 10 mg DAILY PO 10/10/24 10:00 10/22/24 10:02 10 MG Dextrose 50 ml UD PRN IV 10/16/24 16:15 Enoxaparin Sodium 40 mg DAILY SC 10/18/24 10:00 10/22/24 10:02 40 MG Albuterol 2.5 mg Q6HPRN PRN NEB 10/18/24 17:35 10/21/24 02:16 2.5 MG Ipratropium [place] 0.5 mg Q6HPRN PRN NEB 10/18/24 17:35 10/21/24 02:16 0.5 MG Ondansetron HCl 4 mg Q4HPRN PRN IV 10/19/24 00:00 10/19/24 00:14 4 MG Docusate Sodium 100 mg BID PO 10/19/24 22:00 10/22/24 10:01 100 MG Furosemide 40 mg DAILY PO 10/20/24 10:00 10/22/24 10:01 40 MG Pantoprazole Sodium 40 mg DAILY@0600 PO 10/21/24 06:00 10/22/24 05:52 40 MG Hydralazine HCl 10 mg Q4HPRN PRN IV 10/20/24 12:00 10/21/24 05:58 10 MG Diagnostic Test (Pha) 1 strip ACHS 10/20/24 17:00 10/22/24 11:56 1 STRIP Insulin Human Regular ACHS SC 10/20/24 17:00 10/21/24 22:14 3 UNITS Carvedilol 12.5 mg Q12HR PO 10/21/24 22:00 10/21/24 22:07 12.5 MG Sacubitril/ Valsartan 1 tab BID PO 10/21/24 22:00 Potassium Chloride 100 ml @ 50 mls/hr Q2H IV 10/22/24 11:15 10/22/24 15:14 10/22/24 12:24 50 MLS/HR Examination: LUNGS:Normal, CVS:Normal, MSK:Normal laboratory and microbiology Laboratory Tests 10/22/24 05:39 Test 10/22/24 05:39 Range/Units Serum Glucose 91 74-106 mg/dL Microbiology Date/Time Source Procedure Growth Status 10/10/24 13:50 Nose MRSA Screen - Final Complete 10/09/24 10:58 Bronchial Washings Gram Stain - Final Complete 10/09/24 10:58 Bronchial Washings Respiratory Culture - Final Complete 10/09/24 03:06 Voided Urine Urine Culture - Final Complete 10/08/24 18:32 Blood Blood Culture - Final NO GROWTH AFTER 5 DAYS OF INCUBATION. Complete Problem List/Assessment/Plan Problem List/Assessment/Plan Acute kidney injury superimposed Chronic Kidney Disease stage 3 a secondary hemodynamic mediated Acute hypoxic respiratory failure, O2 nasal cannula decompensated HF EF 20% Morbid obesity bradycardia status post pacemaker Hypokalemia, replace Prediabetes Hypokalemia Recommendations Kidney function is improving Increased urine output Strict I&Os I agree with diuresis KCL replacement We will continue to follow Plan discussed with: Patient My Orders My Orders Orders - CLAIRE RICCI MD Procedure Category Date Status Time Potassium Chl PHA 10/22/24 In Process 20meq/100ml 11:15 Dietary Evaluation Review Comments: 1) If GI is accessible consider Glucerna 1.2 @ 55 ml/hr goal rate as tolerated 2) If pt remains NPO >7 days consider TPN to meet a least 75% of estimated needs 3) Advance pt diet when medically feasible to a CCHO 60g/Cardiac diet 4) Continue current plan of care Expected Outcomes/Goals: 1) Pt to receive nutrition support within 7 days of NPO status 2) Pt diet to advance 3) Continue current plan of care CLAIRE RICCI MD Oct 22, 2024 13:03
--- NOTE | 2024-10-22 21:11 | DVHPN2 ---
Progress Note - Dictate Date Seen: Oct 22, 2024 Medical Necessity Reason Pt with a Central, PICC or Fol: Yes The following are medically ne: PICC Line, Garcia Catheter Reason for garcia catheter: Strict I&O Subjective Patient seen and examined at bedside. Remains on supplemental oxygen. Overnight events reviewed. vital signs Vital Sign Date Time Temp Pulse Resp B/P (MAP) Pulse Ox O2 Delivery O2 Flow Rate FiO2 10/22/24 17:00 98.3 75 20 163/82 (109) 90 98.3 10/22/24 08:25 Nasal Cannula* 2 28 Total Intake and Output 10/21/24 10/21/24 10/22/24 15:00 23:00 07:00 Intake Total 120 ml 240 ml 400 ml Output Total 500 ml Balance 120 ml 240 ml -100 ml medications Current Medications Medications Dose Ordered Sig/Sohail Route Start Time Stop Time Status Last Admin Dose Admin Dopamine HCl/ Dextrose 250 ml @ 26.831 mls/ hr Q9H20M IV 10/08/24 09:15 UNV 10/08/24 09:10 26.831 MLS/HR objective Gen.: Patient lying in bed in no apparent distress. On supplemental oxygen. Head: Normocephalic, atraumatic. Eyes: EOMI/PERRLA. Ears: Normal hearing. Normal anatomy. Neck/trachea: Trachea midline, supple. Nose: Normal external anatomy. Mouth: Moist mucous membranes. Chest: Decreased air entry bilaterally. No wheezing or rhonchi. Cardiovascular: Positive S1, positive S2. Regular rate and rhythm. Abdomen: Positive bowel sounds in all 4 quadrants. Soft, non-tender, non- distended. : Deferred. Rectal: Deferred. Skin: Warm, dry. Intact. Extremities: 2+ radial pulses bilaterally. No lower extremity edema. Neuro: Awake, alert, oriented x3. No gross motor or sensory deficits. Cranial nerves II through XII intact. Gait not assessed. laboratory and microbiology Laboratory Tests 10/22/24 05:39 Test 10/22/24 05:39 Range/Units Serum Glucose 91 74-106 mg/dL Assessment/Plan Impression: Acute hypoxic respiratory failure Congestive heart failure, reduced ejection fraction 20% Nonischemic cardiomyopathy based on recent [facility] NSTEMI type 2 Acute kidney injury Hypertensive emergency Morbid obesity Events: Remains on supplemental oxygen 2 LPM NC. Taper O2 as tolerated Remove central line. Cardiology recs appreciated. Incentive spirometry Diurese as tolerated w/ Lasix QD Monitor renal function Monitor electrolytes. Supplement as necessary. Maintain euvolemia Head of bed elevation Aspiration precautions Protonix for GI prophylaxis. Disposition per hospitalist. S/p Therapeutic bronchoscopy on 10/18 - removed thick secretions from RLL and LLL. Labs and imaging reviewed. Rest of plan as noted below Plan: s/p extubation on 10/18. On supplemental oxygen Titrate to keep O2 sats above 92%. Off Precedex. Antibiotics. F/u cultures. Dobutamine drip - on hold. Cardiology recommendations appreciated S/p transcutaneous pacemaker S/p left heart cath. S/p Electrophysiology AICD placement Pressors as necessary for hemodynamic support Titrate to keep mean arterial pressure greater than 65 mmHg. Monitor renal function Monitor electrolytes. Supplement as necessary. Monitor ins and outs. Maintain euvolemia. GI prophylaxis. DVT prophylaxis. Prognosis: Poor given patient's multiple co-morbidities. Rest of plan per hospitalist and other consultants. Thank you Dr. Marquise Conley MD, for allowing me to participate in this patient's care. Further recommendations will depend on the patient's clinical course. Please do not hesitate to contact me if you have any questions or concerns. This medical document was created using an electronic medical record system with [employer] dictation system. Although these documentations are being carefully reviewed, there may still be some phonetic and typographical changes. The errors are purely typographical, due to imperfection on the software program, and do not reflect any compromise in the patient's medical care. Dietary Evaluation Review Comments: 1) If GI is accessible consider Glucerna 1.2 @ 55 ml/hr goal rate as tolerated 2) If pt remains NPO >7 days consider TPN to meet a least 75% of estimated needs 3) Advance pt diet when medically feasible to a CCHO 60g/Cardiac diet 4) Continue current plan of care Expected Outcomes/Goals: 1) Pt to receive nutrition support within 7 days of NPO status 2) Pt diet to advance 3) Continue current plan of care Plan discussed with: Patient, Other (KAMRYN Bajwa) HO MELENDEZ MD Oct 22, 2024 21:11
--- NOTE | 2024-10-27 09:39 | ECG ---
[facility] Test Date: 2024-10-15 Test Time: 17:59:48 Pat Name: EVE STEWART Department: Respiratoy Room: 0249T A Gender: F Flatbed Press Operator: MORRO : 1955 Requested By: GENI THOMAS Order Number: [id number] Reading MD: Sarbjit Greenwood Measurements Intervals [place] Rate: 60 P: 0 DE: 187 QRS: 257 QRSD: 174 T: 74 QT: 560 QTc: 560 Interpretive Statements Atrial-ventricular dual-paced complexes No further analysis attempted due to paced rhythm Electronically Signed On 10-28-2024 9:07:54 PST by Sarbjit Greenwood Please click the below link to view image of tracing.
--- NOTE | 2024-10-27 10:27 | ECG ---
[facility] Test Date: 2024-10-12 Test Time: 02:18:43 Pat Name: EVE STEWART Department: Respiratoy Room: 0249T A Gender: F Law Firm Administrator: OLYA : 1955 Requested By: GISELLA HINDS Order Number: [id number] Reading MD: Sarbjit Greenwood Measurements Intervals [place] Rate: 43 P: 0 VT: 305 QRS: 88 QRSD: 118 T: 192 QT: 510 QTc: 432 Interpretive Statements Second degree AV block, Mobitz II Incomplete left bundle branch block Probable LVH with secondary repol abnrm Electronically Signed On 10-28-2024 9:07:40 PST by Sarbjit Greenwood Please click the below link to view image of tracing.
--- NOTE | 2024-10-27 10:27 | ECG ---
[facility] [place] Test Date: 2024-10-12 Test Time: 02:09:42 Pat Name: EVE STEWART Department: Respiratoy Room: 0249T A Gender: F Equipment Service Technician: OLYA : 1955 Requested By: GISELLA HINDS Order Number: [id number] Reading MD: Sarbjit Greenwood Measurements Intervals [place] Rate: 46 P: 33 CT: 364 QRS: 89 QRSD: 120 T: 192 QT: 478 QTc: 419 Interpretive Statements Sinus bradycardia Prolonged CT interval Incomplete left bundle branch block Electronically Signed On 10-28-2024 9:07:38 PST by Sarbjit Greenwood Please click the below link to view image of tracing.
--- NOTE | 2024-10-27 10:27 | ECG ---
[facility] Test Date: 2024-10-12 Test Time: 02:14:42 Pat Name: EVE STEWART Department: Respiratoy Room: 0249T A Gender: F Auditor Medical Claims: OLYA : 1955 Requested By: GISELLA HINDS Order Number: [id number] Reading MD: Sarbjit Greenwood Measurements Intervals [place] Rate: 46 P: 0 AR: 378 QRS: 91 QRSD: 124 T: 195 QT: 500 QTc: 438 Interpretive Statements Second degree AV block, Mobitz II Sinus pause Left bundle branch block Electronically Signed On 10-28-2024 9:07:40 PST by Sarbjit Greenwood Please click the below link to view image of tracing.
--- NOTE | 2024-10-27 10:27 | ECG ---
[facility] Test Date: 2024-10-12 Test Time: 02:11:06 Pat Name: EVE STEWART Department: Respiratoy Room: 0249T A Gender: F Luncheonette Operator: OLYA : 1955 Requested By: GISELLA HINDS Order Number: [id number] Reading MD: Sarbjit Greenwood Measurements Intervals [place] Rate: 46 P: 60 NE: 356 QRS: 91 QRSD: 119 T: 175 QT: 501 QTc: 439 Interpretive Statements Second degree AV block, Mobitz II Incomplete left bundle branch block Electronically Signed On 10-28-2024 9:07:38 PST by Sarbjit Greenwood Please click the below link to view image of tracing.
--- NOTE | 2024-10-27 10:27 | ECG ---
[facility] Test Date: 2024-10-12 Test Time: 02:13:43 Pat Name: EVE STEWART Department: Respiratoy Room: 0249T A Gender: F Attendance Secretary: OLYA : 1955 Requested By: GISELLA HINDS Order Number: [id number] Reading MD: Sarbjit Greenwood Measurements Intervals [place] Rate: 45 P: 79 IA: 339 QRS: 88 QRSD: 121 T: 171 QT: 501 QTc: 434 Interpretive Statements Sinus bradycardia Prolonged [place] interval Left bundle branch block Electronically Signed On 10-28-2024 9:07:39 PST by Sarbjit Greenwood Please click the below link to view image of tracing.
--- NOTE | 2024-10-27 10:27 | ECG ---
[facility] Test Date: 2024-10-12 Test Time: 02:20:54 Pat Name: EVE STEWART Department: Respiratoy Room: 0249T A Gender: F Metal Cleaner: OLYA : 1955 Requested By: GISELLA HINDS Order Number: [id number] Reading MD: Sarbjit Greenwood Measurements Intervals [place] Rate: 41 P: 0 [place]: 0 QRS: 85 QRSD: 126 T: 184 QT: 520 QTc: 430 Interpretive Statements A-flutter/fibrillation w/ complete AV block Left bundle branch block Electronically Signed On 10-28-2024 9:07:41 PST by Sarbjit Greenwood Please click the below link to view image of tracing.
--- NOTE | 2024-10-27 10:33 | ECG ---
[facility] Test Date: 2024-10-11 Test Time: 00:53:36 Pat Name: EVE STEWART Department: Respiratoy Room: 0249T A Gender: F Director Of Family Service Center: CHRISTEN : 1955 Requested By: GISELLA HINDS Order Number: [id number] Reading MD: Sarbjit Greenwood Measurements Intervals [place] Rate: 39 P: 0 IL: 0 QRS: 59 QRSD: 114 T: 169 QT: 515 QTc: 415 Interpretive Statements Sinus bradycardia Second deg AVB, Mobitz I (Coy) Consider anterior infarct Abnormal T, consider ischemia, lateral leads Electronically Signed On 10-28-2024 9:07:24 PST by Sarbjit Greenwood Please click the below link to view image of tracing.
--- NOTE | 2024-10-27 10:33 | ECG ---
[facility] Test Date: 2024-10-11 Test Time: 00:54:40 Pat Name: EVE STEWART Department: Respiratoy Room: 0249T A Gender: F Contract Runner: CHRISTEN : 1955 Requested By: GISELLA HINDS Order Number: [id number] Reading MD: Sarbjit Greenwood Measurements Intervals [place] Rate: 49 P: 0 [place]: 0 QRS: 58 QRSD: 115 T: 171 QT: 520 QTc: 470 Interpretive Statements Junctional rhythm Nonspecific intraventricular conduction delay Consider anterior infarct Abnormal T, consider ischemia, lateral leads Electronically Signed On 10-28-2024 9:07:26 PST by Sarbjit Greenwood Please click the below link to view image of tracing.
--- NOTE | 2024-10-27 15:10 | ECG ---
[facility] Test Date: 2024-10-18 Test Time: 23:18:25 Pat Name: EVE STEWART Department: Room: 0249T A Gender: F Nutritionalist: RUDDY : 1955 Requested By: GISELLA HINDS Order Number: [id number] Reading MD: Sarbjit Greenwood Measurements Intervals [place] Rate: 60 P: 0 RI: 179 QRS: 268 QRSD: 183 T: 75 QT: 481 QTc: 481 Interpretive Statements Atrial-ventricular dual-paced complexes No further analysis attempted due to paced rhythm Baseline wander in lead(s) III,aVF Electronically Signed On 10-28-2024 9:08:18 PST by Sarbjit Greenwood Please click the below link to view image of tracing.
== END 2024-10-22 18:01 | DRG 275 ==
LOC: ER 18:56 → TELE 21:40 → ICU CENTRL 10-09 15:46 → TELE-EAST 10-19 14:31
PROVIDERS: ADMIT Internal Medicine Pulmonary Disease; ATTEND Internal Medicine Geriatric Medicine
PROC: 5A09357 Assistance with Respiratory Ventilation, Less than 24 Consecutive Hours, Continuous Positive Airway Pressure (ICD-10-PCS; 2024-10-07)
PROC: 02HV33Z Insertion of Infusion Device into Superior Vena Cava, Percutaneous Approach (ICD-10-PCS; 2024-10-08)
PROC: B548ZZA Ultrasonography of Superior Vena Cava, Guidance (ICD-10-PCS; 2024-10-08)
PROC: 0BH17EZ Insertion of Endotracheal Airway into Trachea, Via Natural or Artificial Opening (ICD-10-PCS; 2024-10-08)
PROC: 5A1955Z Respiratory Ventilation, Greater than 96 Consecutive Hours (ICD-10-PCS; 2024-10-08)
PROC: 5A0935A Assistance with Respiratory Ventilation, Less than 24 Consecutive Hours, High Flow/Velocity Cannula (ICD-10-PCS; 2024-10-08)
PROC: 0B968ZZ Drainage of Right Lower Lobe Bronchus, Via Natural or Artificial Opening Endoscopic (ICD-10-PCS; 2024-10-09)
PROC: 0B9J8ZZ Drainage of Left Lower Lung Lobe, Via Natural or Artificial Opening Endoscopic (ICD-10-PCS; 2024-10-09)
PROC: 4A023N7 Measurement of Cardiac Sampling and Pressure, Left Heart, Percutaneous Approach (ICD-10-PCS; 2024-10-09)
PROC: B211YZZ Fluoroscopy of Multiple Coronary Arteries using Other Contrast (ICD-10-PCS; 2024-10-09)
PROC: 0BH17EZ Insertion of Endotracheal Airway into Trachea, Via Natural or Artificial Opening (ICD-10-PCS; 2024-10-10)
PROC: 0JH608Z Insertion of Defibrillator Generator into Chest Subcutaneous Tissue and Fascia, Open Approach (ICD-10-PCS; principal; 2024-10-15)
PROC: 02H63KZ Insertion of Defibrillator Lead into Right Atrium, Percutaneous Approach (ICD-10-PCS; 2024-10-15)
PROC: 02HK3KZ Insertion of Defibrillator Lead into Right Ventricle, Percutaneous Approach (ICD-10-PCS; 2024-10-15)
PROC: B517YZZ Fluoroscopy of Left Subclavian Vein using Other Contrast (ICD-10-PCS; 2024-10-15)
PROC: 0BC78ZZ Extirpation of Matter from Left Main Bronchus, Via Natural or Artificial Opening Endoscopic (ICD-10-PCS; 2024-10-18)
DX: I13.0 Hypertensive heart and chronic kidney disease with heart failure and stage 1 through stage 4 chronic kidney disease, or unspecified chronic kidney disease (principal); I21.A1 Myocardial infarction type 2; J96.01 Acute respiratory failure with hypoxia; I50.23 Acute on chronic systolic (congestive) heart failure; J15.69 Pneumonia due to other Gram-negative bacteria; J15.9 Unspecified bacterial pneumonia; I16.1 Hypertensive emergency; N17.9 Acute kidney failure, unspecified; E87.0 Hyperosmolality and hypernatremia; J44.0 Chronic obstructive pulmonary disease with (acute) lower respiratory infection; Z99.11 Dependence on respirator [ventilator] status; I42.8 Other cardiomyopathies; E66.01 Morbid (severe) obesity due to excess calories; J44.89 Other specified chronic obstructive pulmonary disease; I25.10 Atherosclerotic heart disease of native coronary artery without angina pectoris; E11.22 Type 2 diabetes mellitus with diabetic chronic kidney disease; E87.6 Hypokalemia; I27.20 Pulmonary hypertension, unspecified; I44.1 Atrioventricular block, second degree; N18.31 Chronic kidney disease, stage 3a; R74.01 Elevation of levels of liver transaminase levels; G90.89 Other disorders of autonomic nervous system; Z82.49 Family history of ischemic heart disease and other diseases of the circulatory system; Z79.899 Other long term (current) drug therapy; Z79.4 Long term (current) use of insulin
CPT/HCPCS: 33249; 36012; 36415; 36600; 70450; 71045; 71275; 80048; 80053; 80307; 80320; 81001; 82306; 82607; 82805; 82962; 83036; 83605; 83735; 83880; 84100; 84132; 84133; 84436; 84443; 84481; 84484; 85025; 85610; 85730; 86038; 86850; 86900; 86901; 87040; 87070; 87081; 87086; 87205; 87426; 87804; 92610; 93005; 93306; 93458; 93970; 94003; 94640; 94660; 97110; 97163; 97530; 99152; G0378; J0171; J0461; J1815; J2250; J2405; J2470; J3480; J3490; J7060; Q9967

== ENCOUNTER 2025-04-11 17:55 | Emergency (ER) | payer OTHER, MEDICAID ==
[~2025-04-11] VITALS: Ht 175.3 cm; Wt 122.7 kg
[2025-04-11 18:05] VITALS: BP 161/79; TEMP 97.6
--- NOTE | 2025-04-11 18:08 | ED.PDOC ---
History of Present Illness HPI Comments 69 year old female presents to the ED with a chief complaint of abnormal labs onset today (04/11/25) as well as shortness a breath concerns. Patient states PCP called her, BMP elevated BMP 1999 +, was sent to ED for CHF exacerbation. Patient was placed on O2 upon ED arrival. PMHx COPD, CHF, asthma. No other symptoms or modifying factors present at this time. Patient was hypertensive on arrival. 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 01/24/24 Reported Medications Albuterol Sulfate (Proair Respiclick) 108 Mcg/Act Aer 08/19/17 Information Source: Patient Mode of Arrival: Ambulatory Severity: Moderate Timing: Hours Duration: Since onset Prehospital treatment: None Past Medical History PAST MEDICAL HISTORY: Asthma, CHF, COPD, DM, HTN, UTI'S Surgical History: Denies all surgeries 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 Family History Family History: Unknown Social History Smoker: Non-Smoker Alcohol: Denies ETOH Use Drugs: Denies Drug Use Lives In: Home Constitutional: denies: chills, diaphoresis, fatigue, fever, malaise, sweats, weakness, others EENTM: denies: blurred vision, double vision, ear bleeding, ear discharge, ear drainage, ear pain, ear ringing, eye pain, eye redness, hearing loss, mouth pain, mouth swelling, nasal discharge, nose bleeding, nose congestion, nose pain, photophobia, tearing, throat pain, throat swelling, voice changes, others Respiratory: reports: shortness of breath; denies: cough, hemoptysis, orthopnea, SOB at rest, SOB with excertion, stridor, wheezing, others Cardiovascular: denies: chest pain, dizzy spells, diaphoresis, Dyspnea on exertion, edema, irregular heart beat, left arm pain, lightheadedness, palpi tations, PND, syncope, others Gastrointestinal: denies: abdomen distended, abdominal pain, blood streaked bowels, constipated, diarrhea, dysphagia, difficulty swallowing, hematemesis, melena, nausea, poor appetite, poor fluid intake, rectal bleeding, rectal pain, vomiting, others Genitourinary: denies: abnormal vagina bleeding, burning, dyspareunia, dysuria, flank pain, frequency, hematuria, incontinence, pain, , vagina discharge, urgency, others Neurological: denies: dizziness, fainting, headache, left sided numbness, left sided weakness, numbness, paresthesia, pre-existing deficit, right sided numbness, right sided weakness, seizure, speech problems, tingling, tremors, weakness, others Musculoskeletal: denies: back pain, gout, joint pain, joint swelling, muscle pain, muscle stiffness, neck pain, others Integumetry: denies: bruises, change in color, change in hair/nails, dryness, laceration, lesions, lumps, rash, wounds, others Allergic/Immunocompromised: denies: Difficulty Healing, Frequent Infections, Hives, Itching, others Hematologic/Lymphatic: denies: anemia, blood clots, easy bleeding, easy bru ising, swollen glands, others Endocrine: denies: excessive hunger, excessive sweating, excessive thirst, e xcessive urination, flushing, intolerance to cold, intolerance to heat, unexplained weight gain, unexplained weight loss, others Psychiatric: denies: anxiety, bipolar disorder, depression, hopeless, panic disorder, schizophrenia, sleepless, suicidal, others All Other Systems: Reviewed and Negative Physical Exam General Appearance: Moderate Distress ([id number] distress due to shortness a breath concerns. Patient appears to be in poor overall health.), Obese HEENT: Normal ENT Inspection, Pharynx Normal, TMs Normal Neck: Full Range of Motion, Non-Tender, Normal, Normal Inspection Respiratory: Chest Non-Tender, No Accessory Muscle Use, No Respiratory Distress, Other (Patchy rhonchi appreciated in right middle, right lower and left upper lobe.) Cardiovascular: No Edema, No JVD, No Murmur, No Gallop, Normal Peripheral Pulses, Regular Rate/Rhythm Breast Exam: Deferred Gastrointestinal: No Organomegaly, Non Tender, No Pulsatile Mass, Normal Bowel Sounds, Soft Genitalia: Deferred Pelvic: Deferred Rectal: Deferred Extremities: No calf tenderness, Normal capillary refill, Non-tender Musculoskeletal : Apperance: Normal Neurologic: Alert, No Motor Deficits, Normal Affect, Normal Mood, No Sensory Deficits Cerebellar Function: NOT DONE Reflexes: NOT DONE Skin: Dry, Normal Color, Warm Lymphatic: No Adenopathy Was a procedure done? Was a procedure done?: No Differential Dx Considerations may include: Sepsis, electrolyte abnormality, acute CHF exacerbation, pneumonia, COPD exacerbation X-Ray, Labs, Meds, VS Vital Signs Date Time Temp Pulse Resp B/P (MAP) Pulse Ox O2 Delivery O2 Flow Rate FiO2 04/11/25 21:30 158/94 04/11/25 18:15 158/94 04/11/25 18:13 60 04/11/25 18:13 Nasal Cannula* 2 28 04/11/25 18:05 97.6 61 20 161/79 (106) 95 97.6 Lab Test 04/11/25 21:57 04/11/25 19:32 04/11/25 18:17 Range/Units Urine Color Light-yellow Yellow Urine Clarity Clear Clear Urine pH 6.0 5.0-9.0 Urine Specific [place] 1.011 1.001-1.035 Urine Protein 1+ H Negative Urine Ketones Negative Negative Urine Blood Negative Negative /uL Urine Nitrite Negative Negative Urine Bilirubin Negative Negative Urine Urobilinogen Normal Negative mg/dL Urine Leukocyte Esterase Negative Negative /uL Urine RBC 1 0 - 4 /hpf Urine Microscopic WBC 2 0-5 /HPF Urine Squamous Epithelial Cells Few <5 /hpf Urine Bacteria Few H None Seen /hpf Urine Hyaline Casts Few 0 - 2 /lpf Urine Glucose 3+ H Normal mg/dL Troponin I High Sensitivity 27 23 </=34 ng/L White Blood Count 2.6 L 4.4-10.8 10^3/uL Red Blood Count 4.66 4.0-5.20 10^6/uL Hemoglobin 11.9 L 12.2-16.2 g/dL Hematocrit 38.0 36.0-46.0 % Mean Corpuscular Volume 81.5 80.0-100.0 fL Mean Corpuscular Hemoglobin 25.5 L 28.0-32.0 pg Mean Corpuscular Hemoglobin Concent 31.2 L 32.0-36.0 g/dL Red Cell Distribution Width 16.7 H 11.8-14.3 % Platelet Count 173 140-450 10^3/uL Mean Platelet Volume 9.8 6.9-10.8 fL Neutrophils (%) (Auto) 38.8 37.0-80.0 % Lymphocytes (%) (Auto) 39.8 10.0-50.0 % Monocytes (%) (Auto) 15.8 H 0.0-12.0 % Eosinophils (%) (Auto) 4.0 0.0-7.0 % Basophils (%) (Auto) 1.6 0.0-2.0 % Neutrophils # (Auto) 1.0 L 1.6-8.6 10 ^3/uL Lymphocytes # (Auto) 1.0 0.4-5.4 10 ^3/uL Monocytes # (Auto) 0.4 0-1.3 10 ^3/uL Eosinophils # (Auto) 0.1 0-0.8 10 ^3/uL Basophils # (Auto) 0 0-0.2 10 ^3/uL Nucleated Red Blood Cells 0.3 % Sodium Level 146 H 136-145 mmol/L Potassium Level 4.3 3.5-5.1 mmol/L Chloride Level 107 98-107 mmol/L Carbon Dioxide Level 30 20-31 mmol/L Anion Gap 9 5-15 Blood Urea Nitrogen 19 9-23 mg/dL Creatinine 1.52 H 0.550-1.02 mg/dL Glomerular Filtration Rate Calc 37 >90 mL/min BUN/Creatinine Ratio 12.5 10.0-20.0 Serum Glucose 87 74-106 mg/dL Lactic Acid Level 1.2 0.4-2.0 mmol/L Calcium Level 10.2 8.7-10.4 mg/dL Total Bilirubin 1.4 H 0.2-1.0 mg/dL Aspartate Amino Transferase (AST) 15 13-40 U/L Alanine Aminotransferase (ALT) 14 7-40 U/L Alkaline Phosphatase 94 46-116 U/L B-Type Natriuretic Peptide 1818.79 0-100 pg/mL Total Protein 6.7 5.7-8.2 g/dL Albumin 4.2 3.2-4.8 g/dL Lipase 32 12-53 U/L Current Medications Medications (Trade) Dose Ordered Sig/Sohail Route Start Time Stop Time Status Last Admin Furosemide (Lasix Injection) 60 mg ONCE ONCE IV 04/11/25 18:15 04/11/25 18:16 DC 5/16/25 18:15 Clonidine HCl (Catapres Tablet) 0.1 mg ONCE ONCE PO 04/11/25 21:30 04/11/25 21:31 DC 04/11/25 21:30 X-Ray, Labs, Meds, VS Comment All studies performed the ED were evaluated by me personally. EKG revealed a sinus rhythm with a rate of 60. Probable left atrial enlargement, right bundle- branch block and anterior lateral infarct that is age indeterminate. AK interval of 189 and QT interval of 466. Serum laboratories revealed a leukopenia, anemia and a significant BNP burden patient service representative of a acute CHF exacerbation. Chest x-ray revealed cardiomegaly with left ventricular contour. No evidence of airspace consolidation or pulmonary venous congestion. Patient will be admitted for management of her acute CHF exacerbation and support of any other comorbidities including probable blood pressure concerns. Patient is a [employer] patient and therefore, I discussed the case with Dr. Marrufo. Advised her of initial presentation and request from her primary care provider as well as laboratory and imaging findings. She agreed to accept the patient as a an admission. Time of 1ST Reevaluation: 21:34 Reevaluation 1ST: Improved Consultation: PCP, Cardiology Patient Education/Counseling: Diagnosis, Treatment, Prognosis Family Education/Counseling: Diagnosis, Treatment, No Family Present Departure 1 Departure Time of Disposition: 21:41 Impression: Primary Impression: Acute exacerbation of CHF (congestive heart failure) Additional Impressions: Leukopenia Anemia Disposition: 09 ADMITTED INPATIENT Condition: Stable Discharged With: Self, Friend Critical Care Note Critical Care Time?: No Stability Stability form required: No Heart Score Heart Score: Heart Score Response (Comments) Value History Slightly Suspicious [address]-Deviation 2 Age >65 2 Risk Factors 1 or 2 risk factors 1 Troponin Normal limit 0 Total 5 I personally scribed for RYAN MILNER PAC ([email or web address]) on 04/11/25 at 18:08. Electronically submitted by Indigo Valero ([email or web address]). RYAN MILNER PAC April 11, 2025 18:08
[2025-04-11 18:13] VITALS: PULSE 60
[2025-04-11] MEDS: FUROSEMIDE 100 MG/10ML VIAL IV ONE (18:15)
[2025-04-11 18:33] LABS: Basophils # (auto) 0 10 ^3/uL (0-0.2); Basophils % (auto) 1.6 % (0.0-2.0); Eosinophils # (auto) 0.1 10 ^3/uL (0-0.8); Hemoglobin 11.9 g/dL (12.2-16.2); Lymphocytes % (auto) 39.8 % (10.0-50.0); Mean Corpuscular Hemoglobin 25.5 pg (28.0-32.0); Mean Corpuscular Hgb Conc. 31.2 g/dL (32.0-36.0); Mean Corpuscular Volume 81.5 fL (80.0-100.0); Monocytes # (auto) 0.4 10 ^3/uL (0-1.3); Monocytes % (auto) 15.8 % (0.0-12.0); Neutrophils % (auto) 38.8 % (37.0-80.0); Nucleated Red Blood Cells % 0.3 %; Platelet Count (auto) 173 10^3/uL (140-450); Red Blood Cells 4.66 10^6/uL (4.0-5.20); Red Cell Distribution Width 16.7 % (11.8-14.3); White Blood Cell 2.6 10^3/uL (4.4-10.8)
[2025-04-11 18:52] LABS: Alanine Aminotransferase 14 U/L (7-40); Albumin 4.2 g/dL (3.2-4.8); Alkaline Phosphatase 94 U/L (46-116); Anion Gap 9 (5-15); Aspartate Aminotransferase 15 U/L (13-40); BUN/Creatinine Ratio 12.5 (10.0-20.0); Blood Urea Nitrogen 19 mg/dL (9-23); Calcium 10.2 mg/dL (8.7-10.4); Carbon Dioxide 30 mmol/L (20-31); Chloride 107 mmol/L (98-107); Glucose 87 mg/dL (74-106); Potassium 4.3 mmol/L (3.5-5.1); Total Protein 6.7 g/dL (5.7-8.2)
[2025-04-11 18:53] LABS: Bilirubin, Total 1.4 mg/dL (0.2-1.0); Sodium 146 mmol/L (136-145)
[2025-04-11 19:03] LABS: Lipase 32 U/L (12-53)
--- NOTE | 2025-04-11 19:43 | DVH ---
INDICATION: Shortness of breath TECHNIQUE: Frontal view of the chest. COMPARISON: XY CHEST XRAY 1 VIEW on DOS: 10/18/24, XY CHEST PORTABLE on DOS: 10/16/24, XY CHEST EVON BLE on DOS: 10/15/24, XY CHEST PORTABLE on DOS: 10/15/24, XY CHEST PORTABLE on DOS: 10/14/24 FINDINGS: Findings:. The heart large with left ventricular contour. There is a left-sided AICD with lead in rig ht atrium and right ventricle. The mediastinal contours are grossly unremarkable. There is no eviden ce of pleural disease. The lungs are clear. The bony structures of the chest are intact without fr acture. Osteoarthropathy of the both glenohumeral joints. IMPRESSION: 1. Cardiomegaly with left ventricular contour 2. No evidence of airspace consolidation or pulmonary venous congestion
[2025-04-11] MEDS: cloNIDine HCL 0.1 MG TAB PO ONE (21:30)
[2025-04-11 22:10] LABS: Urine Bacteria FEW /hpf (None Seen); Urine Blood Negative /uL (Negative); Urine Clarity Clear (Clear); Urine Color Light-Yellow (Yellow); Urine Hyaline Cast FEW /lpf (0 - 2); Urine Protein, UAD 1+ (Negative); Urine Specific Gravity 1.011 (1.001-1.035); Urine Squamous Epithelial Cell FEW /hpf (<5); Urine Urobilinogen Normal (Negative); Urine WBC 2 /HPF (0-5)
[2025-04-11] MEDS: FUROSEMIDE 40 MG TAB PO ONE (23:47)
[2025-04-12] MEDS: hydrALAZINE HCL 10 MG TAB PO ONE (00:15)
[2025-04-12] MEDS: FUROSEMIDE 20 MG/2 ML VIAL IV ONE (00:15)
[2025-04-12] MEDS: DexAMETHasone SOD PHOS 10MG/1ML VIAL INJ IV ONE (00:15)
[2025-04-12 00:20] VITALS: RESP 20; O2SAT 95
[2025-04-12] MEDS: ALBUTEROL SULF 2.5 MG/0.5ML(0.5%) NEB SOLN NEB ONE (00:31)
[2025-04-12] MEDS: IPRATROPIUM BROM 0.5 MG/2.5ML INH SOL NEB ONE (00:31)
--- NOTE | 2025-04-12 00:55 | DVHDS2 ---
Physician Discharge Progress N Final Diagnosis: CHF Asthma Operations or Procedures: Operations or Procedures none Other Interventions Other Interventions lab results, EKG, CXR Consultations: Consultations none Commentary: Commentary 69 year old female with CHF with AICD, asthma, morbid obesity, HTN, was referred to the ED by her PMD for elevated BNP. Patient c/o SOB and more LE swelling lately. Patient uses home oxygen 2-3L/min as well as albuterol and steroid inhalers. Patient visited her police chief Dr. Florian a few days ago who recommended to increase her Lasix from 40mg once a day to 40mg twice a day. In the ED her oxygen saturation is 94 on 2 L which is her usual home dosage. CXR shows no pulmonary vascular congestion. Patient has 1+ pitting edema on her LE. SHe denies CP, fever, cough and other symptoms. Troponin is negative. Patient received 3 dosed of Lasix , Duoneb, Decadron in the ER. Patient will be discharged home to continue Lasix three times a day for the next three days and then continue her usual dose of 40mg twice a day Condition on Discharge: Stable Disposition: Home SNF Discharge Will this Physician continue t: No Discharge Instructions: Diet: Cardiac 2g Na,low cholest Activity: No Restrictions, As Tolerated Follow Up/Referral: PMD, police chief and moveman as scheduled Medications: Continue home medications. Take Lasix 40 mg TID for the next 3 days, then twice a day as usual dose Follow Up Care: Discharge Statement: "Patient was advised to return to the ER or call 911 if any headaches, dizziness, shortness of breath, chest pain, abdominal pain, bleeding, fevers, or worsening of medical condition. Patient was counseled about treatment plan, medications, possible side effects, patientverbalized understanding. All questions were answered to the best of my ability. This discharge took greater then 30 minutes in planning, reviewing do cumentation, counseling the patient, and discussing with other team members." DAVID PACHECO MD April 12, 2025 00:55
--- NOTE | 2025-04-14 10:33 | ECG ---
[facility] Test Date: 2025-04-11 Test Time: 18:13:00 Pat Name: EVE STEWART Department: ER Room: Gender: F Cloth Presser: MAYELIN : 1955 Requested By: RYAN MILNER Order Number: [id number] Reading MD: Measurements Intervals [place] Rate: 60 P: 120 NE: 189 QRS: -148 QRSD: 162 T: 87 QT: 466 QTc: 466 Interpretive Statements Sinus rhythm Probable left atrial enlargement Right bundle branch block Anterolateral infarct, age indeterminate Please click the below link to view image of tracing.
== END 2025-04-12 01:48 | disposition home or self-care (01) ==
LOC: ER 17:58
DX: I11.0 Hypertensive heart disease with heart failure (principal); I50.9 Heart failure, unspecified; D64.9 Anemia, unspecified; D72.819 Decreased white blood cell count, unspecified; E11.9 Type 2 diabetes mellitus without complications; E66.01 Morbid (severe) obesity due to excess calories; J44.89 Other specified chronic obstructive pulmonary disease; Z79.899 Other long term (current) drug therapy; Z87.440 Personal history of urinary (tract) infections; Z88.8 Allergy status to other drugs, medicaments and biological substances; Z95.810 Presence of automatic (implantable) cardiac defibrillator
CPT/HCPCS: 36415; 71045; 80053; 81001; 83605; 83690; 83880; 84484; 85025; 93005; 94640; 96374; 96375; 96376; 99284; J1100; J1940

== ENCOUNTER 2025-04-24 19:12 | Inpatient (IN) | payer OTHER, MEDICAID ==
[~2025-04-24] VITALS: Ht 175.3 cm; Wt 111.4 kg
--- NOTE | 2025-04-24 19:48 | DVH ---
CHEST RADIOGRAPH Indication: sob Technique: Single frontal view of the chest was obtained COMPARISON: XY CHEST PORTABLE on DOS: 04/11/25 FINDINGS: Lines and Tubes: AICD Lungs: Mild pulmonary edema. Pleura: No effusion. No pneumothorax. Cardiomediastinal contours: [id number] cardiomegaly. IMPRESSION: Cardiomegaly and mild pulmonary edema.
[2025-04-24 19:55] LABS: Basophils # (auto) 0 10 ^3/uL (0-0.2); Basophils % (auto) 1.2 % (0.0-2.0); Eosinophils # (auto) 0.1 10 ^3/uL (0-0.8); Eosinophils % (auto) 3.3 % (0.0-7.0); Hematocrit 38.9 % (36.0-46.0); Hemoglobin 11.8 g/dL (12.2-16.2); Lymphocytes # (auto) 1.1 10 ^3/uL (0.4-5.4); Lymphocytes % (auto) 33.5 % (10.0-50.0); Mean Corpuscular Hemoglobin 25.3 pg (28.0-32.0); Mean Corpuscular Hgb Conc. 30.3 g/dL (32.0-36.0); Mean Corpuscular Volume 83.5 fL (80.0-100.0); Monocytes # (auto) 0.4 10 ^3/uL (0-1.3); Monocytes % (auto) 11.7 % (0.0-12.0); Neutrophils # (auto) 1.7 10 ^3/uL (1.6-8.6); Neutrophils % (auto) 50.3 % (37.0-80.0); Nucleated Red Blood Cells % 0.1 %; Platelet Count (auto) 157 10^3/uL (140-450); Red Blood Cells 4.65 10^6/uL (4.0-5.20); Red Cell Distribution Width 17.7 % (11.8-14.3); White Blood Cell 3.4 10^3/uL (4.4-10.8)
[2025-04-24 20:06] LABS: Potassium 4.1 mmol/L (3.5-5.1)
[2025-04-24 20:07] LABS: Anion Gap 6 (5-15); Carbon Dioxide 30 mmol/L (20-31)
[2025-04-24 20:08] LABS: Calcium 10.2 mg/dL (8.7-10.4)
[2025-04-24 20:12] LABS: BUN/Creatinine Ratio 11.4 (10.0-20.0); Blood Urea Nitrogen 17 mg/dL (9-23)
--- NOTE | 2025-04-24 20:14 | ED.PDOC ---
SOB-HPI HPI Comments 69 year old female came to ER due to shortness of breath. Patient with CHF with AICD, asthma, morbid obesity, HTN. Patient c/o SOB and more LE swelling for the past 2 weeks. Patient uses home oxygen 2-3L/min. Patient visited her line tester Dr. Florian a few days ago who recommended to increase her Lasix from 40mg once a day to 40mg twice a day. Patient claims her pharmacy didn't change her Lasix dosage. 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 Family History Family History: Unknown Social History Smoker: Non-Smoker Alcohol: Denies ETOH Use Drugs: Denies Drug Use Lives In: Home Constitutional: denies: chills, diaphoresis, fatigue, fever, malaise, sweats, weakness, others EENTM: denies: blurred vision, double vision, ear bleeding, ear discharge, ear drainage, ear pain, ear ringing, eye pain, eye redness, hearing loss, mouth pain, mouth swelling, nasal discharge, nose bleeding, nose congestion, nose p ain, photophobia, tearing, throat pain, throat swelling, voice changes, others Respiratory: reports: orthopnea, SOB at rest, shortness of breath, SOB with excertion; denies: cough, hemoptysis, stridor, wheezing, others Cardiovascular: denies: chest pain, dizzy spells, diaphoresis, Dyspnea on exertion, edema, irregular heart beat, left arm pain, lightheadedness, palpitations, PND, syncope, others Gastrointestinal: denies: abdomen distended, abdominal pain, blood streaked bowels, constipated, diarrhea, dysphagia, difficulty swallowing, hematemesis, melena, nausea, poor appetite, poor fluid intake, rectal bleeding, rectal pain, vomiting, others Genitourinary: denies: abnormal vagina bleeding, burning, dyspareunia, dysuria, flank pain, frequency, hematuria, incontinence, pain, , vagina discharge, urgency, others Neurological: denies: dizziness, fainting, headache, left sided numbness, left sided weakness, numbness, paresthesia, pre-existing deficit, right sided numbness, right sided weakness, seizure, speech problems, tingling, tremors, weakness, others Musculoskeletal: reports: others (By pedal edema); denies: back pain, gout, joint pain, joint swelling, muscle pain, muscle stiffness, neck pain Integumetry: denies: bruises, change in color, change in hair/nails, dryness, laceration, lesions, lumps, rash, wounds, others Allergic/Immunocompromised: denies: Difficulty Healing, Frequent Infections, Hives, Itching, others Hematologic/Lymphatic: denies: anemia, blood clots, easy bleeding, easy bruising, swollen glands, others Endocrine: denies: excessive hunger, excessive sweating, excessive thirst, excessive urination, flushing, intolerance to cold, intolerance to heat, unexplained weight gain, unexplained weight loss, others Psychiatric: denies: anxiety, bipolar disorder, depression, hopeless, panic disorder, schizophrenia, sleepless, suicidal, others Physical Exam General Appearance: No Apparent Distress, Normal HEENT: Normal ENT Inspection, Pharynx Normal, TMs Normal Neck: Full Range of Motion, Non-Tender, Normal, Normal Inspection Respiratory: Chest Non-Tender, Lungs Clear, No Accessory Muscle Use, No Respiratory Distress, Normal Breath Sounds Cardiovascular: No Edema, No JVD, No Murmur, No Gallop, Normal Peripheral Pulses, Regular Rate/Rhythm Breast Exam: Deferred Gastrointestinal: No Organomegaly, Non Tender, No Pulsatile Mass, Normal Bowel Sounds, Soft Genitalia: Deferred Pelvic: Deferred Rectal: Deferred Extremities: No calf tenderness, Normal capillary refill, Normal range of motion, Pedal edema Musculoskeletal : Apperance: Normal Neurologic: Alert, format proofreader II-XII nml as Tested, No Motor Deficits, Normal Affect, Normal Mood, No Sensory Deficits Cerebellar Function: Normal Reflexes: Normal Skin: Dry, Normal Color, Warm Lymphatic: No Adenopathy EKG EKG : Pulse Rate (adult): 71 Cardiac Rhythm: NSR Comments Multiform premature ventricular complex Was a procedure done? Was a procedure done?: No Differential Dx Differential Diagnosis: Asthma, CHF, COPD, Pneumonia, Respiratory Distress X-Ray, Labs, Meds, VS Vital Signs Date Time Temp Pulse Resp B/P (MAP) Pulse Ox O2 Delivery O2 Flow Rate FiO2 04/25/25 00:00 68 04/24/25 23:33 170/90 04/24/25 23:00 98.1 62 20 160/80 (106) 98 98.1 04/24/25 22:37 142/71 04/24/25 21:09 71 04/24/25 21:05 67 22 96 Nasal Cannula* 2 04/24/25 21:05 98.4 68 22 161/75 (103) 96 98.4 04/24/25 20:15 20 99 Nasal Cannula* 2 04/24/25 20:15 98.6 66 20 154/79 (104) 99 98.6 Lab Test 04/24/25 22:28 04/24/25 20:39 04/24/25 19:36 Range/Units Troponin I High Sensitivity 24 22 </=34 ng/L White Blood Count 3.4 L 4.4-10.8 10^3/uL Red Blood Count 4.65 4.0-5.20 10^6/uL Hemoglobin 11.8 L 12.2-16.2 g/dL Hematocrit 38.9 36.0-46.0 % Mean Corpuscular Volume 83.5 80.0-100.0 fL Mean Corpuscular Hemoglobin 25.3 L 28.0-32.0 pg Mean Corpuscular Hemoglobin Concent 30.3 L 32.0-36.0 g/dL Red Cell Distribution Width 17.7 H 11.8-14.3 % Platelet Count 157 140-450 10^3/uL Mean Platelet Volume 10.1 6.9-10.8 fL Neutrophils (%) (Auto) 50.3 37.0-80.0 % Lymphocytes (%) (Auto) 33.5 10.0-50.0 % Monocytes (%) (Auto) 11.7 0.0-12.0 % Eosinophils (%) (Auto) 3.3 0.0-7.0 % Basophils (%) (Auto) 1.2 0.0-2.0 % Neutrophils # (Auto) 1.7 1.6-8.6 10 ^3/uL Lymphocytes # (Auto) 1.1 0.4-5.4 10 ^3/uL Monocytes # (Auto) 0.4 0-1.3 10 ^3/uL Eosinophils # (Auto) 0.1 0-0.8 10 ^3/uL Basophils # (Auto) 0 0-0.2 10 ^3/uL Nucleated Red Blood Cells 0.1 % Sodium Level 148 H 136-145 mmol/L Potassium Level 4.1 3.5-5.1 mmol/L Chloride Level 112 H 98-107 mmol/L Carbon Dioxide Level 30 20-31 mmol/L Anion Gap 6 5-15 Blood Urea Nitrogen 17 9-23 mg/dL Creatinine 1.49 H 0.550-1.02 mg/dL Glomerular Filtration Rate Calc 38 >90 mL/min BUN/Creatinine Ratio 11.4 10.0-20.0 Serum Glucose 147 H 74-106 mg/dL Calcium Level 10.2 8.7-10.4 mg/dL B-Type Natriuretic Peptide 1861.67 0-100 pg/mL Current Medications Medications (Trade) Dose Ordered Sig/Sohail Route Start Time Stop Time Status Last Admin Furosemide (Lasix Injection) 40 mg ONCE ONCE IV 04/24/25 22:15 04/24/25 22:21 DC 04/24/25 22:37 Furosemide (Lasix Injection) 40 mg ONCE ONCE IV 04/24/25 23:00 04/24/25 23:07 DC 04/24/25 23:33 CHEST RADIOGRAPH Indication: sob Technique: Single frontal view of the chest was obtained COMPARISON: XY CHEST PORTABLE on DOS: 04/11/25 FINDINGS: Lines and Tubes: AICD Lungs: Mild pulmonary edema. Pleura: No effusion. No pneumothorax. Cardiomediastinal contours: [id number] cardiomegaly. IMPRESSION: Cardiomegaly and mild pulmonary edema. Time of 1ST Reevaluation: 20:08 Reevaluation 1ST: Unchanged Patient Education/Counseling: Diagnosis, Treatment Family Education/Counseling: No Family Present Departure 1 Departure Time of Disposition: 01:31 (Patient presented with shortness of breath that was concerning for possible STEMI, ACS, PE, Pneumonia, Muscle Strain, COPD, Dis section, Acute on Chronic systolic and Diastolic dysfunction. Data: 1. I ordered and reviewed the result of at least 3 labs including a CBC, BMP, and Troponin. 2. I independently interpreted the following tests: EKG which shows sinus arrhthmia and Chest X-ray which shows cardiomegaly.Risk:This patient has a high risk of morbidity due to further diagnostic testing or treatment and may suffer from an acute cardiac or respiratory disorder but is most consitent with an acute chf exacerbation. Patient should be admitted for further workup and possible expert consultation. ) Impression: Primary Impression: Acute on chronic systolic heart failure Disposition: ADMITTED INPATIENT Admit to: Tele Condition: Guarded Critical Care Note Critical Care Time?: Yes (35 min-critical care time only) Critical care comment: Shortness a breath Authorized and Performed by: Trish Lau MD Total critical care time: Approximately 39 minutes Due to a high probability of clinically significant, life threatening deterioration, the patient required my highest level of preparedness to intervene emergently and I personally spent this critical care time directly and personally managing the patient. This critical care time included obtaining a history; examining the patient; pulse oximetry; ordering and review of studies; arranging urgent treatment with development of a management plan; evaluation of patient's response to treatment; frequent reassessment; and, discussions with other providers. This critical care time was performed to assess and manage the high probability of imminent, life-threatening deterioration that could result in multi-organ failure. It was exclusive of separately billable procedures and treating other patients and teaching time. Please see my other sections and the rest of the note for further information on patient assessment and treatment. Stability Stability form required: No Heart Score Heart Score: Heart Score Response (Comments) Value History Moderate Suspicious 1 EKG Repolarization Disturb 1 Age >65 2 Risk Factors >3 or Hx ASHD 2 Troponin Normal limit 0 Total 6 I personally scribed for TRISH LAU MD ([email or web address]) on 04/24/25 at 20:14. Electronically submitted by Flip Ramírez ([employer] I personally scribed for TRISH LAU MD ([email or web address]) on 04/24/25 at 20:51. Electronically submitted by Flip Ramírez ([email or web address]). I personally scribed for TRISH LAU MD ([email or web address]) on 04/24/25 at 21:09. Electronically submitted by Flip Ramírez ([facility]ITAL[facility]). TRISH LAU MD April 24, 2025 20:14
[2025-04-24 20:38] LABS: Chloride 112 mmol/L (98-107); Glucose 147 mg/dL (74-106); Sodium 148 mmol/L (136-145)
[2025-04-24 21:05] VITALS: PULSE 67; RESP 22; O2SAT 96
[2025-04-24] MEDS: FUROSEMIDE 40 MG/4 ML VIAL IV ONE ×2 (22:37→23:33)
[2025-04-25] MEDS: FUROSEMIDE 40 MG/4 ML VIAL IV ONE ×2 (05:31→10:17)
[2025-04-25 08:00] VITALS: PULSE 62; RESP 32; O2SAT 97
[2025-04-25] MEDS ORDERED: MORPHINE SULFATE INJ 2 MG/ml SYRG IV PRN (10:45)
[2025-04-25] MEDS ORDERED: NITROGLYCERIN 0.4 MG SL TAB SL PRN (10:45)
[2025-04-25] MEDS ORDERED: DEXTROSE (50%) 50ML SYRG IV PRN (11:00)
--- NOTE | 2025-04-25 11:11 | DVHHP2 ---
Admitting Diagnosis: CHF exacerbation History of Present Illness HPI 69 y.o. morbidly obese, bedridden female arrived to the hospital c/o increasing SOB and leg swelling. Patient stated that she takes her 40 mg Lasix BID regularly but it doesn't help. She stated that she consumes around 1 quart of fluids daily. Patient has CHF and AICD. In the ER she has received 40 mg of IV Lasix 4 times with urinary output of 2L but she remained SOB and unchanged LE edema. Home Meds Active Scripts Sulfamethoxazole W/Trimethopri (Bactrim Ds Tablet) 1 Tab Tb, 1 TAB PO BID for 7 Days, #14 TAB 0 Refills Prov:YULI DASILVA Kole DIRECTOR OF PHARMACY 01/24/24 Reported Medications Albuterol Sulfate (Proair Respiclick) 108 Mcg/Act Aer 08/19/17 Past Medical History Cardiac: CAD, CHF, HTN Endocrine: NIDDM Patient Family History: Family history: Cardiovascular disease G8 MOTHER Family history: Hypertension G8 MOTHER Ischemic heart disease G8 FATHER Review of Systems Cardiovascular: Orthopnea, Edema H&P Exam Vital Signs Vital Signs Date Time Temp Pulse Resp B/P (MAP) Pulse Ox O2 Delivery O2 Flow Rate FiO2 04/25/25 10:17 185/95 04/25/25 08:00 97.7 62 32 97 97.7 04/25/25 08:00 Nasal Cannula* 2 28 General Appeara: Obese Head Exam: Normal inspection Neck Exam: Normal inspection Eye Exam: bilateral eye PERRL, bilateral eye EOMI Pulmonary/Respiratory: Other (distant lung souns due to severe obesity) Cardiovascular/Chest: Regular rate Abdominal Exam: No tenderness Legs: bilateral leg swelling Ankle Exam: bilateral ankle Swelling Foot: bilateral foot swelling Neuro/Mental St: Alert, Oriented Eye contact/ Speech: Cooperative Labs/Xrays Labs Test 04/24/25 22:28 04/24/25 19:36 Range/Units Troponin I High Sensitivity 25 </=34 ng/L White Blood Count 3.4 L 4.4-10.8 10^3/uL Red Blood Count 4.65 4.0-5.20 10^6/uL Hemoglobin 11.8 L 12.2-16.2 g/dL Hematocrit 38.9 36.0-46.0 % Mean Corpuscular Volume 83.5 80.0-100.0 fL Mean Corpuscular Hemoglobin 25.3 L 28.0-32.0 pg Mean Corpuscular Hemoglobin Concent 30.3 L 32.0-36.0 g/dL Red Cell Distribution Width 17.7 H 11.8-14.3 % Platelet Count 157 140-450 10^3/uL Mean Platelet Volume 10.1 6.9-10.8 fL Neutrophils (%) (Auto) 50.3 37.0-80.0 % Lymphocytes (%) (Auto) 33.5 10.0-50.0 % Monocytes (%) (Auto) 11.7 0.0-12.0 % Eosinophils (%) (Auto) 3.3 0.0-7.0 % Basophils (%) (Auto) 1.2 0.0-2.0 % Neutrophils # (Auto) 1.7 1.6-8.6 10 ^3/uL Lymphocytes # (Auto) 1.1 0.4-5.4 10 ^3/uL Monocytes # (Auto) 0.4 0-1.3 10 ^3/uL Eosinophils # (Auto) 0.1 0-0.8 10 ^3/uL Basophils # (Auto) 0 0-0.2 10 ^3/uL Nucleated Red Blood Cells 0.1 % Sodium Level 148 H 136-145 mmol/L Potassium Level 4.1 3.5-5.1 mmol/L Chloride Level 112 H 98-107 mmol/L Carbon Dioxide Level 30 20-31 mmol/L Anion Gap 6 5-15 Blood Urea Nitrogen 17 9-23 mg/dL Creatinine 1.49 H 0.550-1.02 mg/dL Glomerular Filtration Rate Calc 38 >90 mL/min BUN/Creatinine Ratio 11.4 10.0-20.0 Serum Glucose 147 H 74-106 mg/dL Calcium Level 10.2 8.7-10.4 mg/dL B-Type Natriuretic Peptide 1861.67 0-100 pg/mL Assessment/Plan Problem List: (1) CHF exacerbation Plan Lasix, ECHO, cardiology consult Plan discussed with: Patient, Other (sister) DAVID PACHECO MD April 25, 2025 11:11
[2025-04-25 11:33] LABS: Anion Gap 9 (5-15); Potassium 3.8 mmol/L (3.5-5.1)
[2025-04-25 11:34] LABS: Calcium 9.9 mg/dL (8.7-10.4); Carbon Dioxide 33 mmol/L (20-31); Chloride 107 mmol/L (98-107); Sodium 149 mmol/L (136-145)
[2025-04-25 11:38] LABS: Glucose 95 mg/dL (74-106)
[2025-04-25 11:39] LABS: BUN/Creatinine Ratio 11.8 (10.0-20.0); Blood Urea Nitrogen 18 mg/dL (9-23)
[2025-04-25 12:58] LABS: Urine Bacteria FEW /hpf (None Seen); Urine Blood Negative /uL (Negative); Urine Clarity Clear (Clear); Urine Protein, UAD Negative (Negative); Urine Specific Gravity 1.006 (1.001-1.035); Urine Squamous Epithelial Cell FEW /hpf (<5); Urine Urobilinogen Normal (Negative); Urine WBC 1 /HPF (0-5)
[2025-04-25 12:59] LABS: Urine Color Light-Yellow (Yellow)
[2025-04-25] MEDS: InsuLIN REG 1unit/0.01ml Soln (100units/ml) SC SCH ×2 (13:33→22:00)
[2025-04-25] MEDS: ACCU-CHEK COMFORT CURVE STRIP VI SCH (13:34)
[2025-04-25] MEDS: FUROSEMIDE 40 MG/4 ML VIAL IV SCH (14:36)
--- NOTE | 2025-04-25 18:01 | DVHSR ---
APPROVED REPORT EXAM: Two-dimensional and M-mode echocardiogram with Doppler and color Doppler. Blood Pressure: 185/95 mmHg INDICATION CHF exacerbation, AICD RISK FACTORS Height: 69, Weight: 322 DIMENSIONS LVDd5.6 (3.8-5.7cm)LA (2D)4.7 (1.9-4.0cm)Aortic Root3.5 (2.0-3.7cm) LVDs4.8 (2.5-4.0cm)LA (MM) (1.9-4.0cm)Aortic Cusp Exc1.4 (1.5-2.0cm) EF (%) 30.0 (55-70%)Rt. Atrium5.7 (1.9-4.0cm)Asc. Aorta cm IVSd1.2 (0.7-1.1cm)RV (D) (1.8-2.4cm) PWd1.3 (0.7-1.1cm) Mitral Valve MitralMitral Stenosis E wave0.78m/sMV Mean GR.mmHg A wave0.63m/sMV Peak GR.118mmHg E/A ratio1.22D MVAcm2 DECEL [id number] 1/2 Dpha62ex IVRTmsDop MVA2.37cm2 Aortic Valve Aortic ValveAortic Stenosis V10.68m/Johnna Mean GR.4mmHg V21.39m/Johnna Peak GR.8mmHg LVOT Diameter1.9 (1.8-2.4cm)Doppler AVA1.39cm2 Pulmonic Valve V20.97m/s Tricuspid Valve TR Velocity2.24m/s [id number] Conclusion lvef 25% dialted LV severe dysfunctoin RV dysfunction noted RV pacing lead present biatrial enlargement mild mitral regurg
[2025-04-25 20:00] VITALS: PULSE 66; RESP 12; O2SAT 96
--- NOTE | 2025-04-25 20:32 | ECG ---
[facility] Test Date: 2025-04-25 Test Time: 07:08:10 Pat Name: EVE STEWART Department: ED Room: 0280T Gender: F Recording Studio Intern: PRASHANTH : 1955 Requested By: TRISH ELAM Order Number: [id number] Reading MD: Tan Lezama Measurements Intervals [place] Rate: 66 P: 0 [place]: 164 QRS: -57 QRSD: 108 T: 147 QT: 443 QTc: 465 Interpretive Statements Ventricular-paced complexes No further rhythm analysis attempted due to paced rhythm Incomplete RBBB and LAFB Low voltage, precordial leads Nonspecific T abnormalities, lateral leads Prolonged QT interval Baseline wander in lead(s) II,III,aVF Electronically Signed On 04-27-2025 22:18:10 PDT by Tan Lezama Please click the below link to view image of tracing.
[2025-04-25 22:00] VITALS: BP 117/66; PULSE 73; RESP 20; TEMP 98.8
[2025-04-26] VITALS (17 sets, daily range): BP systolic 146–167; BP diastolic 67–92; PULSE 62–79; RESP 18–22; TEMP 97.8–98.6; O2SAT 94–100
[2025-04-26] MEDS ORDERED: CARV12.544 PO (00:17)
[2025-04-26] MEDS ORDERED: ALLO300T2 PO (00:17)
[2025-04-26] MEDS ORDERED: SACU1TAB PO (00:17)
[2025-04-26] MEDS ORDERED: FLUT1AER3 INH (00:17)
[2025-04-26] MEDS ORDERED: ATOR20TA50 PO (00:17)
[2025-04-26] MEDS ORDERED: ALBU0.084 (00:17)
[2025-04-26] MEDS ORDERED: EMPA1TAB3 PO (00:17)
[2025-04-26] MEDS ORDERED: EMPA1TAB PO (00:17)
[2025-04-26] MEDS ORDERED: ALBU108A5 INH (00:17)
[2025-04-26] MEDS ORDERED: SPIR25TA8 PO (00:17)
[2025-04-26] MEDS ORDERED: FURO40TA4 PO (00:17)
[2025-04-26 04:25] LABS: Urine Bacteria None Seen /hpf (None Seen)
[2025-04-26 04:33] LABS: Urine Blood 3+ /uL (Negative); Urine Clarity Clear (Clear); Urine Color Colorless (Yellow); Urine Mucus FEW (None Seen); Urine Protein, UAD 1+ (Negative); Urine Specific Gravity 1.007 (1.001-1.035); Urine Squamous Epithelial Cell None Seen /hpf (<5); Urine Urobilinogen Normal (Negative); Urine WBC 14 /HPF (0-5); Urine pH 5.5 (5.0-9.0)
[2025-04-26] MEDS: hydrALAZINE HCL 25 MG TAB PO PRN (04:57)
[2025-04-26] MEDS: ALBUTEROL SULF 2.5 MG/0.5ML(0.5%) NEB SOLN NEB PRN (06:30)
[2025-04-26 06:41] LABS: Basophils # (auto) 0 10 ^3/uL (0-0.2); Eosinophils # (auto) 0.1 10 ^3/uL (0-0.8)
[2025-04-26 06:45] LABS: Eosinophils % (auto) 2.6 % (0.0-7.0); Hematocrit 38.4 % (36.0-46.0); Lymphocytes % (auto) 21.9 % (10.0-50.0); Mean Corpuscular Hemoglobin 26.1 pg (28.0-32.0); Mean Corpuscular Hgb Conc. 31.3 g/dL (32.0-36.0); Mean Corpuscular Volume 83.6 fL (80.0-100.0); Monocytes # (auto) 0.6 10 ^3/uL (0-1.3); Monocytes % (auto) 11.9 % (0.0-12.0); Neutrophils % (auto) 62.6 % (37.0-80.0); Nucleated Red Blood Cells % 0.1 %; Platelet Count (auto) 167 10^3/uL (140-450); Red Cell Distribution Width 17.8 % (11.8-14.3); White Blood Cell 4.8 10^3/uL (4.4-10.8)
[2025-04-26 07:04] LABS: Alanine Aminotransferase 14 U/L (7-40); Alkaline Phosphatase 109 U/L (46-116); Anion Gap 9 (5-15); BUN/Creatinine Ratio 8.8 (10.0-20.0); Blood Urea Nitrogen 14 mg/dL (9-23); Carbon Dioxide 30 mmol/L (20-31); Glucose 104 mg/dL (74-106); Potassium 3.9 mmol/L (3.5-5.1)
[2025-04-26 07:05] LABS: Albumin 4.3 g/dL (3.2-4.8); Aspartate Aminotransferase 23 U/L (13-40); Bilirubin, Total 1.1 mg/dL (0.2-1.0)
[2025-04-26 07:07] LABS: Calcium 10.5 mg/dL (8.7-10.4); Chloride 107 mmol/L (98-107); Sodium 146 mmol/L (136-145)
--- NOTE | 2025-04-26 11:02 | DVHPN2 ---
Progress Note - Dictate Date Seen: April 26, 2025 Medical Necessity Reason Pt with a Central, PICC or Fol: Yes The following are medically ne: Garcia Catheter Subjective Patient notes improvement in respiratory status. Notes hematuria in garcia today. vital signs Vital Sign Date Time Temp Pulse Resp B/P (MAP) Pulse Ox O2 Delivery O2 Flow Rate FiO2 04/26/25 09:44 100 Nasal Cannula 3.0 04/26/25 09:43 32 04/26/25 09:29 98.4 71 19 161/83 (109) 98.4 Total Intake and Output 04/25/25 04/25/25 04/26/25 15:00 23:00 07:00 Intake Total 0 ml Output Total 1250 ml Balance -1250 ml medications Current Medications Medications Dose Ordered Sig/Sohail Route Start Time Stop Time Status Last Admin Dose Admin Nitroglycerin 0.4 mg Q5MINP PRN SL 04/25/25 10:45 Morphine Sulfate 2 mg Q30M PRN IV 04/25/25 10:45 Furosemide 40 mg Q8HR IV 04/25/25 14:00 04/26/25 04:57 40 MG Diagnostic Test (Pha) 1 strip ACHS 04/25/25 11:30 04/26/25 06:09 1 STRIP Insulin Human Regular HS SC 04/25/25 22:00 Insulin Human Regular AC SC 04/25/25 11:30 Dextrose 50 ml UD PRN IV 04/25/25 11:00 Hydralazine HCl 50 mg Q6HPRN PRN PO 04/25/25 11:00 04/26/25 04:57 50 MG Albuterol 2.5 mg Q4HPRN PRN NEB 04/26/25 06:30 04/26/25 06:30 2.5 MG Ipratropium [place] 0.5 mg Q4HPRN PRN NEB 04/26/25 06:30 objective General: No Acute distress Respiratory: No crackles Cardiovascular: RRR. 3+ pitting edema to knee Psych: Normal mood laboratory and microbiology Laboratory Tests 04/26/25 05:17 Test 04/26/25 05:17 Range/Units Serum Glucose 104 74-106 mg/dL Problem List 1. CHF Exacerbation 2. Acute on Chronic Respiratory Failure 3. Morbid Obesity 4. Hematuria 5. CKD -Cardiology consulted, Dr. Childs -TTE pending -Continue lasix -Strict I/O -Goal pulse ox>92% -Urology consulted for hematuria. -Avoid nephrotoxic medications -Daily CBC and CMP -Full Code Plan discussed with: Patient MAISHA GLASER April 26, 2025 11:01
[2025-04-26] MEDS: IPRATROPIUM BROM 0.5 MG/2.5ML INH SOL NEB PRN (21:51)
[2025-04-27] VITALS (13 sets, daily range): BP systolic 154–179; BP diastolic 63–83; PULSE 66–80; RESP 17–20; TEMP 97.4–98.3; O2SAT 95–100
--- NOTE | 2025-04-27 01:28 | DVHINCON2 ---
Date of service: April 26, 2025 Referring Physician Reina Reason for Consultation CHF exacerbation History of Present Illness This is a 69 year old female with a PMH of CHF with AICD, asthma, morbid obesity, HTN who presented to the ED with complaints of SOB and LE swelling for the past 2 weeks. Patient is on home oxygen 2-3L/min. Patient visited her primary retail sales specialist Dr. Florian a few days ago who recommended to increase her Lasix from 40mg once a day to 40mg twice a day. Patient claims her pharmacy didn't change her Lasix dosage. EKG is NSR at 71. Chest x-ray shows cardiomegaly and mild pulmonary edema. Troponin is negative x 2. BNP 1861.67. NA 146, TACK DRILLER 1.49A 10.5. Patient was admitted to the hospital. I am asked to consult on this patient. 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 BELT LINE FEEDER 01/24/24 Reported Medications Albuterol Sulfate (Albuterol Sulfate) 0.083 % Neb 04/26/25 Empagliflozin (Jardiance) 10 Mg Tab, 1 TAB PO DAILY 04/26/25 Carvedilol (Carvedilol) 12.5 Mg Tab, 1 TAB PO BID 04/26/25 Sacubitril-Valsartan (Entresto 24-26 mg) 1 Tab Tab, 1 TAB PO BID 04/26/25 Atorvastatin Calcium (ATORVASTATIN CALCIUM) 20 Mg Tab, 1 TAB PO DAILY 04/26/25 Spironolactone (Spironolactone) 25 Mg Tab, 0.5 TAB PO DAILY 04/26/25 Bpgqdynvwuk-Jadypkkwpyiq-Fxbxj (Trelegy Ellipta 100-62.5-25 Mcg/INH) 1 Aer Aer, 1 PUFF INH DAILY 04/26/25 Allopurinol (Allopurinol) 300 Mg Tab, TAB PO 04/26/25 Furosemide (Furosemide) 40 Mg Tab, 1 TAB PO BID 04/26/25 Albuterol Sulfate (Albuterol Sulfate Hfa) 108 Mcg/Act Aer, INH 04/26/25 Empagliflozin (Jardiance) 25 Mg Tab, 1 TAB PO DAILY 04/26/25 Albuterol Sulfate (Proair Respiclick) 108 Mcg/Act Aer 08/19/17 Current Medications Current Medications Medications (Trade) Dose Ordered Sig/Sohail Route PRN Reason Start Time Stop Time Status Last Admin Insulin Human Regular (InsuLIN R) HS SC 04/25/25 22:00 Albuterol (Ventolin Medneb) 2.5 mg Q4HPRN PRN NEB SHORTNESS OF BREATH 04/26/25 06:30 04/26/25 06:30 Ipratropium [place] (Atrovent Medneb) 0.5 mg Q4HPRN PRN NEB SHORTNESS OF BREATH 04/26/25 06:30 Review of Systems Constitutional: denies: chills, diaphoresis, fatigue, fever, malaise, sweats, weakness, others EENTM: denies: blurred vision, double vision, ear bleeding, ear discharge, ear drainage, ear pain, ear ringing, eye pain, eye redness, hearing loss, mouth pain, mouth swelling, nasal discharge, nose bleeding, nose congestion, nose pain, photophobia, tearing, throat pain, throat swelling, voice changes, others Respiratory: reports: orthopnea, SOB at rest, shortness of breath, SOB with excertion; denies: cough, hemoptysis, stridor, wheezing, others Cardiovascular: denies: chest pain, dizzy spells, diaphoresis, Dyspnea on exertion, edema, irregular heart beat, left arm pain, lightheadedness, palpitations, PND, syncope, others Gastrointestinal: denies: abdomen distended, abdominal pain, blood streaked bowels, constipated, diarrhea, dysphagia, difficulty swallowing, hematemesis, melena, nausea, poor appetite, poor fluid intake, rectal bleeding, rectal pain, vomiting, others Genitourinary: denies: abnormal vagina bleeding, burning, dyspareunia, dysuria, flank pain, frequency, hematuria, incontinence, pain, , vagina discharge, urgency, others Neurological: denies: dizziness, fainting, headache, left sided numbness, left sided weakness, numbness, paresthesia, pre-existing deficit, right sided numbness, right sided weakness, seizure, speech problems, tingling, tremors, weakness, others Musculoskeletal: reports: others (By pedal edema); denies: back pain, gout, joint pain, joint swelling, muscle pain, muscle stiffness, neck pain Integumetry: denies: bruises, change in color, change in hair/nails, dryness, laceration, lesions, lumps, rash, wounds, others Allergic/Immunocompromised: denies: Difficulty Healing, Frequent Infections, Hives, Itching, others Hematologic/Lymphatic: denies: anemia, blood clots, easy bleeding, easy bruising, swollen glands, others Endocrine: denies: excessive hunger, excessive sweating, excessive thirst, excessive urination, flushing, intolerance to cold, intolerance to heat, unexplained weight gain, unexplained weight loss, others Psychiatric: denies: anxiety, bipolar disorder, depression, hopeless, panic disorder, schizophrenia, sleepless, suicidal, others Vital Signs Vital Signs Date Time Temp Pulse Resp B/P (MAP) Pulse Ox O2 Delivery O2 Flow Rate FiO2 04/26/25 13:54 146/84 04/26/25 12:57 98.6 62 19 97 98.6 04/26/25 09:44 Nasal Cannula 3.0 04/26/25 09:43 32 Physical Exam GENERAL: Alert and oriented x 3. No acute distress. EYES: PERRL, EOMI. Anicteric. HENT: Moist mucous membranes. LUNGS: Clear to auscultation bilaterally. CARDIOVASCULAR: Regular rate and rhythm. ABDOMEN: Soft, nontender and nondistended. EXTREMITIES: 3+ BLE edema. NEUROLOGIC: No focal neurological deficits. SKIN: Warm, dry. Labs/Diagnostic Data Labs Test 04/26/25 11:46 04/26/25 05:17 04/26/25 04:15 04/24/25 22:28 Range/Units POC Glucose 96 70-106 mg/dl White Blood Count 4.8 # 4.4-10.8 10^3/uL Red Blood Count 4.60 4.0-5.20 10^6/uL Hemoglobin 12.0 L 12.2-16.2 g/dL Hematocrit 38.4 36.0-46.0 % Mean Corpuscular Volume 83.6 80.0-100.0 fL Mean Corpuscular Hemoglobin 26.1 L 28.0-32.0 pg Mean Corpuscular Hemoglobin Concent 31.3 L 32.0-36.0 g/dL Red Cell Distribution Width 17.8 H 11.8-14.3 % Platelet Count 167 140-450 10^3/uL Mean Platelet Volume 10.4 6.9-10.8 fL Neutrophils (%) (Auto) 62.6 37.0-80.0 % Lymphocytes (%) (Auto) 21.9 10.0-50.0 % Monocytes (%) (Auto) 11.9 0.0-12.0 % Eosinophils (%) (Auto) 2.6 0.0-7.0 % Basophils (%) (Auto) 1.0 0.0-2.0 % Neutrophils # (Auto) 3.0 1.6-8.6 10 ^3/uL Lymphocytes # (Auto) 1.0 0.4-5.4 10 ^3/uL Monocytes # (Auto) 0.6 0-1.3 10 ^3/uL Eosinophils # (Auto) 0.1 0-0.8 10 ^3/uL Basophils # (Auto) 0 0-0.2 10 ^3/uL Nucleated Red Blood Cells 0.1 % Sodium Level 146 H 136-145 mmol/L Potassium Level 3.9 3.5-5.1 mmol/L Chloride Level 107 98-107 mmol/L Carbon Dioxide Level 30 20-31 mmol/L Anion Gap 9 5-15 Blood Urea Nitrogen 14 9-23 mg/dL Creatinine 1.59 H 0.550-1.02 mg/dL Glomerular Filtration Rate Calc 35 >90 mL/min BUN/Creatinine Ratio 8.8 L 10.0-20.0 Serum Glucose 104 74-106 mg/dL Calcium Level 10.5 H 8.7-10.4 mg/dL Total Bilirubin 1.1 H 0.2-1.0 mg/dL Aspartate Amino Transferase (AST) 23 13-40 U/L Alanine Aminotransferase (ALT) 14 7-40 U/L Alkaline Phosphatase 109 46-116 U/L Total Protein 7.0 5.7-8.2 g/dL Albumin 4.3 3.2-4.8 g/dL Urine Color Colorless Yellow Urine Clarity Clear Clear Urine pH 5.5 5.0-9.0 Urine Specific [place] 1.007 1.001-1.035 Urine Protein 1+ H Negative Urine Ketones Negative Negative Urine Blood 3+ H Negative /uL Urine Nitrite Negative Negative Urine Bilirubin Negative Negative Urine Urobilinogen Normal Negative mg/dL Urine Leukocyte Esterase Trace Negative /uL Urine RBC 579 0 - 4 /hpf Urine Microscopic WBC 14 H 0-5 /HPF Urine Squamous Epithelial Cells None seen <5 /hpf Urine Bacteria None seen None Seen /hpf Urine Mucus Few None Seen Urine Glucose 3+ H Normal mg/dL Troponin I High Sensitivity 25 </=34 ng/L Test 04/24/25 19:36 Range/Units B-Type Natriuretic Peptide 1861.67 0-100 pg/mL Assessment CHF exacerbation. Acute on chronic respiratory failure. Morbid obesity. Hematuria. CKD. Plan/Recommendation I agree with your ongoing assessment and care of plan. Telemetry reviewed. Echocardiogram. Diuretics with Lasix. IV Hydralazine for SBP > 160. Morphine for pain management. Nitro SL. Additional plan as per the hospital course. A total of 45 minutes was spent reviewing the patient record, examining the patient, making a diagnostic and therapeutic plan, discussing this plan with medical personnel, following up on diagnostic studies and following the patient for clinical stability excluding any and all procedures. At least 50% of this time was spent in direct, [id number] contact. Plan discussed with: Patient EDILMA PATRICIO MD April 26, 2025 16:09
[2025-04-27 06:47] LABS: Chloride 106 mmol/L (98-107); Potassium 3.6 mmol/L (3.5-5.1)
[2025-04-27 06:48] LABS: Anion Gap 8 (5-15)
[2025-04-27 06:51] LABS: Carbon Dioxide 33 mmol/L (20-31); Sodium 147 mmol/L (136-145)
[2025-04-27 06:52] LABS: Calcium 10.6 mg/dL (8.7-10.4)
[2025-04-27 06:53] LABS: BUN/Creatinine Ratio 11.7 (10.0-20.0); Blood Urea Nitrogen 16 mg/dL (9-23); Glucose 107 mg/dL (74-106)
[2025-04-27 07:22] LABS: Basophils # (auto) 0.1 10 ^3/uL (0-0.2); Eosinophils # (auto) 0.1 10 ^3/uL (0-0.8); Eosinophils % (auto) 2.6 % (0.0-7.0); Monocytes # (auto) 0.6 10 ^3/uL (0-1.3)
[2025-04-27 07:24] LABS: Basophils % (auto) 1.2 % (0.0-2.0); Hematocrit 40.4 % (36.0-46.0); Hemoglobin 12.8 g/dL (12.2-16.2); Lymphocytes % (auto) 19.2 % (10.0-50.0); Mean Corpuscular Hemoglobin 26.1 pg (28.0-32.0); Mean Corpuscular Hgb Conc. 31.8 g/dL (32.0-36.0); Monocytes % (auto) 11.2 % (0.0-12.0); Neutrophils # (auto) 3.5 10 ^3/uL (1.6-8.6); Neutrophils % (auto) 65.8 % (37.0-80.0); Platelet Count (auto) 166 10^3/uL (140-450); Red Blood Cells 4.93 10^6/uL (4.0-5.20); Red Cell Distribution Width 17.5 % (11.8-14.3); White Blood Cell 5.3 10^3/uL (4.4-10.8)
--- NOTE | 2025-04-27 11:51 | DVHPN2 ---
Progress Note - Dictate Date Seen: Apr 27, 2025 Medical Necessity Reason Pt with a Central, PICC or Fol: Yes The following are medically ne: Nova Catheter Subjective Patient notes improvement in respiratory status. Denies any other symptoms. vital signs Vital Sign Date Time Temp Pulse Resp B/P (MAP) Pulse Ox O2 Delivery O2 Flow Rate FiO2 04/27/25 10:05 95 Nasal Cannula* 3 32 04/27/25 08:53 98.3 76 19 158/63 (94) 98.3 Total Intake and Output 04/26/25 04/26/25 04/27/25 15:00 23:00 07:00 Intake Total 545 ml 500 ml Output Total 3500 ml 2900 ml Balance -2955 ml -2400 ml medications Current Medications Medications Dose Ordered Sig/Sohail Route Start Time Stop Time Status Last Admin Dose Admin Nitroglycerin 0.4 mg Q5MINP PRN SL 04/25/25 10:45 Morphine Sulfate 2 mg Q30M PRN IV 04/25/25 10:45 Furosemide 40 mg Q8HR IV 04/25/25 14:00 04/27/25 05:01 40 MG Diagnostic Test (Pha) 1 strip ACHS 04/25/25 11:30 04/27/25 06:18 1 STRIP Insulin Human Regular HS SC 04/25/25 22:00 Insulin Human Regular AC SC 04/25/25 11:30 Dextrose 50 ml UD PRN IV 04/25/25 11:00 Hydralazine HCl 50 mg Q6HPRN PRN PO 04/25/25 11:00 04/27/25 05:01 50 MG Albuterol 2.5 mg Q4HPRN PRN NEB 04/26/25 06:30 04/27/25 06:18 2.5 MG Ipratropium [place] 0.5 mg Q4HPRN PRN NEB 04/26/25 06:30 04/27/25 06:18 0.5 MG objective General: No Acute distress Respiratory: No crackles Cardiovascular: RRR. 3+ pitting edema to knee Psych: Normal mood laboratory and microbiology Laboratory Tests 04/27/25 07:02 04/27/25 06:23 Test 04/27/25 06:23 Range/Units Serum Glucose 107 H 74-106 mg/dL Problem List 1. CHF Exacerbation, End Stage CHF LVEF 25% 2. Acute on Chronic Respiratory Failure 3. Morbid Obesity 4. Hematuria 5. CKD -Cardiology consulted, Dr. Childs -TTE shows LVEF 25% -Continue lasix. Pt notes she takes Lasix 40mg PO BID at home -Strict I/O -Goal pulse ox>92% -Urology consulted for hematuria. -Avoid nephrotoxic medications -Daily CBC and CMP -PT eval ordered -Full Code Plan discussed with: Patient JOANNEGABRIELLEMAISHA DO Apr 27, 2025 11:51
--- NOTE | 2025-04-27 21:25 | DVHPN2 ---
Progress Note - Dictate Date Seen: Apr 27, 2025 Medical Necessity Reason Pt with a Central, PICC or Fol: No The following are medically ne: Nova Catheter Subjective Patient was seen and evaluated in follow up. Patient notes improvement in respiratory status. She is on 3 LPM NC. Echocardiogram showed EF 25%, dilated LV severe dysfunction, RV dysfunction noted, RV pacing lead present, biatrial enlargement, mild mitral regurg. NA 147, CO2 33. Telemetry reviewed. vital signs Vital Sign Date Time Temp Pulse Resp B/P (MAP) Pulse Ox O2 Delivery O2 Flow Rate FiO2 04/27/25 10:05 95 Nasal Cannula* 3 32 04/27/25 08:53 98.3 76 19 158/63 (94) 98.3 Total Intake and Output 04/26/25 04/26/25 04/27/25 15:00 23:00 07:00 Intake Total 545 ml 500 ml Output Total 3500 ml 2900 ml Balance -2955 ml -2400 ml medications Current Medications Medications Dose Ordered Sig/Sohail Route Start Time Stop Time Status Last Admin Dose Admin Nitroglycerin 0.4 mg Q5MINP PRN SL 04/25/25 10:45 Morphine Sulfate 2 mg Q30M PRN IV 04/25/25 10:45 Furosemide 40 mg Q8HR IV 04/25/25 14:00 04/27/25 05:01 40 MG Diagnostic Test (Pha) 1 strip ACHS 04/25/25 11:30 04/27/25 11:30 1 STRIP Insulin Human Regular HS SC 04/25/25 22:00 Insulin Human Regular AC SC 04/25/25 11:30 Dextrose 50 ml UD PRN IV 04/25/25 11:00 Hydralazine HCl 50 mg Q6HPRN PRN PO 04/25/25 11:00 04/27/25 05:01 50 MG Albuterol 2.5 mg Q4HPRN PRN NEB 04/26/25 06:30 04/27/25 06:18 2.5 MG Ipratropium [place] 0.5 mg Q4HPRN PRN NEB 04/26/25 06:30 04/27/25 06:18 0.5 MG objective GENERAL: Alert and oriented x 3. No acute distress. EYES: PERRL, EOMI. Anicteric. HENT: Moist mucous membranes. LUNGS: Clear to auscultation bilaterally. CARDIOVASCULAR: Regular rate and rhythm. ABDOMEN: Soft, nontender and nondistended. EXTREMITIES: 3+ BLE edema. NEUROLOGIC: No focal neurological deficits. SKIN: Warm, dry. laboratory and microbiology Laboratory Tests 04/27/25 07:02 04/27/25 06:23 Test 04/27/25 06:23 Range/Units Serum Glucose 107 H 74-106 mg/dL Problem List CHF exacerbation. Acute on chronic respiratory failure. Morbid obesity. Hematuria. CKD. Assessment/Plan Continued all current supportive medical care. Diuretics with Lasix. IV Hydralazine for SBP > 160. Morphine for pain management. Nitro SL. Additional plan as per the hospital course. Plan discussed with: Patient EDILMA PATRICIO MD Apr 27, 2025 13:38
[2025-04-28] VITALS (11 sets, daily range): BP systolic 140–159; BP diastolic 66–85; PULSE 66–85; RESP 18–20; TEMP 97.7–98.9; O2SAT 96–99
[2025-04-28 06:47] LABS: White Blood Cell 4.2 10^3/uL (4.4-10.8)
[2025-04-28 06:51] LABS: Basophils # (auto) 0 10 ^3/uL (0-0.2); Basophils % (auto) 0.8 % (0.0-2.0); Eosinophils # (auto) 0.2 10 ^3/uL (0-0.8); Eosinophils % (auto) 4.5 % (0.0-7.0); Hemoglobin 11.7 g/dL (12.2-16.2); Lymphocytes % (auto) 24.7 % (10.0-50.0); Mean Corpuscular Hgb Conc. 31.8 g/dL (32.0-36.0); Mean Corpuscular Volume 81.9 fL (80.0-100.0); Monocytes # (auto) 0.6 10 ^3/uL (0-1.3); Monocytes % (auto) 13.2 % (0.0-12.0); Neutrophils # (auto) 2.4 10 ^3/uL (1.6-8.6); Neutrophils % (auto) 56.8 % (37.0-80.0); Platelet Count (auto) 153 10^3/uL (140-450); Red Blood Cells 4.51 10^6/uL (4.0-5.20); Red Cell Distribution Width 18.2 % (11.8-14.3)
[2025-04-28 07:09] LABS: Chloride 102 mmol/L (98-107)
[2025-04-28 07:10] LABS: Anion Gap 9 (5-15); Calcium 9.8 mg/dL (8.7-10.4)
[2025-04-28 07:12] LABS: Carbon Dioxide 34 mmol/L (20-31); Potassium 3.5 mmol/L (3.5-5.1); Sodium 145 mmol/L (136-145)
[2025-04-28 07:15] LABS: BUN/Creatinine Ratio 11.3 (10.0-20.0); Blood Urea Nitrogen 15 mg/dL (9-23); Glucose 83 mg/dL (74-106)
[2025-04-28] MEDS: SPIRONOLACTONE 25 MG TAB PO SCH (11:47)
--- NOTE | 2025-04-28 12:56 | DVHINCON2 ---
Date of service: Apr 28, 2025 Referring Physician hospitalist Reason for Consultation hematuria History of Present Illness History Source: Patient, RN Notes, MD Notes, Old Records Exam Limitations: No limitations HPI 69 year old female with a PMH of CHF with AICD, asthma, morbid obesity, HTN who presented to the ED with complaints of SOB and LE swelling for the past 2 weeks. Patient is on home oxygen 2-3L/min. Patient visited her primary machine captain Dr. Florian a few days ago who recommended to increase her Lasix from 40mg once a day to 40mg twice a day. Patient claims her pharmacy didn't change her Lasix dosage. EKG is NSR at 71. Chest x-ray shows cardiomegaly and mild pulmonary edema. Troponin is negative x 2. BNP 1861.67. NA 146, ACADEMIC ASSISTANT 1.49A 10.5. Patient was admitted to the hospital. I am asked to consult on this patient for hematuria after garcia placement. Urine is now juan color. She has no complaints. CT is pending Home Meds Active Scripts Sulfamethoxazole W/Trimethopri (Bactrim Ds Tablet) 1 Tab Tb, 1 TAB PO BID for 7 Days, #14 TAB 0 Refills Prov:YULI DASILVA LICENSED INSURANCE SALES AGENT 01/24/24 Reported Medications Albuterol Sulfate (Albuterol Sulfate) 0.083 % Neb 04/26/25 Empagliflozin (Jardiance) 10 Mg Tab, 1 TAB PO DAILY 04/26/25 Carvedilol (Carvedilol) 12.5 Mg Tab, 1 TAB PO BID 04/26/25 Sacubitril-Valsartan (Entresto 24-26 mg) 1 Tab Tab, 1 TAB PO BID 04/26/25 Atorvastatin Calcium (ATORVASTATIN CALCIUM) 20 Mg Tab, 1 TAB PO DAILY 04/26/25 Spironolactone (Spironolactone) 25 Mg Tab, 0.5 TAB PO DAILY 04/26/25 Pykrlhmeacj-Zwxzeyasymkq-Uahqd (Trelegy Ellipta 100-62.5-25 Mcg/INH) 1 Aer Aer, 1 PUFF INH DAILY 04/26/25 Allopurinol (Allopurinol) 300 Mg Tab, TAB PO 04/26/25 Furosemide (Furosemide) 40 Mg Tab, 1 TAB PO BID 04/26/25 Albuterol Sulfate (Albuterol Sulfate Hfa) 108 Mcg/Act Aer, INH 04/26/25 Empagliflozin (Jardiance) 25 Mg Tab, 1 TAB PO DAILY 04/26/25 Albuterol Sulfate (Proair Respiclick) 108 Mcg/Act Aer 08/19/17 Past Medical History Patient Family History: Family history: Cardiovascular disease G8 MOTHER Family history: Hypertension G8 MOTHER Ischemic heart disease G8 FATHER Review of Systems Constitutional: No symptom reported Ears, Nose, & Throat: No symptom reported Eyes: No symptom reported Pulmonary/Respiratory: No symptom reported Cardiovascular: No symptom reported Gastrointestinal: No symptom reported Genitourinary: No symptom reported Musculoskeletal: No symptom reported Skin: No symptom reported Psychiatric: No symptom reported Endocrine: No symptom reported Hemotologic/Lymphatic: No symptom reported H&P Exam Vital Signs Vital Signs Date Time Temp Pulse Resp B/P (MAP) Pulse Ox O2 Delivery O2 Flow Rate FiO2 04/28/25 09:45 96 Nasal Cannula* 2 28 04/28/25 08:41 97.9 72 20 148/66 (93) 97.9 General Appeara: Well developed, Well nourished, Normal Appearance, Obese Neuro/Mental St: Alert, Oriented Appearance: Appropriate appearance, Appropriate insight Eye contact/ Speech: Cooperative, Good eye contact, Normal speech Skin Exam: Normal inspection, Normal color, Warm/dry Labs/Xrays Labs Test 04/28/25 11:48 04/28/25 05:11 04/26/25 05:17 04/26/25 04:15 Range/Units POC Glucose 119 H 70-106 mg/dl White Blood Count 4.2 L 4.4-10.8 10^3/uL Red Blood Count 4.51 4.0-5.20 10^6/uL Hemoglobin 11.7 L 12.2-16.2 g/dL Hematocrit 37.0 36.0-46.0 % Mean Corpuscular Volume 81.9 80.0-100.0 fL Mean Corpuscular Hemoglobin 26.0 L 28.0-32.0 pg Mean Corpuscular Hemoglobin Concent 31.8 L 32.0-36.0 g/dL Red Cell Distribution Width 18.2 H 11.8-14.3 % Platelet Count 153 140-450 10^3/uL Mean Platelet Volume 10.3 6.9-10.8 fL Neutrophils (%) (Auto) 56.8 37.0-80.0 % Lymphocytes (%) (Auto) 24.7 10.0-50.0 % Monocytes (%) (Auto) 13.2 H 0.0-12.0 % Eosinophils (%) (Auto) 4.5 0.0-7.0 % Basophils (%) (Auto) 0.8 0.0-2.0 % Neutrophils # (Auto) 2.4 1.6-8.6 10 ^3/uL Lymphocytes # (Auto) 1.0 0.4-5.4 10 ^3/uL Monocytes # (Auto) 0.6 0-1.3 10 ^3/uL Eosinophils # (Auto) 0.2 0-0.8 10 ^3/uL Basophils # (Auto) 0 0-0.2 10 ^3/uL Nucleated Red Blood Cells 0.0 % Sodium Level 145 136-145 mmol/L Potassium Level 3.5 3.5-5.1 mmol/L Chloride Level 102 98-107 mmol/L Carbon Dioxide Level 34 H 20-31 mmol/L Anion Gap 9 5-15 Blood Urea Nitrogen 15 9-23 mg/dL Creatinine 1.33 H 0.550-1.02 mg/dL Glomerular Filtration Rate Calc 43 >90 mL/min BUN/Creatinine Ratio 11.3 10.0-20.0 Serum Glucose 83 74-106 mg/dL Calcium Level 9.8 8.7-10.4 mg/dL Total Bilirubin 1.1 H 0.2-1.0 mg/dL Aspartate Amino Transferase (AST) 23 13-40 U/L Alanine Aminotransferase (ALT) 14 7-40 U/L Alkaline Phosphatase 109 46-116 U/L Total Protein 7.0 5.7-8.2 g/dL Albumin 4.3 3.2-4.8 g/dL Urine Color Colorless Yellow Urine Clarity Clear Clear Urine pH 5.5 5.0-9.0 Urine Specific [place] 1.007 1.001-1.035 Urine Protein 1+ H Negative Urine Ketones Negative Negative Urine Blood 3+ H Negative /uL Urine Nitrite Negative Negative Urine Bilirubin Negative Negative Urine Urobilinogen Normal Negative mg/dL Urine Leukocyte Esterase Trace Negative /uL Urine RBC 579 0 - 4 /hpf Urine Microscopic WBC 14 H 0-5 /HPF Urine Squamous Epithelial Cells None seen <5 /hpf Urine Bacteria None seen None Seen /hpf Urine Mucus Few None Seen Urine Glucose 3+ H Normal mg/dL Test 04/24/25 22:28 04/24/25 19:36 Range/Units Troponin I High Sensitivity 25 </=34 ng/L B-Type Natriuretic Peptide 1861.67 0-100 pg/mL Assessment/Plan Problem List: (1) Hematuria (2) Obesity (3) CHF exacerbation Plan cleared from urology standpoint ok to d/c garcia Plan discussed with: Patient, Other ZEB CORREA LICENSED INSURANCE SALES AGENT Apr 28, 2025 12:56
--- NOTE | 2025-04-28 13:23 | DVH ---
CT CT AB PEL WO CON-NO ORAL OR IV INDICATION: hematuria EXAM DATE: 04/28/2025 12:45 PM COMPARISON: None RADIATION DOSE: CTDIvol: 26.36 mGy, DLP: 1437.22 mGy*cm PROCEDURE: Helical CT images were obtained of the abdomen and pelvis without IV contrast Sagittal and coronal reconstructions are provided. ORAL CONTRAST: None. ADDITIONAL IMAGES / REFORMATS: None All C T scans at this medical facility are performed using dose modulation techniques as appropriate to a p erformed exam including the following: Automated exposure control was utilized; adjustment of the MA and/or KV according to patient size; and use of iterative reconstruction technique. FINDINGS: LUNG BASE: Right basilar atelectasis and small right pleural effusion. LIVER: Normal. GALLBLADDER AND BILIARY TREE: No calcified gallstones. Normal caliber wall. No intra- or extrahepatic biliary ductal dilation. PANCREAS: Normal. SPLEEN: Normal. BOWEL: Normal. ADRENALS: Normal. KIDNEYS AND URETER: Normal. BLADDER: Nova. REPRODUCTIVE ORGANS: Multiple masses in the uterus with calcifications measures up to 19.4 x 8.8 cm. LYMPH NODES:No lymphadenopathy. PERITONEUM: No ascites or free air. No other fluid collection. VESSELS: Scattered atherosclerotic calcifications are noted. RETROPERITONEUM: Normal. ABDOMINAL WALL: edematous BONES: Scattered osseous degenerative changes are noted. IMPRESSION: No acute intraabdominal abnormality. Multiple masses in the uterus with calcifications measures up to 19.4 x 8.8 cm most likely fibroid.
--- NOTE | 2025-04-28 13:36 | DVHPN2 ---
Progress Note - Dictate Date Seen: Apr 28, 2025 Medical Necessity Reason Pt with a Central, PICC or Fol: No The following are medically ne: Garcia Catheter Subjective Patient notes improvement in respiratory status. Denies any other symptoms. Notes she worked with PT yesterday. vital signs Vital Sign Date Time Temp Pulse Resp B/P (MAP) Pulse Ox O2 Delivery O2 Flow Rate FiO2 04/28/25 09:45 96 Nasal Cannula* 2 28 04/28/25 08:41 97.9 72 20 148/66 (93) 97.9 Total Intake and Output 04/27/25 04/27/25 04/28/25 15:00 23:00 07:00 Intake Total 320 ml 950 ml Output Total 1350 ml 1250 ml Balance -1030 ml -300 ml medications Current Medications Medications Dose Ordered Sig/Sohail Route Start Time Stop Time Status Last Admin Dose Admin Nitroglycerin 0.4 mg Q5MINP PRN SL 04/25/25 10:45 Morphine Sulfate 2 mg Q30M PRN IV 04/25/25 10:45 Furosemide 40 mg Q8HR IV 04/25/25 14:00 04/28/25 05:58 40 MG Diagnostic Test (Pha) 1 strip ACHS 04/25/25 11:30 04/28/25 11:49 1 STRIP Insulin Human Regular HS SC 04/25/25 22:00 Insulin Human Regular AC SC 04/25/25 11:30 Dextrose 50 ml UD PRN IV 04/25/25 11:00 Hydralazine HCl 50 mg Q6HPRN PRN PO 04/25/25 11:00 04/27/25 21:29 50 MG Albuterol 2.5 mg Q4HPRN PRN NEB 04/26/25 06:30 04/27/25 21:45 2.5 MG Ipratropium [place] 0.5 mg Q4HPRN PRN NEB 04/26/25 06:30 04/27/25 21:45 0.5 MG Spironolactone 25 mg DAILY PO 04/28/25 11:00 04/28/25 11:47 25 MG objective General: No Acute distress Respiratory: No crackles Cardiovascular: RRR. 3+ pitting edema to above midcal[place] Psych: Normal mood laboratory and microbiology Laboratory Tests 04/28/25 05:11 Test 04/28/25 05:11 Range/Units Serum Glucose 83 74-106 mg/dL Problem List 1. CHF Exacerbation, End Stage CHF LVEF 25% 2. Acute on Chronic Respiratory Failure 3. Morbid Obesity 4. Hematuria 5. CKD -Cardiology consulted, Dr. Childs -TTE shows LVEF 25% -Continue lasix. Pt notes she takes Lasix 40mg PO BID at home. Sprinolactone 12.5mg restarted. -Strict I/O. Goal output 2-3L fluid per day. -Goal pulse ox>92% -Urology consulted for hematuria. Cleared and ok to remove garcia prior to dc. -Avoid nephrotoxic medications -Daily CBC and CMP -Needs further diuresis given extensive LE edema. -PT eval ordered. Ambulated 30ft. Patient desires to return home on dc. -Full Code Plan discussed with: Patient JOHN GLASERJeffery Heller DO Apr 28, 2025 13:36
--- NOTE | 2025-04-28 21:08 | DVHPN2 ---
Progress Note - Dictate Date Seen: Apr 28, 2025 Medical Necessity Reason Pt with a Central, PICC or Fol: No The following are medically ne: Nova Catheter Subjective Patient was seen and evaluated in follow up. Patient is on 2 LPM NC. Patient reports improvement in SOB. Patient worked with PT yesterday. CT abd/pel shows no acute intraabdominal abnormality. Multiple masses in the uterus with calcifications measures up to 19.4 x 8.8 cm most likely fibroid. Telemetry reviewed. vital signs Vital Sign Date Time Temp Pulse Resp B/P (MAP) Pulse Ox O2 Delivery O2 Flow Rate FiO2 04/28/25 20:00 Nasal Cannula* 2 28 04/28/25 17:00 97.8 77 18 156/67 (96) 97 97.8 Total Intake and Output 04/27/25 04/27/25 04/28/25 15:00 23:00 07:00 Intake Total 320 ml 950 ml Output Total 1350 ml 1250 ml Balance -1030 ml -300 ml medications Current Medications Medications Dose Ordered Sig/Sohail Route Start Time Stop Time Status Last Admin Dose Admin Nitroglycerin 0.4 mg Q5MINP PRN SL 04/25/25 10:45 Morphine Sulfate 2 mg Q30M PRN IV 04/25/25 10:45 Furosemide 40 mg Q8HR IV 04/25/25 14:00 04/28/25 14:32 40 MG Diagnostic Test (Pha) 1 strip ACHS 04/25/25 11:30 04/28/25 17:22 1 STRIP Insulin Human Regular HS SC 04/25/25 22:00 Insulin Human Regular AC SC 04/25/25 11:30 Dextrose 50 ml UD PRN IV 04/25/25 11:00 Hydralazine HCl 50 mg Q6HPRN PRN PO 04/25/25 11:00 04/27/25 21:29 50 MG Albuterol 2.5 mg Q4HPRN PRN NEB 04/26/25 06:30 04/27/25 21:45 2.5 MG Ipratropium [place] 0.5 mg Q4HPRN PRN NEB 04/26/25 06:30 04/27/25 21:45 0.5 MG Spironolactone 25 mg DAILY PO 04/28/25 11:00 04/28/25 11:47 25 MG Atorvastatin Calcium 20 mg DAILY PO 04/29/25 10:00 Empaglifozin 10 mg DAILY PO 04/29/25 10:00 Sacubitril/ Valsartan 1 tab BID PO 04/28/25 22:00 objective GENERAL: Alert and oriented x 3. No acute distress. EYES: PERRL, EOMI. Anicteric. HENT: Moist mucous membranes. LUNGS: Clear to auscultation bilaterally. CARDIOVASCULAR: Regular rate and rhythm. ABDOMEN: Soft, nontender and nondistended. EXTREMITIES: 3+ BLE edema. NEUROLOGIC: No focal neurological deficits. SKIN: Warm, dry. laboratory and microbiology Laboratory Tests 04/28/25 05:11 Test 04/28/25 05:11 Range/Units Serum Glucose 83 74-106 mg/dL Problem List CHF exacerbation. Acute on chronic respiratory failure. Morbid obesity. Hematuria. CKD. Assessment/Plan Continued all current supportive medical care. Diuretics with Lasix. IV Hydralazine for SBP > 160. Morphine for pain management. Nitro SL. Entresto. Additional plan as per the hospital course. Dietary Evaluation Review Comments: 1. CCHO 75gm + cardiac diet 2. Refer to CDE on DC 3. Continue current plan of care Expected Outcomes/Goals: To meet >75% estimated needs Fu 3-5 days Plan discussed with: Patient EDILMA PATRICIO MD Apr 28, 2025 21:08
[2025-04-28] MEDS: SACUBITRIL-VALSARTAN 24mg/26mg TAB PO SCH (22:56)
[2025-04-29] VITALS (11 sets, daily range): BP systolic 129–175; BP diastolic 67–90; PULSE 72–81; RESP 18–20; TEMP 36.7; O2SAT 93–100
[2025-04-29 06:28] LABS: Basophils # (auto) 0 10 ^3/uL (0-0.2); Eosinophils # (auto) 0.2 10 ^3/uL (0-0.8); Neutrophils # (auto) 2.7 10 ^3/uL (1.6-8.6); Nucleated Red Blood Cells % 0.3 %; White Blood Cell 4.8 10^3/uL (4.4-10.8)
[2025-04-29 06:32] LABS: Basophils % (auto) 0.8 % (0.0-2.0); Eosinophils % (auto) 4.4 % (0.0-7.0); Hematocrit 36.8 % (36.0-46.0); Hemoglobin 11.8 g/dL (12.2-16.2); Lymphocytes # (auto) 1.2 10 ^3/uL (0.4-5.4); Lymphocytes % (auto) 24.6 % (10.0-50.0); Mean Corpuscular Hemoglobin 26.2 pg (28.0-32.0); Mean Corpuscular Volume 81.9 fL (80.0-100.0); Monocytes # (auto) 0.6 10 ^3/uL (0-1.3); Monocytes % (auto) 13.4 % (0.0-12.0); Neutrophils % (auto) 56.8 % (37.0-80.0); Platelet Count (auto) 148 10^3/uL (140-450); Red Cell Distribution Width 18.4 % (11.8-14.3)
[2025-04-29] MEDS: ATORVASTATIN 20 MG TAB PO SCH (08:55)
[2025-04-29] MEDS: EMPAGLIFLOZIN 10 MG TAB PO SCH (08:55)
[2025-04-29 10:29] LABS: Chloride 104 mmol/L (98-107); Potassium 3.6 mmol/L (3.5-5.1); Sodium 145 mmol/L (136-145)
[2025-04-29 10:30] LABS: Anion Gap 7 (5-15); Calcium 10.3 mg/dL (8.7-10.4)
[2025-04-29 10:35] LABS: BUN/Creatinine Ratio 10.7 (10.0-20.0); Blood Urea Nitrogen 13 mg/dL (9-23); Glucose 94 mg/dL (74-106)
[2025-04-29 10:38] LABS: Carbon Dioxide 34 mmol/L (20-31)
--- NOTE | 2025-04-29 13:38 | DVHDS2 ---
Discharge Summary Date of Admission April 25, 2025 at 10:42 Date of Discharge: April 25, 2025 Labs/Diagnostic Data: Laboratory Results Test 04/29/25 11:31 04/29/25 05:41 04/26/25 05:17 04/26/25 04:15 POC Glucose 126 mg/dl (70-106) White Blood Count 4.8 10^3/uL (4.4-10.8) Red Blood Count 4.50 10^6/uL (4.0-5.20) Hemoglobin 11.8 g/dL (12.2-16.2) Hematocrit 36.8 % (36.0-46.0) Mean Corpuscular Volume 81.9 fL (80.0-100.0) Mean Corpuscular Hemoglobin 26.2 pg (28.0-32.0) Mean Corpuscular Hemoglobin Concent 32.0 g/dL (32.0-36.0) Red Cell Distribution Width 18.4 % (11.8-14.3) Platelet Count 148 10^3/uL (140-450) Mean Platelet Volume 10.0 fL (6.9-10.8) Neutrophils (%) (Auto) 56.8 % (37.0-80.0) Lymphocytes (%) (Auto) 24.6 % (10.0-50.0) Monocytes (%) (Auto) 13.4 % (0.0-12.0) Eosinophils (%) (Auto) 4.4 % (0.0-7.0) Basophils (%) (Auto) 0.8 % (0.0-2.0) Neutrophils # (Auto) 2.7 10 ^3/uL (1.6-8.6) Lymphocytes # (Auto) 1.2 10 ^3/uL (0.4-5.4) Monocytes # (Auto) 0.6 10 ^3/uL (0-1.3) Eosinophils # (Auto) 0.2 10 ^3/uL (0-0.8) Basophils # (Auto) 0 10 ^3/uL (0-0.2) Nucleated Red Blood Cells 0.3 % Sodium Level 145 mmol/L (136-145) Potassium Level 3.6 mmol/L (3.5-5.1) Chloride Level 104 mmol/L (98-107) Carbon Dioxide Level 34 mmol/L (20-31) Anion Gap 7 (5-15) Blood Urea Nitrogen 13 mg/dL (9-23) Creatinine 1.22 mg/dL (0.550-1.02) Glomerular Filtration Rate Calc 48 mL/min (>90) BUN/Creatinine Ratio 10.7 (10.0-20.0) Serum Glucose 94 mg/dL (74-106) Calcium Level 10.3 mg/dL (8.7-10.4) Total Bilirubin 1.1 mg/dL (0.2-1.0) Aspartate Amino Transferase (AST) 23 U/L (13-40) Alanine Aminotransferase (ALT) 14 U/L (7-40) Alkaline Phosphatase 109 U/L (46-116) Total Protein 7.0 g/dL (5.7-8.2) Albumin 4.3 g/dL (3.2-4.8) Urine Color Colorless (Yellow) Urine Clarity Clear (Clear) Urine pH 5.5 (5.0-9.0) Urine Specific [place] 1.007 (1.001-1.035) Urine Protein 1+ (Negative) Urine Ketones Negative (Negative) Urine Blood 3+ /uL (Negative) Urine Nitrite Negative (Negative) Urine Bilirubin Negative (Negative) Urine Urobilinogen Normal mg/dL (Negative) Urine Leukocyte Esterase Trace /uL (Negative) Urine RBC 579 /hpf (0 - 4) Urine Microscopic WBC 14 /HPF (0-5) Urine Squamous Epithelial Cells None seen /hpf (<5) Urine Bacteria None seen /hpf (None Seen) Urine Mucus Few (None Seen) Urine Glucose 3+ mg/dL (Normal) Test 04/24/25 22:28 04/24/25 19:36 Troponin I High Sensitivity 25 ng/L (</=34) B-Type Natriuretic Peptide 1861.67 pg/mL (0-100) Other Laboratory Tests 04/29/25 05:41 Brief Hx & Hospital Course: Patient is a 69-year-old female past medical history HFrEF, morbid obesity, AICD, CKD, chronic respiratory failure on 2 L, who presents with worsening shortness of breath and lower extremity edema. Patient notes she has been compliant with her Lasix and fluid restriction. Patient was admitted and treated for CHF exacerbation. TTE was done which showed LVEF of 25% consistent with end-stage heart failure. Patient was diuresed with Lasix 40 mg IV twice daily. Aldactone was reinitiated as well. Patient had good urinary output with improvement in lower extremity edema. Patient's renal function was noted to be stable throughout her hospitalization. BUN/creatinine on admission was 17/1.49 with GFR of 38. Prior to discharge BUN/creatinine was noted to be 34/1.22. Patient was to be discharged on Lasix 40 mg p.o. twice daily as previously prescribed and continue taking Aldactone 12.5 mg p.o. daily. Jardiance, statin, Entresto continued. A Of note, patient was also noted to have hematuria during her hospitalization. This resolved after 1 day. It is unclear if this was secondary to traumatic Nova placement. Urology was consulted. CT abdomen pelvis without contrast was done which just showed uterine fibroids. Patient is to have outpatient cystoscopy arranged with urology. Patient is follow-up with cardiology. Patient is continue with fluid restriction and salt restriction. Patient discharged in stable condition. Patient in agreement with plan. [facility] case management arrange follow-up appointments. Condition at Discharge: Good Final Diagnosis/Problems List CHF Exacerbation Secondary Diagnosis: End Stage CHF, Reduced Systolic EF (LVEF 25%) HAYDE on CKD Chronic Respiratory Failure Morbid Obesity with Hypertension Discharge Disposition: Home Discharge Instruct/Medications Diet: Cardiac 2g Na,low cholest Activity: No Restrictions, As Tolerated Follow Up/Referral: Follow up with cardiology. Follow up with urology for cystoscopy. Medications: Continue lasix, aldactone and previously prescribed cardiac meds. Discharge Statement: "Patient was advised to return to the ER or call 911 if any headaches, dizziness, shortness of breath, chest pain, abdominal pain, bleeding, fevers, or worsening of medical condition. Patient was counseled about treatment plan, medications, possible side effects, patientverbalized understanding. All questions were answered to the best of my ability. This discharge took greater then 30 minutes in planning, reviewing documentation, counseling the patient, and discussing with other team members." ASSESSMENT ASSESSMENT Assessment CHF Exacerbation MAISHA GLASER DO Apr 29, 2025 13:38
[2025-04-29] MEDS ORDERED: LACTULOSE 20Gm/30ML SOLN PO ONE (17:00)
--- NOTE | 2025-04-29 23:16 | DVHPN2 ---
Progress Note - Dictate Date Seen: Apr 29, 2025 Medical Necessity Reason Pt with a Central, PICC or Fol: No The following are medically ne: Nova Catheter Subjective Patient was seen and evaluated in follow up. Patient has no new complaints at this time. Patient denies any cardiac symptoms. Patient is cardiac stable for discharge. Telemetry reviewed. vital signs Vital Sign Date Time Temp Pulse Resp B/P (MAP) Pulse Ox O2 Delivery O2 Flow Rate FiO2 04/29/25 17:00 98.1 80 18 129/90 (103) 96 98.1 04/29/25 10:00 Nasal Cannula 2.0 04/29/25 10:00 28 Total Intake and Output 04/28/25 04/28/25 04/29/25 15:00 23:00 07:00 Intake Total 440 ml 300 ml Output Total 800 ml 1400 ml Balance -360 ml -1100 ml medications Current Medications Medications Dose Ordered Sig/Sohail Route Start Time Stop Time Status Last Admin Dose Admin Nitroglycerin 0.4 mg Q5MINP PRN SL 04/25/25 10:45 Morphine Sulfate 2 mg Q30M PRN IV 04/25/25 10:45 Furosemide 40 mg Q8HR IV 04/25/25 14:00 04/29/25 13:06 40 MG Diagnostic Test (Pha) 1 strip ACHS 04/25/25 11:30 04/29/25 17:26 1 STRIP Insulin Human Regular HS SC 04/25/25 22:00 Insulin Human Regular AC SC 04/25/25 11:30 Dextrose 50 ml UD PRN IV 04/25/25 11:00 Hydralazine HCl 50 mg Q6HPRN PRN PO 04/25/25 11:00 04/29/25 08:55 50 MG Albuterol 2.5 mg Q4HPRN PRN NEB 04/26/25 06:30 04/29/25 00:10 2.5 MG Ipratropium [place] 0.5 mg Q4HPRN PRN NEB 04/26/25 06:30 04/29/25 00:10 0.5 MG Spironolactone 25 mg DAILY PO 04/28/25 11:00 04/29/25 08:54 25 MG Atorvastatin Calcium 20 mg DAILY PO 04/29/25 10:00 04/29/25 08:55 20 MG Empaglifozin 10 mg DAILY PO 04/29/25 10:00 04/29/25 08:55 10 MG Sacubitril/ Valsartan 1 tab BID PO 04/28/25 22:00 04/29/25 08:54 1 TAB objective GENERAL: Alert and oriented x 3. No acute distress. EYES: PERRL, EOMI. Anicteric. HENT: Moist mucous membranes. LUNGS: Clear to auscultation bilaterally. CARDIOVASCULAR: Regular rate and rhythm. ABDOMEN: Soft, nontender and nondistended. EXTREMITIES: 3+ BLE edema. NEUROLOGIC: No focal neurological deficits. SKIN: Warm, dry. laboratory and microbiology Laboratory Tests 04/29/25 05:41 Test 04/29/25 05:41 Range/Units Serum Glucose 94 74-106 mg/dL Problem List CHF exacerbation. Acute on chronic respiratory failure. Morbid obesity. Hematuria. CKD. Assessment/Plan Continued all current supportive medical care. Diuretics with Lasix. IV Hydralazine for SBP > 160. Morphine for pain management. Nitro SL. Entresto. Additional plan as per the hospital course. Dietary Evaluation Review Comments: 1. CCHO 75gm + cardiac diet 2. Refer to CDE on DC 3. Continue current plan of care Expected Outcomes/Goals: To meet >75% estimated needs Fu 3-5 days Plan discussed with: Patient EDILMA PATRICIO MD Apr 29, 2025 23:16
--- NOTE | 2025-05-01 06:58 | ECG ---
[facility] Test Date: 2025-04-24 Test Time: 20:32:21 Pat Name: EVE STEWART Department: ER Room: [facility]9T B Gender: F Can Feeder: DARYL : 1955 Requested By: TRISH ELAM Order Number: [id number] Reading MD: Tan Lezama Measurements Intervals [place] Rate: 71 P: 51 ND: 226 QRS: 245 QRSD: 164 T: 87 QT: 435 QTc: 473 Interpretive Statements Sinus rhythm Multiform ventricular premature complexes Borderline prolonged ND interval Nonspecific IVCD with LAD Electronically Signed On 05-01-2025 9:32:03 PDT by Tan Lezama Please click the below link to view image of tracing.
== END 2025-04-29 18:55 | disposition home or self-care (01) | DRG 291 ==
LOC: ER 19:12 → OVERFLOW 04-25 10:42 → WEST WING 04-25 15:59 → OVERFLOW 04-25 15:59 → WEST WING 04-25 21:42 → TELE-WESTW 04-26 11:12
PROVIDERS: ADMIT Internal Medicine; ATTEND Internal Medicine
DX: I13.0 Hypertensive heart and chronic kidney disease with heart failure and stage 1 through stage 4 chronic kidney disease, or unspecified chronic kidney disease (principal); I50.23 Acute on chronic systolic (congestive) heart failure; N17.9 Acute kidney failure, unspecified; J96.10 Chronic respiratory failure, unspecified whether with hypoxia or hypercapnia; N18.9 Chronic kidney disease, unspecified; R31.9 Hematuria, unspecified; E66.01 Morbid (severe) obesity due to excess calories; I25.10 Atherosclerotic heart disease of native coronary artery without angina pectoris; T83.098A Other mechanical complication of other urinary catheter, initial encounter; Y83.8 Other surgical procedures as the cause of abnormal reaction of the patient, or of later complication, without mention of misadventure at the time of the procedure; Y92.238 Other place in hospital as the place of occurrence of the external cause; D25.9 Leiomyoma of uterus, unspecified; E11.22 Type 2 diabetes mellitus with diabetic chronic kidney disease; Z82.49 Family history of ischemic heart disease and other diseases of the circulatory system; Z79.84 Long term (current) use of oral hypoglycemic drugs; Z79.899 Other long term (current) drug therapy; Z74.01 Bed confinement status; I50.84 End stage heart failure
CPT/HCPCS: 36415; 71045; 74176; 80048; 80053; 81001; 82962; 83880; 84484; 85025; 93005; 93306; 94640; 97110; 97116; 97163; 97530; 99291; G0378